=== PATIENT | male | born 1990 | race African-American/Black ===

== ENCOUNTER 2022-03-08 23:19 | Inpatient (IN) | payer MEDICAID, SELFPAY ==
--- NOTE | ~2022-03-08 | XR_ITS ---
EXAMINATION: XR CHEST CLINICAL INFORMATION: Chest pain COMPARISON: 05/30/2020 TECHNIQUE: Frontal view of the chest was obtained. FINDINGS: No significant abnormality is noted involving the heart, lungs, mediastinum, bony thorax or soft tissues. XR/XR chest 1V IMPRESSION: Unremarkable examination.
[2022-03-08 23:34] VITALS: BP 118/74; PULSE 108; RESP 20; TEMP 36.7; O2SAT 98; BMI 64.3
--- NOTE | 2022-03-09 00:05 | ECG_ITS ---
Test Reason : CHEST PAIN Blood Pressure : / mmHG Vent. Rate : 093 BPM Atrial Rate : 093 BPM P-R Int : 146 ms QRS Dur : 088 ms QT Int : 382 ms P-R-T Axes : 049 015 053 degrees QTc Int : 474 ms Normal sinus rhythm Normal ECG When compared with ECG of 30-MAY-2020 14:28, No significant change was found Referred By: Janelle Bender Electronically Signed By:GERSON GEORGE MD
--- NOTE | 2022-03-09 00:06 | ED.PSYCH ---
HPI - Psych General Chief Complaint: Psychiatric Symptoms Stated Complaint: SI Time Seen by Provider: 03/09/22 00:04 Source: patient Mode of arrival: ambulatory History of Present Illness HPI Narrative: 31-year-old male who presents with history of polysubstance use, schizophrenia (not currently on medication), cardiac stents who states that he has had increased voices which are telling him to kill himself by overdosing on drugs. Patient states he has drank alcohol today as well as taking heroin and cocaine. Patient states he is depressed and has recently lost a close friend. He otherwise denies any fevers, chills but states he is having chest pain that is squeezing in nature, nonradiating and feels short of breath. Related Data Allergies Allergy/AdvReac Type Severity Reaction Status Date / Time No Known Allergies Allergy Unknown UNKNOWN Unverified 06/25/20 19:23 [NO KNOWN ALLERGIES] Review of Systems Review of Systems: Pertinent positives and negatives as stated in HPI 10 point review of systems is otherwise negative. [facility], [facility] Past Medical History Source: nursing notes reviewed Social History Social History Advance Directives: No Physical Exam Vital Signs: Vital Signs: Last Vital Signs Temp 98.5 F 03/09/22 00:10 Pulse 99 03/09/22 00:10 Resp 18 03/09/22 01:46 BP 100/62 03/09/22 00:10 Pulse Ox 95 03/09/22 00:10 BMI result Body Mass Index 64.3 VITAL SIGNS: Reviewed. GENERAL: Well developed, well nourished, in no acute distress. HEAD: Normocephalic/atraumatic EYES: PERRLA, EOMI EARS: Ext canals without abnormality OROPHARYNX: no oral lesions noted, posterior pharynx clear LUNGS: Normal breath sounds. No adventitious sounds or accessory muscle use. SpO2<98> CARDIOVASCULAR: Regular rate and rhythm without noted murmurs, no JVD or lower extremity edema. ABDOMEN: Soft, non-tender, non-distended with bowel sounds. MUSCULOSKELETAL: No tenderness, deformities, or effusions noted on gross inspection. EXTREMITIES: No cyanosis, clubbing or edema. SKIN: Inspection of the skin reveals no rashes NEUROLOGIC: Alert and oriented x 4. Strength and sensation to light touch were grossly intact x 4. PSYCH: Depressed affect, logical thought process Course Course Course Narrative: 31-year-old male with history and clinical presentation consistent with drug related symptoms, but will proceed with workup to rule out cardiopulmonary etiologies and place him on a 1-1 for suicidal ideation and placed a crisis team consult. Review of all investigations consistent with rhabdo mild lysis as well as CAYETANO. Patient receiving 2 L of IV fluids, initial troponin was detectable without acute changes on EKG, 2nd troponin is pending. I discussed this case with inpatient hospitalist who accepts admission. MDM - Psych Lab Data Result diagrams: 03/09/22 00:35 03/09/22 00:35 Labs: Lab Results 03/09/22 03/09/22 03/09/22 Range/Units 00:35 00:35 00:35 WBC 14.3 H (4.8-10.8) X10*3/uL RBC 5.66 (4.60-5.80) X10*6/uL Hgb 15.0 (14.0-18.0) g/dl Hct 46.2 (42.0-52.0) % MCV 81.6 (80.0-98.0) fL MCH 26.5 L (27.0-33.0) pg MCHC 32.5 (31.0-36.0) g/dl RDW 14.7 (11.0-16.0) % Plt Count 245 (160-400) X10*3/uL MPV 10.0 (9.4-12.4) fL Immature Gran % (Auto) 0.4 (0.0-0.4) % Neut % (Auto) 65.8 (45-73) % Lymph % (Auto) 26.0 (20-40) % [place] % (Auto) 7.5 (2-11) % Eos % (Auto) 0.1 (0-4) % Baso % (Auto) 0.2 (0-2) % Lymph # (Auto) 3.7 (1.2-4.9) X10*3/uL [place] # (Auto) 1.1 (0.1-1.2) X10*3/uL Eos # (Auto) 0.0 (0.0-0.4) X10*3/uL Baso # (Auto) 0.0 (0.0-0.2) X10*3/uL Abs Immat Gran (auto) 0.06 H (0.00-0.03) X10*3/uL Absolute Neuts (auto) 9.4 H (2.0-8.3) x10*3/uL Absolute Nucleated RBC 0.000 (0.0-0.012) X10*3/uL Nucleated RBC % (auto) 0.0 (0.0-0.2) /100WBC Sodium 135 (135-145) mmol/L Potassium 4.5 (3.3-5.1) mmol/L Chloride 96 (96-108) mmol/L Carbon Dioxide 22 (22-29) mmol/L Anion Gap 22 H (12-20) BUN 34 H (9-16) mg/dL Creatinine 1.87 H (0.5-1.4) mg/dL Estim Creat Clear Calc 82.2 Estimated GFR 42 Random Glucose 102 (60-115) mg/dL Calcium 9.9 (8.4-10.2) mg/dL Total Bilirubin 0.7 (0.0-1.0) mg/dL AST 104 H (5-37) U/L ALT 230 H (0-40) U/L Alkaline Phosphatase 91 (39-117) U/L Total Creatine Kinase 2007 H (38-174) U/L Troponin I High Sens 18.1 (<3.5-35.0) ng/L Total Protein 9.4 H (6.5-8.0) g/dL Albumin 5.2 H (3.5-5.0) g/dL Lipase < 4 L (8-78) U/L Ethyl Alcohol mg/dL COVID-19 (NAKUL) (Negative) COVID-19 Clin Com 03/09/22 03/09/22 Range/Units 00:35 00:35 WBC (4.8-10.8) X10*3/uL RBC (4.60-5.80) X10*6/uL Hgb (14.0-18.0) g/dl Hct (42.0-52.0) % MCV (80.0-98.0) fL MCH (27.0-33.0) pg MCHC (31.0-36.0) g/dl RDW (11.0-16.0) % Plt Count (160-400) X10*3/uL MPV (9.4-12.4) fL Immature Gran % (Auto) (0.0-0.4) % Neut % (Auto) (45-73) % Lymph % (Auto) (20-40) % [place] % (Auto) (2-11) % Eos % (Auto) (0-4) % Baso % (Auto) (0-2) % Lymph # (Auto) (1.2-4.9) X10*3/uL [place] # (Auto) (0.1-1.2) X10*3/uL Eos # (Auto) (0.0-0.4) X10*3/uL Baso # (Auto) (0.0-0.2) X10*3/uL Abs Immat Gran (auto) (0.00-0.03) X10*3/uL Absolute Neuts (auto) (2.0-8.3) x10*3/uL Absolute Nucleated RBC (0.0-0.012) X10*3/uL Nucleated RBC % (auto) (0.0-0.2) /100WBC Sodium (135-145) mmol/L Potassium (3.3-5.1) mmol/L Chloride (96-108) mmol/L Carbon Dioxide (22-29) mmol/L Anion Gap (12-20) BUN (9-16) mg/dL Creatinine (0.5-1.4) mg/dL Estim Creat Clear Calc Estimated GFR Random Glucose (60-115) mg/dL Calcium (8.4-10.2) mg/dL Total Bilirubin (0.0-1.0) mg/dL AST (5-37) U/L ALT (0-40) U/L Alkaline Phosphatase (39-117) U/L Total Creatine Kinase (38-174) U/L Troponin I High Sens (<3.5-35.0) ng/L Total Protein (6.5-8.0) g/dL Albumin (3.5-5.0) g/dL Lipase (8-78) U/L Ethyl Alcohol < 10 mg/dL COVID-19 (NAKUL) Negative (Negative) COVID-19 Clin Com See Note ECG Data Attestation: I personally reviewed and interpreted this ECG as follows: Prior ECG tracings: not available for review Interpretation: NSR, HR-93, no STEMI, OH/QRS/QTC are within normal limits. Discharge Plan Discharge Clinical Impression: Suicidal ideation, Bipolar disorder, Rhabdomyolysis, CAYETANO (acute kidney injury) Patient Disposition: Admitted As Inpatient
[2022-03-09 00:10] VITALS: BP 100/62; PULSE 99; RESP 18; TEMP 36.9; O2SAT 95
[2022-03-09 00:40] LABS: MANUAL DIFF FLAG NO
[2022-03-09 00:41] LABS: Basophils Percent Auto 0.2 % (0-2); Eosinophils Percent Auto 0.1 % (0-4); Hematocrit 46.2 % (42.0-52.0); Imm Gran Abs Auto 0.06 X10*3/uL (0.00-0.03); Imm Gran Pct Auto 0.4 % (0.0-0.4); Lymphocytes Absolute Auto 3.7 X10*3/uL (1.2-4.9); Mean Corpuscular HGB Conc 32.5 g/dl (31.0-36.0); Mean Corpuscular Hemoglobin 26.5 pg (27.0-33.0); Mean Corpuscular Volume 81.6 fL (80.0-98.0); Monocytes Absolute Auto 1.1 X10*3/uL (0.1-1.2); Monocytes Percent Auto 7.5 % (2-11); Neutrophils Absolute Auto 9.4 x10*3/uL (2.0-8.3); Neutrophils Percent Auto 65.8 % (45-73); Platelet Count 245 X10*3/uL (160-400); Red Blood Count 5.66 X10*6/uL (4.60-5.80); Red Cell Distribution Width 14.7 % (11.0-16.0); White Blood Count 14.3 X10*3/uL (4.8-10.8)
[2022-03-09 00:56] LABS: Ethanol < 10 mg/dL
[2022-03-09 00:59] LABS: COVID-19 Test Negative (Negative)
[2022-03-09 01:01] LABS: Alanine Aminotransferase 230 U/L (0-40); Albumin Level 5.2 g/dL (3.5-5.0); Alkaline Phosphatase 91 U/L (39-117); Anion Gap 22 (12-20); Aspartate Amino Transferase 104 U/L (5-37); Bilirubin Total 0.7 mg/dL (0.0-1.0); Blood Urea Nitrogen 34 mg/dL (9-16); Calcium 9.9 mg/dL (8.4-10.2); Carbon Dioxide 22 mmol/L (22-29); Chloride 96 mmol/L (96-108); Creatinine Clr Calc Pharmacy 82.2; Estimated Glomerular Filt Rate 42; Glucose Random 102 mg/dL (60-115); Lipase < 4 U/L (8-78); Potassium 4.5 mmol/L (3.3-5.1); Sodium 135 mmol/L (135-145); Total Protein 9.4 g/dL (6.5-8.0)
[2022-03-09 01:06] LABS: Troponin-I High Sensitivity 18.1 ng/L (<3.5-35.0)
[2022-03-09 01:46] VITALS: RESP 18
[2022-03-09] MEDS: 0.9 % Sodium Chloride 2,000 ML 999 ML IV (01:47)
[2022-03-09 03:20] VITALS: BP 111/68; PULSE 86; RESP 18; O2SAT 96
[2022-03-09 03:29] LABS: Troponin-I High Sensitivity 13.1 ng/L (<3.5-35.0)
--- NOTE | 2022-03-09 03:51 | P.HPHOSP_ITS ---
History of Present Illness Date of Service: 03/09/22 Chief Complaint: Suicidal ideation 31-year-old male with past medical history of polysubstance abuse, schizophrenia, Bipolar disorder history of cardiac stents? Who presents to the hospital with complaints of suicidal ideation. Patient reported increased emiliana tory hallucinations were telling him to kill himself by overdosing on drugs. He tried to harm himself by taking increased doses of heroin, cocaine, as well as alcohol. He is depressed and has recently lost a close friend. Patient reports abdominal discomfort which is generalized, he denies any chest pain, no shortness of breath, no diarrhea constipation, no nausea or vomiting, no urinary symptoms and no lower extremity edema. Patient reports no recent injury, no increased lethargy. Reports that he has not had any falls and but has not been eating or drinking well. On arrival to the ED patient hemodynamically stable with no significant abnormal vitals Labs are significant for WBC count of 13.7, hemoglobin of 13.8, AST of 104, ALT of 230, BUN of 34, creatinine of 1.37, CPK of 2007 Chest x-ray shows unremarkable except Patient will be admitted for IV hydration in setting of rhabdomyolysis and CAYETANO and with consult to Psychiatry for his suicidal ideation Review of Systems Review of Systems: Yes all other systems are reviewed and are negative [facility] Medical History (Updated 03/09/22 @ 06:59 by Nick Franklin MD) Bipolar disorder Schizophrenia Family History (Updated 03/09/22 @ 06:59 by Nick Franklin MD) Other No family history of coronary artery disease Surgical History (Updated 03/09/22 @ 06:59 by Nick Franklin MD) No pertinent past surgical history Social History (Updated 03/09/22 @ 07:00 by Nick Franklin MD) Alcohol intake: current Patient Tobacco Use Status: Never used Tobacco Use of substances other than those prescribed or required for medical reasons: Yes Substance Use Type: Crack/Cocaine and Heroin Advance Directives: No Meds Allergies Allergy/AdvReac Type Severity Reaction Status Date / Time No Known Allergies Allergy Unknown UNKNOWN Unverified 06/25/20 19:23 [NO KNOWN ALLERGIES] Physical Exam Vital Signs and Narrative: Vital Signs: Last Vital Signs Temp 98.5 F 03/09/22 00:10 Pulse 86 03/09/22 03:20 Resp 18 03/09/22 03:20 BP 111/68 03/09/22 03:20 Pulse Ox 96 03/09/22 03:20 BMI result Body Mass Index 64.3 Const: Other: Flat affect General: cooperative and no acute distress Orientation/consciousness: patient oriented x3 Eyes: General: appearance normal, both eyes and all related structures Pupils: Equal, round and reactive pupils present Resp: Effort & Inspection: normal respiratory effort Auscultation: clear to auscultation bilaterally Cardio: Rate: regular rate Rhythm: regular rhythm GI: Palpation (GI): Soft to palpation Auscultation: normal bowel sounds Skin: General skin exam: no rashes or lesions noted Neuro: General: patient oriented x3 Cranial nerves: Yes Equal, round and re active pupils present Cognition (Neuro): normal cognition Extrem: General: Yes normal to inspection and Yes no pedal edema Psych: Other: Flat affect Results Labs CBC and Chem 7: 03/09/22 04:09 03/09/22 04:09 Labs: Laboratory Results - last 24 hr 03/09/22 03/09/22 03/09/22 00:35 00:35 00:35 MCV 81.6 MCH 26.5 L MCHC 32.5 RDW 14.7 Plt Count 245 MPV 10.0 Immature Gran % (Auto) 0.4 Neut % (Auto) 65.8 Lymph % (Auto) 26.0 [place] % (Auto) 7.5 Eos % (Auto) 0.1 Baso % (Auto) 0.2 Lymph # (Auto) 3.7 [place] # (Auto) 1.1 Eos # (Auto) 0.0 Baso # (Auto) 0.0 Abs Immat Gran (auto) 0.06 H Absolute Neuts (auto) 9.4 H Absolute Nucleated RBC 0.000 Nucleated RBC % (auto) 0.0 Anion Gap 22 H Estim Creat Clear Calc 82.2 Estimated GFR 42 Random Glucose 102 Calcium 9.9 Total Bilirubin 0.7 AST 104 H ALT 230 H Alkaline Phosphatase 91 Total Creatine Kinase 2007 H Troponin I High Sens 18.1 Total Protein 9.4 H Albumin 5.2 H Lipase < 4 L Ethyl Alcohol COVID-19 ([facility]) COVID-19 Clin Com 03/09/22 03/09/22 03/09/22 00:35 00:35 03:01 MCV MCH MCHC RDW Plt Count MPV Immature Gran % (Auto) Neut % (Auto) Lymph % (Auto) [place] % (Auto) Eos % (Auto) Baso % (Auto) Lymph # (Auto) [place] # (Auto) Eos # (Auto) Baso # (Auto) Abs Immat Gran (auto) Absolute Neuts (auto) Absolute Nucleated RBC Nucleated RBC % (auto) Anion Gap Estim Creat Clear Calc Estimated GFR Random Glucose Calcium Total Bilirubin AST ALT Alkaline Phosphatase Total Creatine Kinase Troponin I High Sens 13.1 Total Protein Albumin Lipase Ethyl Alcohol < 10 COVID-19 ([facility]) Negative COVID-19 Clin Com See Note Imaging Radiologist's Impressions: Impressions Chest X-Ray 03/09/22 00:24 IMPRESSION: Unremarkable examination. Assessment and Plan (1) Suicidal ideation: Status: Acute (2) Rhabdomyolysis: Status: Acute (3) CAYETANO (acute kidney injury): Status: Acute Plan 31-year-old male with past medical history is of schizophrenia as well as bipolar disorder presents to the hospital with complaints of suicidal ideation found to have Cayetano and rhabdomyolysis # suicidal ideation - tried to overdose on heroin, cocaine, alcohol - will consult psychiatry - sitter at bedside # rhabdomyolysis - denies any recent trauma, no prolonged inactivity - will treat with IV fluid - follow CPK # CAYETANO - likely secondary to dehydration as well as above - will treat with IV fluid - follow BMP DVT prophylaxis: Lovenox Quality Stroke Does the patient have a stroke diagnosis?: No VTE Prior VTE?: No VTE Risk Level:: Medical - moderate - high VTE Device Contraindication: Treatment Not Indicated VTE Drug Contraindication: N/A - Med Ordered
[2022-03-09 04:55] LABS: MANUAL DIFF FLAG NO
[2022-03-09 04:59] LABS: Basophils Percent Auto 0.2 % (0-2); Eosinophils Percent Auto 0.2 % (0-4); Hematocrit 42.6 % (42.0-52.0); Hemoglobin 13.8 g/dl (14.0-18.0); Imm Gran Abs Auto 0.07 X10*3/uL (0.00-0.03); Imm Gran Pct Auto 0.5 % (0.0-0.4); Lymphocytes Absolute Auto 4.5 X10*3/uL (1.2-4.9); Lymphocytes Percent Auto 32.7 % (20-40); Mean Corpuscular HGB Conc 32.4 g/dl (31.0-36.0); Mean Corpuscular Hemoglobin 26.3 pg (27.0-33.0); Mean Corpuscular Volume 81.1 fL (80.0-98.0); Mean Platelet Volume 10.1 fL (9.4-12.4); Monocytes Absolute Auto 1.2 X10*3/uL (0.1-1.2); Monocytes Percent Auto 8.8 % (2-11); Neutrophils Absolute Auto 7.9 x10*3/uL (2.0-8.3); Neutrophils Percent Auto 57.6 % (45-73); Platelet Count 231 X10*3/uL (160-400); Red Blood Count 5.25 X10*6/uL (4.60-5.80); Red Cell Distribution Width 14.6 % (11.0-16.0); White Blood Count 13.7 X10*3/uL (4.8-10.8)
[2022-03-09 05:24] LABS: Anion Gap 17 (12-20); Blood Urea Nitrogen 34 mg/dL (9-16); Calcium 9.3 mg/dL (8.4-10.2); Carbon Dioxide 25 mmol/L (22-29); Chloride 97 mmol/L (96-108); Creatinine Clr Calc Pharmacy 112.2; Estimated Glomerular Filt Rate 60; Glucose Random 92 mg/dL (60-115); Sodium 135 mmol/L (135-145)
[2022-03-09 05:50] VITALS: BP 115/63; PULSE 83; RESP 16; TEMP 36.4; O2SAT 98
[2022-03-09] MEDS: 0.9 % Sodium Chloride 1,000 ML 100 ML IVCONT ×2 (05:53→17:45)
--- NOTE | 2022-03-09 06:57 | PC.NURSE ---
Report given to ROBERTO Adkins
--- NOTE | 2022-03-09 10:42 | PHA.MEDREC ---
Addendum entered by Rufina Toribio RPh 03/09/22 14:05: Patient question nurse why he did not want get bupropion. Reported taking bupropion 150 mg BID, which is not on medicaiton list from [facility] in [place] but was a previous prescripition filled in Sep 2021. Original Note: Pharmacy Consult ? Medication Reconciliation Pharmacy has completed the medication reconciliation. Patient reports he get all his medications from [facility]. Called [facility] on [facility] in [place] where the medications from claim history are from. They state he get medications from [facility] in [place]. Was able to get medication list from them. Rufina Toribio, PharmD
--- NOTE | 2022-03-09 10:56 | MHC.RECOVRN ---
Met with pt in 6H to discuss methadone dose. Pt reports being at [facility] in [place] and guest dosing at their [facility]. T/w spoke with nursing at [facility], pt last received 90 mg on 03/07. Maru Green APRN, and pharmacy aware.
[2022-03-09] MEDS: methADONE HCl 20 MG/2 ML ORAL.CONC 90 MG PO (11:26)
[2022-03-09 13:15] VITALS: BP 113/56; PULSE 76; RESP 14; TEMP 36.7; O2SAT 96
[2022-03-09] MEDS: Gabapentin 400 MG CAPSULE 800 MG PO ×2 (13:58→21:27)
[2022-03-09] MEDS: Baclofen 10 MG TABLET PO ×2 (13:59→21:26)
[2022-03-09] MEDS: cloNIDine HCL 0.1 MG TABLET PO ×2 (14:00→21:26)
--- NOTE | 2022-03-09 14:40 | PM.EVENT ---
Event Note Date of Service: 03/09/22 Event Note: Patient seen and evaluated Started on his methadone home dose Have a sitter for suicidal ideation Kidney injury seems to be improving Will continue to monitor kidney function by the morning.
--- NOTE | 2022-03-09 14:51 | HO.ADDICT_ITS ---
History of Present Illness Date of Service: 03/09/2022 Chief Complaint: Rhabdo, SI, CAYETANO Reason for Consult: OUD, methadone treatment Requesting physician: Jovan Platt Discussed with referring provider: No Sources of Information: patient interviewed and chart reviewed HPI Narrative: Patient is a 31 year old male currently medically admitted with rhabdo and CAYETANO. Methadone dose verified by RSRN to be 90mg daily with last dose being 03/07/22. Patient seen by this mortgage or loan underwriter in ED while awaiting room assignment. Laying on stretcher, eyes closed, but easily awakened. Reports that withdrawal sx have improved since receiving dose of methadone. Requesting to be allowed to sleep as he is not feeling well. RSRN note reviewed---patient had recently been in [facility] treatment facility and left prior to planned discharge. Full substance use and treatment history unable to be obtained as patient declined to continue interview at this time. Review of Systems Constitutional: Reports as per HPI Diagnostics Vital Signs (24Hr): Vital Signs - 24 hr 03/08/22 23:34 03/09/22 00:10 03/09/22 01:46 Temperature 98.0 F 98.5 F Pulse Rate 108 H 99 Respiratory Rate 20 18 18 Blood Pressure 118/74 100/62 Pulse Oximetry 98 95 03/09/22 03:20 03/09/22 05:50 03/09/22 13:15 Temperature 97.6 F 98.1 F Pulse Rate 86 83 76 Respiratory Rate 18 16 14 Blood Pressure 111/68 115/63 113/56 L Pulse Oximetry 96 98 96 BMI result Body Mass Index 64.3 Labs Results: 03/09/22 04:09 03/09/22 04:09 Labs: Laboratory Results - last 48 hr 03/09/22 03/09/22 03/09/22 00:35 00:35 00:35 WBC 14.3 H RBC 5.66 Hgb 15.0 Hct 46.2 MCV 81.6 MCH 26.5 L MCHC 32.5 RDW 14.7 Plt Count 245 MPV 10.0 Immature Gran % (Auto) 0.4 Neut % (Auto) 65.8 Lymph % (Auto) 26.0 [place] % (Auto) 7.5 Eos % (Auto) 0.1 Baso % (Auto) 0.2 Lymph # (Auto) 3.7 [place] # (Auto) 1.1 Eos # (Auto) 0.0 Baso # (Auto) 0.0 Abs Immat Gran (auto) 0.06 H Absolute Neuts (auto) 9.4 H Absolute Nucleated RBC 0.000 Nucleated RBC % (auto) 0.0 Sodium 135 Potassium 4.5 Chloride 96 Carbon Dioxide 22 Anion Gap 22 H BUN 34 H Creatinine 1.87 H Estim Creat Clear Calc 82.2 Estimated GFR 42 Random Glucose 102 Calcium 9.9 Total Bilirubin 0.7 AST 104 H ALT 230 H Alkaline Phosphatase 91 Total Creatine Kinase 2007 H Troponin I High Sens 18.1 Total Protein 9.4 H Albumin 5.2 H Lipase < 4 L Ethyl Alcohol COVID-19 ([facility]) COVID-19 Clin Com 03/09/22 03/09/22 03/09/22 00:35 00:35 03:01 WBC RBC Hgb Hct MCV MCH MCHC RDW Plt Count MPV Immature Gran % (Auto) Neut % (Auto) Lymph % (Auto) [place] % (Auto) Eos % (Auto) Baso % (Auto) Lymph # (Auto) [place] # (Auto) Eos # (Auto) Baso # (Auto) Abs Immat Gran (auto) Absolute Neuts (auto) Absolute Nucleated RBC Nucleated RBC % (auto) Sodium Potassium Chloride Carbon Dioxide Anion Gap BUN Creatinine Estim Creat Clear Calc Estimated GFR Random Glucose Calcium Total Bilirubin AST ALT Alkaline Phosphatase Total Creatine Kinase Troponin I High Sens 13.1 Total Protein Albumin Lipase Ethyl Alcohol < 10 COVID-19 (NAKUL) Negative COVID-19 Clin Com See Note 03/09/22 03/09/22 04:09 04:09 WBC 13.7 H RBC 5.25 Hgb 13.8 L Hct 42.6 MCV 81.1 MCH 26.3 L MCHC 32.4 RDW 14.6 Plt Count 231 MPV 10.1 Immature Gran % (Auto) 0.5 H Neut % (Auto) 57.6 Lymph % (Auto) 32.7 [place] % (Auto) 8.8 Eos % (Auto) 0.2 Baso % (Auto) 0.2 Lymph # (Auto) 4.5 [place] # (Auto) 1.2 Eos # (Auto) 0.0 Baso # (Auto) 0.0 Abs Immat Gran (auto) 0.07 H Absolute Neuts (auto) 7.9 Absolute Nucleated RBC 0.000 Nucleated RBC % (auto) 0.0 Sodium 135 Potassium 4.0 Chloride 97 Carbon Dioxide 25 Anion Gap 17 BUN 34 H Creatinine 1.37 Estim Creat Clear Calc 112.2 Estimated GFR 60 Random Glucose 92 Calcium 9.3 D Total Bilirubin AST ALT Alkaline Phosphatase Total Creatine Kinase Troponin I High Sens Total Protein Albumin Lipase Ethyl Alcohol COVID-19 (NAKUL) COVID-19 Clin Com Imaging Radiology Impressions: ITS Impressions Chest X-Ray 03/09/22 00:24 IMPRESSION: Unremarkable examination. Mental Status Exam Mental Status Exam Patient Appearance: Appropriate (tired ) Patient Behavior: Appropriate Medications Medications Current Medications Acetaminophen (Acetaminophen 325 Mg Tablet) 650 mg PO Q6H PRN PRN Reason: Pain, Mild (Pain Scale 1-3) Baclofen (Baclofen 10 Mg Tablet) 10 mg PO BID [facility] Last Admin: 03/09/22 13:59 Dose: 10 mg Documented by: Clonidine HCl (Clonidine Hcl 0.1 Mg Tablet) 0.1 mg PO TID [facility]; Protocol Last Admin: 03/09/22 14:00 Dose: 0.1 mg Documented by: Docusate Sodium (Docusate Sodium 100 Mg Capsule) 100 mg PO DAILY PRN PRN Reason: Constipation Enoxaparin Sodium (Enoxaparin Sodium 40 Mg/0.4 Ml Syringe) 40 mg SUBCUT Q24H [facility] Last Admin: 03/09/22 05:53 Dose: Not Given Documented by: Gabapentin (Gabapentin 400 Mg Capsule) 800 mg PO BID [facility] Last Admin: 03/09/22 13:58 Dose: 800 mg Documented by: Sodium Chloride (Ns) 1,000 mls @ 100 mls/hr IVCONT .Q10H [facility] Last Admin: 03/09/22 05:53 Dose: 100 mls/hr Documented by: Methadone HCl (Methadone Hcl 20 Mg/2 Ml Oral.Conc) 90 mg PO DAILY [facility] Last Admin: 03/09/22 11:26 Dose: 90 mg Documented by: Nicotine (Nicotine 14 Mg Patch.Td24) 14 mg TRANSDERMA DAILY [facility] Last Admin: 03/09/22 13:59 Dose: Not Given Documented by: Nicotine Polacrilex (Nicotine Polacrilex 2 Mg Gum) 4 mg BUCCAL Q1H PRN PRN Reason: Nicotine Cravings Ondansetron HCl (Ondansetron Hcl 4 Mg/2 Ml Vial) 4 mg IVPUSH Q8H PRN PRN Reason: Nausea and Vomiting Quetiapine Fumarate (Quetiapine Fumarate 50 Mg Tablet) 50 mg PO DAILY PRN PRN Reason: Anxiety Quetiapine Fumarate (Quetiapine Fumarate 100 Mg Tablet) 100 mg PO BEDTIME MICKI Sodium Chloride (0.9 % Sodium Chloride Flush 3 Ml Syringe) 3 ml IVFLUSH QSHIFT MICKI Last Admin: 03/09/22 08:38 Dose: Not Given Documented by: Allergies Allergies Allergy/AdvReac Type Severity Reaction Status Date / Time No Known Allergies Allergy Unknown UNKNOWN Unverified 06/25/20 19:23 [NO KNOWN ALLERGIES] Assessment & Plan Assessment & Plan (1) Opioid use disorder: Status: Acute Code(s): F11.90 - Opioid use, unspecified, uncomplicated Assessment and Plan: * continue methadone at current dose * will follow up as needed I spent __15____ minutes with the patient and/or on the patient floor today, greater than?50% of which was spent counseling/coordinating care. PMFSH Past Medical History Medical History (Updated 03/09/22 @ 15:30 by Maru Green CNP) Bipolar disorder Schizophrenia Family History Family History (Updated 03/09/22 @ 06:59 by Nick Franklin MD) Other No family history of coronary artery disease Surgical History Surgical History (Updated 03/09/22 @ 06:59 by Nick Franklin MD) No pertinent past surgical history Social History Social History (Updated 03/09/22 @ 07:00 by Nick Franklin MD) Alcohol intake: current Patient Tobacco Use Status: Never used Tobacco Use of substances other than those prescribed or required for medical reasons: Yes Substance Use Type: Crack/Cocaine and Heroin Advance Directives: No
[2022-03-09] MEDS: Acetaminophen 325 MG TABLET 650 MG PO (17:54)
[2022-03-09] MEDS: Docusate Sodium 100 MG CAPSULE PO (17:54)
--- NOTE | 2022-03-09 17:55 | PC.NURSE ---
20G IV placed right AC, pt c/o discomfort w IV in left hand - discontinued. urine sample obtained, pt reports some constipation and generalized/lower back/kidney pain. medicated w PRNs, flds running. pt continues to endorse SI thoughts with a plan. pt on 1:1 observation. pt requesting wellbutrin. provider notified. no new orders at this time.
[2022-03-09 18:24] LABS: Amphetamine Screen Urine Not Detected (Not Detect); Barbiturates, Urine Not Detected (Not Detect); Benzodiazepines Screen Urine Not Detected (Not Detect); Cannabinoid Screen Urine POSITIVE (Not Detect); Cocaine Screen Urine POSITIVE (Not Detect); Fentanyl, urine POSITIVE (Not Detect); Opiate Screen Urine POSITIVE (Not Detect); Phencyclidine Screen Urine Not Detected (Not Detect)
--- NOTE | 2022-03-09 20:32 | MHC.CM.PN ---
CM attempted to meet with admitted patient with bed assignment pending. Pt was sleeping soundly and did not wake to repeated voice attempts. Will attempt when pt awake. CM to follow for d/c needs.
[2022-03-09] MEDS: QUEtiapine Fumarate 100 MG TABLET PO (21:25)
--- NOTE | 2022-03-09 21:29 | PC.NURSE ---
medicated per provider order.
--- NOTE | 2022-03-09 21:44 | PC.NURSE ---
RN-RN report given.
[2022-03-09 22:19] VITALS: BMI 27.6
[2022-03-09 23:55] VITALS: BP 103/53; PULSE 67; RESP 18; TEMP 36.7; O2SAT 97
[2022-03-10] MEDS: 0.9 % Sodium Chloride 1,000 ML 100 ML IVCONT (03:54)
[2022-03-10 04:00] VITALS: BP 92/53; PULSE 78; RESP 18; TEMP 37.2; O2SAT 97
[2022-03-10] MEDS: Enoxaparin Sodium 40 MG/0.4 ML SYRINGE SUBCUT (05:38)
[2022-03-10 06:03] LABS: Hematocrit 35.3 % (42.0-52.0); Hemoglobin 11.2 g/dl (14.0-18.0); Mean Corpuscular HGB Conc 31.7 g/dl (31.0-36.0); Mean Corpuscular Hemoglobin 26.5 pg (27.0-33.0); Mean Corpuscular Volume 83.6 fL (80.0-98.0); Mean Platelet Volume 10.3 fL (9.4-12.4); Platelet Count 196 X10*3/uL (160-400); Red Blood Count 4.22 X10*6/uL (4.60-5.80); White Blood Count 5.8 X10*3/uL (4.8-10.8)
[2022-03-10 07:07] LABS: Anion Gap 9 (12-20); Blood Urea Nitrogen 15 mg/dL (9-16); Calcium 8.6 mg/dL (8.4-10.2); Carbon Dioxide 26 mmol/L (22-29); Chloride 106 mmol/L (96-108); Creatinine Clr Calc Pharmacy 137.4; Estimated Glomerular Filt Rate > 60; Glucose Random 110 mg/dL (60-115); Potassium 4.2 mmol/L (3.3-5.1); Sodium 137 mmol/L (135-145)
[2022-03-10 07:28] VITALS: BP 109/59; PULSE 60; RESP 18; TEMP 37; O2SAT 98
[2022-03-10] MEDS: buPROPion HCl XL 300 MG TAB.ER.24H PO (07:54)
[2022-03-10] MEDS: Gabapentin 400 MG CAPSULE 800 MG PO ×2 (07:54→20:04)
[2022-03-10] MEDS: Baclofen 10 MG TABLET PO ×2 (07:54→20:04)
[2022-03-10] MEDS: cloNIDine HCL 0.1 MG TABLET PO ×3 (07:55→20:04)
[2022-03-10] MEDS: methADONE HCl 20 MG/2 ML ORAL.CONC 90 MG PO (07:55)
--- NOTE | 2022-03-10 08:15 | MHC.CARE ---
VERONICA davis completed. pending eta
--- NOTE | 2022-03-10 09:00 | PM.EVENT ---
Event Note Date of Service: 03/10/22 Event Note: At this time psychiatry will defer to care team. They will notify Psychiatry regarding disposition once [facility] crisis has evaluated him.
[2022-03-10 11:29] VITALS: BP 98/52; PULSE 76; RESP 18; TEMP 37.2; O2SAT 98
--- NOTE | 2022-03-10 12:04 | P.PNIM_ITS ---
Subjective Subjective Date of Service: 03/10/22 Interval History: the patient was seen and evaluated this morning Laying in bed, feels tired overall kidney function improved back to normal baseline Denies any fever, chills or shortness of breath No reported other overnight events. Systemic review: No fever, chills but feels generalized weakness No chest pain, palpitation No shortness of breath or coughing No abdominal pain, nausea or vomiting No urinary symptoms No any rash or wounds Physical Exam Vital Signs: Vital Signs: Last Vital Signs Temp 98.9 F 03/10/22 11:29 Pulse 76 03/10/22 11:29 Resp 18 03/10/22 11:29 BP 98/52 L 03/10/22 11:29 Pulse Ox 98 03/10/22 11:29 BMI result Body Mass Index 27.6 Const: Other: Constitutional : Alert, oriented, not in distress Neck : Normal inspection, Supple Cardiovascular : RRR, no JVP, no lower extremity edema Respiratory : fair bilateral air entry, no crackles, wheezes or rhonchi Gastrointestinal: soft, lax, Normal bowel sounds, Non tender Skin : Warm, Dry Neurological : Alert & oriented x3, No focal deficit , CN 2-12 within normal Objective Data Active Medications Acetaminophen (Acetaminophen 325 Mg Tablet) 650 mg PO Q6H PRN PRN Reason: Pain, Mild (Pain Scale 1-3) Last Admin: 03/09/22 17:54 Dose: 650 mg Documented by: TERESA Baclofen (Baclofen 10 Mg Tablet) 10 mg PO BID [facility] Last Admin: 03/10/22 07:54 Dose: 10 mg Documented by: LUCINA Bupropion HCl (Bupropion Hcl Xl 300 Mg Tab.Er.24h) 300 mg PO DAILY [facility] Last Admin: 03/10/22 07:54 Dose: 300 mg Documented by: LUCINA Clonidine HCl (Clonidine Hcl 0.1 Mg Tablet) 0.1 mg PO TID [facility]; Protocol Last Admin: 03/10/22 07:55 Dose: 0.1 mg Documented by: LUCINA Docusate Sodium (Docusate Sodium 100 Mg Capsule) 100 mg PO DAILY PRN PRN Reason: Constipation Last Admin: 03/09/22 17:54 Dose: 100 mg Documented by: TERESA Enoxaparin Sodium (Enoxaparin Sodium 40 Mg/0.4 Ml Syringe) 40 mg SUBCUT Q24H [facility] Last Admin: 03/10/22 05:38 Dose: 40 mg Documented by: PARESH Gabapentin (Gabapentin 400 Mg Capsule) 800 mg PO BID [facility] Last Admin: 03/10/22 07:54 Dose: 800 mg Documented by: LUCINA Sodium Chloride (Ns) 1,000 mls @ 100 mls/hr IVCONT .Q10H [facility] Last Admin: 03/10/22 03:54 Dose: 100 mls/hr Documented by: PARESH Methadone HCl (Methadone Hcl 20 Mg/2 Ml Oral.Conc) 90 mg PO DAILY [facility] Last Admin: 03/10/22 07:55 Dose: 90 mg Documented by: LUCINA Nicotine (Nicotine 14 Mg Patch.Td24) 14 mg TRANSDERMA DAILY [facility] Last Admin: 03/10/22 08:10 Dose: Not Given Documented by: LUCINA Non-Admin Reason: Patient Refused Nicotine Polacrilex (Nicotine Polacrilex 2 Mg Gum) 4 mg BUCCAL Q1H PRN PRN Reason: Nicotine Cravings Ondansetron HCl (Ondansetron Hcl 4 Mg/2 Ml Vial) 4 mg IVPUSH Q8H PRN PRN Reason: Nausea and Vomiting Quetiapine Fumarate (Quetiapine Fumarate 50 Mg Tablet) 50 mg PO DAILY PRN PRN Reason: Anxiety Quetiapine Fumarate (Quetiapine Fumarate 100 Mg Tablet) 100 mg PO BEDTIME [facility] Last Admin: 03/09/22 21:25 Dose: 100 mg Documented by: TERESA Sodium Chloride (0.9 % Sodium Chloride Flush 3 Ml Syringe) 3 ml IVFLUSH QSHIFT [facility] Last Admin: 03/10/22 07:57 Dose: Not Given Documented by: LUCINA Non-Admin Reason: IV Running Labs CBC & Chem 7: 03/10/22 05:35 03/10/22 05:35 Labs: Laboratory Results - last 24 hr 03/09/22 03/10/22 03/10/22 17:59 05:35 05:35 MCV 83.6 MCH 26.5 L MCHC 31.7 RDW 15.0 Plt Count 196 MPV 10.3 Absolute Nucleated RBC 0.000 Nucleated RBC % (auto) 0.0 Anion Gap 9 L Estim Creat Clear Calc 137.4 Estimated GFR > 60 Random Glucose 110 Calcium 8.6 D Total Creatine Kinase Urine Opiates Screen POSITIVE H Urine Fentanyl Screen POSITIVE H Ur Barbiturates Screen Not Detected Ur Phencyclidine Scrn Not Detected Ur Amphetamines Screen Not Detected U Benzodiazepines Scrn Not Detected Urine Cocaine Screen POSITIVE H U Marijuana (THC) Screen POSITIVE H 03/10/22 05:35 MCV MCH MCHC RDW Plt Count MPV Absolute Nucleated RBC Nucleated RBC % (auto) Anion Gap Estim Creat Clear Calc Estimated GFR Random Glucose Calcium Total Creatine Kinase 947 H D Urine Opiates Screen Urine Fentanyl Screen Ur Barbiturates Screen Ur Phencyclidine Scrn Ur Amphetamines Screen U Benzodiazepines Scrn Urine Cocaine Screen U Marijuana (THC) Screen Assessment and Plan (1) Suicidal ideation: Status: Acute (2) Rhabdomyolysis: Status: Acute (3) CAYETANO (acute kidney injury): Status: Acute Plan 31-year-old male with past medical history is of schizophrenia as well as bipolar disorder presents to the hospital with complaints of suicidal ideation found to have Cayetano and rhabdomyolysis # suicidal ideation tried to overdose on heroin, cocaine, alcohol care team input appreciated, will need admission to inpatient psych unit # rhabdomyolysis CPK trended down Gentle hydration # CAYETANO secondary to dehydration and rhabdomyolysis improved back to baseline follow BMP DVT prophylaxis: Lovenox the patient will need to stay overnight pending safe discharge plan Quality Stroke Does the patient have a stroke diagnosis?: No VTE Prior VTE?: No VTE Risk Level:: Medical - moderate - high VTE Device Contraindication: Treatment Not Indicated VTE Drug Contraindication: N/A - Med Ordered
--- NOTE | 2022-03-10 13:37 | PC.NURSE ---
Patient 89 is an SI patient, he said he has a plan to end his life. At 1:00 pm, he became resistant and said he wants to leave, he is hearing voices calling him to leave the hospital and do something. He got up and wanted to leave despite peresuation to stay. Security was called. Nurse animal humane agent supervisor and MD aware. Patient refused anxiety medications.
[2022-03-10] MEDS: LORazepam 2 MG/ML VIAL 1 MG IVPUSH (13:54)
--- NOTE | 2022-03-10 13:59 | PC.NURSE ---
Patient was given Ativan 1mg at 2:00pm.
--- NOTE | 2022-03-10 14:26 | MHC.CM.PN ---
PATIENT STATES THAT HE IS FROM THE [facility] BUT HAS BEEN STAYING IN [place]. WHEN ASKED WHERE HE STAYS, HE DOES NOT ANSWER HE TELLS THIS DIRECTOR OF MANUFACTURING OPERATIONS THAT HE IS TIRED OF LIVING THIS WAY AND WANTS TO GO OUT EASILY HE EXPRESSES FRUSTRATION OVER BEING ALIVE. HE DOES AGREE TO ALLOWING STAFF TO FIND HIM AN INPATIENT PSYCHIATRIC STAY AND SEE IF THIS HELPS. HE WOULD LIKE TO REBUILD HIS RELATIONSHIPS WITH OTHERS IF TREATMENT IS SUCCESSFUL.
[2022-03-10 15:09] LABS: Appearance Urine CLEAR; Color Urine YELLOW; Glucose Urine UA NEG (NEG); Leukocyte Esterase Urine NEG (NEG); Nitrite Urine NEG (NEG); PH 5.5 (5.0-8.0); Specific Gravity - Urine >= 1.030 (1.005-1.025); UACC Culture Trigger NO; Urine Blood TRACE (NEG); Urine Ketones NEG (NEG); Urine Protein NEG (NEG-TRACE)
[2022-03-10 15:20] LABS: Bacteria Urine TRACE /LPF; RBC Urine 0-2 /HPF (0); WBC Urine 0 /HPF (0-4)
[2022-03-10] MEDS: 0.9 % Sodium Chloride Flush 3 ML SYRINGE IVFLUSH ×2 (15:50→20:05)
[2022-03-10 16:00] VITALS: BP 117/67; PULSE 71; RESP 18; TEMP 36.6; O2SAT 98
[2022-03-10 19:36] VITALS: BP 108/51; PULSE 68; RESP 17; TEMP 36.6; O2SAT 99
[2022-03-10] MEDS: QUEtiapine Fumarate 100 MG TABLET PO (20:04)
[2022-03-10] MEDS: Docusate Sodium 100 MG CAPSULE PO (20:04)
[2022-03-10] MEDS: polyethylene glycoL 3350 17 GM POWD.PACK PO (20:04)
[2022-03-10] MEDS: Nicotine Polacrilex 2 MG GUM 4 MG BUCCAL ×2 (20:04→22:07)
[2022-03-10 23:41] VITALS: BP 109/64; PULSE 61; RESP 18; TEMP 36.6; O2SAT 98
[2022-03-11 04:00] VITALS: BP 96/53; PULSE 55; RESP 18; TEMP 36.8; O2SAT 97
[2022-03-11] MEDS: Enoxaparin Sodium 40 MG/0.4 ML SYRINGE SUBCUT (06:27)
[2022-03-11 07:46] VITALS: BP 113/68; PULSE 55; RESP 16; TEMP 37.1; O2SAT 100
[2022-03-11] MEDS: methADONE HCl 20 MG/2 ML ORAL.CONC 90 MG PO (10:44)
[2022-03-11] MEDS: Baclofen 10 MG TABLET PO (10:45)
[2022-03-11] MEDS: Gabapentin 400 MG CAPSULE 800 MG PO (10:45)
[2022-03-11] MEDS: Nicotine Polacrilex 2 MG GUM 4 MG BUCCAL ×2 (10:45→13:34)
[2022-03-11] MEDS: cloNIDine HCL 0.1 MG TABLET PO (10:45)
[2022-03-11] MEDS: buPROPion HCl XL 300 MG TAB.ER.24H PO (10:45)
[2022-03-11] MEDS: polyethylene glycoL 3350 17 GM POWD.PACK PO (10:46)
[2022-03-11] MEDS: 0.9 % Sodium Chloride Flush 3 ML SYRINGE IVFLUSH (10:53)
--- NOTE | 2022-03-11 10:53 | PM.DS ---
DS: Providers Provider Date of Service: 03/11/22 Date of admission: 03/09/22 03:48 Primary care physician: Unknown Physician Consults: 03/09/22 00:16 Consult to Crisis Stat Reason for consultation: Suicidal ideation, history bipolar 1 not on med 03/09/22 10:39 Addiction Medicine Routine Consulting Provider: Maru Green Reason for consultation: substance abuse, on methadone for eval and rec. 03/10/22 07:53 Consult to Care Team Routine Comment: Reason for consultation: Suicidal attempt, medically clear DS: Diagnosis Discharge Diagnosis (1) CAYETANO (acute kidney injury): Status: Acute (2) Rhabdomyolysis: Status: Acute (3) Suicidal ideation: Status: Acute (4) Opioid use disorder: Status: Acute (5) Bipolar disorder: Status: Acute DS: Summary Hospital Course Hospital Course: From admission H&P: '31-year-old male with past medical history of polysubstance abuse, schizophrenia,? Bipolar disorder history of cardiac stents?? Who presents to the hospital with complaints of suicidal ideation.? Patient reported increased auditory hallucinations were telling him to kill himself by overdosing on drugs.? He tried to harm himself by taking increased doses of heroin, cocaine, as well as alcohol.? He is depressed and has recently lost a close friend.? Patient reports abdominal discomfort which is generalized, he denies any chest pain, no shortness of breath, no diarrhea constipation, no nausea or vomiting, no urinary symptoms and no lower extremity edema.? Patient reports no recent injury, no increased lethargy.? Reports that he has not had any falls and but has not been eating or drinking well. On arrival to the ED patient hemodynamically stable with no significant abnormal vitals Labs are significant for WBC count of 13.7, hemoglobin of 13.8, AST of 104, ALT of 230, BUN of 34, creatinine of 1.37,? CPK of 2006 Chest x-ray shows unremarkable except Patient will be admitted for IV hydration in setting of rhabdomyolysis and CAYETANO and with consult to Psychiatry for his suicidal ideation' Hospital Course: Patient was treated with aggressive IVF with resolution of his CAYETANO and improvement in his rhabdo. He was kept 1:1 for SI. Once medically cleared, N/Crisis evaluated the patient and he was accepted to inpatient psych floor. Time Spent with Patient Time attestation: Total time spent providing and/or coordinating discharge services: Discharge coordination time: Greater than 30 minutes Quality: Safe Use of Opioids Does Pt have an Active Cancer Diagnosis on the Problem List?: No Quality: Stroke Does the patient have a stroke diagnosis?: No Physical Exam Vital Signs: Vital Signs: Last Vital Signs Temp 98.8 F 03/11/22 07:46 Pulse 55 03/11/22 07:46 Resp 16 03/11/22 07:46 BP 113/68 03/11/22 07:46 Pulse Ox 100 03/11/22 07:46 BMI result Body Mass Index 27.6 Const: Other: General - no acute distress, appears comfortable Cardiovascular - regular rate and rhythm, S1-S2 Lungs - normal respiratory effort, clear to auscultation bilaterally, no wheezing Abdomen - soft, nontender, no rebound or guarding Extremities - no edema bilaterally Neuro - awake and alert, no focal deficits DS: Data Data Completed and Pending Labs on day of discharge: Laboratory Results - last 24 hr 03/10/22 14:30 Urine Color YELLOW Urine Appearance CLEAR Urine pH 5.5 Ur Specific [place] >= 1.030 H Urine Protein NEG Urine Glucose (UA) NEG Urine Ketones NEG Urine Blood TRACE Urine Nitrite NEG Ur Leukocyte Esterase NEG Urine RBC 0-2 Urine WBC 0 Ur Squamous Epith Cells NONE Urine Bacteria TRACE Discharge Plan Discharge Disposition: Xfer Psychiatric Hosp Referrals: Physician,Jefferson J [Primary Care Provider] - 1 Week Discharge Medications: Continued clonidine HCl 0.1 mg Tablet 0.1 mg PO TID 0RF nicotine 14 mg/24 hr Patch 24 Hour 1 patch TRANSDERMAL DAILY 0RF quetiapine 100 mg Tablet 100 mg PO BEDTIME 0RF gabapentin 800 mg Tablet 800 mg PO BID 0RF nicotine (polacrilex) 4 mg Gum 4 mg BUCCAL Q1H PRN (Reason: Nicotine Cravings) 0RF baclofen 10 mg Tablet 10 mg PO BID 0RF quetiapine 50 mg Tablet 50 mg PO DAILY PRN (Reason: Anxiety) 0RF bupropion HCl 150 mg tablet sustained-release 12 hr 1 tab PO BID 0RF Discharge Orders: Discharge Order (Routine); Ordered 03/11/22 Ordered By: Darian Hollis Forms: Patient Portal Discharge page
--- NOTE | 2022-03-11 10:58 | PC.NURSE ---
when this RN was pulling methadone from [employer]. needed to waste 10 mg, this RN wasted entire 20 mg, witnessed by Pedro Berry. Pharmacy contacted. additional 10mg dose ordered to ensure pt got full 90mg dose of methadone. additional dose charted against as the 10mg went toward the original 90mg order.
[2022-03-11 12:00] VITALS: BP 105/65; PULSE 67; RESP 16; TEMP 36.7; O2SAT 96
[2022-03-11] MEDS: QUEtiapine Fumarate 50 MG TABLET PO (13:37)
--- NOTE | 2022-03-11 17:16 | MHC.CM.PN ---
LATE ENTRY NOTE FOR 03/11/22. EMR REVIEWED, PT ADMITTED W/RHABDO, SI, CAYETANO, CM MET W/PT WHO IS ON 1:1 OBSERVATION, REPORTS HE'S STAYING W/A FRIEND AND WANTS TO GET BACK ON PSYCHIATRIC MEDICATION BUT DOESN'T HAVE A DOCTOR, PER HOSPITALIST PT WILL BE TRANSFERRED TO [facility] LATER TODAY. PT WANTS INPT STAY TO GET BACK ON MEDS. PT REPORTS PFIZER X3, DENIES PCP AND DECLINES ASISTANCE TO OBTAIN FROM CM, PT DENIES HAVING A HCP, HCP EXPLAINED TO PT AND PT DECLINES TO COMPLETE AT THIS TIME. D/C PLAN: TXFR TO PSYCH WHEN BED AVAILABLE
== END 2022-03-11 13:44 | DRG 817 ==
LOC: HO.ED 03-09 02:33 → HO.EDOVER 03-09 03:54 → HO.S3 03-09 21:10
PROVIDERS: Student in an Organized Health Care Education/Training Program; Admitting Provider Internal Medicine; Emergency Provider Student in an Organized Health Care Education/Training Program; Visit Provider Family Medicine
DX: T40.1X2A Poisoning by heroin, intentional self-harm, initial encounter (principal); M62.82 Rhabdomyolysis; N17.9 Acute kidney failure, unspecified; R45.851 Suicidal ideations; T40.5X2A Poisoning by cocaine, intentional self-harm, initial encounter; T51.0X2A Toxic effect of ethanol, intentional self-harm, initial encounter; Y92.9 Unspecified place or not applicable; E86.0 Dehydration; Z20.822 Contact with and (suspected) exposure to COVID-19; F31.9 Bipolar disorder, unspecified; F17.210 Nicotine dependence, cigarettes, uncomplicated; F11.20 Opioid dependence, uncomplicated; Z79.899 Other long term (current) drug therapy
CPT/HCPCS: 36415; 71045; 80048; 80053; 80307; 81001; 81003; 82077; 82550; 83690; 84484; 85025; 85027; 87635; 93005; 96360; 96361; 99284; 99285; J1650; J2060

== ENCOUNTER 2022-03-11 13:58 | Inpatient (IN) | payer OTHER, SELFPAY ==
--- NOTE | ~2022-03-11 | CT_ITS ---
EXAMINATION: CT ANGIOGRAM OF THE CHEST WITH AND WITHOUT CONTRAST (CT PULMONARY ANGIOGRAM FOR PE) CLINICAL INFORMATION: Reason for Exam fever; chest pain COMPARISON: Chest radiograph 03/09/2022. TECHNIQUE: Prior to contrast administration, noncontrast localization images were obtained. Subsequently, multidetector volumetric imaging was performed from the thoracic inlet to below the diaphragms following the administration of 80 mL Omnipaque 350 intravenous contrast. No contrast reaction reported Sagittal, coronal, and MIP oblique sagittal reformatted images were obtained on the CT workstation, uploaded to PACS, and reviewed. This CT examination was performed using dose optimization techniques as appropriate, variously including the following: *Automated exposure control *Adjustment of mA and/or kV according to patient size (this includes techniques or standardized protocols for targeted exams where dose is matched to indication/reason for exam; i.e. extremities or head) *Use of iterative reconstruction technique Total exam dose-length product 1552 mGy-cm FINDINGS: QUALITY OF STUDY/CONTRAST BOLUS: Suboptimal. Not diagnostic for possible clinically significant pulmonary emboli. Pulmonary arterial system: The main and central pulmonary arteries are normal in caliber. No gross saddle emboli noted at the bifurcation of the main pulmonary artery. No gross filling defects noted within the visualized pulmonary arterial system is noted above, suboptimal intravascular contrast opacification of the pulmonary arterial system is noted. Possible clinically significant pulmonary emboli within the main pulmonary arteries and distal pulmonary arterial branches do not be visualizable. Lungs and pleura: Focal groundglass opacities are present posteriorly within the right upper pulmonary lobe (series 10 image 57). Focal airspace in nearly consolidative opacities are present bilaterally within the lower pulmonary lobes. As are findings are centered within the anterior right lung base and posterior left lung base (series 10 image 52, image 68). Mediastinum: The thoracic aorta is normal in caliber and contour. Normal heart size. No pericardial thickening or fluid collections. No mediastinal lymphadenopathy. CHEST WALL: No axillary lymphadenopathy. Insight visualized abdominal structures: Normal appearance of the adrenal glands. Skeletal structures: No fractures or vertebral body compression deformities identified. Mild multilevel endplate deformities. CT/CT angio chest PE protocol IMPRESSION: *Suboptimal intravenous opacification of the pulmonary arterial system rendering this examination nondiagnostic for possible clinically significant pulmonary emboli. Partial visualization is made of the main and central pulmonary arteries and no associated saddle emboli identified. As clinically indicated, consider further evaluation with repeat CT pulmonary angiogram. *Right upper lobe focal groundglass opacities and bibasilar focal airspace and consolidative opacities. Findings are suspicious for pneumonia including atypical viral infection. VTE: negative
[2022-03-11 14:15] VITALS: BP 120/71; PULSE 76; RESP 17; TEMP 36.9; O2SAT 97
[2022-03-11] MEDS: Nicotine Polacrilex 2 MG GUM 4 MG BUCCAL ×3 (14:42→21:54)
[2022-03-11] MEDS: LORazepam 1 MG TABLET PO (14:44)
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
--- NOTE | 2022-03-11 17:28 | PC.ADMIT ---
PT admitted to unit from [place] [id number] with a diagnosis of unspecified depressive disorder, substance/medication-induced psychotic disorder, opioid use disorder, and stimulant use disorder - cocaine on a conditional voluntary. Pt is calm and cooperative with admission process initially but became anxious and did not want to continue with interview. Pt reports that he presented to the hospital with an attempted suicide by overdose. Pt was admitted to the medical unit for CAYETANO and rhabdo. PT reports that he had been clean for 3 months and recently relapsed and that his best friend just from an overdose. Pt reports that he feels that he should have been the one who and states that he regrets that he did not have enough money to buy enough drugs to end it . Pt continues to endorse SI but states he is safe on the unit. PT states that when he relapsed he used cocaine, fentanyl and alcohol, he also reports a history of abusing benzos. PT reports increased anxiety and depression. Pt states that he has been medication compliant but he does not feel that his medications are working well. PT reports that he has been having command auditory hallucinations to harm himself and that these voices are triggered and get much worse when his environment gets loud, he reports he also becomes very paranoid when this happens and will start to think that other people are trying to hurt him and the voices will tell him to hurt the people around him. PT reports that he has acted on those thoughts in the past but that he has no intention of hurting anyone else. Tox screen was positive for opiates, fentanyl, cocaine, and marijuana. 15 miunte safety checks initiated for safety.
[2022-03-11] MEDS: cloNIDine HCL 0.1 MG TABLET PO (20:50)
[2022-03-11] MEDS: Docusate Sodium 100 MG CAPSULE PO (20:50)
[2022-03-11] MEDS: QUEtiapine Fumarate 100 MG TABLET PO (20:50)
[2022-03-11] MEDS: Gabapentin 400 MG CAPSULE 800 MG PO (20:50)
[2022-03-11] MEDS: Baclofen 10 MG TABLET PO (20:51)
[2022-03-11] MEDS: Prazosin HCL 1 MG CAPSULE 2 MG PO (20:51)
[2022-03-11 20:54] VITALS: BP 132/81; PULSE 84; RESP 16; TEMP 36.7; O2SAT 96
[2022-03-11] MEDS: docosanoL 10 % Cream 2 GM TUBE 1 APPL TOPICAL (21:36)
[2022-03-11] MEDS: QUEtiapine Fumarate 50 MG TABLET PO (21:56)
[2022-03-12 09:02] VITALS: BP 100/58; PULSE 67; RESP 16; TEMP 36.6; O2SAT 97
[2022-03-12] MEDS: Gabapentin 400 MG CAPSULE 800 MG PO ×3 (09:26→19:40)
[2022-03-12] MEDS: cloNIDine HCL 0.1 MG TABLET PO ×3 (09:26→19:39)
[2022-03-12] MEDS: Baclofen 10 MG TABLET PO ×2 (09:27→19:40)
[2022-03-12] MEDS: buPROPion HCl XL 300 MG TAB.ER.24H PO (09:27)
[2022-03-12] MEDS: buPROPion HCL 100 MG TABLET PO ×3 (09:27→15:18)
--- NOTE | 2022-03-12 09:46 | P.PNPSI_ITS ---
Subjective Subjective Date of Service: 03/12/22 Reason For Visit: suicide attempt Subjective Notes: Conditional Voluntary Healthcare Proxy: No Guardianship: No Interim History: Patient was seen and discussed in rounds today. Records and plans were reviewed. He is settling in to the unit after his transfer from the medical unit after an overdose. He continues to have some auditory hallucinations which are command in nature. He gets these more when he is isolated or overstimulated. Eating and sleeping adequately. He does have a cold sore on the right upper lip. No complaints. No changes were made Review of Systems Review of Systems Cold sore on the upper lip Yes all other systems are reviewed and are negative Mental Status Exam Mental Status Exam Narrative: In today's visit he is drowsy, interactive. Speech is soft-spoken. Moderate eye contact. Affect is appropriate and constricted. He admits to some auditory hallucinations. He does have some suicidal ideations but is safe on the unit. No overt delusions. Cognitively he has slow thought processes. Judgment is mostly intact Diagnostics Vital Signs (24Hr): Vital Signs - 24 hr 03/11/22 14:15 03/11/22 20:54 03/12/22 09:02 Temperature 98.5 F 98.1 F 97.8 F Pulse Rate 76 84 67 Respiratory Rate 17 16 16 Blood Pressure 120/71 132/81 100/58 L Pulse Oximetry 97 96 97 Medications Medications Current Medications Acetaminophen (Acetaminophen 325 Mg Tablet) 650 mg PO Q6H PRN PRN Reason: Pain, Mild (Pain Scale 1-3) Baclofen (Baclofen 10 Mg Tablet) 10 mg PO BID [facility] Last Admin: 03/12/22 09:27 Dose: 10 mg Documented by: Bupropion HCl (Bupropion Hcl Xl 300 Mg Tab.Er.24h) 300 mg PO DAILY [facility] Last Admin: 03/12/22 09:27 Dose: 300 mg Documented by: Bupropion HCl (Bupropion Hcl 100 Mg Tablet) 100 mg PO TID@0800,1200,1600 [facility] Last Admin: 03/12/22 09:27 Dose: 100 mg Documented by: Clonidine HCl (Clonidine Hcl 0.1 Mg Tablet) 0.1 mg PO TID [facility]; Protocol Last Admin: 03/12/22 09:26 Dose: 0.1 mg Documented by: Docosanol (Docosanol 10 % Cream 2 Gm Tube) 1 appl TOPICAL 5XD [facility], [facility]; Protocol Last Admin: 03/11/22 21:36 Dose: 1 appl Documented by: Docusate Sodium (Docusate Sodium 100 Mg Capsule) 100 mg PO DAILY PRN PRN Reason: Constipation Docusate Sodium (Docusate Sodium 100 Mg Capsule) 100 mg PO BEDTIME [facility] Last Admin: 03/11/22 20:50 Dose: 100 mg Documented by: Gabapentin (Gabapentin 400 Mg Capsule) 800 mg PO TID [facility] Last Admin: 03/12/22 09:26 Dose: 800 mg Documented by: Lorazepam (Lorazepam 1 Mg Tablet) 1 mg PO DAILY PRN PRN Reason: severe anxiety Methadone HCl (Methadone Hcl 20 Mg/2 Ml Oral.Conc) 90 mg PO DAILY [facility] Nicotine (Nicotine 14 Mg Patch.Td24) 14 mg TRANSDERMA DAILY [facility] Last Admin: 03/12/22 09:45 Dose: Not Given Documented by: Nicotine Polacrilex (Nicotine Polacrilex 2 Mg Gum) 4 mg BUCCAL Q1H PRN PRN Reason: Nicotine Cravings Last Admin: 03/11/22 21:54 Dose: 4 mg Documented by: Polyethylene Glycol (Polyethylene Glycol 3350 17 Gm Powd.Pack) 17 gm PO DAILY [facility] Prazosin HCl (Prazosin Hcl 1 Mg Capsule) 2 mg PO BEDTIME [facility]; Protocol Last Admin: 03/11/22 20:51 Dose: 2 mg Documented by: Quetiapine Fumarate (Quetiapine Fumarate 100 Mg Tablet) 100 mg PO BEDTIME [facility] Last Admin: 03/11/22 20:50 Dose: 100 mg Documented by: Quetiapine Fumarate (Quetiapine Fumarate 50 Mg Tablet) 50 mg PO DAILY PRN PRN Reason: Anxiety Last Admin: 03/11/22 21:56 Dose: 50 mg Documented by: Allergies Allergies Allergy/AdvReac Type Severity Reaction Status Date / Time No Known Allergies Allergy Unknown UNKNOWN Unverified 06/25/20 19:23 [NO KNOWN ALLERGIES] Assessment & Plan Assessment & Plan (1) Opioid use disorder: Status: Acute Code(s): F11.90 - Opioid use, unspecified, uncomplicated (2) Bipolar disorder: Status: Acute Code(s): F31.9 - Bipolar disorder, unspecified (3) Suicidal ideation: Status: Acute Code(s): R45.851 - Suicidal ideations Plan restart home meds. return gabapentin dosing to 800 TID. wellbutrin split dosing. prazosin at HS. may benefit from proper mood stabilizer if Dx of bipolar disorder is found to be credible. agreed on 1 mg ativan daily PRN while here, no Rx to be given at discharge. 03/12: Continue current regimen and plans I spent minutes with the patient and/or on the patient floor today, greater than?50% of which was spent counseling/coordinating care. Reason for contiued inpatient stay Substantial Risk for: harm to self and med/psych decompensation
[2022-03-12] MEDS: docosanoL 10 % Cream 2 GM TUBE 1 APPL TOPICAL ×4 (09:57→19:45)
[2022-03-12] MEDS: polyethylene glycoL 3350 17 GM POWD.PACK PO (10:00)
[2022-03-12] MEDS: methADONE HCl 20 MG/2 ML ORAL.CONC 90 MG PO (10:01)
[2022-03-12] MEDS: LORazepam 1 MG TABLET PO ×2 (10:05→13:54)
[2022-03-12] MEDS: Nicotine Polacrilex 2 MG GUM 4 MG BUCCAL ×7 (10:34→21:53)
[2022-03-12] MEDS: Docusate Sodium 100 MG CAPSULE PO ×2 (18:41→19:40)
[2022-03-12] MEDS: QUEtiapine Fumarate 50 MG TABLET PO ×2 (19:29→21:21)
[2022-03-12] MEDS: QUEtiapine Fumarate 100 MG TABLET PO (19:39)
[2022-03-12] MEDS: Prazosin HCL 1 MG CAPSULE 2 MG PO (19:41)
[2022-03-12 19:46] VITALS: BP 119/60; PULSE 95; RESP 18; TEMP 36.9; O2SAT 97
--- NOTE | 2022-03-12 23:22 | PC.NURSE ---
Patient given HS medication early, reporting intense AH that were causing him to become paranoid.
[2022-03-13] MEDS: Gabapentin 400 MG CAPSULE 800 MG PO ×3 (09:52→22:12)
[2022-03-13] MEDS: Baclofen 10 MG TABLET PO ×2 (09:52→22:12)
[2022-03-13] MEDS: buPROPion HCl XL 300 MG TAB.ER.24H PO (09:52)
[2022-03-13] MEDS: buPROPion HCL 100 MG TABLET PO ×3 (09:52→16:40)
[2022-03-13] MEDS: cloNIDine HCL 0.1 MG TABLET PO ×3 (09:52→22:12)
[2022-03-13] MEDS: polyethylene glycoL 3350 17 GM POWD.PACK PO (09:53)
[2022-03-13 10:00] VITALS: BP 94/53; PULSE 64; RESP 16; TEMP 36.8; O2SAT 97
--- NOTE | 2022-03-13 10:24 | HO.PSYCHPN ---
Subjective Subjective Date of Service: 03/13/22 Reason For Visit: suicide attempt Subjective Notes: Conditional Voluntary Healthcare Proxy: No Guardianship: No Medical Problems Affecting Mental Status: No Interim History: Patient was seen and discussed in rounds today. He continues to have a lot of auditory hallucinations and states that the Ativan has been helpful with his reaction to this experience. I will increase the p.r.n. Ativan to twice a day as needed and will increase the p.r.n. Seroquel and nighttime Seroquel. He has been constipated and Dulcolax was ordered. No other changes were made. Eating and sleeping adequately Review of Systems Review of Systems Yes all other systems are reviewed and are negative Mental Status Exam Mental Status Exam Narrative: In today's visit he is alert, interactive. Speech is soft-spoken. Moderate eye contact. Affect is appropriate and constricted. He admits to some auditory hallucinations. He does have some suicidal ideations but is safe on the unit. No overt delusions. Cognitively he has slow thought processes. Judgment is mostly intact Diagnostics Vital Signs (24Hr): Vital Signs - 24 hr 03/12/22 19:46 03/13/22 10:00 Temperature 98.5 F 98.3 F Pulse Rate 95 64 Respiratory Rate 18 16 Blood Pressure 119/60 94/53 L Pulse Oximetry 97 97 Medications Medications Current Medications Acetaminophen (Acetaminophen 325 Mg Tablet) 650 mg PO Q6H PRN PRN Reason: Pain, Mild (Pain Scale 1-3) Baclofen (Baclofen 10 Mg Tablet) 10 mg PO BID [facility] Last Admin: 03/13/22 09:52 Dose: 10 mg Documented by: Bupropion HCl (Bupropion Hcl Xl 300 Mg Tab.Er.24h) 300 mg PO DAILY [facility] Last Admin: 03/13/22 09:52 Dose: 300 mg Documented by: Bupropion HCl (Bupropion Hcl 100 Mg Tablet) 100 mg PO TID@0800,1200,1600 [facility] Last Admin: 03/13/22 09:52 Dose: 100 mg Documented by: Clonidine HCl (Clonidine Hcl 0.1 Mg Tablet) 0.1 mg PO TID [facility]; Protocol Last Admin: 03/13/22 09:52 Dose: 0.1 mg Documented by: Docosanol (Docosanol 10 % Cream 2 Gm Tube) 1 appl TOPICAL 5XD [facility]; Protocol Last Admin: 03/12/22 19:45 Dose: 1 appl Documented by: Docusate Sodium (Docusate Sodium 100 Mg Capsule) 100 mg PO DAILY PRN PRN Reason: Constipation Last Admin: 03/12/22 18:41 Dose: 100 mg Documented by: Docusate Sodium (Docusate Sodium 100 Mg Capsule) 100 mg PO BEDTIME [facility] Last Admin: 03/12/22 19:40 Dose: 100 mg Documented by: Gabapentin (Gabapentin 400 Mg Capsule) 800 mg PO TID [facility] Last Admin: 03/13/22 09:52 Dose: 800 mg Documented by: Lorazepam (Lorazepam 1 Mg Tablet) 1 mg PO DAILY PRN PRN Reason: severe anxiety Last Admin: 03/12/22 10:05 Dose: 1 mg Documented by: Methadone HCl (Methadone Hcl 20 Mg/2 Ml Oral.Conc) 90 mg PO DAILY [facility] Last Admin: 03/12/22 10:01 Dose: 90 mg Documented by: Nicotine (Nicotine 14 Mg Patch.Td24) 14 mg TRANSDERMA DAILY [facility] Last Admin: 03/12/22 09:45 Dose: Not Given Documented by: Nicotine Polacrilex (Nicotine Polacrilex 2 Mg Gum) 4 mg BUCCAL Q1H PRN PRN Reason: Nicotine Cravings Last Admin: 03/12/22 21:53 Dose: 4 mg Documented by: Polyethylene Glycol (Polyethylene Glycol 3350 17 Gm Powd.Pack) 17 gm PO DAILY [facility] Last Admin: 03/13/22 09:53 Dose: 17 gm Documented by: Prazosin HCl (Prazosin Hcl 1 Mg Capsule) 2 mg PO BEDTIME [facility]; Protocol Last Admin: 03/12/22 19:41 Dose: 2 mg Documented by: Quetiapine Fumarate (Quetiapine Fumarate 100 Mg Tablet) 100 mg PO BEDTIME [facility] Last Admin: 03/12/22 19:39 Dose: 100 mg Documented by: Quetiapine Fumarate (Quetiapine Fumarate 50 Mg Tablet) 50 mg PO BID PRN PRN Reason: Anxiety Allergies Allergies Allergy/AdvReac Type Severity Reaction Status Date / Time No Known Allergies Allergy Unknown UNKNOWN Unverified 06/25/20 19:23 [NO KNOWN ALLERGIES] Assessment & Plan Assessment & Plan (1) Opioid use disorder: Status: Acute Code(s): F11.90 - Opioid use, unspecified, uncomplicated (2) Bipolar disorder: Status: Acute Code(s): F31.9 - Bipolar disorder, unspecified (3) Suicidal ideation: Status: Acute Code(s): R45.851 - Suicidal ideations Plan restart home meds. return gabapentin dosing to 800 TID. wellbutrin split dosing. prazosin at HS. may benefit from proper mood stabilizer if Dx of bipolar disorder is found to be credible. agreed on 1 mg ativan daily PRN while here, no Rx to be given at discharge. 03/12: Continue current regimen and plans 03/13: Continue current plans and regimen with increase of Ativan and Seroquel p.r.n. and nightly does I spent minutes with the patient and/or on the patient floor today, greater than?50% of which was spent counseling/coordinating care. Patient educated on: medication risk/benefits Reason for contiued inpatient stay Substantial Risk for: harm to self and med/psych decompensation
[2022-03-13] MEDS: bisacodyL 5 MG TABLET.DR 10 MG PO (10:39)
[2022-03-13] MEDS: LORazepam 1 MG TABLET PO ×3 (10:41→20:04)
[2022-03-13] MEDS: docosanoL 10 % Cream 2 GM TUBE 1 APPL TOPICAL ×2 (10:42→13:22)
[2022-03-13] MEDS: Nicotine Polacrilex 2 MG GUM 4 MG BUCCAL ×6 (10:42→22:08)
[2022-03-13] MEDS: methADONE HCl 20 MG/2 ML ORAL.CONC 90 MG PO (10:51)
[2022-03-13] MEDS: QUEtiapine Fumarate 50 MG TABLET PO (13:00)
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
[2022-03-13] MEDS: chlorproMAZINE HCl 25 MG TABLET 50 MG PO (14:43)
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
--- NOTE | 2022-03-13 16:49 | PC.NURSE ---
Late entry nursing: Patient with increased agitation, irritability approx 1230-1pm stating he was hearing voices stating he would be discharged. States he has visual of family at outside gathering and would be discharged by 2pm. Informed patient he would not be able to be discharged today. Patient continues to escalate, pacing unit intermittently. Hitting wall at times. Patient accepted PRN Seroquel and Ativan with much encouragement.
--- NOTE | 2022-03-13 17:01 | PC.NURSE ---
Patient requesting to go off unit for fresh air break. Informed patient assembly instructions writer did not feel this was a good time for patient to be off unit following injection of hand airport traffic controller and self reported attempt to harm self. Informed patient would reevaluate at later time.
[2022-03-13 20:10] VITALS: BP 130/68; PULSE 109; RESP 18; TEMP 36.9; O2SAT 97
[2022-03-13] MEDS: Prazosin HCL 1 MG CAPSULE 2 MG PO (22:12)
[2022-03-13] MEDS: Docusate Sodium 100 MG CAPSULE PO (22:12)
[2022-03-13] MEDS: QUEtiapine Fumarate 200 MG TABLET PO (22:13)
[2022-03-14 06:00] VITALS: BP 125/65; PULSE 108; RESP 18; TEMP 38.3; O2SAT 97
[2022-03-14] MEDS: methADONE HCl 20 MG/2 ML ORAL.CONC 90 MG PO (09:18)
[2022-03-14] MEDS: buPROPion HCl XL 300 MG TAB.ER.24H PO (09:20)
[2022-03-14] MEDS: Baclofen 10 MG TABLET PO ×2 (09:20→22:15)
[2022-03-14] MEDS: Gabapentin 400 MG CAPSULE 800 MG PO ×3 (09:20→22:15)
[2022-03-14] MEDS: buPROPion HCL 100 MG TABLET PO ×3 (09:21→15:01)
[2022-03-14] MEDS: cloNIDine HCL 0.1 MG TABLET PO ×3 (09:21→22:15)
[2022-03-14] MEDS: Acetaminophen 325 MG TABLET 650 MG PO ×2 (09:49→22:16)
--- NOTE | 2022-03-14 10:21 | PC.NURSE ---
Late entry: Patient was found to have an elevated temperature, reporting chills/body aches, cough. MD notified, patient tested as ordered, and given tylenol. Patient counseled to remain in room if possible, and to wear a mask otherwise. Patient verbalized understanding.
[2022-03-14] MEDS: LORazepam 1 MG TABLET PO ×2 (10:52→22:16)
[2022-03-14] MEDS: Nicotine Polacrilex 2 MG GUM 4 MG BUCCAL ×3 (10:53→16:54)
[2022-03-14 10:56] VITALS: TEMP 36.9
[2022-03-14 11:10] LABS: Influenza A PCR NEGATIVE (Negative); Influenza B PCR NEGATIVE (Negative); Resp Syncy Virus RNA Qual PCR NEGATIVE (Negative); SARS COV2 PCR INHOUSE NEGATIVE (Negative)
--- NOTE | 2022-03-14 12:34 | HO.PSYCHPN ---
Subjective Subjective Date of Service: 03/14/22 Reason For Visit: suicide attempt Interim History: pt seen in his room, calm and cooperative. c/o some sharp abd pains, fever, fatigue. COVID swab taken. c/o severe constipation, bowel regimen aggressively increased and pt encouraged to take the miralax he is prescribed. states he had a few outbursts over the weekend due to AH and people aggravating me. agrees to increase seroquel to 300 mg at HS to target psychosis. per staff, anx 6, dep 8. sleep improved, appetite good. +CAH to harm himself. re SI, i do but i don't. paranoid, labile, angry. reported he drank hand test manager to harm self, a 2 oz bottle was found in his room (he likely got it surreptitiously out of the housekeeping closet). Mental Status Exam Mental Status Exam Narrative: appropriately dressed and groomed. eyes heavy. appears drowsy but denies it. cooperative. no PMA/PMR. speech nml in rate and amount, loudness, tone. thoughts linear and logical in response to questions. affect blunted. mood not assessed. +CAH, SI. no HI, VH expressed. Diagnostics Vital Signs (24Hr): Vital Signs - 24 hr 03/13/22 20:10 03/14/22 06:00 03/14/22 10:56 Temperature 98.4 F 101.0 F H 98.5 F Pulse Rate 109 H 108 H Respiratory Rate 18 18 Blood Pressure 130/68 125/65 Pulse Oximetry 97 97 Labs Labs: Laboratory Results - last 48 hr 03/14/22 09:45 Influenza Type A (PCR) NEGATIVE Influenza Type B (PCR) NEGATIVE RSV RNA Qual (PCR) NEGATIVE SARS-CoV-2 RNA (RT-PCR) NEGATIVE Medications Medications Current Medications Acetaminophen (Acetaminophen 325 Mg Tablet) 650 mg PO Q6H PRN PRN Reason: Pain, Mild (Pain Scale 1-3) Last Admin: 03/14/22 09:49 Dose: 650 mg Documented by: Baclofen (Baclofen 10 Mg Tablet) 10 mg PO BID [facility] Last Admin: 03/14/22 09:20 Dose: 10 mg Documented by: Bisacodyl (Bisacodyl 5 Mg Tablet.Dr) 10 mg PO DAILY PRN PRN Reason: Constipation Bupropion HCl (Bupropion Hcl Xl 300 Mg Tab.Er.24h) 300 mg PO DAILY [facility] Last Admin: 03/14/22 09:20 Dose: 300 mg Documented by: Bupropion HCl (Bupropion Hcl 100 Mg Tablet) 100 mg PO TID@0800,1200,1600 [facility] Last Admin: 03/14/22 09:21 Dose: 100 mg Documented by: Clonidine HCl (Clonidine Hcl 0.1 Mg Tablet) 0.1 mg PO TID [facility]; Protocol Last Admin: 03/14/22 09:21 Dose: 0.1 mg Documented by: Docosanol (Docosanol 10 % Cream 2 Gm Tube) 1 appl TOPICAL 5XD [facility]; Protocol Last Admin: 03/14/22 10:21 Dose: Not Given Documented by: Docusate Sodium (Docusate Sodium 100 Mg Capsule) 100 mg PO DAILY PRN PRN Reason: Constipation Last Admin: 03/12/22 18:41 Dose: 100 mg Documented by: Docusate Sodium (Docusate Sodium 100 Mg Capsule) 200 mg PO BID [facility] Gabapentin (Gabapentin 400 Mg Capsule) 800 mg PO TID [facility] Last Admin: 03/14/22 09:20 Dose: 800 mg Documented by: Lorazepam (Lorazepam 1 Mg Tablet) 1 mg PO BID PRN PRN Reason: severe anxiety Last Admin: 03/14/22 10:52 Dose: 1 mg Documented by: Methadone HCl (Methadone Hcl 20 Mg/2 Ml Oral.Conc) 90 mg PO DAILY [facility] Last Admin: 03/14/22 09:18 Dose: 90 mg Documented by: Nicotine (Nicotine 14 Mg Patch.Td24) 14 mg TRANSDERMA DAILY [facility] Last Admin: 03/14/22 09:21 Dose: Not Given Documented by: Nicotine Polacrilex (Nicotine Polacrilex 2 Mg Gum) 4 mg BUCCAL Q1H PRN PRN Reason: Nicotine Cravings Last Admin: 03/14/22 10:53 Dose: 4 mg Documented by: Polyethylene Glycol (Polyethylene Glycol 3350 17 Gm Powd.Pack) 17 gm PO DAILY [facility] Last Admin: 03/14/22 09:21 Dose: Not Given Documented by: Prazosin HCl (Prazosin Hcl 1 Mg Capsule) 2 mg PO BEDTIME [facility]; Protocol Last Admin: 03/13/22 22:12 Dose: 2 mg Documented by: Quetiapine Fumarate (Quetiapine Fumarate 50 Mg Tablet) 50 mg PO BID PRN PRN Reason: Anxiety Last Admin: 03/13/22 13:00 Dose: 50 mg Documented by: Quetiapine Fumarate (Quetiapine Fumarate 300 Mg Tablet) 300 mg PO BEDTIME [facility] Senna (Sennosides 8.6 Mg Tablet) 17.2 mg PO BID [facility] Allergies Allergies Allergy/AdvReac Type Severity Reaction Status Date / Time No Known Allergies Allergy Unknown UNKNOWN Unverified 06/25/20 19:23 [NO KNOWN ALLERGIES] Assessment & Plan Assessment & Plan (1) Opioid use disorder: Status: Acute Code(s): F11.90 - Opioid use, unspecified, uncomplicated (2) Bipolar disorder: Status: Acute Code(s): F31.9 - Bipolar disorder, unspecified (3) Suicidal ideation: Status: Acute Code(s): R45.851 - Suicidal ideations Plan restart home meds. return gabapentin dosing to 800 TID. wellbutrin split dosing. prazosin at HS. may benefit from proper mood stabilizer if Dx of bipolar disorder is found to be credible. agreed on 1 mg ativan daily PRN while here, no Rx to be given at discharge. 03/12: Continue current regimen and plans 03/13: Continue current plans and regimen with increase of Ativan and Seroquel p.r.n. and nightly doses. 03/14: increase seroquel dosing to 300 mg QHS for psychosis. I spent __25____ minutes with the patient and/or on the patient floor today, greater than?50% of which was spent counseling/coordinating care. Reason for contiued inpatient stay Substantial Risk for: harm to self, inability to function and rapid decompensation
[2022-03-14] MEDS: QUEtiapine Fumarate 50 MG TABLET PO (12:51)
[2022-03-14] MEDS: Sennosides 8.6 MG TABLET 17.2 MG PO ×2 (12:51→22:15)
[2022-03-14] MEDS: Docusate Sodium 100 MG CAPSULE 200 MG PO ×2 (12:52→22:16)
[2022-03-14 14:45] VITALS: BP 106/57; PULSE 89; RESP 18; TEMP 36.6; O2SAT 96
[2022-03-14] MEDS: docosanoL 10 % Cream 2 GM TUBE 1 APPL TOPICAL (16:18)
[2022-03-14 22:00] VITALS: BP 108/55; PULSE 96; RESP 18; TEMP 37.4; O2SAT 97
[2022-03-14] MEDS: QUEtiapine Fumarate 300 MG TABLET PO (22:15)
[2022-03-14] MEDS: Prazosin HCL 1 MG CAPSULE 2 MG PO (22:15)
[2022-03-15] MEDS: diphenhydrAMINE HCL 25 MG TABLET PO (00:24)
[2022-03-15] MEDS: Nicotine Polacrilex 2 MG GUM 4 MG BUCCAL ×6 (03:55→21:53)
[2022-03-15 10:00] VITALS: BP 127/77; PULSE 80; RESP 18; TEMP 36.7; O2SAT 99
[2022-03-15] MEDS: Sennosides 8.6 MG TABLET 17.2 MG PO ×2 (10:17→21:49)
[2022-03-15] MEDS: buPROPion HCl XL 300 MG TAB.ER.24H PO (10:17)
[2022-03-15] MEDS: Gabapentin 400 MG CAPSULE 800 MG PO ×3 (10:18→21:48)
[2022-03-15] MEDS: Baclofen 10 MG TABLET PO ×2 (10:18→21:48)
[2022-03-15] MEDS: Docusate Sodium 100 MG CAPSULE 200 MG PO ×2 (10:18→21:48)
[2022-03-15] MEDS: buPROPion HCL 100 MG TABLET PO ×3 (10:18→17:00)
[2022-03-15] MEDS: cloNIDine HCL 0.1 MG TABLET PO ×3 (10:20→21:48)
[2022-03-15] MEDS: methADONE HCl 20 MG/2 ML ORAL.CONC 90 MG PO (10:35)
[2022-03-15] MEDS: LORazepam 1 MG TABLET PO ×2 (10:35→17:00)
[2022-03-15] MEDS: Acetaminophen 325 MG TABLET 650 MG PO (10:35)
[2022-03-15] MEDS: QUEtiapine Fumarate 50 MG TABLET PO (12:42)
[2022-03-15 14:15] VITALS: BP 112/75; PULSE 113; RESP 20; O2SAT 96
--- NOTE | 2022-03-15 14:52 | P.PNPSI_ITS ---
Subjective Subjective Date of Service: 03/15/22 Reason For Visit: suicide attempt Interim History: pt calm and cooperative. asks for STD testing and states he would like to rescind his 3-day and remain here for treatment. this is encouraged by . reports he slept until about 10 this morning. +AH vs dream last night, he is not sure which. he was up for about 1.5 hours after the incident. AH are under control today, while yesterday they were minimal. agrees to keep seroquel dosing as it is for now. per staff, COVID NEG. temp came down. tylenol and benadryl helped last monse. napped much of day yesterday. behaviorally fine. interested in CSS. slept through eves and overnight. rescinded 3-day notice. Mental Status Exam Mental Status Exam Narrative: appropriately dressed and groomed. awake and alert. cooperative. no PMA/PMR. speech nml in rate and amount, loudness, tone. thoughts linear and logical in response to questions. affect constricted. mood not assessed. +AH, but under control. no SI/HI, VH expressed. Diagnostics Vital Signs (24Hr): Vital Signs - 24 hr 03/14/22 22:00 03/15/22 10:00 Temperature 99.4 F 98.1 F Pulse Rate 96 80 Respiratory Rate 18 18 Blood Pressure 108/55 L 127/77 Pulse Oximetry 97 99 Labs Labs: Laboratory Results - last 48 hr 03/14/22 09:45 Influenza Type A (PCR) NEGATIVE Influenza Type B (PCR) NEGATIVE RSV RNA Qual (PCR) NEGATIVE SARS-CoV-2 RNA (RT-PCR) NEGATIVE Medications Medications Current Medications Acetaminophen (Acetaminophen 325 Mg Tablet) 650 mg PO Q6H PRN PRN Reason: Pain, Mild (Pain Scale 1-3) Last Admin: 03/15/22 10:35 Dose: 650 mg Documented by: Baclofen (Baclofen 10 Mg Tablet) 10 mg PO BID [facility] Last Admin: 03/15/22 10:18 Dose: 10 mg Documented by: Bisacodyl (Bisacodyl 5 Mg Tablet.) 10 mg PO DAILY PRN PRN Reason: Constipation Bupropion HCl (Bupropion Hcl 100 Mg Tablet) 100 mg PO TID@0800,1200,1600 [facility] Last Admin: 03/15/22 11:58 Dose: 100 mg Documented by: Clonidine HCl (Clonidine Hcl 0.1 Mg Tablet) 0.1 mg PO TID [facility]; Protocol Last Admin: 03/15/22 14:25 Dose: 0.1 mg Documented by: Docosanol (Docosanol 10 % Cream 2 Gm Tube) 1 appl TOPICAL 5XD [facility]; Protocol Last Admin: 03/15/22 10:38 Dose: Not Given Documented by: Docusate Sodium (Docusate Sodium 100 Mg Capsule) 100 mg PO DAILY PRN PRN Reason: Constipation Last Admin: 03/12/22 18:41 Dose: 100 mg Documented by: Docusate Sodium (Docusate Sodium 100 Mg Capsule) 200 mg PO BID [facility] Last Admin: 03/15/22 10:18 Dose: 200 mg Documented by: Gabapentin (Gabapentin 400 Mg Capsule) 800 mg PO TID [facility] Last Admin: 03/15/22 14:25 Dose: 800 mg Documented by: Ibuprofen (Ibuprofen 600 Mg Tablet) 600 mg PO Q6H PRN PRN Reason: body aches Lorazepam (Lorazepam 1 Mg Tablet) 1 mg PO BID PRN PRN Reason: severe anxiety Last Admin: 03/15/22 10:35 Dose: 1 mg Documented by: Methadone HCl (Methadone Hcl 20 Mg/2 Ml Oral.Conc) 90 mg PO DAILY [facility] Last Admin: 03/15/22 10:35 Dose: 90 mg Documented by: Nicotine (Nicotine 14 Mg Patch.Td24) 14 mg TRANSDERMA DAILY [facility] Last Admin: 03/15/22 10:38 Dose: Not Given Documented by: Nicotine Polacrilex (Nicotine Polacrilex 2 Mg Gum) 4 mg BUCCAL Q1H PRN PRN Reason: Nicotine Cravings Last Admin: 03/15/22 12:38 Dose: 4 mg Documented by: Polyethylene Glycol (Polyethylene Glycol 3350 17 Gm Powd.Pack) 17 gm PO DAILY [facility] Last Admin: 03/15/22 10:39 Dose: Not Given Documented by: Prazosin HCl (Prazosin Hcl 1 Mg Capsule) 2 mg PO BEDTIME [facility]; Protocol Last Admin: 03/14/22 22:15 Dose: 2 mg Documented by: Quetiapine Fumarate (Quetiapine Fumarate 50 Mg Tablet) 50 mg PO BID PRN PRN Reason: Anxiety Last Admin: 03/15/22 12:42 Dose: 50 mg Documented by: Quetiapine Fumarate (Quetiapine Fumarate 300 Mg Tablet) 300 mg PO BEDTIME [facility] Last Admin: 03/14/22 22:15 Dose: 300 mg Documented by: Romie (Sennosides 8.6 Mg Tablet) 17.2 mg PO BID [facility] Last Admin: 03/15/22 10:17 Dose: 17.2 mg Documented by: Allergies Allergies Allergy/AdvReac Type Severity Reaction Status Date / Time No Known Allergies Allergy Unknown UNKNOWN Unverified 06/25/20 19:23 [NO KNOWN ALLERGIES] Assessment & Plan Assessment & Plan (1) Opioid use disorder: Status: Acute Code(s): F11.90 - Opioid use, unspecified, uncomplicated (2) Bipolar disorder: Status: Acute Code(s): F31.9 - Bipolar disorder, unspecified (3) Suicidal ideation: Status: Acute Code(s): R45.851 - Suicidal ideations Plan restart home meds. return gabapentin dosing to 800 TID. wellbutrin split dosing. prazosin at HS. may benefit from proper mood stabilizer if Dx of bipolar disorder is found to be credible. agreed on 1 mg ativan daily PRN while here, no Rx to be given at discharge. 03/12: Continue current regimen and plans 63: Continue current plans and regimen with increase of Ativan and Seroquel p.r.n. and nightly doses. 03/14: increase seroquel dosing to 300 mg QHS for psychosis. 03/15: continue current mgmt. less psychotic, more invested in Tx. I spent __25____ minutes with the patient and/or on the patient floor today, greater than?50% of which was spent counseling/coordinating care. Reason for contiued inpatient stay Substantial Risk for: inability to function and rapid decompensation
[2022-03-15] MEDS: polyethylene glycoL 3350 17 GM POWD.PACK PO (17:07)
[2022-03-15] MEDS: bisacodyL 5 MG TABLET.DR 10 MG PO (17:07)
[2022-03-15] MEDS: Prazosin HCL 1 MG CAPSULE 2 MG PO (21:49)
[2022-03-15 21:50] VITALS: BP 119/58; PULSE 91; RESP 16; TEMP 36.8; O2SAT 96
[2022-03-15] MEDS: QUEtiapine Fumarate 300 MG TABLET PO (21:50)
[2022-03-15] MEDS: docosanoL 10 % Cream 2 GM TUBE 1 APPL TOPICAL (21:53)
[2022-03-16 06:49] LABS: HIV AB/AG Nonreactive (Nonreactive); HIV Num 1 0.06 S/CO (0.00-0.99)
[2022-03-16 06:51] LABS: Syphilis Screen Nonreactive (Nonreactive)
[2022-03-16] MEDS: Docusate Sodium 100 MG CAPSULE 200 MG PO (08:02)
[2022-03-16] MEDS: buPROPion HCL 100 MG TABLET PO ×3 (08:02→15:31)
[2022-03-16] MEDS: Sennosides 8.6 MG TABLET 17.2 MG PO (08:02)
[2022-03-16] MEDS: Baclofen 10 MG TABLET PO ×2 (08:02→21:33)
[2022-03-16] MEDS: cloNIDine HCL 0.1 MG TABLET PO ×3 (08:02→21:32)
[2022-03-16] MEDS: Gabapentin 400 MG CAPSULE 800 MG PO ×3 (08:02→21:33)
[2022-03-16] MEDS: methADONE HCl 20 MG/2 ML ORAL.CONC 90 MG PO (08:03)
[2022-03-16 08:30] VITALS: BP 108/61; PULSE 90; RESP 16; TEMP 37.1; O2SAT 97
[2022-03-16] MEDS: Nicotine Polacrilex 2 MG GUM 4 MG BUCCAL ×5 (10:39→21:42)
[2022-03-16] MEDS: docosanoL 10 % Cream 2 GM TUBE 1 APPL TOPICAL (12:03)
[2022-03-16] MEDS: LORazepam 1 MG TABLET PO ×2 (12:07→17:37)
[2022-03-16] MEDS: QUEtiapine Fumarate 50 MG TABLET PO (12:25)
[2022-03-16] MEDS: Lithium Carbonate ER 300 MG TABLET.ER 600 MG PO ×2 (15:31→21:33)
--- NOTE | 2022-03-16 15:48 | P.PNPSI_ITS ---
Subjective Subjective Date of Service: 03/16/22 Reason For Visit: suicide attempt Interim History: pt seen in the community area. calm, cooperative, amenable to interview. expresses frustration at being cooped up in the hospital, not able to do the things he likes and wants to do and being bored here. seems to minimize his mental illness and says he can follow up for substance use disorder programs on his own. MD engages pt in discussion of recent symptoms, including sleep disturbance, labile and irritable mood, and psychotic symptoms. MD suggests pt is experiencing chandra and a mood stabilizer is required. pt reports h/o lithium and VPA. R/B discussed, pt agrees to restart lithium, 600 mg BID. per staff, some group attendance. felt relatively well on days. rescinded 3-day notice. denied SI/HI. endorsed AH. was RIS overnight and was pacing the halls talking to himself but appearing very sedated. made bowel movement yesterday. this afternoon had an outburst, ran down the darling and slammed his door, expressed SI and was trying to figure out how to open a window so he could jump out. got ativan and seroquel PRNs, calmed. asked to be discharged so he could kill himself. Mental Status Exam Mental Status Exam Narrative: appropriately dressed and groomed. awake. cooperative. no PMA/PMR. speech nml in rate and amount, loudness, tone. thoughts linear and logical in response to questions. affect constricted. mood frustrated. +AH. no SI/HI, VH expressed. Diagnostics Vital Signs (24Hr): Vital Signs - 24 hr 03/15/22 21:50 03/16/22 08:30 Temperature 98.3 F 98.8 F Pulse Rate 91 90 Respiratory Rate 16 16 Blood Pressure 119/58 L 108/61 Pulse Oximetry 96 97 Oxygen Delivery Method Room Air Room Air Labs Labs: Laboratory Results - last 48 hr 03/15/22 03/15/22 15:53 15:53 T.pallidum Ab (EIA) Nonreactive HIV 1&2 Ab/P24 Ag 4thGn Nonreactive Medications Medications Current Medications Acetaminophen (Acetaminophen 325 Mg Tablet) 650 mg PO Q6H PRN PRN Reason: Pain, Mild (Pain Scale 1-3) Last Admin: 03/15/22 10:35 Dose: 650 mg Baclofen (Baclofen 10 Mg Tablet) 10 mg PO BID [facility] Last Admin: 03/16/22 08:02 Dose: 10 mg Bisacodyl (Bisacodyl 5 Mg Tablet.Dr) 10 mg PO DAILY PRN PRN Reason: Constipation Last Admin: 03/15/22 17:07 Dose: 10 mg Bupropion HCl (Bupropion Hcl 100 Mg Tablet) 100 mg PO TID@0800,1200,1600 [facility] Last Admin: 03/16/22 15:31 Dose: 100 mg Clonidine HCl (Clonidine Hcl 0.1 Mg Tablet) 0.1 mg PO TID [facility]; Protocol Last Admin: 03/16/22 15:31 Dose: 0.1 mg Docosanol (Docosanol 10 % Cream 2 Gm Tube) 1 appl TOPICAL 5XD [facility]; Protocol Last Admin: 03/16/22 15:34 Dose: Not Given Docusate Sodium (Docusate Sodium 100 Mg Capsule) 100 mg PO DAILY PRN PRN Reason: Constipation Last Admin: 03/12/22 18:41 Dose: 100 mg Gabapentin (Gabapentin 400 Mg Capsule) 800 mg PO TID [facility] Last Admin: 03/16/22 15:32 Dose: 800 mg Ibuprofen (Ibuprofen 600 Mg Tablet) 600 mg PO Q6H PRN PRN Reason: body aches Bethany Carbonate (Bethany Carbonate Er 300 Mg Tablet.Er) 600 mg PO BID [facility] Last Admin: 03/16/22 15:31 Dose: 600 mg Lorazepam (Lorazepam 1 Mg Tablet) 1 mg PO BID PRN PRN Reason: severe anxiety Last Admin: 03/16/22 12:07 Dose: 1 mg Methadone HCl (Methadone Hcl 20 Mg/2 Ml Oral.Conc) 90 mg PO DAILY [facility] Last Admin: 03/16/22 08:03 Dose: 90 mg Nicotine Polacrilex (Nicotine Polacrilex 2 Mg Gum) 4 mg BUCCAL Q1H PRN PRN Reason: Nicotine Cravings Last Admin: 03/16/22 15:32 Dose: 4 mg Polyethylene Glycol (Polyethylene Glycol 3350 17 Gm Powd.Pack) 17 gm PO DAILY PRN PRN Reason: constipation Quetiapine Fumarate (Quetiapine Fumarate 50 Mg Tablet) 50 mg PO BID PRN PRN Reason: Anxiety Last Admin: 03/16/22 12:25 Dose: 50 mg Quetiapine Fumarate (Quetiapine Fumarate 300 Mg Tablet) 300 mg PO BEDTIME [facility] Last Admin: 03/15/22 21:50 Dose: 300 mg Allergies Allergies Allergy/AdvReac Type Severity Reaction Status Date / Time No Known Allergies Allergy Unknown UNKNOWN Unverified 06/25/20 19:23 [NO KNOWN ALLERGIES] Assessment & Plan Assessment & Plan (1) Opioid use disorder: Status: Acute Code(s): F11.90 - Opioid use, unspecified, uncomplicated (2) Bipolar disorder: Status: Acute Code(s): F31.9 - Bipolar disorder, unspecified (3) Suicidal ideation: Status: Acute Code(s): R45.851 - Suicidal ideations Plan restart home meds. return gabapentin dosing to 800 TID. wellbutrin split dosing. prazosin at HS. may benefit from proper mood stabilizer if Dx of bipolar disorder is found to be credible. agreed on 1 mg ativan daily PRN while here, no Rx to be given at discharge. 03/12: Continue current regimen and plans 03/13: Continue current plans and regimen with increase of Ativan and Seroquel p.r.n. and nightly doses. 03/14: increase seroquel dosing to 300 mg QHS for psychosis. 03/15: continue current mgmt. less psychotic, more invested in Tx. 03/16: labile/irritable, psychotic, sleep cycle disturbance. asks for prazosin and bowel regimen to be DCed, which is accommodated. agrees to start lithium 600 BID for chandra. I spent ___35___ minutes with the patient and/or on the patient floor today, greater than?50% of which was spent counseling/coordinating care. Reason for contiued inpatient stay Substantial Risk for: harm to self, harm to others, inability to function and rapid decompensation
[2022-03-16] MEDS: Acetaminophen 325 MG TABLET 650 MG PO (17:37)
[2022-03-16] MEDS: QUEtiapine Fumarate 300 MG TABLET PO (21:33)
[2022-03-16 21:35] VITALS: BP 128/52; PULSE 79; RESP 16; TEMP 36.7; O2SAT 98
--- NOTE | 2022-03-17 | ECG_ITS ---
Test Reason : tachycardia Blood Pressure : / mmHG Vent. Rate : 107 BPM Atrial Rate : 107 BPM P-R Int : 136 ms QRS Dur : 086 ms QT Int : 322 ms P-R-T Axes : 053 033 040 degrees QTc Int : 429 ms Sinus tachycardia Possible Left atrial enlargement Borderline ECG When compared with ECG of 09-MAR-2022 00:06, No significant change was found Referred By: Lowell Lazaro Electronically Signed By:MARCI ALBRECHT
--- NOTE | 2022-03-17 04:23 | PM.EVENT ---
Event Note Date of Service: 03/17/22 Event Note: Rapid response note: Chest pain: Patient reported chest pain around 04:00 on 03/17/2022. Mentioned chest pain is located on the left side of the chest, nonradiating, associated mild shortness of breath. Worsens with deep inspiration. On exam patient noted to be tachycardic. Chest pain is reproducible. Worsens with arm lifting as well. Stat EKG, troponins, labs ordered. CTA chest pending. Fever: pt had fever 102F ordered UA and CT chest. pt also reports gen body aches; Repeat Viral panel.
[2022-03-17] MEDS: Morphine Sulfate 2 MG/ML CARTRIDGE SUBCUT (04:32)
[2022-03-17] MEDS: Morphine Sulfate 2 MG/ML CARTRIDGE 1 MG IVPUSH (04:52)
[2022-03-17] MEDS: Acetaminophen 325 MG TABLET 650 MG PO (04:57)
[2022-03-17 05:10] VITALS: BP 129/65; PULSE 100; RESP 18; TEMP 38.8; O2SAT 95
[2022-03-17 05:16] LABS: Troponin-I High Sensitivity < 3.5 ng/L (<3.5-35.0)
[2022-03-17 05:26] VITALS: BP 99/53; PULSE 106; RESP 20; TEMP 38.8; O2SAT 98
--- NOTE | 2022-03-17 05:38 | PC.NURSE ---
Thai was awake at 0355 reporting some chest pain and difficulty breathing. Vitals were taken and a rapid response was called at 0400. Patient reporting pain in his chest radiating to his shoulders and arms. Patient given nitroglycerin sublingual. Patient placed on 3L O2 and given 2mg Morphine sub q and then 1 mg Morphine IV push by the Nursing supervisor carding (Rossana Parker). Temperature taken was 101.6. AT 0500, Temperature raised to 102. Tylenol given PO prn. Bloodwork and an EKG was done. Patient having cat scan done and then will be transferred to the 4th floor.
[2022-03-17 05:45] VITALS: BP 107/67; PULSE 99; RESP 18; TEMP 38.6; O2SAT 97
[2022-03-17 05:57] LABS: COVID-19 Test Negative (Negative)
[2022-03-17 06:00] VITALS: BP 109/58; PULSE 104; RESP 18; TEMP 38.1; O2SAT 96
[2022-03-17 06:17] LABS: Influenza A Negative (Negative); Influenza B2 Negative (Negative)
--- NOTE | 2022-03-17 06:28 | PC.NURSE ---
Nurse to nurse done with Kristine on I[facility], patient transferred from [phone] to [facility]-
[2022-03-17] MEDS: iohexoL 350 MG/ML 100 ML INFUS..BTL IV (06:46)
[2022-03-17 07:55] VITALS: BP 117/58; PULSE 102; RESP 18; TEMP 37.2; O2SAT 93
[2022-03-17 08:25] LABS: Troponin-I High Sensitivity 4.4 ng/L (<3.5-35.0)
[2022-03-17 08:47] LABS: MANUAL DIFF FLAG NO
[2022-03-17 08:50] LABS: Basophils Percent Auto 0.2 % (0-2); Eosinophils Absolute Auto 0.2 X10*3/uL (0.0-0.4); Eosinophils Percent Auto 1.2 % (0-4); Hematocrit 39.6 % (42.0-52.0); Hemoglobin 12.6 g/dl (14.0-18.0); Imm Gran Abs Auto 0.21 X10*3/uL (0.00-0.03); Imm Gran Pct Auto 1.4 % (0.0-0.4); Lymphocytes Absolute Auto 2.4 X10*3/uL (1.2-4.9); Lymphocytes Percent Auto 16.3 % (20-40); Mean Corpuscular HGB Conc 31.8 g/dl (31.0-36.0); Mean Corpuscular Hemoglobin 26.8 pg (27.0-33.0); Mean Corpuscular Volume 84.1 fL (80.0-98.0); Mean Platelet Volume 9.7 fL (9.4-12.4); Monocytes Absolute Auto 1.3 X10*3/uL (0.1-1.2); Monocytes Percent Auto 9.1 % (2-11); Neutrophils Absolute Auto 10.5 x10*3/uL (2.0-8.3); Neutrophils Percent Auto 71.8 % (45-73); Platelet Count 272 X10*3/uL (160-400); Red Blood Count 4.71 X10*6/uL (4.60-5.80); Red Cell Distribution Width 14.8 % (11.0-16.0); White Blood Count 14.6 X10*3/uL (4.8-10.8)
[2022-03-17 08:59] LABS: Lactic Acid 1.6 mmol/L (0.5-2.0)
[2022-03-17 09:02] LABS: Anion Gap 15 (12-20); Blood Urea Nitrogen 8 mg/dL (9-16); Carbon Dioxide 26 mmol/L (22-29); Chloride 98 mmol/L (96-108); Estimated Glomerular Filt Rate > 60; Glucose Random 113 mg/dL (60-115); Potassium 5.5 mmol/L (3.3-5.1); Sodium 133 mmol/L (135-145)
[2022-03-17 09:09] VITALS: BP 109/58; PULSE 104; RESP 18; TEMP 38.1; O2SAT 97
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
--- NOTE | 2022-03-17 11:51 | PM.EVENT ---
Event Note Date of Service: 03/17/22 Event Note: This customs entry writer was electronic resources librarian, received message from RN at 06:02 AM that stated FYI. Called a rapid response at 0400 for 324 [address] scan then sending to [facility]. Febrile. R/O PE, sepsis. Needs to be discharged from here. TY.
--- NOTE | 2022-03-17 11:51 | P.EN_ITS ---
Event Note Date of Service: 03/17/22 Event Note: This clinical writer was president & ceo [employer], received message from RN at 06:02 AM that stated FYI. Called a rapid response at 0400 for 324 [address]ne[address] scan then sending to [facility]. Febrile. R/O PE, sepsis. Needs to be discharged from here. TY.
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
[2022-03-22 23:16] LABS: Chlamydia Pneumoniae IgA <1:16 titer (<1:16); Chlamydia Pneumoniae IgG <1:64 titer (<1:64); Chlamydia Pneumoniae IgM <1:10 titer (<1:10); Chlamydia Psittaci IgA <1:16 titer (<1:16); Chlamydia Psittaci IgG <1:64 titer (<1:64); Chlamydia Psittaci IgM <1:10 titer (<1:10); Chlamydia Trachomatis IgA <1:16 titer (<1:16); Chlamydia Trachomatis IgG <1:64 titer (<1:64); Chlamydia Trachomatis IgM <1:10 titer (<1:10)
== END 2022-03-17 04:00 | disposition short-term general hospital (02) | DRG 753 ==
LOC: HO.PADLT16 03-14 17:30 → HO.IMC 03-17 06:13
PROVIDERS: Hospitalist; Physician Assistant Medical; Admitting Provider Psychiatry & Neurology Psychiatry; Visit Provider Psychiatry & Neurology Psychiatry
DX: F31.9 Bipolar disorder, unspecified (principal); J18.9 Pneumonia, unspecified organism; R45.851 Suicidal ideations; F11.20 Opioid dependence, uncomplicated; F17.210 Nicotine dependence, cigarettes, uncomplicated; Z71.6 Tobacco abuse counseling; Z56.0 Unemployment, unspecified; Z59.02 Unsheltered homelessness; Z20.822 Contact with and (suspected) exposure to COVID-19; Z62.810 Personal history of physical and sexual abuse in childhood; Z79.899 Other long term (current) drug therapy
CPT/HCPCS: 0241U; 36415; 71275; 80048; 83605; 84484; 85025; 86631; 86632; 86780; 87040; 87389; 87502; 87635; 93005; J2270; Q0163; Q9967

== ENCOUNTER → 2022-03-11 13:58 | Outpatient (BNV) | payer MEDICAID, SELFPAY | PROVIDERS: Admitting Provider Psychiatry & Neurology Psychiatry; Visit Provider Psychiatry & Neurology Psychiatry | DX: F11.90 Opioid use, unspecified, uncomplicated (principal); F31.9 Bipolar disorder, unspecified; R45.851 Suicidal ideations | CPT/HCPCS: 99221; 99222; 99232; 99233; 99499 ==

== ENCOUNTER 2022-03-17 09:37 | Inpatient (IN) | payer MEDICAID, SELFPAY ==
--- NOTE | 2022-03-17 10:39 | P.HPHOSP_ITS ---
History of Present Illness Date of Service: 03/17/22 Attending physician on admission: Onur Noonan Chief Complaint: Fever, chest pain This is a 31 year old male With history of schizophrenia, bipolar disorder, polysubstance abuse who initially presented to the emergency department on March 09 with suicidal ideation. He was admitted to the medical service due to CAYETANO and mild rhabdomyolysis. He was treated with IV fluid and his renal function improved. He was transferred to inpatient psych on March 11. Overnight patient had rapid response due to left-sided chest pain and he was transferred to the medical floor. He states the pain is worse with deep inspiration and is somewhat reproducible on exam. The pain is described as sharp and constant. It was initially associated with shortness of breath which has now resolved. He has associated fever, denies any cough. He was noted to have temperature of 102. CTA done shows right upper lobe opacities concerning for pneumonia. Labwork has returned showing leukocytosis of 14.6 and potassium of 5.5. He will be started on antibiotics for the management of pneumonia. Review of Systems Review of Systems: Yes all other systems are reviewed and are negative Constitutional: Constitutional: Denies chills and Reports fever(s) Cardiovascular: Cardiovascular: Denies dyspnea Respiratory: Respiratory: Denies cough, Reports pain on inspiration and Denies dyspnea Gastrointestinal: Gastrointestinal: Denies nausea and Denies vomiting [facility] Medical History Bipolar disorder Schizophrenia Family History Other No family history of coronary artery disease Surgical History No pertinent past surgical history Social History Household Members: Friend(s) Household Members Other:: 2 friends Housing: House Do you presently have visiting nurse or other home services: No Alcohol intake: current Patient Tobacco Use Status: Current everyday Tobacco user Tobacco use type: Cigarette Cigarette Packs Per Day: 1 Cigarettes Per Day: 20.0 Years Smoked: 14 Smoked in Last 30 Days: Yes Patient Interested in Nicotine Replacement: No Second Hand Smoke Exposure: Yes Use of substances other than those prescribed or required for medical reasons: Yes Substance Use Type: Heroin Substance Use Frequency: Monthly Last Used Substance: Days (ago) Currently Displaying Signs/Symptoms of Drug Intoxication Withdrawal: No Any prior treatment program specific to substance use: No Have you been hit, kicked, punched, or otherwise hurt by someone within the past year? If so, by whom?: No Do you feel safe in your current relationship?: No Current Relationship Is there a partner from a previous relationship who is making you feel unsafe now?: No Are you made to feel afraid or neglected: No Advance Directives: No Advance Directives Information Provided: No Do you have thoughts of harming others: None Do you have a plan to hurt others: No Plan Recently lost weight without trying: Unsure How much weight loss: Not applicable Eating poorly because of decreased appetite: No Nutrition screen score: 2 service: No Current occupational status: unemployed Sexual orientation: Straight/Heterosexual Meds Allergies Allergy/AdvReac Type Severity Reaction Status Date / Time No Known Allergies Allergy Unknown UNKNOWN Unverified 06/25/20 19:23 [NO KNOWN ALLERGIES] Active Medications: Current Medications Acetaminophen (Acetaminophen 325 Mg Tablet) 650 mg PO Q6H PRN PRN Reason: Pain, Mild (Pain Scale 1-3) Benzonatate (Benzonatate 100 Mg Capsule) 100 mg PO TID PRN PRN Reason: Cough Docusate Sodium (Docusate Sodium 100 Mg Capsule) 100 mg PO DAILY PRN PRN Reason: Constipation Ceftriaxone Sodium 1 gm/ (Sodium Chloride) 50 mls @ 100 mls/hr IV Q24H [facility] Doxycycline Hyclate 100 mg/ (Sodium Chloride) 250 mls @ 166.67 mls/hr IV Q12H [facility] Pharmacy Consult (Consult Rx Perform Med Rec) 1 each MISCELLANE ONCE PRN PRN Reason: Consult order Sodium Chloride (0.9 % Sodium Chloride Flush 3 Ml Syringe) 3 ml IVFLUSH QSHIFT [facility] Home Medications Medication Instructions Recorded Confirmed Last Taken Type baclofen 10 mg tablet 10 mg PO BID 03/09/22 03/17/22 Unknown History clonidine HCl 0.1 mg tablet 0.1 mg PO TID 03/09/22 03/17/22 Unknown History gabapentin 800 mg tablet 800 mg PO BID 03/09/22 03/17/22 Unknown History nicotine (polacrilex) 4 mg gum 4 mg buccal Q1H PRN Nicotine 03/09/22 03/17/22 Unknown History Cravings nicotine 14 mg/24 hr daily 1 patch transdermal DAILY 03/09/22 03/17/22 Unknown History transdermal patch quetiapine 50 mg tablet 50 mg PO DAILY PRN Anxiety 03/09/22 03/17/22 Unknown History Physical Exam Const: Other: sleepy but easily arousable General: cooperative and comfortable Nutritional Appearance: average body habitus Resp: Effort & Inspection: normal respiratory effort and able to speak in complete sentences Auscultation: clear to auscultation bilaterally Cardio: Rate: tachycardic Heart sounds: S1 normal heart sound present and S2 normal heart sound present GI: Inspection: No distended Palpation (GI): Soft to palpation and nontender Extrem: Other: able to move all 4 extremities spontaneously General: Yes no pedal edema Results Labs CBC and Chem 7: 03/17/22 10:34 Assessment and Plan (1) Pneumonia: Status: Acute Plan This is a 31-year-old male with history of bipolar disorder, schizophrenia admitted to the psych floor for treatment/management of suicidal ideation transferred to the medical floor overnight after rapid response for fever and chest pain /shortness of breath found to have pneumonia Sepsis secondary to pneumonia meets criteria with tachycardia and leukocytosis no severe features sepsis focused exam completed will start IV ceftriaxone, IV doxycycline RPP pending Covid, flu negative chest pain likely r/t to PNA trops flat CTA with suboptimal to eval for PE, but no hypoxia and tachycardia resolved. less likely PT Hyperkalemia k 5.5, repeat 5.3 lokelma given follow BMP Mood med rec pending attending: dr. noonan patient will likely require 2 midnight stay on medical floor for management of sepsis/PNA Quality Stroke Does the patient have a stroke diagnosis?: No VTE Prior VTE?: No VTE Risk Level:: Medical - low VTE Device Contraindication: N/A - Device Ordered VTE Drug Contraindication: Treatment Not Indicated
[2022-03-17] MEDS: cefTRIAXone sodium 1 GM in 0.9 % Sodium Chloride 50 ML IV (10:54)
[2022-03-17 11:00] LABS: Potassium 5.3 mmol/L (3.3-5.1)
--- NOTE | 2022-03-17 11:07 | MHC.CM.PN ---
CM has attempted X3 to meet with Patient who has a Sitter and continues to sleep/snore soundly. CM attempted to reach Contact/Girlfriend/Harman @ [phone] but immediately got a busy tone with each attempt.Patient is from [facility] and is now here on the medical floor r/t PNA. Once Medically cleared, Patient will need a Care Team eval to assist with recommended disposition. CM will follow.
[2022-03-17 11:16] VITALS: BP 112/58; PULSE 73; RESP 18; TEMP 36.9; O2SAT 96
[2022-03-17] MEDS: Doxycycline Hyclate 100 MG in 0.9 % Sodium Chloride 250 ML 166.67 MG IV (11:41)
[2022-03-17] MEDS: Sodium Zirconium Cyclosilicate 5 GM POWD.PACK PO (11:41)
[2022-03-17] MEDS: 0.9 % Sodium Chloride Flush 3 ML SYRINGE IVFLUSH ×2 (14:30→23:01)
[2022-03-17] MEDS: buPROPion HCL 100 MG TABLET PO ×2 (14:30→21:24)
[2022-03-17] MEDS: cloNIDine HCL 0.1 MG TABLET PO ×2 (14:30→21:24)
[2022-03-17] MEDS: methADONE HCl 20 MG/2 ML ORAL.CONC 90 MG PO (14:30)
[2022-03-17] MEDS: Gabapentin 400 MG CAPSULE 800 MG PO ×2 (14:30→21:23)
[2022-03-17 15:13] VITALS: BP 115/64; PULSE 73; RESP 18; TEMP 37.4; O2SAT 95
[2022-03-17 15:25] LABS: Adenovirus PCR Not Detected (Not Detect.); Bordetella parapertussis PCR Not Detected (Not Detect.); Bordetella pertussis PCR Not Detected (Not Detect.); Chlamydia pneumoniae PCR Not Detected (Not Detect.); Coronavirus 229E PCR Not Detected (Not Detect.); Coronavirus HKU1 PCR Not Detected (Not Detect.); Coronavirus NL63 PCR Not Detected (Not Detect.); Coronavirus OC43 PCR Not Detected (Not Detect.); Human metapneumovirus PCR Not Detected (Not Detect.); Influenza A PCR Not Detected (Not Detect.); Influenza B PCR Not Detected (Not Detect.); Mycoplasma pneumoniae PCR Not Detected (Not Detect.); Parainfluenza 1 PCR Not Detected (Not Detect.); Parainfluenza 2 PCR Not Detected (Not Detect.); Parainfluenza 3 PCR Not Detected (Not Detect.); Parainfluenza 4 PCR Not Detected (Not Detect.); RSV PCR Not Detected (Not Detect.); Rhino/Enterovirus PCR Not Detected (Not Detect.); SARS-CoV-2 PCR Not Detected (Not Detect.)
--- NOTE | 2022-03-17 15:40 | P.DS_ITS ---
DS: Providers Provider Date of admission: 03/17/22 09:37 Primary care physician: Unknown Physician Consults: 03/17/22 12:16 Consult to Psychiatry Routine Consulting Provider: Psych Covering Reason for consultation: transfer from psych floor; SI Has provider been notified: No DS: Diagnosis Discharge Diagnosis (1) Pneumonia: Status: Acute DS: Medications Discharge Medications Home Medications: Home Medications Medication Instructions Recorded Confirmed baclofen 10 mg tablet 10 mg PO BID 03/09/22 03/17/22 clonidine HCl 0.1 mg tablet 0.1 mg PO TID 03/09/22 03/17/22 gabapentin 800 mg tablet 800 mg PO BID 03/09/22 03/17/22 nicotine (polacrilex) 4 mg gum 4 mg buccal Q1H PRN Nicotine 03/09/22 03/17/22 Cravings nicotine 14 mg/24 hr daily 1 patch transdermal DAILY 03/09/22 03/17/22 transdermal patch quetiapine 50 mg tablet 50 mg PO DAILY PRN Anxiety 03/09/22 03/17/22 Data Data Completed and Pending Completed studies during hospitalization [Text1]: 03/17/22 03/17/22 10:34 14:03 Potassium 5.3 H Respiratory Panel Diaz See Note Adenovirus (Rapid PCR) Not Detected B.pert (TEM-PCR) Not Detected B.parapertussis DNA PCR Not Detected C. pneumoniae DNA (PCR) Not Detected Coronavirus OC43 (PCR) Not Detected Coronavirus HKU1 (PCR) Not Detected Coronavirus 229E (PCR) Not Detected Coronavirus NL63 (PCR) Not Detected Human Metapneumovir PCR Not Detected Influenza A (RT-PCR) Not Detected Influenza B (RT-PCR) Not Detected M. pneumoniae (PCR) Not Detected Parainfluenza 1 (PCR) Not Detected Parainfluenza 2 (PCR) Not Detected Parainfluenza 3 (PCR) Not Detected Parainfluenza 4 (PCR) Not Detected RSV (PCR) Not Detected Entero/Rhino (PCR) Not Detected SARS-CoV-2 RNA (RT-PCR) Not Detected DS: Summary Hospital Course Hospital Course: HP as per admitting provider This is a 31 year old male With history of schizophrenia, bipolar disorder, polysubstance abuse who initially presented to the emergency department on March 09 with suicidal ideation.? He was admitted to the medical service due to CAYETANO and mild rhabdomyolysis.? He was treated with IV fluid and his renal function improved.? He was transferred to inpatient psych on March 11.? Overnight patient had rapid response due to left-sided chest pain and he was transferred to the medical floor.? He states the pain is worse with deep inspiration and is somewhat reproducible on exam. The pain is described as sharp and constant. It was initially associated with shortness of breath which has now resolved.? He has associated fever, denies any cough. He was noted to have temperature of 102. CTA done shows right upper lobe opacities concerning for pneumonia. Labwork has returned showing leukocytosis of 14.6 and potassium of 5.5. He will be started on antibiotics for the management of pneumonia . Initially admitted to psych for SI then tx to medical floor for sepsis symptoms. Sepsis secondary to pneumonia. Resolved possible component of aspiration initially met criteria with tachycardia and leukocytosis.? tachycardia resolved, leukocytosis Treated with IV ceftriaxone, IV doxycycline, switched to oral ceftin and doxy for 3 more days RPP negative; Covid, flu negative blood cultures negative to date chest pain likely r/t to PNA trops flat CTA with suboptimal to eval for PE, but no hypoxia and tachycardia resolved. less likely PE Hyperkalemia resolved with lokelma Mild hyponatremia resolved Mood continued on medications he was receiving on inpatient psychiatric floor. ? Seems somewhat sedated psychiatric evaluation for med adjustment Cleared by [facility] to be discharged, did not require re-admission to psych floor Plan for dc as per [facility]: Safety Plan? Thai will utilize the following crisis hotlines for crisis support:? [facility] Crisis Services:[phone], crisis team serves all of [facility]. You can call or? you can go to their office, [address] [place] [address]. You are on alert with the [facility] crisis.They are aware of what is happening, and they are willing to help.You can also call them for support.? The National Suicide Prevention Lifeline at ? Recommendations:? -Thai ?will continue to utilize campus supports for her mental health.? -If Thai feels that he is not improving or if symptoms worsen, he will return to [facility], or the closest hospital.? -Thai will self refer to CSS in [facility] and refer to resources support given by the recovery team.? -Thai will receive a check in call from the CARE Team 1 day after discharge.? For additional support with outpatient recommendation, please contact the CARE Team * [phone], opt 1 * This is not a 24 hour hotline and does not provide crisis support. In this event, please call [facility] crisis. Time Spent with Patient Time attestation: Total time spent providing and/or coordinating discharge services: Discharge Plan Discharge Anticipated Discharge Date/Time: 03/19/22 13:35 Patient Disposition: Home, Self-Care Discharge Diagnosis: Community-acquired pneumonia Sepsis Discharge Medications: New quetiapine 300 mg Tablet 300 mg PO BEDTIME Qty: 30 0RF bupropion HCl 100 mg Tablet 100 mg PO TID Qty: 90 0RF lithium carbonate 300 mg Capsule 600 mg PO BID Qty: 120 0RF quetiapine 50 mg Tablet 50 mg PO BID PRN (Reason: anxiety) Qty: 60 0RF Continued clonidine HCl 0.1 mg Tablet 0.1 mg PO TID nicotine 14 mg/24 hr Patch 24 Hour 1 patch TRANSDERMAL DAILY gabapentin 800 mg Tablet 800 mg PO BID nicotine (polacrilex) 4 mg Gum 4 mg BUCCAL Q1H PRN (Reason: Nicotine Cravings) baclofen 10 mg Tablet 10 mg PO BID Discontinued quetiapine 50 mg Tablet 50 mg PO DAILY PRN (Reason: Anxiety) No Action methadone 10 mg/mL Concentrate 90 mg PO DAILY Discharge Orders: Discharge Order (Routine); Ordered 03/19/22 Ordered By: Hailey Canales Diet: advance to usual diet Activity on Discharge: As tolerated Stand Alone Forms: Patient Portal Discharge page Care Plan Goals: Safety Plan?(as per [facility]) Thai will utilize the following crisis hotlines for crisis support:? [facility] Crisis Services:[phone], crisis team serves all of [facility]. You can call or? you can go to their office, [address] [place] [address]. You are on alert with the [facility] crisis.They are aware of what is happening, and they are willing to help.You can also call them for support.? The National Suicide Prevention Lifeline at ? Recommendations:? -Thai ?will continue to utilize campus supports for her mental health.? -If Thai feels that he is not improving or if symptoms worsen, he will return to [facility], or the closest hospital.? -Thai will self refer to CSS in [facility] and refer to resources support given by the recovery team.? -Thai will receive a check in call from the CARE Team 1 day after discharge.? For additional support with outpatient recommendation, please contact the CARE Team * [phone], opt 1 * This is not a 24 hour hotline and does not provide crisis support. In this event, please call [facility] crisis. Health Concerns: community-acquired pneumonia Sepsis Plan of Treatment: Continue methadone dosing as per current outpatient clinic Take all medications as prescribed follow up with your primary care provider as needed Assessment: see discharge summary Discharge Date/Time: 03/19/22 15:58
[2022-03-17] MEDS: Nicotine Polacrilex 2 MG GUM BUCCAL ×3 (16:02→22:30)
[2022-03-17] MEDS: LORazepam 1 MG TABLET PO (18:23)
[2022-03-17 19:06] VITALS: BP 115/55; PULSE 79; RESP 18; TEMP 36.4; O2SAT 96
[2022-03-17] MEDS: Lithium Carbonate 300 MG CAPSULE 600 MG PO (21:23)
[2022-03-17] MEDS: Doxycycline Hyclate 100 MG in 0.9 % Sodium Chloride 250 ML 166 MG IV (21:23)
[2022-03-17] MEDS: QUEtiapine Fumarate 300 MG TABLET PO (21:24)
[2022-03-17] MEDS: Baclofen 10 MG TABLET PO (21:24)
[2022-03-17 23:19] VITALS: BP 113/60; PULSE 96; RESP 18; TEMP 36.9; O2SAT 95
[2022-03-18 03:30] VITALS: BP 112/58; PULSE 70; RESP 18; TEMP 36.1; O2SAT 97
[2022-03-18 06:09] LABS: MANUAL DIFF FLAG NO
[2022-03-18 06:16] LABS: Basophils Percent Auto 0.3 % (0-2); Eosinophils Absolute Auto 0.3 X10*3/uL (0.0-0.4); Eosinophils Percent Auto 2.9 % (0-4); Hematocrit 36.5 % (42.0-52.0); Hemoglobin 11.5 g/dl (14.0-18.0); Imm Gran Abs Auto 0.13 X10*3/uL (0.00-0.03); Imm Gran Pct Auto 1.1 % (0.0-0.4); Lymphocytes Absolute Auto 2.9 X10*3/uL (1.2-4.9); Lymphocytes Percent Auto 24.8 % (20-40); Mean Corpuscular HGB Conc 31.5 g/dl (31.0-36.0); Mean Corpuscular Hemoglobin 26.6 pg (27.0-33.0); Mean Corpuscular Volume 84.3 fL (80.0-98.0); Mean Platelet Volume 9.8 fL (9.4-12.4); Monocytes Absolute Auto 1.1 X10*3/uL (0.1-1.2); Monocytes Percent Auto 9.1 % (2-11); Neutrophils Absolute Auto 7.1 x10*3/uL (2.0-8.3); Neutrophils Percent Auto 61.8 % (45-73); Platelet Count 294 X10*3/uL (160-400); Red Blood Count 4.33 X10*6/uL (4.60-5.80); White Blood Count 11.5 X10*3/uL (4.8-10.8)
[2022-03-18 06:45] LABS: Anion Gap 13 (12-20); Blood Urea Nitrogen 10 mg/dL (9-16); Calcium 9.4 mg/dL (8.4-10.2); Carbon Dioxide 28 mmol/L (22-29); Chloride 102 mmol/L (96-108); Estimated Glomerular Filt Rate > 60; Glucose Random 109 mg/dL (60-115); Potassium 4.5 mmol/L (3.3-5.1); Sodium 138 mmol/L (135-145)
[2022-03-18 07:37] VITALS: BP 100/54; PULSE 68; RESP 18; TEMP 36.1; O2SAT 95
[2022-03-18] MEDS: 0.9 % Sodium Chloride Flush 3 ML SYRINGE IVFLUSH ×3 (09:45→20:25)
[2022-03-18] MEDS: Gabapentin 400 MG CAPSULE 800 MG PO ×2 (09:47→15:00)
[2022-03-18] MEDS: cloNIDine HCL 0.1 MG TABLET PO ×3 (09:47→20:21)
[2022-03-18] MEDS: Baclofen 10 MG TABLET PO ×2 (09:48→20:21)
[2022-03-18] MEDS: Lithium Carbonate 300 MG CAPSULE 600 MG PO ×2 (09:48→20:21)
[2022-03-18] MEDS: buPROPion HCL 100 MG TABLET PO ×3 (09:48→20:21)
[2022-03-18] MEDS: methADONE HCl 20 MG/2 ML ORAL.CONC 90 MG PO (09:49)
[2022-03-18] MEDS: LORazepam 1 MG TABLET PO (09:58)
[2022-03-18] MEDS: Nicotine Polacrilex 2 MG GUM BUCCAL ×2 (09:59→15:02)
[2022-03-18] MEDS: cefTRIAXone sodium 1 GM in 0.9 % Sodium Chloride 50 ML IV (10:02)
[2022-03-18] MEDS: Doxycycline Hyclate 100 MG in 0.9 % Sodium Chloride 250 ML 166 MG IV ×2 (10:53→22:13)
[2022-03-18 11:15] VITALS: BP 102/57; PULSE 71; RESP 17; TEMP 36.4; O2SAT 95
--- NOTE | 2022-03-18 12:12 | P.PNIM_ITS ---
Subjective Subjective Date of Service: 03/18/22 Interval History: seen and examined this morning sleepy but arousable having some pain with inspiration, no SOB, no cough Review of Systems Review of Systems: Yes all other systems are reviewed and are negative Constitutional Constitutional: Denies chills and Denies fever(s) Cardiovascular Cardiovascular: Denies palpitations and Denies dyspnea Respiratory Respiratory: Denies cough, Reports pain on inspiration and Denies dyspnea Gastrointestinal Gastrointestinal: Denies abdominal pain Endocrine Endocrine: Denies palpitations Physical Exam Vital Signs: Vital Signs: Last Vital Signs Temp 97.6 F 03/18/22 11:15 Pulse 71 03/18/22 11:15 Resp 17 03/18/22 11:15 BP 102/57 L 03/18/22 11:15 Pulse Ox 95 03/18/22 11:15 O2 Del Method 03/18/22 11:15 Const: Other: sleepy but easily arousable General: cooperative and comfortable Nutritional Appearance: average body habitus Resp: Effort & Inspection: normal respiratory effort and able to speak in complete sentences Auscultation: rhonchi Cardio: Rate: tachycardic Heart sounds: S1 normal heart sound present and S2 normal heart sound present GI: Inspection: No distended Palpation (GI): Soft to palpation and nontender Extrem: Other: able to move all 4 extremities spontaneously General: Yes no pedal edema Objective Data Active Medications Acetaminophen (Acetaminophen 325 Mg Tablet) 650 mg PO Q6H PRN PRN Reason: Pain, Mild (Pain Scale 1-3) Albuterol Sulfate (Albuterol Sulfate (0.083%) 2.5 Mg/3 Ml Vial.Neb) 2.5 mg INHALE Q6H PRN PRN Reason: Shortness of Breath Baclofen (Baclofen 10 Mg Tablet) 10 mg PO BID [facility] Last Admin: 03/18/22 09:48 Dose: 10 mg Documented By: ULISSES Benzonatate (Benzonatate 100 Mg Capsule) 100 mg PO TID PRN PRN Reason: Cough Bupropion HCl (Bupropion Hcl 100 Mg Tablet) 100 mg PO TID [facility] Last Admin: 03/18/22 09:48 Dose: 100 mg Documented By: ULISSES Clonidine HCl (Clonidine Hcl 0.1 Mg Tablet) 0.1 mg PO TID [facility]; Protocol Last Admin: 03/18/22 09:47 Dose: 0.1 mg Documented By: ULISSES Docusate Sodium (Docusate Sodium 100 Mg Capsule) 100 mg PO DAILY PRN PRN Reason: Constipation Gabapentin (Gabapentin 400 Mg Capsule) 800 mg PO TID [facility] Last Admin: 03/18/22 09:47 Dose: 800 mg Documented By: ULISSES Ceftriaxone Sodium 1 gm/ (Sodium Chloride) 50 mls @ 100 mls/hr IV Q24H [facility] Last Infusion: 03/18/22 10:52 Dose: 0 mls/hr Documented By: ULISSES Doxycycline Hyclate 100 mg/ (Sodium Chloride) 250 mls @ 166.67 mls/hr IV Q12H [facility] Last Admin: 03/18/22 10:53 Dose: 166 mls/hr Documented By: ULISSES Chevak Carbonate ([place] Carbonate 300 Mg Capsule) 600 mg PO BID [facility] Last Admin: 03/18/22 09:48 Dose: 600 mg Documented By: ULISSES Lorazepam (Lorazepam 1 Mg Tablet) 1 mg PO BID PRN PRN Reason: anxiety Last Admin: 03/18/22 09:58 Dose: 1 mg Documented By: ULISSES Methadone HCl (Methadone Hcl 20 Mg/2 Ml Oral.Conc) 90 mg PO DAILY [facility] Last Admin: 03/18/22 09:49 Dose: 90 mg Documented By: ULISSES Nicotine (Nicotine 14 Mg Patch.Td24) 14 mg TRANSDERMA DAILY [facility] Last Admin: 03/18/22 10:00 Dose: Not Given Documented By: ULISSES Non-Admin Reason: Patient Refused Nicotine Polacrilex (Nicotine Polacrilex 2 Mg Gum) 2 mg BUCCAL Q2H PRN PRN Reason: tobacco cravings Last Admin: 03/18/22 09:59 Dose: 2 mg Documented By: ULISSES Pharmacy Consult (Consult Rx Perform Med Rec) 1 each MISCELLANE ONCE PRN PRN Reason: Consult order Polyethylene Glycol (Polyethylene Glycol 3350 17 Gm Powd.Pack) 17 gm PO DAILY PRN PRN Reason: constipation Quetiapine Fumarate (Quetiapine Fumarate 300 Mg Tablet) 300 mg PO BEDTIME [facility] Last Admin: 03/17/22 21:24 Dose: 300 mg Documented By: THERESA Quetiapine Fumarate (Quetiapine Fumarate 50 Mg Tablet) 50 mg PO BID PRN PRN Reason: anxiety Sodium Chloride (0.9 % Sodium Chloride Flush 3 Ml Syringe) 3 ml IVFLUSH QSHIFT MICKI Last Admin: 03/18/22 09:45 Dose: 3 ml Documented By: ULISSES Labs CBC & Chem 7: 03/18/22 05:52 03/18/22 05:52 Labs: Laboratory Results - last 24 hr 03/17/22 03/18/22 03/18/22 14:03 05:52 05:52 MCV 84.3 MCH 26.6 L MCHC 31.5 RDW 15.0 Plt Count 294 MPV 9.8 Immature Gran % (Auto) 1.1 H Neut % (Auto) 61.8 Lymph % (Auto) 24.8 [place] % (Auto) 9.1 Eos % (Auto) 2.9 Baso % (Auto) 0.3 Lymph # (Auto) 2.9 [place] # (Auto) 1.1 Eos # (Auto) 0.3 Baso # (Auto) 0.0 Abs Immat Gran (auto) 0.13 H Absolute Neuts (auto) 7.1 Absolute Nucleated RBC 0.000 Nucleated RBC % (auto) 0.0 Anion Gap 13 Estim Creat Clear Calc TNP Estimated GFR > 60 Random Glucose 109 Calcium 9.4 Respiratory Panel Diaz See Note Adenovirus (Rapid PCR) Not Detected B.pert (TEM-PCR) Not Detected B.parapertussis DNA PCR Not Detected C. pneumoniae DNA (PCR) Not Detected Coronavirus OC43 (PCR) Not Detected Coronavirus HKU1 (PCR) Not Detected Coronavirus 229E (PCR) Not Detected Coronavirus NL63 (PCR) Not Detected Human Metapneumovir PCR Not Detected Influenza A (RT-PCR) Not Detected Influenza B (RT-PCR) Not Detected M. pneumoniae (PCR) Not Detected Parainfluenza 1 (PCR) Not Detected Parainfluenza 2 (PCR) Not Detected Parainfluenza 3 (PCR) Not Detected Parainfluenza 4 (PCR) Not Detected RSV (PCR) Not Detected Entero/Rhino (PCR) Not Detected SARS-CoV-2 RNA (RT-PCR) Not Detected Assessment and Plan (1) Pneumonia: Status: Acute Plan This is a 31-year-old male with history of bipolar disorder, schizophrenia admitted to the psych floor for treatment/management of suicidal ideation transferred to the medical floor overnight after rapid response for fever and chest pain /shortness of breath found to have pneumonia Sepsis secondary to pneumonia possible component of aspiration initially met criteria with tachycardia and leukocytosis. tachycardia resolved, leukocytosis trending down no severe features sepsis focused exam completed continue IV ceftriaxone, IV doxycycline D#2 RPP negative; Covid, flu negative has been afebrile for 24 hours, not requiring supplemental oxygen blood cultures negative to date chest pain likely r/t to PNA trops flat CTA with suboptimal to eval for PE, but no hypoxia and tachycardia resolved. less likely PE Hyperkalemia resolved with lokelma Mild hyponatremia resolved Mood continued on medications he was receiving on inpatient psychiatric floor. Seems somewhat sedated psychiatric evaluation for ?med adjustment will need re-eval likely tomorrow to return to psych floor continue 1:1 observer for safety DVT ppx - SCD layla attending: dr. noonan requires ongoing inpatient hospitalization for management of pneumonia Quality Stroke Does the patient have a stroke diagnosis?: No VTE Prior VTE?: No VTE Risk Level:: Medical - low VTE Device Contraindication: N/A - Device Ordered VTE Drug Contraindication: Treatment Not Indicated
[2022-03-18 15:32] VITALS: BP 118/68; PULSE 81; RESP 18; TEMP 36.6; O2SAT 93
[2022-03-18 19:00] VITALS: BP 118/65; PULSE 74; RESP 18; TEMP 36.8; O2SAT 95
[2022-03-18] MEDS: LORazepam 0.5 MG TABLET PO (19:14)
[2022-03-18] MEDS: Gabapentin 300 MG CAPSULE 600 MG PO (20:21)
[2022-03-18] MEDS: QUEtiapine Fumarate 300 MG TABLET PO (22:16)
[2022-03-18 23:27] VITALS: BP 115/56; PULSE 89; RESP 18; TEMP 36.4; O2SAT 94
[2022-03-19 04:00] VITALS: BP 105/55; PULSE 74; RESP 18; TEMP 36.6; O2SAT 97
[2022-03-19 07:33] VITALS: BP 100/63; PULSE 68; RESP 19; TEMP 36.6; O2SAT 99
--- NOTE | 2022-03-19 08:32 | MHC.CARE ---
please consult care team when medically clear
[2022-03-19] MEDS: cefTRIAXone sodium 1 GM in 0.9 % Sodium Chloride 50 ML IV (10:08)
[2022-03-19] MEDS: methADONE HCl 20 MG/2 ML ORAL.CONC 90 MG PO (10:09)
[2022-03-19] MEDS: LORazepam 0.5 MG TABLET PO (10:09)
[2022-03-19] MEDS: Baclofen 10 MG TABLET PO (10:10)
[2022-03-19] MEDS: buPROPion HCL 100 MG TABLET PO ×2 (10:10→15:40)
[2022-03-19] MEDS: Gabapentin 300 MG CAPSULE 600 MG PO ×2 (10:10→15:40)
[2022-03-19] MEDS: Lithium Carbonate 300 MG CAPSULE 600 MG PO (10:10)
[2022-03-19] MEDS: cloNIDine HCL 0.1 MG TABLET PO ×2 (10:11→15:40)
[2022-03-19] MEDS: 0.9 % Sodium Chloride Flush 3 ML SYRINGE IVFLUSH (10:11)
[2022-03-19] MEDS: Nicotine Polacrilex 2 MG GUM BUCCAL (11:05)
[2022-03-19] MEDS: Doxycycline Hyclate 100 MG in 0.9 % Sodium Chloride 250 ML 166.67 MG IV (11:05)
[2022-03-19 11:27] VITALS: BP 111/60; PULSE 72; RESP 19; TEMP 36.6; O2SAT 96
--- NOTE | 2022-03-19 13:09 | MHC.RECOVSUP ---
Recovery Support note: CARE Team requested this sign writer letterer or painter meet with patient to discuss CSS options in the [place] area. This sign writer letterer or painter provided patient with facility names, addresses and contact information. Discussed walk-in service at [facility] in fall. Patient accepted information and contact information for this sign writer letterer or painter. Patient reports no questions or concerns at this time. Discussed case with CARE Team and patient's RN.
--- NOTE | 2022-03-19 13:15 | MHC.CARE ---
Safety Plan? Thai will utilize the following crisis hotlines for crisis support:? [facility] Crisis Services:[phone], crisis team serves all of [facility]. You can call or? you can go to their office, [address] [place] [address]. You are on alert with the [facility] crisis.They are aware of what is happening, and they are willing to help.You can also call them for support.? The National Suicide Prevention Lifeline at ? Recommendations:? -Thai ?will continue to utilize campus supports for her mental health.? -If Thai feels that he is not improving or if symptoms worsen, he will return to [facility], or the closest hospital.? -Thai will self refer to CSS in [facility] and refer to resources support given by the recovery team.? -Thai will receive a check in call from the CARE Team 1 day after discharge.? For additional support with outpatient recommendation, please contact the CARE Team [phone], opt 1 This is not a 24 hour hotline and does not provide crisis support. In this event, please call [facility] crisis.
--- NOTE | 2022-03-19 13:51 | P.DS_ITS ---
DS: Providers Provider Date of Service: 03/19/22 Date of admission: 03/17/22 09:37 Primary care physician: Unknown Physician Consults: 03/17/22 12:16 Consult to Psychiatry Routine Consulting Provider: Paco Hanna Reason for consultation: transfer from psych floor; SI Has provider been notified: No Attending physician on discharge: [facility] Discharging clinician: Hailey Canales DS: Diagnosis Discharge Diagnosis (1) Pneumonia: Status: Acute DS: Summary Hospital Course Hospital Course: HP as per admitting provider This is a 31 year old male With history of schizophrenia, bipolar disorder, polysubstance abuse who initially presented to the emergency department on March 09 with suicidal ideation.? He was admitted to the medical service due to CAYETANO and mild rhabdomyolysis.? He was treated with IV fluid and his renal function improved.? He was transferred to inpatient psych on March 11.? Overnight patient had rapid response due to left-sided chest pain and he was transferred to the medical floor.? He states the pain is worse with deep inspiration and is somewhat reproducible on exam. The pain is described as sharp and constant. It was initially associated with shortness of breath which has now resolved.? He has associated fever, denies any cough. He was noted to have temperature of 102. CTA done shows right upper lobe opacities concerning for pneumonia. Labwork has returned showing leukocytosis of 14.6 and potassium of 5.5. He will be started on antibiotics for the management of pneumonia . Initially admitted to psych for SI then tx to medical floor for sepsis symptoms. Sepsis secondary to pneumonia. Resolved possible component of aspiration initially met criteria with tachycardia and leukocytosis.? tachycardia resolved, leukocytosis Treated with IV ceftriaxone, IV doxycycline, switched to oral ceftin and doxy for 3 more days RPP negative; Covid, flu negative blood cultures negative to date chest pain likely r/t to PNA trops flat CTA with suboptimal to eval for PE, but no hypoxia and tachycardia resolved. less likely PE Hyperkalemia resolved with lokelma Mild hyponatremia resolved Mood continued on medications he was receiving on inpatient psychiatric floor. ? Seems somewhat sedated psychiatric evaluation for med adjustment Cleared by N to be discharged, did not require re-admission to psych floor Plan for dc as per [facility]: Safety Plan? Thai will utilize the following crisis hotlines for crisis support:? [facility] Crisis Services:[phone], crisis team serves all of [facility]. You can call or? you can go to their office, [address] [place] [address]. You are on alert with the [facility] crisis.They are aware of what is happening, and they are willing to help.You can also call them for support.? The National Suicide Prevention Lifeline at ? Recommendations:? -Thai ?will continue to utilize campus supports for her mental health.? -If Thai feels that he is not improving or if symptoms worsen, he will return to [facility], or the closest hospital.? -Thai will self refer to CSS in [facility] and refer to resources support given by the recovery team.? -Thai will receive a check in call from the CARE Team 1 day after discharge.? For additional support with outpatient recommendation, please contact the CARE Team * [phone], opt 1 * This is not a 24 hour hotline and does not provide crisis support. In this event, please call [facility] crisis. Time Spent with Patient Time attestation: Total time spent providing and/or coordinating discharge services: Discharge coordination time: Greater than 30 minutes Quality: Safe Use of Opioids Does Pt have an Active Cancer Diagnosis on the Problem List?: No Quality: Stroke Does the patient have a stroke diagnosis?: No Physical Exam Vital Signs: Vital Signs: Last Vital Signs Temp 97.8 F 03/19/22 11:27 Pulse 72 03/19/22 11:27 Resp 19 03/19/22 11:27 BP 111/60 03/19/22 11:27 Pulse Ox 96 03/19/22 11:27 O2 Del Method 03/19/22 11:27 Appearing in no acute distress head is normocephalic atraumatic eyes pupils are PERRLA sclera is anicteric mouth throat mucous membranes are intact and moist neck is supple no lymphadenopathy, no JVD noted lung sounds are clear to auscultation heart regular rate rhythm, clear S1, S2 positive bowel sounds, abdomen is soft, nontender neuro patient is alert x3, no focal deficits Discharge Plan Discharge Anticipated Discharge Date/Time: 03/19/22 13:35 Patient Disposition: Home, Self-Care Discharge Diagnosis: Community-acquired pneumonia Sepsis Discharge Medications: New quetiapine 300 mg Tablet 300 mg PO BEDTIME Qty: 30 0RF bupropion HCl 100 mg Tablet 100 mg PO TID Qty: 90 0RF lithium carbonate 300 mg Capsule 600 mg PO BID Qty: 120 0RF quetiapine 50 mg Tablet 50 mg PO BID PRN (Reason: anxiety) Qty: 60 0RF naloxone [Narcan] 4 mg/actuation spray,non-aerosol 4 mg intranasal ONCE PRN (Reason: opioid overdose) Qty: 1 0RF Rx Instructions: spray 1 dose into ONE nostril; alternate nostrils w each dose until help arrives cefuroxime axetil 500 mg tablet 500 mg PO BID Qty: 4 0RF doxycycline hyclate 100 mg tablet 100 mg PO BID Qty: 4 0RF Continued clonidine HCl 0.1 mg Tablet 0.1 mg PO TID nicotine 14 mg/24 hr Patch 24 Hour 1 patch TRANSDERMAL DAILY gabapentin 800 mg Tablet 800 mg PO BID nicotine (polacrilex) 4 mg Gum 4 mg BUCCAL Q1H PRN (Reason: Nicotine Cravings) baclofen 10 mg Tablet 10 mg PO BID Discontinued quetiapine 50 mg Tablet 50 mg PO DAILY PRN (Reason: Anxiety) Discharge Orders: Discharge Order (Routine); Ordered 03/19/22 Ordered By: Hailey Canales Diet: advance to usual diet Activity on Discharge: As tolerated Stand Alone Forms: Patient Portal Discharge page Care Plan Goals: Safety Plan?(as per [facility]) Thai will utilize the following crisis hotlines for crisis support:? [facility] Crisis Services:[phone], crisis team serves all of [facility]. You can call or? you can go to their office, [address] [place] [address]. You are on alert with the [facility] crisis.They are aware of what is happening, and they are willing to help.You can also call them for support.? The National Suicide Prevention Lifeline at ? Recommendations:? -Thai ?will continue to utilize campus supports for her mental health.? -If Thai feels that he is not improving or if symptoms worsen, he will return to [facility], or the closest hospital.? -Thai will self refer to [facility] in [facility] and refer to resources support given by the recovery team.? -Thai will receive a check in call from the CARE Team 1 day after discharge.? For additional support with outpatient recommendation, please contact the CARE Team * [phone], opt 1 * This is not a 24 hour hotline and does not provide crisis support. In this event, please call N crisis. Health Concerns: community-acquired pneumonia Sepsis Plan of Treatment: Continue methadone dosing as per current outpatient clinic Take all medications as prescribed follow up with your primary care provider as needed Assessment: see discharge summary
--- NOTE | 2022-03-19 14:26 | MHC.CM.PN ---
PT WILL DC HOME TODAY WITH RESOURCES PROVIDED BY THE CARE TEAM AND [facility]. PT TO ARRANGE HIS OWN TRANSPORTATION
[2022-03-19 15:23] VITALS: BP 108/60; PULSE 68; RESP 17; TEMP 36.4; O2SAT 96
--- NOTE | 2022-03-20 08:05 | MHC.CARE ---
follow up call not completed- Pt re-[place] [facility]
== END 2022-03-19 15:58 | disposition home or self-care (01) | DRG 720 ==
PROVIDERS: Admitting Provider Physician Assistant Medical; PCP Internal Medicine; Visit Provider Nurse Practitioner Acute Care
DX: A41.9 Sepsis, unspecified organism (principal); J69.0 Pneumonitis due to inhalation of food and vomit; N17.9 Acute kidney failure, unspecified; E87.1 Hypo-osmolality and hyponatremia; E87.5 Hyperkalemia; F17.210 Nicotine dependence, cigarettes, uncomplicated; M62.82 Rhabdomyolysis; Z71.6 Tobacco abuse counseling; F31.9 Bipolar disorder, unspecified; F43.10 Post-traumatic stress disorder, unspecified; Z56.0 Unemployment, unspecified; F11.20 Opioid dependence, uncomplicated; Z20.822 Contact with and (suspected) exposure to COVID-19; Z79.899 Other long term (current) drug therapy
CPT/HCPCS: 36415; 80048; 84132; 85025; 87633; J0696

== ENCOUNTER 2022-03-20 03:05 | Emergency (ER) | payer MEDICAID, SELFPAY ==
--- NOTE | ~2022-03-20 | XR_ITS ---
EXAMINATION: XR CHEST CLINICAL INFORMATION: Pneumonia COMPARISON: 03/09/2022 TECHNIQUE: 2 views of the chest were obtained. FINDINGS: Normal symmetric lung volumes. No parenchymal consolidation. No pleural effusion. No pneumothorax. Cardiomediastinal silhouette and pulmonary vascularity are within normal limits. No acute osseous abnormalities. XR/XR chest 2V IMPRESSION: No acute findings
[2022-03-20 03:09] VITALS: BP 119/73; PULSE 98; RESP 18; TEMP 36.8; O2SAT 96; BMI 28.8
[2022-03-20 03:21] VITALS: BP 124/84; PULSE 70; RESP 16; TEMP 36.7; O2SAT 99
--- NOTE | 2022-03-20 03:23 | PC.NURSE ---
pt arrives to ED via external triage. pt states he was admitted to the hospital and d/c home yesterday for pneumonia, per pt i didnt get my meds from the pharmacy because you guys didnt send them over and i just don;t feel well pt VSS, pt not in any acute resp. distress. pt resting in bed watching tv
--- NOTE | 2022-03-20 04:22 | ED_ITS ---
HPI - General Adult General Chief complaint: General Medical Stated complaint: Sob Time Seen by Provider: 03/20/22 04:10 History of Present Illness HPI narrative: Patient is a 32-year-old male history of bipolar history of schizophrenia was in the hospital with coughing upper respiratory symptoms diagnosed with community- acquired pneumonia was post be on cefuroxime and doxycycline on discharge. However patient is unable to obtain the medication for last 2 days. Came in today complaining that he is coughing he is feeling generally weak. Patient is from home. No fever no chills no diaphoresis. Related Data Home Medications Medication Instructions Recorded Confirmed baclofen 10 mg tablet 10 mg PO BID 03/09/22 03/17/22 clonidine HCl 0.1 mg tablet 0.1 mg PO TID 03/09/22 03/17/22 gabapentin 800 mg tablet 800 mg PO BID 03/09/22 03/17/22 nicotine (polacrilex) 4 mg gum 4 mg buccal Q1H PRN Nicotine 03/09/22 03/17/22 Cravings nicotine 14 mg/24 hr daily 1 patch transdermal DAILY 03/09/22 03/17/22 transdermal patch Previous Rx's Medication Instructions Recorded bupropion HCl 100 mg tablet 100 mg PO TID #90 tabs 03/19/22 cefuroxime axetil 500 mg tablet 500 mg PO BID #4 tabs 03/19/22 doxycycline hyclate 100 mg tablet 100 mg PO BID #4 tabs 03/19/22 lithium carbonate 300 mg capsule 600 mg PO BID #120 caps 03/19/22 naloxone 4 mg/actuation nasal 4 mg intranasal ONCE PRN opioid 03/19/22 spray (Narcan) overdose #1 ea quetiapine 300 mg tablet 300 mg PO BEDTIME #30 tabs 03/19/22 quetiapine 50 mg tablet 50 mg PO BID PRN anxiety #60 tabs 03/19/22 cefuroxime axetil 500 mg tablet 500 mg PO BID 2 days #4 tabs 03/20/22 doxycycline hyclate 100 mg capsule 100 mg PO BID cough 7 days #14 caps 03/20/22 Allergies Allergy/AdvReac Type Severity Reaction Status Date / Time No Known Allergies Allergy Unknown UNKNOWN Unverified 06/25/20 19:23 [NO KNOWN ALLERGIES] Review of Systems Review of Systems: Positive coughing upper respiratory symptoms Yes all other systems are reviewed and are negative PMFSH Past Medical History Attestation statement: The following information was validated with the patient. Medical History CAYETANO (acute kidney injury) Bipolar disorder Opioid use disorder Rhabdomyolysis Schizophrenia Suicidal ideation Surgical History No pertinent past surgical history Family History Family History Other No family history of coronary artery disease Social History Social History Household Members: Friend(s) Household Members Other:: 2 friends Housing: House Do you presently have visiting nurse or other home services: No Alcohol intake: current Patient Tobacco Use Status: Current everyday Tobacco user Tobacco use type: Cigarette Cigarette Packs Per Day: 1 Cigarettes Per Day: 20.0 Years Smoked: 14 Second Hand Smoke Exposure: Yes Substance Use Type: Heroin Advance Directives: No service: No Current occupational status: unemployed Sexual orientation: Straight/Heterosexual Physical Exam ED Vital Signs: Vital Signs - 24 hr 03/20/22 03:09 03/20/22 03:21 Temperature 98.3 F 98.1 F Pulse Rate 98 70 Respiratory Rate 18 16 Blood Pressure 119/73 124/84 Pulse Oximetry 96 99 Oxygen Delivery Method Room Air Room Air BMI result Body Mass Index 28.8 Appearance: Alert. Oriented X3. No acute distress. Eyes: Pupils equal, round and reactive to light. ENT: Pharynx normal. Neck: Normal inspection. Neck supple. No lymph nodes noted. No crepitus CVS: Normal heart rate and rhythm. Pulses normal. Normal S1 and S2 Respiratory: No respiratory distress. Breath sounds normal. No Wheezing. No rales Abdomen: Soft and nontender. No rigidity. No distention. good BS x4 Skin: Skin warm and dry. Normal skin color. Normal skin turgor. Extremities: No lower extremity edema. Neurovascular intact to all extremities. No Lacerations. No Rash Neuro: Oriented X 3. No motor deficit. No sensory deficit. Moving all extermities. No slurred speech Medical Decision Making MDM Narrative Medical decision making narrative: O2 sats 99% on room air. Chest x-ray did not show any focal infiltrate. Will get baseline labs to re-evaluate. Patient claims he wants his scripts to be sent to be treated [facility]. Will reset prescription. Patient is in stable condition. Patient's discharge was reviewed. He was placed on cefuroxime 500 mg b.i.d. for 2 days. Also was placed on doxycycline for community-acquired pneumonia. Will prescribe 7 days worth of doxycycline in addition to the 2 days of cefuroxime. Patient is in stable condition. Patient's CBCs showed and mildly elevated white count 13. O2 sats 99% on room air chest x-ray did not show any focal infiltrate patient will be given his script for cefuroxime and doxycycline. Patient to be discharged home. In stable condition. Lab Data Lab results reviewed: Yes I reviewed the patient's lab results. Result diagrams: 03/20/22 04:26 03/20/22 04:26 Labs: Lab Results 03/20/22 03/20/22 Range/Units 04:26 04:26 WBC 13.7 H (4.8-10.8) X10*3/uL RBC 4.52 L (4.60-5.80) X10*6/uL Hgb 12.1 L (14.0-18.0) g/dl Hct 37.4 L (42.0-52.0) % MCV 82.7 (80.0-98.0) fL MCH 26.8 L (27.0-33.0) pg MCHC 32.4 (31.0-36.0) g/dl RDW 14.6 (11.0-16.0) % Plt Count 336 (160-400) X10*3/uL MPV 9.3 L (9.4-12.4) fL Immature Gran % (Auto) 3.1 H (0.0-0.4) % Neut % (Auto) 69.2 (45-73) % Lymph % (Auto) 19.5 L (20-40) % [place] % (Auto) 7.5 (2-11) % Eos % (Auto) 0.4 (0-4) % Baso % (Auto) 0.3 (0-2) % Lymph # (Auto) 2.7 (1.2-4.9) X10*3/uL [place] # (Auto) 1.0 (0.1-1.2) X10*3/uL Eos # (Auto) 0.1 (0.0-0.4) X10*3/uL Baso # (Auto) 0.0 (0.0-0.2) X10*3/uL Abs Immat Gran (auto) 0.42 H (0.00-0.03) X10*3/uL Absolute Neuts (auto) 9.5 H (2.0-8.3) x10*3/uL Absolute Nucleated RBC 0.000 (0.0-0.012) X10*3/uL Nucleated RBC % (auto) 0.0 (0.0-0.2) /100WBC Sodium 138 (135-145) mmol/L Potassium 4.6 (3.3-5.1) mmol/L Chloride 100 (96-108) mmol/L Carbon Dioxide 28 (22-29) mmol/L Anion Gap 15 (12-20) BUN 15 (9-16) mg/dL Creatinine 0.79 (0.5-1.4) mg/dL Estim Creat Clear Calc 122.8 Estimated GFR > 60 Random Glucose 94 (60-115) mg/dL Calcium 9.7 (8.4-10.2) mg/dL Discharge Plan Discharge Clinical Impression: Pneumonia Patient Disposition: Home, Self-Care Instructions: Pneumonia (ED) Prescriptions: New doxycycline hyclate 100 mg capsule 100 mg PO BID 7 Days Qty: 14 0RF cefuroxime axetil 500 mg tablet 500 mg PO BID 2 Days Qty: 4 0RF No Action clonidine HCl 0.1 mg Tablet 0.1 mg PO TID nicotine 14 mg/24 hr Patch 24 Hour 1 patch TRANSDERMAL DAILY gabapentin 800 mg Tablet 800 mg PO BID nicotine (polacrilex) 4 mg Gum 4 mg BUCCAL Q1H PRN (Reason: Nicotine Cravings) baclofen 10 mg Tablet 10 mg PO BID quetiapine 300 mg Tablet 300 mg PO BEDTIME Qty: 30 0RF bupropion HCl 100 mg Tablet 100 mg PO TID Qty: 90 0RF lithium carbonate 300 mg Capsule 600 mg PO BID Qty: 120 0RF quetiapine 50 mg Tablet 50 mg PO BID PRN (Reason: anxiety) Qty: 60 0RF naloxone [Narcan] 4 mg/actuation spray,non-aerosol 4 mg intranasal ONCE PRN (Reason: opioid overdose) Qty: 1 0RF Rx Instructions: spray 1 dose into ONE nostril; alternate nostrils w each dose until help arrives cefuroxime axetil 500 mg tablet 500 mg PO BID Qty: 4 0RF doxycycline hyclate 100 mg tablet 100 mg PO BID Qty: 4 0RF Referrals: Physician,None [Primary Care Provider] -
[2022-03-20 04:47] LABS: MANUAL DIFF FLAG NO
[2022-03-20 04:48] LABS: Basophils Percent Auto 0.3 % (0-2); Eosinophils Absolute Auto 0.1 X10*3/uL (0.0-0.4); Eosinophils Percent Auto 0.4 % (0-4); Hematocrit 37.4 % (42.0-52.0); Hemoglobin 12.1 g/dl (14.0-18.0); Imm Gran Abs Auto 0.42 X10*3/uL (0.00-0.03); Imm Gran Pct Auto 3.1 % (0.0-0.4); Lymphocytes Absolute Auto 2.7 X10*3/uL (1.2-4.9); Lymphocytes Percent Auto 19.5 % (20-40); Mean Corpuscular HGB Conc 32.4 g/dl (31.0-36.0); Mean Corpuscular Hemoglobin 26.8 pg (27.0-33.0); Mean Corpuscular Volume 82.7 fL (80.0-98.0); Mean Platelet Volume 9.3 fL (9.4-12.4); Monocytes Percent Auto 7.5 % (2-11); Neutrophils Absolute Auto 9.5 x10*3/uL (2.0-8.3); Neutrophils Percent Auto 69.2 % (45-73); Platelet Count 336 X10*3/uL (160-400); Red Blood Count 4.52 X10*6/uL (4.60-5.80); Red Cell Distribution Width 14.6 % (11.0-16.0); White Blood Count 13.7 X10*3/uL (4.8-10.8)
[2022-03-20 05:02] LABS: Anion Gap 15 (12-20); Blood Urea Nitrogen 15 mg/dL (9-16); Calcium 9.7 mg/dL (8.4-10.2); Carbon Dioxide 28 mmol/L (22-29); Chloride 100 mmol/L (96-108); Creatinine Clr Calc Pharmacy 122.8; Estimated Glomerular Filt Rate > 60; Glucose Random 94 mg/dL (60-115); Potassium 4.6 mmol/L (3.3-5.1); Sodium 138 mmol/L (135-145)
[2022-03-20 05:26] VITALS: BP 106/56; PULSE 77; RESP 16; O2SAT 93
== END 2022-03-20 05:33 | disposition home or self-care (01) ==
PROVIDERS: Emergency Provider Emergency Medicine Emergency Medical Services
DX: J18.9 Pneumonia, unspecified organism (principal); F17.210 Nicotine dependence, cigarettes, uncomplicated
CPT/HCPCS: 36415; 71046; 80048; 85025; 99283; 99284

== ENCOUNTER 2022-03-20 05:47 | Emergency (ER) | payer MEDICAID, SELFPAY ==
--- NOTE | ~2022-03-20 | XR_ITS ---
EXAMINATION: XR CHEST CLINICAL INFORMATION: Cough. COMPARISON: Chest radiographs dated 03/20/2022. TECHNIQUE: Frontal view of the chest was obtained. FINDINGS: No significant abnormality is noted involving the heart, lungs, mediastinum, bony thorax or soft tissues. XR/XR chest 1V IMPRESSION: No acute cardiopulmonary process.
[2022-03-20 05:51] VITALS: BP 107/66; PULSE 75; RESP 16; TEMP 36.8; O2SAT 96; BMI 27.4
[2022-03-20 06:17] LABS: COVID-19 Test Negative (Negative)
--- NOTE | 2022-03-20 07:21 | ED_ITS ---
HPI - Psych General Chief Complaint: Psychiatric Symptoms Stated Complaint: SI Time Seen by Provider: 03/20/22 07:20 Source: patient Mode of arrival: ambulatory Limitations: no limitations History of Present Illness HPI Narrative: 32 years old male came in for evaluation of depression and SI. Patient with history of schizophrenia and bipolar disorder live with his friend currently and a detox program for substance abuse (history of heroin and cocaine use) has not been using for couple weeks due to recent hospitalization for pneumonia, patient's birthday is today and cannot get to his family feeling very depressed and suicidal, patient has plan to jump of the bridge. Patient declined any overdosing or any attempt to suicide before coming to the hospital. Patient had recent hospitalization for Ricky I and rhabdomyolysis and pneumonia, patient was discharged home on cefuroxime and doxycycline as a continuation of pneumonia treatment patient never received the prescription to his pharmacy. Related Data Home Medications Medication Instructions Recorded Confirmed baclofen 10 mg tablet 10 mg PO BID 03/09/22 03/17/22 clonidine HCl 0.1 mg tablet 0.1 mg PO TID 03/09/22 03/17/22 gabapentin 800 mg tablet 800 mg PO BID 03/09/22 03/17/22 nicotine (polacrilex) 4 mg gum 4 mg buccal Q1H PRN Nicotine 03/09/22 03/17/22 Cravings nicotine 14 mg/24 hr daily 1 patch transdermal DAILY 03/09/22 03/17/22 transdermal patch Previous Rx's Medication Instructions Recorded bupropion HCl 100 mg tablet 100 mg PO TID #90 tabs 03/19/22 cefuroxime axetil 500 mg tablet 500 mg PO BID #4 tabs 03/19/22 doxycycline hyclate 100 mg tablet 100 mg PO BID #4 tabs 03/19/22 lithium carbonate 300 mg capsule 600 mg PO BID #120 caps 03/19/22 naloxone 4 mg/actuation nasal 4 mg intranasal ONCE PRN opioid 03/19/22 spray (Narcan) overdose #1 ea quetiapine 300 mg tablet 300 mg PO BEDTIME #30 tabs 03/19/22 quetiapine 50 mg tablet 50 mg PO BID PRN anxiety #60 tabs 03/19/22 cefuroxime axetil 500 mg tablet 500 mg PO BID 2 days #4 tabs 03/20/22 doxycycline hyclate 100 mg capsule 100 mg PO BID cough 7 days #14 caps 03/20/22 Allergies Allergy/AdvReac Type Severity Reaction Status Date / Time No Known Allergies Allergy Unknown UNKNOWN Unverified 06/25/20 19:23 [NO KNOWN ALLERGIES] Review of Systems Review of Systems: All other systems are reviewed and are negative Constitutional: Reports as per HPI and Reports no additional constitutional complaints Eyes: Reports as per HPI and Reports no additional eye complaints Reports system reviewed and no additional complaints, except as documented Cardiovascular: Reports as per HPI and Reports no additional cardiovascular complaints Respiratory: Reports as per HPI and Reports no additional respiratory complaints Gastrointestinal: Reports as per HPI and Reports no additional gastrointestinal complaints Genitourinary: Reports no additional female genitourinary complaints Musculoskeletal: Reports no additional musculoskeletal complaints Skin/Breast: Reports system reviewed and no additional complaints, except as docu Psychiatric: Reports no additional psychiatric complaints Endocrine: Reports no additional endocrine complaints Hematologic/Lymphatic: Reports no additional hematologic/lymphatic complaints Allergic/Immunologic: Reports no additional allergic/immunologic complaints Reports system reviewed and no additional complaints, except as documented and Reports Abnormal speech present [facility] Past Medical History Medical History RICKY (acute kidney injury) Bipolar disorder Opioid use disorder Rhabdomyolysis Schizophrenia Suicidal ideation Surgical History No pertinent past surgical history Family History Family History Other No family history of coronary artery disease Social History Social History Household Members: Friend(s) Household Members Other:: 2 friends Housing: House Do you presently have visiting nurse or other home services: No Alcohol intake: current Alcohol intake frequency: does not drink Patient Tobacco Use Status: Current everyday Tobacco user Tobacco use type: Cigarette Cigarette Packs Per Day: 1 Cigarettes Per Day: 20.0 Years Smoked: 14 Second Hand Smoke Exposure: Yes Use of substances other than those prescribed or required for medical reasons: No Substance Use Type: Heroin Advance Directives: No service: No Current occupational status: unemployed Sexual orientation: Straight/Heterosexual Physical Exam Vital Signs: Vital Signs: Last Vital Signs Temp 98.3 F 03/20/22 05:51 Pulse 70 03/20/22 08:05 Resp 14 03/20/22 08:05 BP 104/55 L 03/20/22 08:05 Pulse Ox 95 03/20/22 08:05 O2 Del Method 03/20/22 08:05 BMI result Body Mass Index 27.4 Vital signs have been reviewed as appeared to be correct. Blood pressure normal. Heart rate normal. Respiration rate normal. Temperature normal. Oxygen saturation normal. Appearance: Alert. Oriented X3. No acute distress. Head: Normal external exam. Normocephalic. Atraumatic. No Mackey signs noted. N o raccoon eyes noted Eyes: PERRLA. EOMI. Conjunctiva and sclera normal. Eyelids normal. ENT: TM's Normal. Pharynx normal. Uvula midline. Moist mucous membranes. No trismus noted. No drooling noted. No muffled voice noted. Neck: Normal inspection. Neck supple. FROM. No adenopathy. Thyroid Normal. No meningeal signs. No neck mass noted. CVS: Normal heart rate and rhythm. Heart sound normal. No murmurs noted. Pulses normal throughout. Respiratory: No respiratory distress. Painless inspiration. Breath sounds normal. No wheezes/rales/rhonchi noted. Chest nontender. No accessory muscle usage noted or decreased air movement noted. Abdomen: Soft and nontender. Bowel sounds normal in all 4 quadrants. No distention noted. No organomegaly noted. No visible injury noted. Back: No CVA tenderness. Full range of motion noted. Skin: Skin warm and dry. Normal skin color. Normal skin turgor. No rashes/lesions/lacerations noted. Extremities: No lower extremity edema. Extremities exhibit normal range of motion. Extremities nontender. Neuro: Oriented X 3. Cranial nerve exam: II-XII are grossly intact No motor deficit. No sensory deficit. Reflexes normal. Patient Orientation: Person, Place, Time and Situation Level of Consciousness: Awake, Appropriate and Alert Patient Behavior: Appropriate, Guarded, Cooperative and Anxious Mood Description: Constricted, Blunted and Apprehensive Affect Description: Constricted, Blunted and Apprehensive Patient Cognition Impaired: No Ability to Follow Directions: Excellent Speech Pattern: Clear, Appropriate and Spontaneous Speech Memory Description: Intact, Immediate Intact and Short Term Intact Hallucinations: None Delusions: Not Present Thought Process: Intact Thought Content: , Suicidal Ideation and denies Homicidal Ideation. Depressive Symptoms: Feelings of sadness because cannot get to his family on his birthday Judgement: poor Judgement and Insight: Intact Course Course Course Narrative: Patient had recent hospitalization for pneumonia and Ricky I which explain patient's leukocytosis and left shift today, well give the patient on cefuroxime and doxycycline that the patient claimed that he never received after his discharge from the hospital. Reevaluation(s) Reevaluation #1: Physician observation started at 7:30 . Patient placed in physician observation because the patient needed more time for medication to work and to see N vital sign were stable, patient is alert and oriented , neuro exam unchanged, unremarkable rest of physical exam. MDM - Psych Lab Data Labs: Lab Results 03/20/22 03/20/22 Range/Units 05:58 08:34 Urine Opiates Screen Not Detected (Not Detect) Urine Fentanyl Screen POSITIVE H (Not Detect) Ur Barbiturates Screen Not Detected (Not Detect) Ur Phencyclidine Scrn Not Detected (Not Detect) Ur Amphetamines Screen Not Detected (Not Detect) U Benzodiazepines Scrn Not Detected (Not Detect) Urine Cocaine Screen POSITIVE H (Not Detect) U Marijuana (THC) Screen POSITIVE H (Not Detect) COVID-19 ([facility]UL) Negative (Negative) COVID-19 Clin Com See Note Discharge Plan Discharge Clinical Impression: Bipolar disorder, Schizophrenia, Pneumonia, Depression Patient Disposition: Still a Patient Prescriptions: No Action clonidine HCl 0.1 mg Tablet 0.1 mg PO TID nicotine 14 mg/24 hr Patch 24 Hour 1 patch TRANSDERMAL DAILY gabapentin 800 mg Tablet 800 mg PO BID nicotine (polacrilex) 4 mg Gum 4 mg BUCCAL Q1H PRN (Reason: Nicotine Cravings) baclofen 10 mg Tablet 10 mg PO BID quetiapine 300 mg Tablet 300 mg PO BEDTIME Qty: 30 0RF bupropion HCl 100 mg Tablet 100 mg PO TID Qty: 90 0RF lithium carbonate 300 mg Capsule 600 mg PO BID Qty: 120 0RF quetiapine 50 mg Tablet 50 mg PO BID PRN (Reason: anxiety) Qty: 60 0RF naloxone [Narcan] 4 mg/actuation spray,non-aerosol 4 mg intranasal ONCE PRN (Reason: opioid overdose) Qty: 1 0RF Rx Instructions: spray 1 dose into ONE nostril; alternate nostrils w each dose until help arrives cefuroxime axetil 500 mg tablet 500 mg PO BID Qty: 4 0RF doxycycline hyclate 100 mg tablet 100 mg PO BID Qty: 4 0RF doxycycline hyclate 100 mg capsule 100 mg PO BID 7 Days Qty: 14 0RF cefuroxime axetil 500 mg tablet 500 mg PO BID 2 Days Qty: 4 0RF
[2022-03-20 08:05] VITALS: BP 104/55; PULSE 70; RESP 14; O2SAT 95
[2022-03-20 09:20] LABS: Amphetamine Screen Urine Not Detected (Not Detect); Barbiturates, Urine Not Detected (Not Detect); Benzodiazepines Screen Urine Not Detected (Not Detect); Cannabinoid Screen Urine POSITIVE (Not Detect); Cocaine Screen Urine POSITIVE (Not Detect); Fentanyl, urine POSITIVE (Not Detect); Opiate Screen Urine Not Detected (Not Detect); Phencyclidine Screen Urine Not Detected (Not Detect)
--- NOTE | 2022-03-20 09:52 | PC.NURSE ---
pt moved over into POD
--- NOTE | 2022-03-20 10:09 | PC.NURSE ---
pt seen by Toño. pt a section 12 bed search
--- NOTE | 2022-03-20 15:17 | PHA.MEDREC ---
MED REC COMPLETE, NO ISSUES, PATIENT JUST RECENTLY DISCHARGED Pharmacy Consult ? Medication Reconciliation Pharmacy has completed the medication reconciliation.
[2022-03-20 15:46] VITALS: BP 109/71; PULSE 64; RESP 15; TEMP 36.4; O2SAT 96
[2022-03-20] MEDS: methADONE HCl 20 MG/2 ML ORAL.CONC 90 MG PO (16:38)
[2022-03-21 00:22] VITALS: BP 117/65; PULSE 56; RESP 16; TEMP 36.6; O2SAT 95
--- NOTE | 2022-03-21 06:07 | PC.NURSE ---
Patient in bed appears sleeping, respiration +/=/non-labored bilaterally, no distress observed/reported at this time, medication reconciliation completed/MAR active, behavior non concerning, contracted for the safety, VSS, disposition per [facility] is section 12 Inpatient Bed Search, will continue to monitor.
[2022-03-21 08:33] VITALS: BP 112/71; PULSE 56; RESP 18; TEMP 36.4; O2SAT 97
[2022-03-21] MEDS: cloNIDine HCL 0.1 MG TABLET PO (09:53)
[2022-03-21] MEDS: Gabapentin 400 MG CAPSULE 800 MG PO (09:53)
[2022-03-21] MEDS: Nicotine 14 MG PATCH.TD24 TRANSDERMA (09:53)
[2022-03-21] MEDS: Lithium Carbonate 300 MG CAPSULE 600 MG PO (09:54)
[2022-03-21] MEDS: Baclofen 10 MG TABLET PO (09:54)
[2022-03-21] MEDS: buPROPion HCL 100 MG TABLET PO (09:54)
--- NOTE | 2022-03-21 10:05 | MHC.CARE ---
Pt is requesting to be discharge. CARE Team provided supported and notified Pt that he has a tentative admission and his request to discharge will be discussed in 1130 rounds.
--- NOTE | 2022-03-21 10:53 | MHC.CARE ---
Safety Plan? Thai will utilize the following crisis hotlines for crisis support:? [facility] Crisis Services:[phone], crisis team serves all of [facility]. You can call or? you can go to their office, [address] [place] [address]. The National Suicide Prevention Lifeline at ? Recommendations:? -Thai ?will continue to utilize community supports for her mental health.? -If Thai feels that he is not improving or if symptoms worsen, he will return to [facility], or the closest hospital.? -Thai will self refer to [facility] in [facility] and refer to resources support given by the recovery team.? -Thai will receive a check in call from the CARE Team 1 day after discharge.? For additional support with outpatient recommendation, please contact the CARE Team [phone], opt 1 This is not a 24 hour hotline and does not provide crisis support. In this event, please call [facility] crisis.
--- NOTE | 2022-03-21 11:14 | MHC.RECOVSUP ---
Recovery Support note: Patient is a 32 year old Nepalese speaking male who presented to [facility] on 03/20 due to SI. Patient was an inpatient bed search however was cleared for discharge by the CARE Team after his mental status update today. This writer technical publications met with patient prior to discharge to discuss methadone dosing. Patient expressed concern that he would not make it to [place] before the clinic closed. Discussed case with ED physician. Plan for patient to be offered transportation to his clinic to prevent being dosed twice. Patient provided with last dose letter however declined transportation, stating he will find a way to get there on his own. Discussed case with patient's RN.
== END 2022-03-21 11:08 | disposition home or self-care (01) ==
PROVIDERS: Emergency Provider Emergency Medicine
DX: F32.A Depression, unspecified (principal); F31.9 Bipolar disorder, unspecified; F20.9 Schizophrenia, unspecified; F11.10 Opioid abuse, uncomplicated; F14.10 Cocaine abuse, uncomplicated; J18.9 Pneumonia, unspecified organism; Z79.899 Other long term (current) drug therapy; Z20.822 Contact with and (suspected) exposure to COVID-19
CPT/HCPCS: 71045; 80307; 87635; 99284; 99285

== ENCOUNTER 2022-03-22 02:06 | Inpatient (IN) | payer OTHER, SELFPAY ==
[2022-03-22] VITALS (8 sets, daily range): BP systolic 111–136; BP diastolic 66–92; PULSE 53–93; RESP 16–18; TEMP 36.1–36.7; O2SAT 96–99; BMI 27.4; BMI 26.9
--- NOTE | 2022-03-22 | ECG_ITS ---
Test Reason : MED CLEARANCE Blood Pressure : / mmHG Vent. Rate : 052 BPM Atrial Rate : 052 BPM P-R Int : 150 ms QRS Dur : 098 ms QT Int : 544 ms P-R-T Axes : 032 012 030 degrees QTc Int : 505 ms Sinus bradycardia Nonspecific ST abnormality Prolonged QT Abnormal ECG When compared with ECG of 17-MAR-2022 04:37, Vent. rate has decreased BY 55 BPM QT has lengthened Referred By: Nissa Ledesma Electronically Signed By:GERSON GEORGE MD
--- NOTE | 2022-03-22 02:28 | ED.PSYCH ---
HPI - Psych General Chief Complaint: ETOH/Substance Use Stated Complaint: NOT FEELING WELL Time Seen by Provider: 03/22/22 02:28 Source: patient Mode of arrival: ambulatory Limitations: no limitations History of Present Illness HPI Narrative: patient with suicidal thoughts and they are getting worse. Patient currently doing alcohol and cocaine. Patient is hearing voices and not feeling safe MD complaint: suicidal ideation and feels depressed Onset (ago): week(s) Duration: constant History of same: Yes Relieving factors: none Associated psychiatric symptoms: depression, suicidal ideation and auditory hallucinations If self harm: admits thoughts of self harm Related Data Previous Rx's Medication Instructions Recorded amoxicillin 875 mg-potassium 875 mg PO Q12H 7 days #13 tabs 04/04/22 clavulanate 125 mg tablet baclofen 10 mg tablet 10 mg PO BID 30 days #60 tabs 04/04/22 benzocaine 20 % mucosal gel 1 appl mucous membrane QID PRN 04/04/22 (Anbesol (benzocaine) Maximum oral pain 30 days #100 grams Strength) bupropion HCl 150 mg tablet,12 hr 150 mg PO BID 30 days #60 tabs 04/04/22 sustained-release (Wellbutrin SR) clonidine HCl 0.2 mg tablet 0.2 mg PO TID 30 days #90 tabs 04/04/22 gabapentin 300 mg capsule 600 mg PO TID 30 days #180 caps 04/04/22 lithium carbonate 300 mg capsule 600 mg PO BID 30 days #120 caps 04/04/22 methadone 10 mg/mL oral 80 mg (8 mL) PO DAILY #0 mL 04/04/22 concentrate (Methadose) nicotine (polacrilex) 4 mg gum 4 mg buccal Q1H PRN Nicotine 04/04/22 Cravings 30 days #60 ea nicotine 14 mg/24 hr daily 1 patch transdermal DAILY 28 days 04/04/22 transdermal patch #28 ea quetiapine 50 mg tablet 50 mg PO BID PRN anxiety 30 days 04/04/22 #60 tabs quetiapine 50 mg tablet 250 mg PO BEDTIME 30 days #150 tabs 04/04/22 Allergies Allergy/AdvReac Type Severity Reaction Status Date / Time No Known Allergies Allergy Unknown UNKNOWN Verified 03/22/22 02:23 [NO KNOWN ALLERGIES] Review of Systems Constitutional: Constitutional: Reports no additional constitutional complaints Eyes: Eyes: Reports no additional eye complaints ENT: Denies dizziness Cardiovascular: Cardiovascular: Reports no additional cardiovascular complaints Respiratory: Respiratory: Reports as per HPI Gastrointestinal: Gastrointestinal: Reports no additional gastrointestinal complaints Musculoskeletal: Musculoskeletal: Reports no additional musculoskeletal complaints Integumentary/Breasts: Skin/Breast: Denies rash Neurologic: Reports system reviewed and no additional complaints, except as documented, Denies dizziness and Denies Sensory deficit (Neuro) Psychiatric: Psychiatric: Denies anxiety [facility] Past Medical History Medical History CAYETANO (acute kidney injury) Rhabdomyolysis Suicidal ideation Surgical History No pertinent past surgical history Family History Family History Other No family history of coronary artery disease Social History Social History Household Members: None Household Members Other:: 2 friends Housing: Homeless Do you presently have visiting nurse or other home services: No Alcohol intake: current Alcohol intake frequency: does not drink Alcohol type: beer and hard liquor Patient Tobacco Use Status: Current everyday Tobacco user Tobacco use type: Cigarette Cigarette Packs Per Day: 1 Cigarettes Per Day: 20.0 Years Smoked: 15 e-Cigarette/Vaping Use: Former Use Second Hand Smoke Exposure: Yes Substance Use Type: Crack/Cocaine, Heroin and Marijuana service: No Current occupational status: unemployed Sexual orientation: Don't Know Physical Exam Vital Signs: Vital Signs: Last Vital Signs Temp 98 F 04/04/22 07:48 Pulse 77 04/04/22 07:48 Resp 16 04/04/22 07:48 BP 118/72 04/04/22 07:48 Pulse Ox 96 04/04/22 07:48 O2 Del Method 04/04/22 07:48 BMI result Body Mass Index 27.4 Const: General: healthy appearing Nutritional Appearance: average body habitus Orientation/consciousness: oriented to person and patient oriented x3 Limitations: no limitations HEENT: Head: Yes normal to inspection Ears: external ears normal General nose exam: Normal external nose present Mouth: Normal oral and palatal mucosa present and oropharynx normal Throat: Yes posterior oropharynx normal Eyes: General: appearance normal, both eyes and all related structures Neck: Other: supple Neck: Yes normal visual inspection Chest: Chest palpation & inspection: normal inspection of the chest Resp: Auscultation: clear to auscultation bilaterally Cardio: Jugular venous distension: no JVD Rate: regular rate Rhythm: regular rhythm Heart sounds: S1 normal heart sound present and S2 normal heart sound present GI: Inspection: Yes normal to inspection Palpation (GI): Soft to palpation, nontender and No hepatosplenomegaly present Auscultation: normal bowel sounds : General: Yes no CVA tenderness Back/Spine/Pelvis: Back: no CVA tenderness Skin: General skin exam: no rashes or lesions noted Neuro: General: oriented to person and patient oriented x3 Cranial nerves: Yes CN's II-XII intact bilaterally Motor exam (neuro): 5/5 motor strength present throughout Sensory Exam: No Sensory deficit (Neuro) Extrem: General: Yes normal to inspection Psych: Other: anxious affect Course Reevaluation(s) Reevaluation #1: Patient placed in physician observation at 6:30am The indication for observation is that the patient needs more time to see if his depression improves or he will need to be admitted. At this time the patient is well developed well nourished, lungs clear, CV RRR, abd nontender, neuro is intact. I suspect with his recent polysubstance abuse and suicidal ideations he will need to be admitted to psych Time: 06:40 [facility] - Psych Lab Data Result diagrams: 03/31/22 08:10 03/31/22 08:10 Labs: Lab Results 03/22/22 03/22/22 03/22/22 Range/Units 02:53 02:53 02:53 WBC 14.7 H (4.8-10.8) X10*3/uL RBC 5.06 (4.60-5.80) X10*6/uL Hgb 13.6 L (14.0-18.0) g/dl Hct 41.8 L (42.0-52.0) % MCV 82.6 (80.0-98.0) fL MCH 26.9 L (27.0-33.0) pg MCHC 32.5 (31.0-36.0) g/dl RDW 14.7 (11.0-16.0) % Plt Count 421 H D (160-400) X10*3/uL MPV 9.0 L (9.4-12.4) fL Immature Gran % (Auto) 2.5 H (0.0-0.4) % Neut % (Auto) 72.2 (45-73) % Lymph % (Auto) 18.4 L (20-40) % [place] % (Auto) 6.6 (2-11) % Eos % (Auto) 0.1 (0-4) % Baso % (Auto) 0.2 (0-2) % Lymph # (Auto) 2.7 (1.2-4.9) X10*3/uL [place] # (Auto) 1.0 (0.1-1.2) X10*3/uL Eos # (Auto) 0.0 (0.0-0.4) X10*3/uL Baso # (Auto) 0.0 (0.0-0.2) X10*3/uL Abs Immat Gran (auto) 0.37 H (0.00-0.03) X10*3/uL Absolute Neuts (auto) 10.6 H (2.0-8.3) x10*3/uL Absolute Nucleated RBC 0.000 (0.0-0.012) X10*3/uL Nucleated RBC % (auto) 0.0 (0.0-0.2) /100WBC Sodium 137 (135-145) mmol/L Potassium 3.7 (3.3-5.1) mmol/L Chloride 97 (96-108) mmol/L Carbon Dioxide 26 (22-29) mmol/L Anion Gap 18 (12-20) BUN 25 H D (9-16) mg/dL Creatinine 1.05 (0.5-1.4) mg/dL Estim Creat Clear Calc 90.5 Estimated GFR > 60 Random Glucose 89 (60-115) mg/dL Calcium 9.3 (8.4-10.2) mg/dL Total Bilirubin 0.3 (0.0-1.0) mg/dL AST 91 H (5-37) U/L ALT 145 H (0-40) U/L Alkaline Phosphatase 102 (39-117) U/L Total Protein 9.3 H (6.5-8.0) g/dL Albumin 4.9 (3.5-5.0) g/dL Urine Opiates Screen Not Detected (Not Detect) Urine Fentanyl Screen POSITIVE H (Not Detect) Ur Barbiturates Screen Not Detected (Not Detect) Ur Phencyclidine Scrn Not Detected (Not Detect) Ur Amphetamines Screen Not Detected (Not Detect) U Benzodiazepines Scrn Not Detected (Not Detect) Urine Cocaine Screen POSITIVE H (Not Detect) U Marijuana (THC) Screen POSITIVE H (Not Detect) Ethyl Alcohol mg/dL COVID-19 (NAKUL) (Negative) COVID-19 Clin Com 03/22/22 03/22/22 Range/Units 02:53 16:22 WBC (4.8-10.8) X10*3/uL RBC (4.60-5.80) X10*6/uL Hgb (14.0-18.0) g/dl Hct (42.0-52.0) % MCV (80.0-98.0) fL MCH (27.0-33.0) pg MCHC (31.0-36.0) g/dl RDW (11.0-16.0) % Plt Count (160-400) X10*3/uL MPV (9.4-12.4) fL Immature Gran % (Auto) (0.0-0.4) % Neut % (Auto) (45-73) % Lymph % (Auto) (20-40) % [place] % (Auto) (2-11) % Eos % (Auto) (0-4) % Baso % (Auto) (0-2) % Lymph # (Auto) (1.2-4.9) X10*3/uL [place] # (Auto) (0.1-1.2) X10*3/uL Eos # (Auto) (0.0-0.4) X10*3/uL Baso # (Auto) (0.0-0.2) X10*3/uL Abs Immat Gran (auto) (0.00-0.03) X10*3/uL Absolute Neuts (auto) (2.0-8.3) x10*3/uL Absolute Nucleated RBC (0.0-0.012) X10*3/uL Nucleated RBC % (auto) (0.0-0.2) /100WBC Sodium (135-145) mmol/L Potassium (3.3-5.1) mmol/L Chloride (96-108) mmol/L Carbon Dioxide (22-29) mmol/L Anion Gap (12-20) BUN (9-16) mg/dL Creatinine (0.5-1.4) mg/dL Estim Creat Clear Calc Estimated GFR Random Glucose (60-115) mg/dL Calcium (8.4-10.2) mg/dL Total Bilirubin (0.0-1.0) mg/dL AST (5-37) U/L ALT (0-40) U/L Alkaline Phosphatase (39-117) U/L Total Protein (6.5-8.0) g/dL Albumin (3.5-5.0) g/dL Urine Opiates Screen (Not Detect) Urine Fentanyl Screen (Not Detect) Ur Barbiturates Screen (Not Detect) Ur Phencyclidine Scrn (Not Detect) Ur Amphetamines Screen (Not Detect) U Benzodiazepines Scrn (Not Detect) Urine Cocaine Screen (Not Detect) U Marijuana (THC) Screen (Not Detect) Ethyl Alcohol < 10 mg/dL COVID-19 ([facility]) Negative (Negative) COVID-19 Clin Com See Note Discharge Plan Discharge Clinical Impression: MDD (major depressive disorder), recurrent episode Patient Disposition: Admitted As Inpatient Interventions: Admission Worksheet (ED) Last Done: 03/22/22 20:55 Discharge Date/Time: 03/22/22 20:58
--- NOTE | 2022-03-22 02:32 | PC.NURSE ---
1:1 sitter at bedside, patient changed over to hospital attire and belongings with security. Will monitor closely.
[2022-03-22 02:58] LABS: Basophils Percent Auto 0.2 % (0-2); Eosinophils Percent Auto 0.1 % (0-4); Hematocrit 41.8 % (42.0-52.0); Hemoglobin 13.6 g/dl (14.0-18.0); Imm Gran Abs Auto 0.37 X10*3/uL (0.00-0.03); Imm Gran Pct Auto 2.5 % (0.0-0.4); Lymphocytes Absolute Auto 2.7 X10*3/uL (1.2-4.9); Lymphocytes Percent Auto 18.4 % (20-40); MANUAL DIFF FLAG NO; Mean Corpuscular HGB Conc 32.5 g/dl (31.0-36.0); Mean Corpuscular Hemoglobin 26.9 pg (27.0-33.0); Mean Corpuscular Volume 82.6 fL (80.0-98.0); Monocytes Percent Auto 6.6 % (2-11); Neutrophils Absolute Auto 10.6 x10*3/uL (2.0-8.3); Neutrophils Percent Auto 72.2 % (45-73); Platelet Count 421 X10*3/uL (160-400); Red Blood Count 5.06 X10*6/uL (4.60-5.80); Red Cell Distribution Width 14.7 % (11.0-16.0); White Blood Count 14.7 X10*3/uL (4.8-10.8)
[2022-03-22 03:09] LABS: Ethanol < 10 mg/dL
[2022-03-22 03:13] LABS: Alanine Aminotransferase 145 U/L (0-40); Albumin Level 4.9 g/dL (3.5-5.0); Alkaline Phosphatase 102 U/L (39-117); Amphetamine Screen Urine Not Detected (Not Detect); Anion Gap 18 (12-20); Aspartate Amino Transferase 91 U/L (5-37); Barbiturates, Urine Not Detected (Not Detect); Benzodiazepines Screen Urine Not Detected (Not Detect); Bilirubin Total 0.3 mg/dL (0.0-1.0); Blood Urea Nitrogen 25 mg/dL (9-16); Calcium 9.3 mg/dL (8.4-10.2); Cannabinoid Screen Urine POSITIVE (Not Detect); Carbon Dioxide 26 mmol/L (22-29); Chloride 97 mmol/L (96-108); Cocaine Screen Urine POSITIVE (Not Detect); Creatinine Clr Calc Pharmacy 90.5; Estimated Glomerular Filt Rate > 60; Fentanyl, urine POSITIVE (Not Detect); Glucose Random 89 mg/dL (60-115); Opiate Screen Urine Not Detected (Not Detect); Phencyclidine Screen Urine Not Detected (Not Detect); Potassium 3.7 mmol/L (3.3-5.1); Sodium 137 mmol/L (135-145); Total Protein 9.3 g/dL (6.5-8.0)
--- NOTE | 2022-03-22 03:23 | PC.NURSE ---
VERONICA consulted, awaiting to bedside.
[2022-03-22] MEDS: Ondansetron ODT 4 MG TAB.RAPDIS TRANSLINGU (04:49)
--- NOTE | 2022-03-22 07:37 | PC.NURSE ---
patient told this Rn he takes methadone, states he receives dose from OT in [place]. called to [facility] to verify dose, employee there reports patient has not been dosed since January 2022.
--- NOTE | 2022-03-22 07:52 | PHA.MEDREC ---
Pharmacy Consult ? Medication Reconciliation Pharmacy has reviewed the medication reconciliation complete by Caryn. Patient discharged from an admission on 03/19/22, and has been in and out of the ED since. No medications changes per discharge summary and claim history. Rufina Toribio, PharmD
--- NOTE | 2022-03-22 09:05 | PC.NURSE ---
spoke with pharmacy regarding methadone. patient has been dosed at [facility] multiple times sine beginning of this month. Pharmacist is going to reach out to Maru [facility]field[facility] about patients dosing.
[2022-03-22] MEDS: methADONE HCl 20 MG/2 ML ORAL.CONC 90 MG PO (09:39)
[2022-03-22 16:52] LABS: COVID-19 Test Negative (Negative)
--- NOTE | 2022-03-22 17:47 | PC.NURSE ---
earlier today t/w requested pharmacy staff to redo med rec with [facility] as it appeared upon first evaluation that patients meds might not be current with [facility]. once it had been determined patient was an inpatient bed search patients home clinic (he had mentioned [place]) was closed. in preparation for client going to inpatient unit, t/w left phone numbers for two MAT programs in [place] on verification sheet. after obtaining ekg today and comparing it to prior ekg's, apparently QT has prolonged. tried to message Zachery Cabrera (unavailable) sent tiger to Maru Duran to weigh in on clients dosing. once client transitions to inpatient floor, hopefully providers are mindful not only of methadone's contribution of qt prolongation but other contributors (vistaril, zofran, etc).
[2022-03-22] MEDS: Lithium Carbonate 300 MG CAPSULE 600 MG PO (23:15)
[2022-03-22] MEDS: cloNIDine HCL 0.1 MG TABLET PO (23:15)
[2022-03-22] MEDS: Baclofen 10 MG TABLET PO (23:16)
[2022-03-22] MEDS: QUEtiapine Fumarate 300 MG TABLET PO (23:16)
[2022-03-22] MEDS: Gabapentin 400 MG CAPSULE 800 MG PO (23:16)
[2022-03-22] MEDS: buPROPion HCL 100 MG TABLET PO (23:17)
--- NOTE | 2022-03-23 04:12 | PC.ADMIT ---
admission note for 03/22/22-this one of several inpatient hospitalizations to [facility] health for this 32 year old male. legal CV. diagnosis depressive d/o, opioid use d/o, stimulant use d/o, substance abuse induced psychotic d/o. patient was a referral from [facility] via the ER. nurse to nurse, collateral information obtained prior to admission. patient's most recent discharge was on 03/19/22 after treatment of pneumonia. reports he was unable to obtain medications from [facility] and reported that he had been coming to the ER since discharge due to c/o respiratory discomfort and to receive methadone. unable to verify if he had been given methadone in ER but had been given scripts for antibiotics. patient reported being homeless, having no providers, no access to medications which resulted in an increase in auditory hallucinations with telling him to kill himself. patient admitted to using cocaine, fentanyl and marijuana since discharge from the hospital. did receive methadone 90 mg when in the behavioral health POD prior to M3 admission. does report alcohol use ''nips, when I could get it'' denies current w/d symptoms and scored 0 on CIWA on admission. reports ''feeling safe being in the hospital'' reports that AH ''are better but still there'' reports he feels comfortable on unit and would seek out staff. identified goal of finding bed after treatment here for substance use. patient is recovering from pneumonia. WBC remains elevated. no cough. no dyspnea. will need to be seen by provider in AM for methadone dosing. treatment plan initiated, safety tool completed, oriented to unit.
[2022-03-23 06:59] LABS: Estimated Average Glucose 117 mg/dL; Hemoglobin A1c % 5.7 %
[2022-03-23 07:15] LABS: Alanine Aminotransferase 125 U/L (0-40); Albumin Level 4.5 g/dL (3.5-5.0); Alkaline Phosphatase 89 U/L (39-117); Aspartate Amino Transferase 82 U/L (5-37); Bilirubin Direct 0.2 mg/dL (0.0-0.5); Bilirubin Total 0.4 mg/dL (0.0-1.0); Cholesterol 222 mg/dL; HDL Cholesterol 56 mg/dL; LDL Cholesterol Calculated 150 mg/dl; Magnesium 2.6 mg/dL (1.6-2.6); Total Protein 8.3 g/dL (6.5-8.0); Triglycerides 84 mg/dL
[2022-03-23 07:36] LABS: Free T4 (Free Thyroxine) 1.03 ng/dL (0.71-1.85); Thyroid Stimulating Hormone 2.25 uIU/mL (0.32-4.0)
--- NOTE | 2022-03-23 08:00 | PC.NURSE ---
This RN spoke with Sujit at [facility] at 0759 this AM. He stated that he spoke with Maru Green and verified pt's methadone dose as 90mg daily.
[2022-03-23 08:43] LABS: Folate 17.2 ng/mL (> or = 4.0); Vitamin B12 501 pg/mL (200-900)
[2022-03-23] MEDS: methADONE HCl 20 MG/2 ML ORAL.CONC 90 MG PO (10:26)
[2022-03-23] MEDS: Gabapentin 400 MG CAPSULE 800 MG PO ×2 (10:27→22:12)
[2022-03-23] MEDS: Lithium Carbonate 300 MG CAPSULE 600 MG PO ×2 (10:28→22:12)
[2022-03-23] MEDS: buPROPion HCL 100 MG TABLET PO ×3 (10:28→22:12)
[2022-03-23] MEDS: cloNIDine HCL 0.1 MG TABLET PO ×3 (10:29→22:13)
[2022-03-23] MEDS: Baclofen 10 MG TABLET PO ×2 (10:29→22:12)
[2022-03-23 10:30] VITALS: BP 130/78; PULSE 73; RESP 16; TEMP 36; O2SAT 98
--- NOTE | 2022-03-23 11:32 | MHC.CLN ---
NUTRITION CONSULT FOR POOR APPETITE AND RECENT WEIGHT LOSS. PATIENT REPORTS THAT APPETITE IS IMPROVING. DID NOT QUANTIFY WEIGHT LOSS. WOULD LIKE ENSURE SUPPLEMENT TWO TIMES DAILY. ORDER PLACED FOR SUPPLEMENT. PROVIDES ADDITIONAL 700 KCALS, 40 G PROTEIN.
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
[2022-03-23] MEDS: Nicotine Polacrilex 2 MG GUM 4 MG BUCCAL ×2 (15:27→19:56)
[2022-03-23 22:09] VITALS: BP 114/65; PULSE 63; RESP 18; TEMP 36.4; O2SAT 100
[2022-03-23] MEDS: QUEtiapine Fumarate 300 MG TABLET PO (22:12)
--- NOTE | 2022-03-24 | ECG_ITS ---
Test Reason : QTC CHECK Blood Pressure : / mmHG Vent. Rate : 065 BPM Atrial Rate : 065 BPM P-R Int : 152 ms QRS Dur : 112 ms QT Int : 418 ms P-R-T Axes : 052 012 050 degrees QTc Int : 434 ms Poor data quality, interpretation may be adversely affected Normal sinus rhythm with sinus arrhythmia Nonspecific T wave abnormality Abnormal ECG When compared with ECG of 22-MAR-2022 16:46, QT has shortened Referred By: Patrick Mccurdy Electronically Signed By:
[2022-03-24 07:00] VITALS: BMI 27.6
[2022-03-24] MEDS: Lithium Carbonate 300 MG CAPSULE 600 MG PO ×2 (10:10→20:22)
[2022-03-24] MEDS: cloNIDine HCL 0.1 MG TABLET PO ×3 (10:10→20:22)
[2022-03-24] MEDS: Baclofen 10 MG TABLET PO ×2 (10:10→20:22)
[2022-03-24] MEDS: Gabapentin 400 MG CAPSULE 800 MG PO ×2 (10:10→20:22)
[2022-03-24] MEDS: buPROPion HCL 100 MG TABLET PO ×3 (10:10→20:22)
[2022-03-24] MEDS: methADONE HCl 20 MG/2 ML ORAL.CONC 90 MG PO (10:11)
--- NOTE | 2022-03-24 14:56 | HO.PSYCHPN ---
Subjective Subjective Date of Service: 03/24/22 Reason For Visit: Depression, SI, relapse Interim History: pt found sleeping in his bed late morning. calm, cooperative. clearly tired. states he continues to not feel well and prefers to remain in bed. c/o very depressed mood but denies SI/SIBI. aware perhaps his recent cocaine use may have something to do with current dysphoria. agreeable to plan to rest and recuperate for several days and then see how his mood is doing on current regimen. no request or complaints otherwise. per staff, not attending groups. asknig for CIWA to be DCed or changed to Q4HWA. recent EKG with prolonged QTc. isolative, withdrawn, loudly RIS. showered, slept through the NOC. Mental Status Exam Mental Status Exam Narrative: lying in bed, calm, cooperative with interview. no PMA/PMR. speech nml rate, amount, loudness, tone, latency. thoughts linear and logical. affect constricted, normo-intense, non-labile. mood very depressed. no SI/SIBI. no HI/AVH expressed. Diagnostics Vital Signs (24Hr): Vital Signs - 24 hr 03/23/22 22:09 Temperature 97.6 F Pulse Rate 63 Respiratory Rate 18 Blood Pressure 114/65 Pulse Oximetry 100 Oxygen Delivery Method Room Air BMI result Body Mass Index 27.6 Labs Results: 03/22/22 02:53 03/22/22 02:53 Labs: Laboratory Results - last 48 hr 03/22/22 03/23/22 03/23/22 16:22 06:17 06:17 Estimat Average Glucose 117 Hemoglobin A1c % 5.7 Magnesium 2.6 Total Bilirubin 0.4 Direct Bilirubin 0.2 AST 82 H ALT 125 H Alkaline Phosphatase 89 Total Protein 8.3 H Albumin 4.5 Triglycerides 84 Cholesterol 222 LDL Cholesterol, Calc 150 HDL Cholesterol 56 Vitamin B12 Folate TSH 2.25 Free T4 1.03 COVID-19 ([facility]) Negative COVID-19 Clin Com See Note 03/23/22 06:17 Estimat Average Glucose Hemoglobin A1c % Magnesium Total Bilirubin Direct Bilirubin AST ALT Alkaline Phosphatase Total Protein Albumin Triglycerides Cholesterol LDL Cholesterol, Calc HDL Cholesterol Vitamin B12 501 Folate 17.2 TSH Free T4 COVID-19 ([facility]) COVID-19 Clin Com Medications Medications Current Medications Acetaminophen (Acetaminophen 325 Mg Tablet) 650 mg PO Q6H PRN PRN Reason: Headache/Pain Mild Scale (1-3) Al Hydroxide/Mg Hydroxide (Magnesium Hydrox/Alum Hydrox 30 Ml Oral.Susp) 30 ml PO Q6H PRN PRN Reason: Heartburn/Nausea Baclofen (Baclofen 10 Mg Tablet) 10 mg PO BID [facility] Last Admin: 03/24/22 10:10 Dose: 10 mg Bupropion HCl (Bupropion Hcl 100 Mg Tablet) 100 mg PO TID [facility] Last Admin: 03/24/22 10:10 Dose: 100 mg Clonidine HCl (Clonidine Hcl 0.1 Mg Tablet) 0.1 mg PO TID [facility]; Protocol Last Admin: 03/24/22 10:10 Dose: 0.1 mg Gabapentin (Gabapentin 400 Mg Capsule) 800 mg PO BID [facility] Last Admin: 03/24/22 10:10 Dose: 800 mg Hydroxyzine HCl (Hydroxyzine Hcl 25 Mg Tablet) 25 mg PO Q6H PRN PRN Reason: Anxiety [place] Carbonate ([place] Carbonate 300 Mg Capsule) 600 mg PO BID [facility] Last Admin: 03/24/22 10:10 Dose: 600 mg Magnesium Hydroxide (Milk Of Magnesia 30 Ml Oral.Susp) 30 ml PO DAILY PRN PRN Reason: Constipation Methadone HCl (Methadone Hcl 20 Mg/2 Ml Oral.Conc) 90 mg PO DAILY [facility] Last Admin: 03/24/22 10:11 Dose: 90 mg Nicotine (Nicotine 14 Mg Patch.Td24) 14 mg TRANSDERMA DAILY [facility] Last Admin: 03/24/22 10:14 Dose: Not Given Nicotine Polacrilex (Nicotine Polacrilex 2 Mg Gum) 4 mg BUCCAL Q1H PRN PRN Reason: Nicotine Cravings Last Admin: 03/23/22 19:56 Dose: 4 mg Quetiapine Fumarate (Quetiapine Fumarate 50 Mg Tablet) 50 mg PO BID PRN PRN Reason: anxiety Quetiapine Fumarate (Quetiapine Fumarate 300 Mg Tablet) 300 mg PO BEDTIME [facility] Last Admin: 03/23/22 22:12 Dose: 300 mg Trazodone HCl (Trazodone Hcl 50 Mg Tablet) 50 mg PO BEDTIME PRN PRN Reason: Insomnia Allergies Allergies Allergy/AdvReac Type Severity Reaction Status Date / Time No Known Allergies Allergy Unknown UNKNOWN Verified 03/22/22 02:23 [NO KNOWN ALLERGIES] Assessment & Plan Assessment & Plan (1) Bipolar disorder: Status: Acute Code(s): F31.9 - Bipolar disorder, unspecified (2) Opioid use disorder: Status: Acute Code(s): F11.90 - Opioid use, unspecified, uncomplicated Plan continue regimen from recent hospitalization. allow to detox. engage around mental health issues when feeling physically better. I spent ___20___ minutes with the patient and/or on the patient floor today, greater than?50% of which was spent counseling/coordinating care. Reason for contiued inpatient stay Substantial Risk for: harm to self, inability to function and rapid decompensation
[2022-03-24 20:19] VITALS: BP 111/57; PULSE 71; RESP 18; TEMP 36.4; O2SAT 98
[2022-03-24] MEDS: Milk of Magnesia 30 ML ORAL.SUSP PO (20:22)
[2022-03-24] MEDS: QUEtiapine Fumarate 300 MG TABLET PO (22:24)
[2022-03-25 11:36] VITALS: BP 108/67; PULSE 62; RESP 17; TEMP 36.6; O2SAT 100
[2022-03-25] MEDS: Lithium Carbonate 300 MG CAPSULE 600 MG PO ×2 (11:37→21:49)
[2022-03-25] MEDS: cloNIDine HCL 0.1 MG TABLET PO ×3 (11:37→21:49)
[2022-03-25] MEDS: Baclofen 10 MG TABLET PO ×2 (11:37→21:50)
[2022-03-25] MEDS: methADONE HCl 20 MG/2 ML ORAL.CONC 90 MG PO (11:38)
[2022-03-25] MEDS: Gabapentin 400 MG CAPSULE 800 MG PO ×2 (11:38→21:49)
[2022-03-25] MEDS: LORazepam 1 MG TABLET PO ×2 (12:16→19:16)
[2022-03-25] MEDS: buPROPion HCL 100 MG TABLET PO ×2 (12:16→14:58)
[2022-03-25] MEDS: Nicotine Polacrilex 2 MG GUM 4 MG BUCCAL ×2 (14:58→20:49)
--- NOTE | 2022-03-25 15:09 | P.PNPSI_ITS ---
Subjective Subjective Date of Service: 03/25/22 Reason For Visit: Depression, SI, relapse Interim History: pt up and about today for the first time since admission. calm, cooperative, pleasant. reports feeling very depressed and anxious. endorses slight SI. asks for ativan for anxiety, which is prescribed. he is informed this is for temporary use while hospitalized and he will not be discharged on it. per staff, not attending groups. sleeping a lot - all through the day, monse and night yesterday. c/o severe depression and anxiety but affect is not congruent. appearing as bubbly and joking to staff. Mental Status Exam Mental Status Exam Narrative: appropriately dressed and groomed. awake. cooperative. no PMA/PMR. speech nml in rate and amount, loudness, tone. thoughts linear and logical in response to questions. affect constricted. mood depressed and anxious. no SI/HI/AVH expressed. Diagnostics Vital Signs (24Hr): Vital Signs - 24 hr 03/24/22 20:19 03/25/22 11:36 Temperature 97.6 F 97.8 F Pulse Rate 71 62 Respiratory Rate 18 17 Blood Pressure 111/57 L 108/67 Pulse Oximetry 98 100 Oxygen Delivery Method Room Air Room Air BMI result Body Mass Index 27.6 Labs Results: 03/22/22 02:53 03/22/22 02:53 Medications Medications Current Medications Acetaminophen (Acetaminophen 325 Mg Tablet) 650 mg PO Q6H PRN PRN Reason: Headache/Pain Mild Scale (1-3) Al Hydroxide/Mg Hydroxide (Magnesium Hydrox/Alum Hydrox 30 Ml Oral.Susp) 30 ml PO Q6H PRN PRN Reason: Heartburn/Nausea Baclofen (Baclofen 10 Mg Tablet) 10 mg PO BID [facility] Last Admin: 03/25/22 11:37 Dose: 10 mg Bupropion HCl (Bupropion Hcl 100 Mg Tablet) 100 mg PO TID@0900,1200,1500 [facility] Last Admin: 03/25/22 14:58 Dose: 100 mg Clonidine HCl (Clonidine Hcl 0.1 Mg Tablet) 0.1 mg PO TID [facility]; Protocol Last Admin: 03/25/22 14:59 Dose: 0.1 mg Gabapentin (Gabapentin 400 Mg Capsule) 800 mg PO BID [facility] Last Admin: 03/25/22 11:38 Dose: 800 mg Hydroxyzine HCl (Hydroxyzine Hcl 25 Mg Tablet) 25 mg PO Q6H PRN PRN Reason: Anxiety [place] Carbonate ([place] Carbonate 300 Mg Capsule) 600 mg PO BID [facility] Last Admin: 03/25/22 11:37 Dose: 600 mg Lorazepam (Lorazepam 1 Mg Tablet) 1 mg PO Q6H PRN PRN Reason: agitation Last Admin: 03/25/22 12:16 Dose: 1 mg Magnesium Hydroxide (Milk Of Magnesia 30 Ml Oral.Susp) 30 ml PO DAILY PRN PRN Reason: Constipation Last Admin: 03/24/22 20:22 Dose: 30 ml Methadone HCl (Methadone Hcl 20 Mg/2 Ml Oral.Conc) 90 mg PO DAILY [facility] Last Admin: 03/25/22 11:38 Dose: 90 mg Nicotine (Nicotine 14 Mg Patch.Td24) 14 mg TRANSDERMA DAILY [facility] Last Admin: 03/25/22 11:40 Dose: Not Given Nicotine Polacrilex (Nicotine Polacrilex 2 Mg Gum) 4 mg BUCCAL Q1H PRN PRN Reason: Nicotine Cravings Last Admin: 03/25/22 14:58 Dose: 4 mg Quetiapine Fumarate (Quetiapine Fumarate 50 Mg Tablet) 50 mg PO BID PRN PRN Reason: anxiety Quetiapine Fumarate (Quetiapine Fumarate 300 Mg Tablet) 300 mg PO BEDTIME [facility] Last Admin: 03/24/22 22:24 Dose: 300 mg Trazodone HCl (Trazodone Hcl 50 Mg Tablet) 50 mg PO BEDTIME PRN PRN Reason: Insomnia Allergies Allergies Allergy/AdvReac Type Severity Reaction Status Date / Time No Known Allergies Allergy Unknown UNKNOWN Verified 03/22/22 02:23 [NO KNOWN ALLERGIES] Assessment & Plan Assessment & Plan (1) Bipolar disorder: Status: Acute Code(s): F31.9 - Bipolar disorder, unspecified (2) Opioid use disorder: Status: Acute Code(s): F11.90 - Opioid use, unspecified, uncomplicated Plan continue regimen from recent hospitalization. allow to detox. engage around mental health issues when feeling physically better. 03/25: ativan PRNs added for anxiety. pt aware he angie not be DCed on ativan. first day pt has been out of bed since admission 03/22. I spent ___25___ minutes with the patient and/or on the patient floor today, greater than?50% of which was spent counseling/coordinating care. Reason for contiued inpatient stay Substantial Risk for: harm to self, inability to function and rapid decompensation
[2022-03-25 21:45] VITALS: BP 109/56; PULSE 67; RESP 18; TEMP 36.7; O2SAT 97
[2022-03-25] MEDS: QUEtiapine Fumarate 300 MG TABLET PO (21:50)
[2022-03-26 11:30] VITALS: BP 116/60; PULSE 74; RESP 16; TEMP 36.7; O2SAT 92
[2022-03-26] MEDS: Lithium Carbonate 300 MG CAPSULE 600 MG PO ×2 (11:32→20:49)
[2022-03-26] MEDS: cloNIDine HCL 0.1 MG TABLET PO ×3 (11:32→20:49)
[2022-03-26] MEDS: Gabapentin 400 MG CAPSULE 800 MG PO ×2 (11:33→20:48)
[2022-03-26] MEDS: buPROPion HCL 100 MG TABLET PO ×2 (11:33→15:39)
[2022-03-26] MEDS: Baclofen 10 MG TABLET PO ×2 (11:33→20:49)
[2022-03-26] MEDS: methADONE HCl 20 MG/2 ML ORAL.CONC 90 MG PO (11:34)
[2022-03-26] MEDS: Nicotine Polacrilex 2 MG GUM 4 MG BUCCAL ×3 (11:47→21:04)
[2022-03-26] MEDS: LORazepam 1 MG TABLET PO ×2 (11:47→19:09)
--- NOTE | 2022-03-26 17:04 | HO.PSYCHPN ---
Subjective Subjective Date of Service: 03/26/22 Reason For Visit: Depression, SI, relapse Interim History: met with patient. Discussed with Nursing. Reports feeling up and down at times. Reports that he had been feeling really depressed and sleeping a lot prior to admission along with suicidal thoughts. Reports he has started to trying get out of his room and do more and take care of his ADLs. Still feels depressed. Slightly less withdrawn. We did clarify that he has negative self talk that is his own thoughts versus auditory hallucinations. Denies suicidal thoughts. Regarding medications would like Wellbutrin to be 1 time dose at 11:00 as he has been unable to be awake for the morning dose of Wellbutrin and therefore missing it. Medication Compliance: Intermittent Side effects from medications: No Attending Groups: Intermittent Review of Systems Review of Systems Unremarkable Mental Status Exam Mental Status Exam Narrative: pleasant. Engaged. Self-care okay. Depressed. No SI. No HI. No agitation. No overt psychosis. Insight and judgment okay Diagnostics Vital Signs (24Hr): Vital Signs - 24 hr 03/25/22 21:45 03/26/22 11:30 Temperature 98.1 F 98.1 F Pulse Rate 67 74 Respiratory Rate 18 16 Blood Pressure 109/56 L 116/60 Pulse Oximetry 97 92 Oxygen Delivery Method Room Air Room Air BMI result Body Mass Index 27.6 Labs Results: 03/22/22 02:53 03/22/22 02:53 Medications Medications Current Medications Acetaminophen (Acetaminophen 325 Mg Tablet) 650 mg PO Q6H PRN PRN Reason: Headache/Pain Mild Scale (1-3) Al Hydroxide/Mg Hydroxide (Magnesium Hydrox/Alum Hydrox 30 Ml Oral.Susp) 30 ml PO Q6H PRN PRN Reason: Heartburn/Nausea Baclofen (Baclofen 10 Mg Tablet) 10 mg PO BID [facility] Last Admin: 03/26/22 11:33 Dose: 10 mg Bupropion HCl (Bupropion Hcl Xl 300 Mg Tab.Er.24h) 300 mg PO DAILY [facility] Clonidine HCl (Clonidine Hcl 0.1 Mg Tablet) 0.1 mg PO TID [facility]; Protocol Last Admin: 03/26/22 15:39 Dose: 0.1 mg Gabapentin (Gabapentin 400 Mg Capsule) 800 mg PO BID [facility] Last Admin: 03/26/22 11:33 Dose: 800 mg Hydroxyzine HCl (Hydroxyzine Hcl 25 Mg Tablet) 25 mg PO Q6H PRN PRN Reason: Anxiety [place] Carbonate ([place] Carbonate 300 Mg Capsule) 600 mg PO BID [facility] Last Admin: 03/26/22 11:32 Dose: 600 mg Lorazepam (Lorazepam 1 Mg Tablet) 1 mg PO Q6H PRN PRN Reason: agitation Last Admin: 03/26/22 11:47 Dose: 1 mg Magnesium Hydroxide (Milk Of Magnesia 30 Ml Oral.Susp) 30 ml PO DAILY PRN PRN Reason: Constipation Last Admin: 03/24/22 20:22 Dose: 30 ml Methadone HCl (Methadone Hcl 20 Mg/2 Ml Oral.Conc) 90 mg PO DAILY [facility] Last Admin: 03/26/22 11:34 Dose: 90 mg Nicotine (Nicotine 14 Mg Patch.Td24) 14 mg TRANSDERMA DAILY [facility] Last Admin: 03/26/22 11:33 Dose: Not Given Nicotine Polacrilex (Nicotine Polacrilex 2 Mg Gum) 4 mg BUCCAL Q1H PRN PRN Reason: Nicotine Cravings Last Admin: 03/26/22 15:46 Dose: 4 mg Quetiapine Fumarate (Quetiapine Fumarate 50 Mg Tablet) 50 mg PO BID PRN PRN Reason: anxiety Quetiapine Fumarate (Quetiapine Fumarate 300 Mg Tablet) 300 mg PO BEDTIME [facility] Last Admin: 03/25/22 21:50 Dose: 300 mg Trazodone HCl (Trazodone Hcl 50 Mg Tablet) 50 mg PO BEDTIME PRN PRN Reason: Insomnia Allergies Allergies Allergy/AdvReac Type Severity Reaction Status Date / Time No Known Allergies Allergy Unknown UNKNOWN Verified 03/22/22 02:23 [NO KNOWN ALLERGIES] Assessment & Plan Assessment & Plan (1) Bipolar disorder: Status: Acute Code(s): F31.9 - Bipolar disorder, unspecified (2) Opioid use disorder: Status: Acute Code(s): F11.90 - Opioid use, unspecified, uncomplicated Plan continue regimen from recent hospitalization. allow to detox. engage around mental health issues when feeling physically better. 03/25: ativan PRNs added for anxiety. pt aware he angie not be DCed on ativan. first day pt has been out of bed since admission 03/22. 03/26/2022: Change Wellbutrin to 300 mg extended release once time daily dose and at 11:00 as per patient request I spent minutes with the patient and/or on the patient floor today, greater than?50% of which was spent counseling/coordinating care. Reason for contiued inpatient stay Substantial Risk for: inability to function
[2022-03-26 20:40] VITALS: BP 115/57; PULSE 72; RESP 16; TEMP 36.8; O2SAT 100
[2022-03-26] MEDS: QUEtiapine Fumarate 300 MG TABLET PO (20:49)
[2022-03-27 08:00] VITALS: BP 120/66; PULSE 84; RESP 18; TEMP 36.8; O2SAT 97
[2022-03-27] MEDS: cloNIDine HCL 0.1 MG TABLET PO ×2 (08:38→21:35)
[2022-03-27] MEDS: Baclofen 10 MG TABLET PO ×2 (08:38→21:35)
[2022-03-27] MEDS: Gabapentin 400 MG CAPSULE 800 MG PO ×2 (08:38→21:35)
[2022-03-27] MEDS: Lithium Carbonate 300 MG CAPSULE 600 MG PO ×2 (08:38→21:35)
[2022-03-27] MEDS: methADONE HCl 20 MG/2 ML ORAL.CONC 90 MG PO (08:39)
[2022-03-27] MEDS: buPROPion HCl XL 300 MG TAB.ER.24H PO (11:01)
[2022-03-27] MEDS: LORazepam 1 MG TABLET PO ×2 (11:02→18:01)
--- NOTE | 2022-03-27 11:13 | P.PNPSI_ITS ---
Subjective Subjective Date of Service: 03/27/22 Reason For Visit: Depression, SI, relapse Interim History: Patient seen and discussed with team. No complaints. Patient evaluated today and upon interview pt is found asleep, he was rousable and denied having questions or concerns. In the milieu, patient is safe and visible at times. Denies SI/SIB/HI upon inquiry. Denies irritability or assaultive ideation. Says he feels safe. Medication Compliance: Yes Side effects from medications: No Attending Groups: Yes Review of Systems Acute medical concerns: No Medical Review of Systems: unchanged Mental Status Exam Mental Status Exam Narrative: A&O. Found in bed, casual attire. Poor eye contact, somewhat attentive. No Tics or Tremors. No abnormal involuntary movements. Calm, cooperative, engaged. Non- pressured speech, spontaneous with regular rate and rhythm, normal volume and prosody. No prolonged speech latency or dysarthria. Mood is ?okay,? affect is appropriate. Denies SI/SIB/HI upon inquiry. Denies A/VH or delusional thought content. Thoughts are goal oriented. No known cognitive or memory impairment. Insight/ Judgment fair and adequate. Diagnostics Vital Signs (24Hr): Vital Signs - 24 hr 03/26/22 11:30 03/26/22 20:40 03/27/22 08:00 Temperature 98.1 F 98.3 F 98.3 F Pulse Rate 74 72 84 Respiratory Rate 16 16 18 Blood Pressure 116/60 115/57 L 120/66 Pulse Oximetry 92 100 97 Oxygen Delivery Method Room Air Room Air Room Air BMI result Body Mass Index 27.6 Labs Results: 03/22/22 02:53 03/22/22 02:53 Medications Medications Current Medications Acetaminophen (Acetaminophen 325 Mg Tablet) 650 mg PO Q6H PRN PRN Reason: Headache/Pain Mild Scale (1-3) Al Hydroxide/Mg Hydroxide (Magnesium Hydrox/Alum Hydrox 30 Ml Oral.Susp) 30 ml PO Q6H PRN PRN Reason: Heartburn/Nausea Baclofen (Baclofen 10 Mg Tablet) 10 mg PO BID [facility] Last Admin: 03/27/22 08:38 Dose: 10 mg Bupropion HCl (Bupropion Hcl Xl 300 Mg Tab.Er.24h) 300 mg PO DAILY@1100 [facility] Last Admin: 03/27/22 11:01 Dose: 300 mg Clonidine HCl (Clonidine Hcl 0.1 Mg Tablet) 0.1 mg PO TID [facility]; Protocol Last Admin: 03/27/22 08:38 Dose: 0.1 mg Gabapentin (Gabapentin 400 Mg Capsule) 800 mg PO BID [facility] Last Admin: 03/27/22 08:38 Dose: 800 mg Hydroxyzine HCl (Hydroxyzine Hcl 25 Mg Tablet) 25 mg PO Q6H PRN PRN Reason: Anxiety [place] Carbonate ([place] Carbonate 300 Mg Capsule) 600 mg PO BID [facility] Last Admin: 03/27/22 08:38 Dose: 600 mg Lorazepam (Lorazepam 1 Mg Tablet) 1 mg PO Q6H PRN PRN Reason: agitation Last Admin: 03/27/22 11:02 Dose: 1 mg Magnesium Hydroxide (Milk Of Magnesia 30 Ml Oral.Susp) 30 ml PO DAILY PRN PRN Reason: Constipation Last Admin: 03/24/22 20:22 Dose: 30 ml Methadone HCl (Methadone Hcl 20 Mg/2 Ml Oral.Conc) 90 mg PO DAILY [facility] Last Admin: 03/27/22 08:39 Dose: 90 mg Nicotine (Nicotine 14 Mg Patch.Td24) 14 mg TRANSDERMA DAILY [facility] Last Admin: 03/27/22 11:01 Dose: Not Given Nicotine Polacrilex (Nicotine Polacrilex 2 Mg Gum) 4 mg BUCCAL Q1H PRN PRN Reason: Nicotine Cravings Last Admin: 03/26/22 21:04 Dose: 4 mg Quetiapine Fumarate (Quetiapine Fumarate 50 Mg Tablet) 50 mg PO BID PRN PRN Reason: anxiety Quetiapine Fumarate (Quetiapine Fumarate 300 Mg Tablet) 300 mg PO BEDTIME [facility] Last Admin: 03/26/22 20:49 Dose: 300 mg Trazodone HCl (Trazodone Hcl 50 Mg Tablet) 50 mg PO BEDTIME PRN PRN Reason: Insomnia Allergies Allergies Allergy/AdvReac Type Severity Reaction Status Date / Time No Known Allergies Allergy Unknown UNKNOWN Verified 03/22/22 02:23 [NO KNOWN ALLERGIES] Assessment & Plan Assessment & Plan (1) Bipolar disorder: Status: Acute Code(s): F31.9 - Bipolar disorder, unspecified (2) Opioid use disorder: Status: Acute Code(s): F11.90 - Opioid use, unspecified, uncomplicated Plan continue regimen from recent hospitalization. allow to detox. engage around mental health issues when feeling physically better. 03/25: ativan PRNs added for anxiety. pt aware he angie not be DCed on ativan. first day pt has been out of bed since admission 03/22. 03/26/2022: Change Wellbutrin to 300 mg extended release once time daily dose and at 11:00 as per patient request 03/27/2022: no med changes, tired today I spent minutes with the patient and/or on the patient floor today, greater than?50% of which was spent counseling/coordinating care. Patient educated on: medication risk/benefits Reason for contiued inpatient stay Substantial Risk for: rapid decompensation and med/psych decompensation
[2022-03-27] MEDS: QUEtiapine Fumarate 50 MG TABLET PO (13:03)
[2022-03-27] MEDS: Nicotine Polacrilex 2 MG GUM 4 MG BUCCAL ×2 (13:33→20:04)
[2022-03-27 18:00] VITALS: BP 127/70; PULSE 77; RESP 18; TEMP 36.8; O2SAT 97
[2022-03-27] MEDS: QUEtiapine Fumarate 300 MG TABLET PO (21:35)
[2022-03-28 08:50] VITALS: BP 109/62; PULSE 62; RESP 20; TEMP 36.7; O2SAT 99
[2022-03-28] MEDS: methADONE HCl 20 MG/2 ML ORAL.CONC 90 MG PO (08:55)
[2022-03-28] MEDS: Nicotine Polacrilex 2 MG GUM 4 MG BUCCAL ×3 (08:58→18:40)
[2022-03-28] MEDS: cloNIDine HCL 0.1 MG TABLET PO ×3 (08:58→20:56)
[2022-03-28] MEDS: Lithium Carbonate 300 MG CAPSULE 600 MG PO ×2 (08:58→20:56)
[2022-03-28] MEDS: Gabapentin 400 MG CAPSULE 800 MG PO ×2 (08:58→20:56)
[2022-03-28] MEDS: Baclofen 10 MG TABLET PO ×2 (08:58→20:57)
[2022-03-28] MEDS: LORazepam 1 MG TABLET PO ×2 (11:55→18:40)
[2022-03-28] MEDS: Acetaminophen 325 MG TABLET 650 MG PO (11:55)
[2022-03-28] MEDS: buPROPion HCl XL 300 MG TAB.ER.24H PO (11:55)
[2022-03-28 14:35] VITALS: BP 109/66; PULSE 69; RESP 18; O2SAT 96
--- NOTE | 2022-03-28 15:08 | PC.NURSE ---
Patient reported to have SI in the morning, and reported to be sedated as well. Patient evaluated, does appear sedated, lying in bed, closing eyes mid sentence and appearing to fall asleep. Patient denies somnolence. Provider notified. Patient evaluated for SI- at the time of assessment, patient denied SI, stating that he had been frustrated w/ social studies department chair because they did not appear to know what he had hoped for discharge and he became confused and anxious about discharge. Patient slammed door after interaction. At time of assessment patient was future oriented, affect brighter, stated he hoped to get into a program closer to home to help him continue his recovery so that he could see his children again. Patient denied SI, stated that he felt that his moods fluctuate and is concerned that the Methadone is sedating him. Patient is hopeful that the provider will agree to help him taper off Methadone.
--- NOTE | 2022-03-28 17:35 | P.PNPSI_ITS ---
Subjective Subjective Date of Service: 03/28/22 Reason For Visit: Depression, SI, relapse Interim History: Patient seen and discussed with team. Patient evaluated today and upon interview pt reports he is doing alright, feels okay with medications, theyre doing their job. Discussed his daytime sedation, says he is willing to come down by 5 mg on methadone as he attributes his sedation to this. Says ativan helps, doesnt want to go down on that. Also asks to decrease seroquel to 200 mg. Likes gabapentin for nerve damage. Mood has been up and down, it is the 2 month anniversary of his best friend killing himself, hears voices telling me to leave and go get high, but says he is sick of listening to these voices. Denies SI/SIB/HI upon inquiry. Denies irritability or assaultive ideation. Says he feels safe. Medication Compliance: Yes Side effects from medications: Yes Attending Groups: No Review of Systems Acute medical concerns: No Medical Review of Systems: unchanged Mental Status Exam Mental Status Exam Narrative: A&O. Casual attire. Good eye contact, attentive. No Tics or Tremors. No abnormal involuntary movements. Calm, cooperative, engaged. Non-pressured speech, spontaneous with regular rate and rhythm, normal volume and prosody. No prolonged speech latency or dysarthria. Mood is ?up and down,? affect is appropr iate. Denies SI/SIB/HI upon inquiry. Denies A/VH or delusional thought content. Thoughts are goal oriented. No known cognitive or memory impairment. Insight/ Judgment fair and adequate. Diagnostics Vital Signs (24Hr): Vital Signs - 24 hr 03/27/22 18:00 03/28/22 08:50 03/28/22 14:35 Temperature 98.3 F 98.1 F Pulse Rate 77 62 69 Respiratory Rate 18 20 18 Blood Pressure 127/70 109/62 109/66 Pulse Oximetry 97 99 96 Oxygen Delivery Method Room Air Room Air Room Air BMI result Body Mass Index 27.6 Labs Results: 03/22/22 02:53 03/22/22 02:53 Medications Medications Current Medications Acetaminophen (Acetaminophen 325 Mg Tablet) 650 mg PO Q6H PRN PRN Reason: Headache/Pain Mild Scale (1-3) Last Admin: 03/28/22 11:55 Dose: 650 mg Al Hydroxide/Mg Hydroxide (Magnesium Hydrox/Alum Hydrox 30 Ml Oral.Susp) 30 ml PO Q6H PRN PRN Reason: Heartburn/Nausea Baclofen (Baclofen 10 Mg Tablet) 10 mg PO BID [facility] Last Admin: 03/28/22 08:58 Dose: 10 mg Bupropion HCl (Bupropion Hcl Xl 300 Mg Tab.Er.24h) 300 mg PO DAILY@1100 [facility] Last Admin: 03/28/22 11:55 Dose: 300 mg Clonidine HCl (Clonidine Hcl 0.1 Mg Tablet) 0.1 mg PO TID [facility]; Protocol Last Admin: 03/28/22 14:38 Dose: 0.1 mg Gabapentin (Gabapentin 400 Mg Capsule) 800 mg PO BID [facility] Last Admin: 03/28/22 08:58 Dose: 800 mg Hydroxyzine HCl (Hydroxyzine Hcl 25 Mg Tablet) 25 mg PO Q6H PRN PRN Reason: Anxiety [place] Carbonate ([place] Carbonate 300 Mg Capsule) 600 mg PO BID [facility] Last Admin: 03/28/22 08:58 Dose: 600 mg Lorazepam (Lorazepam 1 Mg Tablet) 1 mg PO Q6H PRN PRN Reason: agitation Last Admin: 03/28/22 11:55 Dose: 1 mg Magnesium Hydroxide (Milk Of Magnesia 30 Ml Oral.Susp) 30 ml PO DAILY PRN PRN Reason: Constipation Last Admin: 03/24/22 20:22 Dose: 30 ml Methadone HCl (Methadone Hcl 20 Mg/2 Ml Oral.Conc) 90 mg PO DAILY [facility] Last Admin: 03/28/22 08:55 Dose: 90 mg Nicotine (Nicotine 14 Mg Patch.Td24) 14 mg TRANSDERMA DAILY [facility] Last Admin: 03/28/22 10:48 Dose: Not Given Nicotine Polacrilex (Nicotine Polacrilex 2 Mg Gum) 4 mg BUCCAL Q1H PRN PRN Reason: Nicotine Cravings Last Admin: 03/28/22 16:06 Dose: 4 mg Quetiapine Fumarate (Quetiapine Fumarate 50 Mg Tablet) 50 mg PO BID PRN PRN Reason: anxiety Last Admin: 03/27/22 13:03 Dose: 50 mg Quetiapine Fumarate (Quetiapine Fumarate 300 Mg Tablet) 300 mg PO BEDTIME [facility] Last Admin: 03/27/22 21:35 Dose: 300 mg Trazodone HCl (Trazodone Hcl 50 Mg Tablet) 50 mg PO BEDTIME PRN PRN Reason: Insomnia Allergies Allergies Allergy/AdvReac Type Severity Reaction Status Date / Time No Known Allergies Allergy Unknown UNKNOWN Verified 03/22/22 02:23 [NO KNOWN ALLERGIES] Assessment & Plan Assessment & Plan (1) Bipolar disorder: Status: Acute Code(s): F31.9 - Bipolar disorder, unspecified (2) Opioid use disorder: Status: Acute Code(s): F11.90 - Opioid use, unspecified, uncomplicated Plan continue regimen from recent hospitalization. allow to detox. engage around mental health issues when feeling physically better. 03/25: ativan PRNs added for anxiety. pt aware he angie not be DCed on ativan. first day pt has been out of bed since admission 03/22. 03/26/2022: Change Wellbutrin to 300 mg extended release once time daily dose and at 11:00 as per patient request 03/27/2022: no med changes, tired today 03/28/2022: Decrease seroquel to 200 mg QHS and methadone to 85 mg due to sedation. I spent minutes with the patient and/or on the patient floor today, greater than?50% of which was spent counseling/coordinating care. Patient educated on: medication risk/benefits Reason for contiued inpatient stay Substantial Risk for: med/psych decompensation
[2022-03-28] MEDS: QUEtiapine Fumarate 200 MG TABLET PO (20:56)
[2022-03-28 20:59] VITALS: BP 128/78; PULSE 76; RESP 18; TEMP 36.7; O2SAT 97
[2022-03-28] MEDS: QUEtiapine Fumarate 50 MG TABLET PO (22:37)
[2022-03-29 08:15] VITALS: BP 121/75; PULSE 77; RESP 20; TEMP 36.2; O2SAT 100
[2022-03-29] MEDS: methADONE HCl 20 MG/2 ML ORAL.CONC 85 MG PO (08:18)
[2022-03-29] MEDS: Lithium Carbonate 300 MG CAPSULE 600 MG PO ×2 (08:19→22:00)
[2022-03-29] MEDS: cloNIDine HCL 0.1 MG TABLET PO ×2 (08:19→15:22)
[2022-03-29] MEDS: Acetaminophen 325 MG TABLET 650 MG PO ×2 (08:20→15:22)
[2022-03-29] MEDS: Baclofen 10 MG TABLET PO ×2 (08:20→22:00)
[2022-03-29] MEDS: Gabapentin 400 MG CAPSULE 800 MG PO ×2 (08:20→22:00)
[2022-03-29] MEDS: Nicotine Polacrilex 2 MG GUM 4 MG BUCCAL ×3 (08:23→18:25)
[2022-03-29] MEDS: buPROPion HCl XL 300 MG TAB.ER.24H PO (10:58)
--- NOTE | 2022-03-29 15:08 | P.PNPSI_ITS ---
Subjective Subjective Date of Service: 03/29/22 Reason For Visit: Depression, SI, relapse Interim History: found sleeping in bed. rousable, but repeatedly falling back asleep. appears sedated. is able to ask for fresh air break and to indicate he would like to taper methadone. MD informs him we can do no faster than 5 mg QOD and also that ativan is being tapered. otherwise c/o anxiety about where he will live, if his kids will be back in touch with him, life stressors in general. per staff, lots of anxiety and depression. endorsed SI if outside hospital but feels safe here. appearing sedated. frustrated with SW, concerned about his DC plan. labile/irritable. caustic toward others. Mental Status Exam Mental Status Exam Narrative: A&O. Found in bed, casual attire. Poor eye contact, inattentive, repeatedly falling asleep. No Tics or Tremors. No abnormal involuntary movements. Calm, cooperative, poorly engaged. Non-pressured speech, non-spontaneous with regular rate and rhythm, normal volume and prosody. prolonged speech latency. no dysarthria. mood not assessed, affect blunted, no SI/HI/AVH expressed. Thoughts are linear, logical, and goal oriented. No known cognitive or memory impairment. Insight/ Judgment fair and adequate. Diagnostics Vital Signs (24Hr): Vital Signs - 24 hr 03/28/22 20:59 03/29/22 08:15 Temperature 98.1 F 97.1 F Pulse Rate 76 77 Respiratory Rate 18 20 Blood Pressure 128/78 121/75 Pulse Oximetry 97 100 Oxygen Delivery Method Room Air Room Air BMI result Body Mass Index 27.6 Labs Results: 03/22/22 02:53 03/22/22 02:53 Medications Medications Current Medications Acetaminophen (Acetaminophen 325 Mg Tablet) 650 mg PO Q6H PRN PRN Reason: Headache/Pain Mild Scale (1-3) Last Admin: 03/29/22 08:20 Dose: 650 mg Al Hydroxide/Mg Hydroxide (Magnesium Hydrox/Alum Hydrox 30 Ml Oral.Susp) 30 ml PO Q6H PRN PRN Reason: Heartburn/Nausea Baclofen (Baclofen 10 Mg Tablet) 10 mg PO BID [facility] Last Admin: 03/29/22 08:20 Dose: 10 mg Bupropion HCl (Bupropion Hcl 100 Mg Tablet) 100 mg PO TID@0900,1200,1500 [facility] Clonidine HCl (Clonidine Hcl 0.1 Mg Tablet) 0.1 mg PO BID@0900,1500 [facility]; Protocol Clonidine HCl (Clonidine Hcl 0.2 Mg Tablet) 0.2 mg PO BEDTIME [facility]; Protocol Gabapentin (Gabapentin 400 Mg Capsule) 800 mg PO BID [facility] Last Admin: 03/29/22 08:20 Dose: 800 mg Hydroxyzine HCl (Hydroxyzine Hcl 25 Mg Tablet) 25 mg PO Q6H PRN PRN Reason: Anxiety [place] Carbonate ([place] Carbonate 300 Mg Capsule) 600 mg PO BID [facility] Last Admin: 03/29/22 08:19 Dose: 600 mg Lorazepam (Lorazepam 0.5 Mg Tablet) 0.5 mg PO Q6H PRN PRN Reason: agitation Magn[place] Hydroxide (Milk Of Magnesia 30 Ml Oral.Susp) 30 ml PO DAILY PRN PRN Reason: Constipation Last Admin: 03/24/22 20:22 Dose: 30 ml Methadone HCl (Methadone Hcl 20 Mg/2 Ml Oral.Conc) 85 mg PO DAILY [facility] Last Admin: 03/29/22 08:18 Dose: 85 mg Nicotine (Nicotine 14 Mg Patch.Td24) 14 mg TRANSDERMA DAILY [facility] Last Admin: 03/29/22 09:27 Dose: Not Given Nicotine Polacrilex (Nicotine Polacrilex 2 Mg Gum) 4 mg BUCCAL Q1H PRN PRN Reason: Nicotine Cravings Last Admin: 03/29/22 08:23 Dose: 4 mg Quetiapine Fumarate (Quetiapine Fumarate 50 Mg Tablet) 50 mg PO BID PRN PRN Reason: anxiety Last Admin: 03/28/22 22:37 Dose: 50 mg Quetiapine Fumarate (Quetiapine Fumarate 200 Mg Tablet) 200 mg PO BEDTIME [facility] Last Admin: 03/28/22 20:56 Dose: 200 mg Trazodone HCl (Trazodone Hcl 50 Mg Tablet) 50 mg PO BEDTIME PRN PRN Reason: Insomnia Allergies Allergies Allergy/AdvReac Type Severity Reaction Status Date / Time No Known Allergies Allergy Unknown UNKNOWN Verified 03/22/22 02:23 [NO KNOWN ALLERGIES] Assessment & Plan Assessment & Plan (1) Bipolar disorder: Status: Acute Code(s): F31.9 - Bipolar disorder, unspecified (2) Opioid use disorder: Status: Acute Code(s): F11.90 - Opioid use, unspecified, uncomplicated Plan continue regimen from recent hospitalization. allow to detox. engage around mental health issues when feeling physically better. 03/25: ativan PRNs added for anxiety. pt aware he angie not be DCed on ativan. first day pt has been out of bed since admission 03/22. 03/26/2022: Change Wellbutrin to 300 mg extended release once time daily dose and at 11:00 as per patient request 03/27/2022: no med changes, tired today. 03/28: methadone dosing decreased to 85 mg daily. 03/29: ativan PRNs decreased to 0.5 mg each. taper methadone to 80 mg tomorrow. overly sedated today. I spent ___25___ minutes with the patient and/or on the patient floor today, greater than?50% of which was spent counseling/coordinating care. Reason for contiued inpatient stay Substantial Risk for: harm to self, inability to function and rapid decompensation
[2022-03-29 15:15] VITALS: BP 133/68; PULSE 85; RESP 18; O2SAT 96
[2022-03-29] MEDS: LORazepam 0.5 MG TABLET PO ×2 (17:07→23:48)
[2022-03-29 20:00] VITALS: BP 101/59; PULSE 67; RESP 18; TEMP 36.6; O2SAT 96
[2022-03-29] MEDS: cloNIDine HCL 0.2 MG TABLET PO (22:00)
[2022-03-29] MEDS: QUEtiapine Fumarate 200 MG TABLET PO (22:00)
[2022-03-29] MEDS: QUEtiapine Fumarate 50 MG TABLET PO (23:48)
[2022-03-30 06:00] VITALS: BP 131/70; PULSE 79; RESP 18; TEMP 36.7; O2SAT 100
[2022-03-30] MEDS: Lithium Carbonate 300 MG CAPSULE 600 MG PO ×2 (09:58→21:54)
[2022-03-30] MEDS: Baclofen 10 MG TABLET PO ×2 (09:58→21:54)
[2022-03-30] MEDS: Gabapentin 400 MG CAPSULE 800 MG PO ×2 (09:58→21:54)
[2022-03-30] MEDS: cloNIDine HCL 0.1 MG TABLET PO ×2 (09:58→15:13)
[2022-03-30] MEDS: methADONE HCl 20 MG/2 ML ORAL.CONC 85 MG PO (09:58)
[2022-03-30] MEDS: Milk of Magnesia 30 ML ORAL.SUSP PO (10:02)
[2022-03-30] MEDS: buPROPion HCL 100 MG TABLET PO ×3 (10:02→15:32)
[2022-03-30] MEDS: Nicotine Polacrilex 2 MG GUM 4 MG BUCCAL ×2 (10:02→15:05)
--- NOTE | 2022-03-30 14:22 | HO.PSYCHPN ---
Subjective Subjective Date of Service: 03/30/22 Reason For Visit: Depression, SI, relapse Interim History: seen with SW and independently. discuss ongoing medication changes. methadone decreased to 80 mg daily, ativan DCed, and HS seroquel increased to 250 mg. dispo options discussed at length. plan to refer to [facility] in [place] versus discharge to snf in the [place] area. denies AH, having anxiety and depression regarding his future. informed labs will be checked tomorrow. per staff, not attending groups. anx 8, dep 6. affect incongruent with expressed mood. c/o AH, then denied them. slept overnight. Mental Status Exam Mental Status Exam Narrative: appropriately dressed and groomed. awake. cooperative. no PMA/PMR. speech nml in rate and amount, loudness, tone. thoughts linear and logical in response to questions. affect full range. mood not asssessed. denies AH. no SI/HI/VH expressed. Diagnostics Vital Signs (24Hr): Vital Signs - 24 hr 03/29/22 15:15 03/29/22 20:00 03/30/22 06:00 Temperature 97.8 F 98.1 F Pulse Rate 85 67 79 Respiratory Rate 18 18 18 Blood Pressure 133/68 101/59 L 131/70 Pulse Oximetry 96 96 100 Oxygen Delivery Method Room Air Room Air Room Air BMI result Body Mass Index 27.6 Labs Results: 03/22/22 02:53 03/22/22 02:53 Medications Medications Current Medications Acetaminophen (Acetaminophen 325 Mg Tablet) 650 mg PO Q6H PRN PRN Reason: Headache/Pain Mild Scale (1-3) Last Admin: 03/29/22 15:22 Dose: 650 mg Al Hydroxide/Mg Hydroxide (Magnesium Hydrox/Alum Hydrox 30 Ml Oral.Susp) 30 ml PO Q6H PRN PRN Reason: Heartburn/Nausea Baclofen (Baclofen 10 Mg Tablet) 10 mg PO BID [facility] Last Admin: 03/30/22 09:58 Dose: 10 mg Bupropion HCl (Bupropion Hcl 100 Mg Tablet) 100 mg PO TID@0900,1200,1500 [facility] Last Admin: 03/30/22 12:14 Dose: 100 mg Clonidine HCl (Clonidine Hcl 0.1 Mg Tablet) 0.1 mg PO BID@0900,1500 [facility]; Protocol Last Admin: 06/22/22 09:58 Dose: 0.1 mg Clonidine HCl (Clonidine Hcl 0.2 Mg Tablet) 0.2 mg PO BEDTIME [facility]; Protocol Last Admin: 03/29/22 22:00 Dose: 0.2 mg Gabapentin (Gabapentin 400 Mg Capsule) 800 mg PO BID [facility] Last Admin: 03/30/22 09:58 Dose: 800 mg Hydroxyzine HCl (Hydroxyzine Hcl 25 Mg Tablet) 25 mg PO Q6H PRN PRN Reason: Anxiety [place] Carbonate ([place] Carbonate 300 Mg Capsule) 600 mg PO BID [facility] Last Admin: 03/30/22 09:58 Dose: 600 mg Magnesium Hydroxide (Milk Of Magnesia 30 Ml Oral.Susp) 30 ml PO DAILY PRN PRN Reason: Constipation Last Admin: 03/30/22 10:02 Dose: 30 ml Methadone HCl (Methadone Hcl 20 Mg/2 Ml Oral.Conc) 80 mg PO DAILY [facility] Nicotine (Nicotine 14 Mg Patch.Td24) 14 mg TRANSDERMA DAILY [facility] Last Admin: 03/30/22 10:08 Dose: Not Given Nicotine Polacrilex (Nicotine Polacrilex 2 Mg Gum) 4 mg BUCCAL Q1H PRN PRN Reason: Nicotine Cravings Last Admin: 03/30/22 10:02 Dose: 4 mg Quetiapine Fumarate (Quetiapine Fumarate 50 Mg Tablet) 50 mg PO BID PRN PRN Reason: anxiety Last Admin: 03/29/22 23:48 Dose: 50 mg Quetiapine Fumarate (Quetiapine Fumarate 50 Mg Tablet) 250 mg PO BEDTIME [facility] Trazodone HCl (Trazodone Hcl 50 Mg Tablet) 50 mg PO BEDTIME PRN PRN Reason: Insomnia Allergies Allergies Allergy/AdvReac Type Severity Reaction Status Date / Time No Known Allergies Allergy Unknown UNKNOWN Verified 03/22/22 02:23 [NO KNOWN ALLERGIES] Assessment & Plan Assessment & Plan (1) Bipolar disorder: Status: Acute Code(s): F31.9 - Bipolar disorder, unspecified (2) Opioid use disorder: Status: Acute Code(s): F11.90 - Opioid use, unspecified, uncomplicated Plan continue regimen from recent hospitalization. allow to detox. engage around mental health issues when feeling physically better. 03/25: ativan PRNs added for anxiety. pt aware he angie not be DCed on ativan. first day pt has been out of bed since admission 03/22. 03/26/2022: Change Wellbutrin to 300 mg extended release once time daily dose and at 11:00 as per patient request 03/27/2022: no med changes, tired today 03/28/2022: Decrease seroquel to 200 mg QHS and methadone to 85 mg due to sedation. 03/30: increase seroquel to 250 QHS due to insomnia last NOC. decrease methadone to 80 mg daily. DC ativan. check labs tomorrow. I spent ___35___ minutes with the patient and/or on the patient floor today, greater than?50% of which was spent counseling/coordinating care. Reason for contiued inpatient stay Substantial Risk for: harm to self, inability to function and rapid decompensation
[2022-03-30] MEDS: QUEtiapine Fumarate 50 MG TABLET PO (18:39)
[2022-03-30] MEDS: LORazepam 0.5 MG TABLET PO (19:05)
[2022-03-30 21:15] VITALS: BP 118/66; PULSE 76; TEMP 36.6; O2SAT 98
[2022-03-30] MEDS: QUEtiapine Fumarate 50 MG TABLET 250 MG PO (21:53)
[2022-03-30] MEDS: cloNIDine HCL 0.2 MG TABLET PO (21:54)
[2022-03-31 07:00] VITALS: BMI 29.9
[2022-03-31 08:23] LABS: MANUAL DIFF FLAG NO
[2022-03-31 08:25] LABS: Basophils Absolute Auto 0.1 X10*3/uL (0.0-0.2); Basophils Percent Auto 0.7 % (0-2); Eosinophils Absolute Auto 0.4 X10*3/uL (0.0-0.4); Eosinophils Percent Auto 4.1 % (0-4); Hematocrit 38.6 % (42.0-52.0); Hemoglobin 12.1 g/dl (14.0-18.0); Imm Gran Abs Auto 0.14 X10*3/uL (0.00-0.03); Imm Gran Pct Auto 1.6 % (0.0-0.4); Lymphocytes Absolute Auto 2.8 X10*3/uL (1.2-4.9); Lymphocytes Percent Auto 31.1 % (20-40); Mean Corpuscular HGB Conc 31.3 g/dl (31.0-36.0); Mean Corpuscular Hemoglobin 26.5 pg (27.0-33.0); Mean Corpuscular Volume 84.6 fL (80.0-98.0); Mean Platelet Volume 9.5 fL (9.4-12.4); Monocytes Absolute Auto 0.9 X10*3/uL (0.1-1.2); Monocytes Percent Auto 10.4 % (2-11); Neutrophils Absolute Auto 4.7 x10*3/uL (2.0-8.3); Neutrophils Percent Auto 52.1 % (45-73); Platelet Count 399 X10*3/uL (160-400); Red Blood Count 4.56 X10*6/uL (4.60-5.80); Red Cell Distribution Width 15.1 % (11.0-16.0)
[2022-03-31 08:46] LABS: Lithium 0.59 mmol/L (0.60-1.20)
[2022-03-31 09:03] VITALS: BP 119/65; PULSE 76; RESP 17; TEMP 36.8; O2SAT 97
[2022-03-31 09:10] LABS: Alanine Aminotransferase 244 U/L (0-40); Albumin Level 4.1 g/dL (3.5-5.0); Alkaline Phosphatase 103 U/L (39-117); Anion Gap 12 (12-20); Aspartate Amino Transferase 168 U/L (5-37); Bilirubin Direct < 0.2 mg/dL (0.0-0.5); Bilirubin Total 0.3 mg/dL (0.0-1.0); Blood Urea Nitrogen 12 mg/dL (9-16); Calcium 9.7 mg/dL (8.4-10.2); Carbon Dioxide 29 mmol/L (22-29); Chloride 101 mmol/L (96-108); Creatinine Clr Calc Pharmacy 127.1; Estimated Glomerular Filt Rate > 60; Glucose Random 99 mg/dL (60-115); Potassium 4.5 mmol/L (3.3-5.1); Sodium 137 mmol/L (135-145); Total Protein 7.6 g/dL (6.5-8.0)
[2022-03-31] MEDS: Gabapentin 400 MG CAPSULE 800 MG PO ×2 (09:15→21:16)
[2022-03-31] MEDS: Baclofen 10 MG TABLET PO ×2 (09:15→21:17)
[2022-03-31] MEDS: cloNIDine HCL 0.1 MG TABLET PO ×2 (09:16→15:34)
[2022-03-31] MEDS: Lithium Carbonate 300 MG CAPSULE 600 MG PO ×2 (09:16→21:17)
[2022-03-31] MEDS: methADONE HCl 20 MG/2 ML ORAL.CONC 80 MG PO (09:17)
[2022-03-31] MEDS: buPROPion HCL 100 MG TABLET PO ×3 (09:21→15:34)
[2022-03-31] MEDS: QUEtiapine Fumarate 50 MG TABLET PO (09:51)
[2022-03-31] MEDS: Acetaminophen 325 MG TABLET 650 MG PO (11:20)
[2022-03-31] MEDS: Nicotine Polacrilex 2 MG GUM 4 MG BUCCAL ×2 (11:58→17:21)
--- NOTE | 2022-03-31 14:06 | HO.PSYCHPN ---
Subjective Subjective Date of Service: 03/31/22 Reason For Visit: Depression, SI, relapse Interim History: calm, cooperative. initially appears awake and alert. later in interview falling asleep in his seat. seen for the most part with WILFRED valenzuela. pt is informed he has been accepted to [facility] in [place] for monday. he was informed he will need to arrange for transportation, and he expresses his understanding of the information and suggests several people he may call for their help. states he would like to remain at 80 mg daily of methadone, to not decrease further. per staff played lots of board games yesterday. dep 05/18. anxiety 09/17. anxious about his future, being homeless and unemployed. feeling like i wish i wasn't alive. c/o AH. 630 pm was triggered by something on the TV. he recalled his son, whose birthday it was yesterday, and whom he attempted to contact but whose mother rebuffed the request. nightmares last monse. anx 6, dep 8 eves. Mental Status Exam Mental Status Exam Narrative: appropriately dressed and groomed. somnolent. cooperative. no PMA/PMR. speech nml in rate and amount, loudness, tone. thoughts linear and logical in response to questions. affect full range. mood not asssessed. no SI/HI/AVH expressed. Diagnostics Vital Signs (24Hr): Vital Signs - 24 hr 03/30/22 21:15 03/31/22 09:03 Temperature 97.8 F 98.3 F Pulse Rate 76 76 Respiratory Rate 17 Blood Pressure 118/66 119/65 Pulse Oximetry 98 97 Oxygen Delivery Method Room Air Room Air BMI result Body Mass Index 29.9 Labs Results: 03/31/22 08:10 03/31/22 08:10 Labs: Laboratory Results - last 48 hr 03/31/22 03/31/22 03/31/22 08:10 08:10 08:10 WBC 9.0 RBC 4.56 L Hgb 12.1 L Hct 38.6 L MCV 84.6 MCH 26.5 L MCHC 31.3 RDW 15.1 Plt Count 399 MPV 9.5 Immature Gran % (Auto) 1.6 H Neut % (Auto) 52.1 Lymph % (Auto) 31.1 [place] % (Auto) 10.4 Eos % (Auto) 4.1 H Baso % (Auto) 0.7 Lymph # (Auto) 2.8 Price # (Auto) 0.9 Eos # (Auto) 0.4 Baso # (Auto) 0.1 Abs Immat Gran (auto) 0.14 H Absolute Neuts (auto) 4.7 Absolute Nucleated RBC 0.000 Nucleated RBC % (auto) 0.0 Sodium 137 Potassium 4.5 D Chloride 101 Carbon Dioxide 29 Anion Gap 12 BUN 12 D Creatinine 0.75 Estim Creat Clear Calc 127.1 Estimated GFR > 60 Random Glucose 99 Calcium 9.7 Total Bilirubin 0.3 Direct Bilirubin < 0.2 AST 168 H ALT 244 H Alkaline Phosphatase 103 Total Protein 7.6 Albumin 4.1 [place] 0.59 L Medications Medications Current Medications Acetaminophen (Acetaminophen 325 Mg Tablet) 650 mg PO Q6H PRN PRN Reason: Headache/Pain Mild Scale (1-3) Last Admin: 03/31/22 11:20 Dose: 650 mg Al Hydroxide/Mg Hydroxide (Magnesium Hydrox/Alum Hydrox 30 Ml Oral.Susp) 30 ml PO Q6H PRN PRN Reason: Heartburn/Nausea Baclofen (Baclofen 10 Mg Tablet) 10 mg PO BID [facility] Last Admin: 03/31/22 09:15 Dose: 10 mg Bupropion HCl (Bupropion Hcl 100 Mg Tablet) 100 mg PO TID@0900,1200,1500 [facility] Last Admin: 03/31/22 11:57 Dose: 100 mg Clonidine HCl (Clonidine Hcl 0.1 Mg Tablet) 0.1 mg PO BID@0900,1500 [facility]; Protocol Last Admin: 03/31/22 09:16 Dose: 0.1 mg Clonidine HCl (Clonidine Hcl 0.2 Mg Tablet) 0.2 mg PO BEDTIME [facility]; Protocol Last Admin: 03/30/22 21:54 Dose: 0.2 mg Gabapentin (Gabapentin 400 Mg Capsule) 800 mg PO BID [facility] Last Admin: 03/31/22 09:15 Dose: 800 mg Hydroxyzine HCl (Hydroxyzine Hcl 25 Mg Tablet) 25 mg PO Q6H PRN PRN Reason: Anxiety [place] Carbonate ([place] Carbonate 300 Mg Capsule) 600 mg PO BID [facility] Last Admin: 03/31/22 09:16 Dose: 600 mg Magnesium Hydroxide (Milk Of Magnesia 30 Ml Oral.Susp) 30 ml PO DAILY PRN PRN Reason: Constipation Last Admin: 03/30/22 10:02 Dose: 30 ml Methadone HCl (Methadone Hcl 20 Mg/2 Ml Oral.Conc) 80 mg PO DAILY [facility] Last Admin: 03/31/22 09:17 Dose: 80 mg Nicotine (Nicotine 14 Mg Patch.Td24) 14 mg TRANSDERMA DAILY [facility] Last Admin: 03/31/22 09:21 Dose: Not Given Nicotine Polacrilex (Nicotine Polacrilex 2 Mg Gum) 4 mg BUCCAL Q1H PRN PRN Reason: Nicotine Cravings Last Admin: 03/31/22 11:58 Dose: 4 mg Quetiapine Fumarate (Quetiapine Fumarate 50 Mg Tablet) 250 mg PO BEDTIME [facility] Last Admin: 03/30/22 21:53 Dose: 250 mg Quetiapine Fumarate (Quetiapine Fumarate 25 Mg Tablet) 25 mg PO BID PRN PRN Reason: anxiety Trazodone HCl (Trazodone Hcl 50 Mg Tablet) 50 mg PO BEDTIME PRN PRN Reason: Insomnia Allergies Allergies Allergy/AdvReac Type Severity Reaction Status Date / Time No Known Allergies Allergy Unknown UNKNOWN Verified 03/22/22 02:23 [NO KNOWN ALLERGIES] Assessment & Plan Assessment & Plan (1) Bipolar disorder: Status: Acute Code(s): F31.9 - Bipolar disorder, unspecified (2) Opioid use disorder: Status: Acute Code(s): F11.90 - Opioid use, unspecified, uncomplicated Plan continue regimen from recent hospitalization. allow to detox. engage around mental health issues when feeling physically better. 03/25: ativan PRNs added for anxiety. pt aware he angie not be DCed on ativan. first day pt has been out of bed since admission 03/22. 03/26/2022: Change Wellbutrin to 300 mg extended release once time daily dose and at 11:00 as per patient request 03/27/2022: no med changes, tired today 03/28/2022: Decrease seroquel to 200 mg QHS and methadone to 85 mg due to sedation. 03/30: increase seroquel to 250 QHS due to insomnia last NOC. decrease methadone to 80 mg daily. DC ativan. check labs tomorrow. 03/31: decrease seroquel PRN from 50 mg each to 25 mg each due to sedation. labs WNL aside from anemia and elevated LFTs (trending upward for unclear reasons). lithium level 0.59. discharge benjamin to [facility] in [place]. I spent __35____ minutes with the patient and/or on the patient floor today, greater than?50% of which was spent counseling/coordinating care. Reason for contiued inpatient stay Substantial Risk for: inability to function and rapid decompensation
[2022-03-31 20:00] VITALS: BP 106/70; PULSE 80; RESP 18; TEMP 36.4; O2SAT 96
[2022-03-31] MEDS: QUEtiapine Fumarate 50 MG TABLET 250 MG PO (21:16)
[2022-03-31] MEDS: cloNIDine HCL 0.2 MG TABLET PO (21:16)
[2022-04-01] MEDS: cloNIDine HCL 0.1 MG TABLET PO ×2 (10:12→14:49)
[2022-04-01] MEDS: methADONE HCl 20 MG/2 ML ORAL.CONC 80 MG PO (10:13)
[2022-04-01] MEDS: Lithium Carbonate 300 MG CAPSULE 600 MG PO ×2 (10:13→22:13)
[2022-04-01] MEDS: Gabapentin 400 MG CAPSULE 800 MG PO (10:13)
[2022-04-01] MEDS: QUEtiapine Fumarate 25 MG TABLET PO ×2 (10:17→14:49)
[2022-04-01] MEDS: buPROPion HCL 100 MG TABLET PO ×3 (10:17→14:48)
[2022-04-01 10:23] VITALS: BP 116/76; PULSE 120; RESP 17; TEMP 36.6; O2SAT 98
[2022-04-01] MEDS: Baclofen 10 MG TABLET PO ×2 (10:23→22:12)
[2022-04-01] MEDS: Acetaminophen 325 MG TABLET 650 MG PO ×3 (10:53→22:20)
[2022-04-01] MEDS: Ibuprofen 600 MG TABLET PO (13:13)
--- NOTE | 2022-04-01 14:35 | HO.PSYCHPN ---
Subjective Subjective Date of Service: 04/01/22 Reason For Visit: Depression, SI, relapse Interim History: pt sedated in the morning. c/o withdrawal symptoms such as sweats and chills, asks if clonidine or gabapentin may be increased. we settle on increasing gabapentin to TID. states he is quite anxious about monday, trying to find a ride. pt later approaches MD, having woken up, c/o oral pain which he believes may be a dental infection. he requests anti-Bx, a dose of ibuprofen. orajel also started. per staff, visible, social. dep 7 anx 10. napping. not attending groups. c/o poor sleep. attended AA mtg. denies SI/HI/AVH. Mental Status Exam Mental Status Exam Narrative: appropriately dressed and groomed. somnolent. cooperative. no PMA/PMR. speech nml in rate and amount, loudness, tone. thoughts linear and logical in response to questions. affect constricted. mood not assessed. no SI/HI/AVH expressed. Diagnostics Vital Signs (24Hr): Vital Signs - 24 hr 03/31/22 20:00 04/01/22 10:23 Temperature 97.6 F 97.8 F Pulse Rate 80 120 H Respiratory Rate 18 17 Blood Pressure 106/70 116/76 Pulse Oximetry 96 98 Oxygen Delivery Method Room Air Room Air BMI result Body Mass Index 29.9 Labs Results: 03/31/22 08:10 03/31/22 08:10 Labs: Laboratory Results - last 48 hr 03/31/22 03/31/22 03/31/22 08:10 08:10 08:10 WBC 9.0 RBC 4.56 L Hgb 12.1 L Hct 38.6 L MCV 84.6 MCH 26.5 L MCHC 31.3 RDW 15.1 Plt Count 399 MPV 9.5 Immature Gran % (Auto) 1.6 H Neut % (Auto) 52.1 Lymph % (Auto) 31.1 [place] % (Auto) 10.4 Eos % (Auto) 4.1 H Baso % (Auto) 0.7 Lymph # (Auto) 2.8 [place] # (Auto) 0.9 Eos # (Auto) 0.4 Baso # (Auto) 0.1 Abs Immat Gran (auto) 0.14 H Absolute Neuts (auto) 4.7 Absolute Nucleated RBC 0.000 Nucleated RBC % (auto) 0.0 Sodium 137 Potassium 4.5 D Chloride 101 Carbon Dioxide 29 Anion Gap 12 BUN 12 D Creatinine 0.75 Estim Creat Clear Calc 127.1 Estimated GFR > 60 Random Glucose 99 Calcium 9.7 Total Bilirubin 0.3 Direct Bilirubin < 0.2 AST 168 H ALT 244 H Alkaline Phosphatase 103 Total Protein 7.6 Albumin 4.1 [place] 0.59 L Medications Medications Current Medications Acetaminophen (Acetaminophen 325 Mg Tablet) 650 mg PO Q6H PRN PRN Reason: Headache/Pain Mild Scale (1-3) Last Admin: 04/01/22 10:53 Dose: 650 mg Al Hydroxide/Mg Hydroxide (Magnesium Hydrox/Alum Hydrox 30 Ml Oral.Susp) 30 ml PO Q6H PRN PRN Reason: Heartburn/Nausea Amoxicillin/Clavulanate Potassium (Amoxicillin/Potassium Clav 875 Mg Tablet) 875 mg PO Q12H [facility] Stop: 04/08/22 14:34 Baclofen (Baclofen 10 Mg Tablet) 10 mg PO BID [facility] Last Admin: 04/01/22 10:23 Dose: 10 mg Benzocaine (Benzocaine 20 % Oral Gel 9 Gm Tube) 1 appl MUCOUS MEM QID PRN; Protocol PRN Reason: oral pain Bupropion HCl (Bupropion Hcl 100 Mg Tablet) 100 mg PO TID@0900,1200,1500 [facility] Last Admin: 04/01/22 12:22 Dose: 100 mg Clonidine HCl (Clonidine Hcl 0.1 Mg Tablet) 0.1 mg PO BID@0900,1500 [facility]; Protocol Last Admin: 04/01/22 10:12 Dose: 0.1 mg Clonidine HCl (Clonidine Hcl 0.2 Mg Tablet) 0.2 mg PO BEDTIME [facility]; Protocol Last Admin: 03/31/22 21:16 Dose: 0.2 mg Gabapentin (Gabapentin 300 Mg Capsule) 600 mg PO TID [facility] Hydroxyzine HCl (Hydroxyzine Hcl 25 Mg Tablet) 25 mg PO Q6H PRN PRN Reason: Anxiety [place] Carbonate ([place] Carbonate 300 Mg Capsule) 600 mg PO BID [facility] Last Admin: 04/01/22 10:13 Dose: 600 mg Magnesium Hydroxide (Milk Of Magnesia 30 Ml Oral.Susp) 30 ml PO DAILY PRN PRN Reason: Constipation Last Admin: 03/30/22 10:02 Dose: 30 ml Methadone HCl (Methadone Hcl 20 Mg/2 Ml Oral.Conc) 80 mg PO DAILY [facility] Last Admin: 04/01/22 10:13 Dose: 80 mg Nicotine (Nicotine 14 Mg Patch.Td24) 14 mg TRANSDERMA DAILY [facility] Last Admin: 04/01/22 10:18 Dose: Not Given Nicotine Polacrilex (Nicotine Polacrilex 2 Mg Gum) 4 mg BUCCAL Q1H PRN PRN Reason: Nicotine Cravings Last Admin: 03/31/22 17:21 Dose: 4 mg Quetiapine Fumarate (Quetiapine Fumarate 50 Mg Tablet) 250 mg PO BEDTIME [facility] Last Admin: 03/31/22 21:16 Dose: 250 mg Quetiapine Fumarate (Quetiapine Fumarate 25 Mg Tablet) 25 mg PO BID PRN PRN Reason: anxiety Last Admin: 04/01/22 10:17 Dose: 25 mg Trazodone HCl (Trazodone Hcl 50 Mg Tablet) 50 mg PO BEDTIME PRN PRN Reason: Insomnia Allergies Allergies Allergy/AdvReac Type Severity Reaction Status Date / Time No Known Allergies Allergy Unknown UNKNOWN Verified 03/22/22 02:23 [NO KNOWN ALLERGIES] Assessment & Plan Assessment & Plan (1) Bipolar disorder: Status: Acute Code(s): F31.9 - Bipolar disorder, unspecified (2) Opioid use disorder: Status: Acute Code(s): F11.90 - Opioid use, unspecified, uncomplicated Plan continue regimen from recent hospitalization. allow to detox. engage around mental health issues when feeling physically better. 03/25: ativan PRNs added for anxiety. pt aware he angie not be DCed on ativan. first day pt has been out of bed since admission 03/22. 03/26/2022: Change Wellbutrin to 300 mg extended release once time daily dose and at 11:00 as per patient request 03/27/2022: no med changes, tired today 03/28/2022: Decrease seroquel to 200 mg QHS and methadone to 85 mg due to sedation. 03/30: increase seroquel to 250 QHS due to insomnia last NOC. decrease methadone to 80 mg daily. DC ativan. check labs tomorrow. 03/31: decrease seroquel PRN from 50 mg each to 25 mg each due to sedation. labs WNL aside from anemia and elevated LFTs (trending upward for unclear reasons). lithium level 0.59. discharge monday to [facility] in [place]. 04/01: orajel, augmentin x 7 days started for presumed dental infection. gabapentin increased to 600 TID from 800 BID to combat anxiety and perhaps opioid withdrawal. planning for dishcarge monday to [facility] in [place], [place]. I spent ___35___ minutes with the patient and/or on the patient floor today, greater than?50% of which was spent counseling/coordinating care. Reason for contiued inpatient stay Substantial Risk for: inability to function and rapid decompensation
[2022-04-01] MEDS: Gabapentin 300 MG CAPSULE 600 MG PO ×2 (14:49→22:12)
[2022-04-01] MEDS: Amoxicillin/Potassium Clav 875 MG TABLET PO (14:49)
[2022-04-01 14:54] VITALS: BP 105/65; PULSE 72; RESP 18; O2SAT 97
[2022-04-01] MEDS: Nicotine Polacrilex 2 MG GUM 4 MG BUCCAL ×2 (17:07→18:42)
[2022-04-01 22:03] VITALS: BP 132/80; PULSE 62; RESP 18; TEMP 36.4; O2SAT 97
[2022-04-01] MEDS: QUEtiapine Fumarate 50 MG TABLET 250 MG PO (22:12)
[2022-04-01] MEDS: cloNIDine HCL 0.2 MG TABLET PO (22:13)
[2022-04-02] MEDS: Lithium Carbonate 300 MG CAPSULE 600 MG PO ×2 (09:38→20:30)
[2022-04-02] MEDS: Amoxicillin/Potassium Clav 875 MG TABLET PO ×2 (09:38→20:30)
[2022-04-02] MEDS: cloNIDine HCL 0.1 MG TABLET PO ×2 (09:38→15:20)
[2022-04-02] MEDS: Baclofen 10 MG TABLET PO ×2 (09:38→20:30)
[2022-04-02] MEDS: methADONE HCl 20 MG/2 ML ORAL.CONC 80 MG PO (09:38)
[2022-04-02] MEDS: Acetaminophen 325 MG TABLET 650 MG PO ×3 (09:38→20:31)
[2022-04-02] MEDS: Gabapentin 300 MG CAPSULE 600 MG PO ×3 (09:38→20:30)
[2022-04-02] MEDS: buPROPion HCL 100 MG TABLET PO ×3 (09:39→15:20)
[2022-04-02 09:44] VITALS: BP 110/68; PULSE 75; RESP 17; TEMP 36.6; O2SAT 97
--- NOTE | 2022-04-02 10:58 | P.PNPSI_ITS ---
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 not attending groups. c/o poor sleep. attended AA mtg. denies SI/HI/AVH. Medication Compliance: Yes Side effects from medications: No Attending Groups: No Review of Systems Acute medical concerns: Yes tooth infection Review of Systems Review of Systems Unremarkable Constitutional: Reports no additional constitutional complaints Eyes: Reports no additional eye complaints Denies dizziness Cardiovascular: Reports no additional cardiovascular complaints Respiratory: Reports as per HPI Gastrointestinal: Reports no additional gastrointestinal complaints Musculoskeletal: Reports no additional musculoskeletal complaints Skin/Breast: Denies rash Reports system reviewed and no additional complaints, except as documented, Denies dizziness and Denies Sensory deficit (Neuro) Psychiatric: Denies anxiety Mental Status Exam Mental Status Exam Narrative: appropriately dressed and groomed. somnolent. cooperative. no PMA/PMR. speech nml in rate and amount, loudness, tone. thoughts linear and logical in response to questions. affect constricted. mood not assessed. no SI/HI/AVH expressed. Diagnostics Vital Signs (24Hr): Vital Signs - 24 hr 04/01/22 14:54 04/01/22 22:03 04/02/22 09:44 Temperature 97.6 F 97.8 F Pulse Rate 72 62 75 Respiratory Rate 18 18 17 Blood Pressure 105/65 132/80 110/68 Pulse Oximetry 97 97 97 Oxygen Delivery Method Room Air Room Air Room Air BMI result Body Mass Index 29.9 Labs Results: 03/31/22 08:10 03/31/22 08:10 Medications Medications Current Medications Acetaminophen (Acetaminophen 325 Mg Tablet) 650 mg PO Q6H PRN PRN Reason: Headache/Pain Mild Scale (1-3) Last Admin: 04/02/22 09:38 Dose: 650 mg Al Hydroxide/Mg Hydroxide (Magnesium Hydrox/Alum Hydrox 30 Ml Oral.Susp) 30 ml PO Q6H PRN PRN Reason: Heartburn/Nausea Amoxicillin/Clavulanate Potassium (Amoxicillin/Potassium Clav 875 Mg Tablet) 875 mg PO Q12H [facility] Last Admin: 04/02/22 09:38 Dose: 875 mg Baclofen (Baclofen 10 Mg Tablet) 10 mg PO BID [facility] Last Admin: 04/02/22 09:38 Dose: 10 mg Benzocaine (Benzocaine 20 % Oral Gel 9 Gm Tube) 1 appl MUCOUS MEM QID PRN; Protocol PRN Reason: oral pain Bupropion HCl (Bupropion Hcl 100 Mg Tablet) 100 mg PO TID@0900,1200,1500 [facility] Last Admin: 04/02/22 09:39 Dose: 100 mg Clonidine HCl (Clonidine Hcl 0.1 Mg Tablet) 0.1 mg PO BID@0900,1500 [facility]; Protocol Last Admin: 04/02/22 09:38 Dose: 0.1 mg Clonidine HCl (Clonidine Hcl 0.2 Mg Tablet) 0.2 mg PO BEDTIME [facility]; Protocol Last Admin: 04/01/22 22:13 Dose: 0.2 mg Gabapentin (Gabapentin 300 Mg Capsule) 600 mg PO TID [facility] Last Admin: 04/02/22 09:38 Dose: 600 mg Hydroxyzine HCl (Hydroxyzine Hcl 25 Mg Tablet) 25 mg PO Q6H PRN PRN Reason: Anxiety [place] Carbonate ([place] Carbonate 300 Mg Capsule) 600 mg PO BID [facility] Last Admin: 04/02/22 09:38 Dose: 600 mg Magnesium Hydroxide (Milk Of Magnesia 30 Ml Oral.Susp) 30 ml PO DAILY PRN PRN Reason: Constipation Last Admin: 03/30/22 10:02 Dose: 30 ml Methadone HCl (Methadone Hcl 20 Mg/2 Ml Oral.Conc) 80 mg PO DAILY [facility] Last Admin: 04/02/22 09:38 Dose: 80 mg Nicotine (Nicotine 14 Mg Patch.Td24) 14 mg TRANSDERMA DAILY [facility] Last Admin: 04/02/22 09:45 Dose: Not Given Nicotine Polacrilex (Nicotine Polacrilex 2 Mg Gum) 4 mg BUCCAL Q1H PRN PRN Reason: Nicotine Cravings Last Admin: 04/01/22 18:42 Dose: 4 mg Quetiapine Fumarate (Quetiapine Fumarate 50 Mg Tablet) 250 mg PO BEDTIME [facility] Last Admin: 04/01/22 22:12 Dose: 250 mg Quetiapine Fumarate (Quetiapine Fumarate 25 Mg Tablet) 25 mg PO BID PRN PRN Reason: anxiety Last Admin: 04/01/22 14:49 Dose: 25 mg Trazodone HCl (Trazodone Hcl 50 Mg Tablet) 50 mg PO BEDTIME PRN PRN Reason: Insomnia Allergies Allergies Allergy/AdvReac Type Severity Reaction Status Date / Time No Known Allergies Allergy Unknown UNKNOWN Verified 03/22/22 02:23 [NO KNOWN ALLERGIES] Assessment & Plan Assessment & Plan (1) Bipolar disorder: Status: Acute Code(s): F31.9 - Bipolar disorder, unspecified (2) Opioid use disorder: Status: Acute Code(s): F11.90 - Opioid use, unspecified, uncomplicated Plan continue regimen from recent hospitalization. allow to detox. engage around mental health issues when feeling physically better. 03/25: ativan PRNs added for anxiety. pt aware he angie not be DCed on ativan. first day pt has been out of bed since admission 03/22. 03/26/2022: Change Wellbutrin to 300 mg extended release once time daily dose and at 11:00 as per patient request 03/27/2022: no med changes, tired today 03/28/2022: Decrease seroquel to 200 mg QHS and methadone to 85 mg due to sedation. 03/30: increase seroquel to 250 QHS due to insomnia last NOC. decrease methadone to 80 mg daily. DC ativan. check labs tomorrow. 03/31: decrease seroquel PRN from 50 mg each to 25 mg each due to sedation. labs WNL aside from anemia and elevated LFTs (trending upward for unclear reasons). lithium level 0.59. discharge monday to [facility] in [place]. 04/01: orajel, augmentin x 7 days started for presumed dental infection. gabapentin increased to 600 TID from 800 BID to combat anxiety and perhaps opioid withdrawal. planning for dishcarge monday to [facility] in [place], [place]. 04/02: one time dose of ativan prn to be given with seroquel PO for agitation I spent ___20___ minutes with the patient and/or on the patient floor today, greater than?50% of which was spent counseling/coordinating care. Patient educated on: medication risk/benefits, substance abuse and therapeutic strategies Informed Consent: further education needed Reason for contiued inpatient stay Substantial Risk for: harm to self, harm to others, inability to function and rapid decompensation
[2022-04-02] MEDS: QUEtiapine Fumarate 25 MG TABLET PO (12:08)
[2022-04-02] MEDS: LORazepam 1 MG TABLET PO (12:08)
[2022-04-02] MEDS: Nicotine Polacrilex 2 MG GUM 4 MG BUCCAL ×4 (12:18→17:42)
[2022-04-02 20:24] VITALS: BP 145/75; PULSE 87; RESP 18; TEMP 36.7; O2SAT 97
[2022-04-02] MEDS: cloNIDine HCL 0.2 MG TABLET PO (20:30)
[2022-04-02] MEDS: QUEtiapine Fumarate 50 MG TABLET 250 MG PO (20:30)
[2022-04-03] MEDS: Acetaminophen 325 MG TABLET 650 MG PO ×2 (04:55→14:20)
[2022-04-03 09:40] VITALS: BP 131/86; PULSE 74; RESP 17; TEMP 36.6; O2SAT 96
[2022-04-03] MEDS: Gabapentin 300 MG CAPSULE 600 MG PO ×3 (09:42→21:28)
[2022-04-03] MEDS: Amoxicillin/Potassium Clav 875 MG TABLET PO ×2 (09:43→21:28)
[2022-04-03] MEDS: cloNIDine HCL 0.1 MG TABLET PO (09:43)
[2022-04-03] MEDS: Baclofen 10 MG TABLET PO ×2 (09:43→21:28)
[2022-04-03] MEDS: Lithium Carbonate 300 MG CAPSULE 600 MG PO ×2 (09:43→21:28)
[2022-04-03] MEDS: methADONE HCl 20 MG/2 ML ORAL.CONC 80 MG PO (09:44)
[2022-04-03] MEDS: buPROPion HCL 100 MG TABLET PO ×3 (09:44→14:25)
[2022-04-03] MEDS: Ibuprofen 600 MG TABLET PO (10:47)
[2022-04-03] MEDS: Nicotine Polacrilex 2 MG GUM 4 MG BUCCAL ×4 (10:49→22:42)
--- NOTE | 2022-04-03 12:10 | P.PNPSI_ITS ---
Subjective Subjective Date of Service: 04/03/22 Reason For Visit: Depression, SI, relapse Subjective Notes: Conditional Voluntary Interim History: pt less irritable, still restless and anxious; asking for increased clonidine for anxiety and distress. more visisble and socially appropriate. slept better with clonidine 0.2 mg at hs. denies SI/HI/AVH. Medication Compliance: Yes Side effects from medications: No Attending Groups: Yes Review of Systems Acute medical concerns: No Medical Review of Systems: unchanged Review of Systems Review of Systems Unremarkable Constitutional: Reports no additional constitutional complaints Eyes: Reports no additional eye complaints Denies dizziness Cardiovascular: Reports no additional cardiovascular complaints Respiratory: Reports as per HPI Gastrointestinal: Reports no additional gastrointestinal complaints Musculoskeletal: Reports no additional musculoskeletal complaints Skin/Breast: Denies rash Reports system reviewed and no additional complaints, except as documented, Denies dizziness and Denies Sensory deficit (Neuro) Psychiatric: Denies anxiety Mental Status Exam Mental Status Exam Narrative: appropriately dressed and groomed. somnolent. cooperative. no PMA/PMR. speech nml in rate and amount, loudness, tone. thoughts linear and logical in response to questions. affect constricted. mood not assessed. no SI/HI/AVH expressed. Diagnostics Vital Signs (24Hr): Vital Signs - 24 hr 04/02/22 20:24 04/03/22 09:40 Temperature 98.0 F 97.8 F Pulse Rate 87 74 Respiratory Rate 18 17 Blood Pressure 145/75 H 131/86 Pulse Oximetry 97 96 Oxygen Delivery Method Room Air Room Air BMI result Body Mass Index 29.9 Labs Results: 03/31/22 08:10 03/31/22 08:10 Medications Medications Current Medications Acetaminophen (Acetaminophen 325 Mg Tablet) 650 mg PO Q6H PRN PRN Reason: Headache/Pain Mild Scale (1-3) Last Admin: 04/03/22 04:55 Dose: 650 mg Al Hydroxide/Mg Hydroxide (Magnesium Hydrox/Alum Hydrox 30 Ml Oral.Susp) 30 ml PO Q6H PRN PRN Reason: Heartburn/Nausea Amoxicillin/Clavulanate Potassium (Amoxicillin/Potassium Clav 875 Mg Tablet) 875 mg PO Q12H [facility] Last Admin: 04/03/22 09:43 Dose: 875 mg Baclofen (Baclofen 10 Mg Tablet) 10 mg PO BID [facility] Last Admin: 04/03/22 09:43 Dose: 10 mg Benzocaine (Benzocaine 20 % Oral Gel 9 Gm Tube) 1 appl MUCOUS MEM QID PRN; Protocol PRN Reason: oral pain Bupropion HCl (Bupropion Hcl 100 Mg Tablet) 100 mg PO TID@0900,1200,1500 [facility] Last Admin: 04/03/22 09:44 Dose: 100 mg Clonidine HCl (Clonidine Hcl 0.1 Mg Tablet) 0.1 mg PO BID@0900,1500 [facility]; Protocol Last Admin: 04/03/22 09:43 Dose: 0.1 mg Clonidine HCl (Clonidine Hcl 0.2 Mg Tablet) 0.2 mg PO BEDTIME [facility]; Protocol Last Admin: 04/02/22 20:30 Dose: 0.2 mg Gabapentin (Gabapentin 300 Mg Capsule) 600 mg PO TID [facility] Last Admin: 04/03/22 09:42 Dose: 600 mg Hydroxyzine HCl (Hydroxyzine Hcl 25 Mg Tablet) 25 mg PO Q6H PRN PRN Reason: Anxiety [place] Carbonate ([place] Carbonate 300 Mg Capsule) 600 mg PO BID [facility] Last Admin: 04/03/22 09:43 Dose: 600 mg Magnesium Hydroxide (Milk Of Magnesia 30 Ml Oral.Susp) 30 ml PO DAILY PRN PRN Reason: Constipation Last Admin: 03/30/22 10:02 Dose: 30 ml Methadone HCl (Methadone Hcl 20 Mg/2 Ml Oral.Conc) 80 mg PO DAILY [facility] Last Admin: 04/03/22 09:44 Dose: 80 mg Nicotine (Nicotine 14 Mg Patch.Td24) 14 mg TRANSDERMA DAILY [facility] Last Admin: 04/03/22 09:55 Dose: Not Given Nicotine Polacrilex (Nicotine Polacrilex 2 Mg Gum) 4 mg BUCCAL Q1H PRN PRN Reason: Nicotine Cravings Last Admin: 04/03/22 11:43 Dose: 4 mg Quetiapine Fumarate (Quetiapine Fumarate 50 Mg Tablet) 250 mg PO BEDTIME [facility] Last Admin: 04/02/22 20:30 Dose: 250 mg Quetiapine Fumarate (Quetiapine Fumarate 25 Mg Tablet) 25 mg PO BID PRN PRN Reason: anxiety Last Admin: 04/02/22 12:08 Dose: 25 mg Trazodone HCl (Trazodone Hcl 50 Mg Tablet) 50 mg PO BEDTIME PRN PRN Reason: Insomnia Allergies Allergies Allergy/AdvReac Type Severity Reaction Status Date / Time No Known Allergies Allergy Unknown UNKNOWN Verified 03/22/22 02:23 [NO KNOWN ALLERGIES] Assessment & Plan Assessment & Plan (1) Bipolar disorder: Status: Acute Code(s): F31.9 - Bipolar disorder, unspecified (2) Opioid use disorder: Status: Acute Code(s): F11.90 - Opioid use, unspecified, uncomplicated Plan continue regimen from recent hospitalization. allow to detox. engage around mental health issues when feeling physically better. 03/25: ativan PRNs added for anxiety. pt aware he angie not be DCed on ativan. first day pt has been out of bed since admission 03/22. 03/26/2022: Change Wellbutrin to 300 mg extended release once time daily dose and at 11:00 as per patient request 03/27/2022: no med changes, tired today 03/28/2022: Decrease seroquel to 200 mg QHS and methadone to 85 mg due to sedation. 03/30: increase seroquel to 250 QHS due to insomnia last NOC. decrease methadone to 80 mg daily. DC ativan. check labs tomorrow. 03/31: decrease seroquel PRN from 50 mg each to 25 mg each due to sedation. labs WNL aside from anemia and elevated LFTs (trending upward for unclear reasons). lithium level 0.59. discharge monday to [facility] in [place]. 04/01: orajel, augmentin x 7 days started for presumed dental infection. gabapentin increased to 600 TID from 800 BID to combat anxiety and perhaps opioid withdrawal. planning for dishcarge monday to [facility] in [place], [place]. 04/02: one time dose of ativan prn to be given with seroquel PO for agitation 04/03 clonidine increased to 0.2 gm TID I spent ___15___ minutes with the patient and/or on the patient floor today, greater than?50% of which was spent counseling/coordinating care. Reason for contiued inpatient stay Substantial Risk for: harm to self, harm to others, inability to function and rapid decompensation
[2022-04-03] MEDS: QUEtiapine Fumarate 25 MG TABLET PO (12:14)
[2022-04-03 14:15] VITALS: BP 117/63; PULSE 83; RESP 17; TEMP 36.8; O2SAT 97
[2022-04-03] MEDS: cloNIDine HCL 0.2 MG TABLET PO ×2 (14:19→21:28)
[2022-04-03] MEDS: hydrOXYzine HCL 25 MG TABLET PO (14:20)
[2022-04-03 21:20] VITALS: BP 128/62; PULSE 76; RESP 16; TEMP 36.8; O2SAT 96
[2022-04-03] MEDS: QUEtiapine Fumarate 50 MG TABLET 250 MG PO (21:27)
[2022-04-04] MEDS: Acetaminophen 325 MG TABLET 650 MG PO (07:41)
[2022-04-04 07:48] VITALS: BP 118/72; PULSE 77; RESP 16; TEMP 36.6; O2SAT 96
[2022-04-04] MEDS: Gabapentin 300 MG CAPSULE 600 MG PO (08:02)
[2022-04-04] MEDS: methADONE HCl 20 MG/2 ML ORAL.CONC 80 MG PO (08:03)
[2022-04-04] MEDS: Baclofen 10 MG TABLET PO (08:04)
[2022-04-04] MEDS: Amoxicillin/Potassium Clav 875 MG TABLET PO (08:04)
[2022-04-04] MEDS: cloNIDine HCL 0.2 MG TABLET PO (08:04)
[2022-04-04] MEDS: Lithium Carbonate 300 MG CAPSULE 600 MG PO (08:05)
[2022-04-04] MEDS: buPROPion HCL 100 MG TABLET PO (08:06)
[2022-04-04] MEDS: Nicotine Polacrilex 2 MG GUM 4 MG BUCCAL (09:06)
[2022-04-04 09:34] LABS: COVID-19 Test Negative (Negative)
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
== END 2022-04-04 10:29 | DRG 753 ==
LOC: HO.ED 09:55 → HO.PADLT16 20:12
PROVIDERS: Physician Assistant Medical; Registered Nurse; Admitting Provider Psychiatry & Neurology Psychiatry; Emergency Provider Emergency Medicine; Visit Provider Psychiatry & Neurology Psychiatry
DX: F31.9 Bipolar disorder, unspecified (principal); R45.851 Suicidal ideations; F11.20 Opioid dependence, uncomplicated; F17.210 Nicotine dependence, cigarettes, uncomplicated; Z20.822 Contact with and (suspected) exposure to COVID-19; Z59.02 Unsheltered homelessness; Z71.6 Tobacco abuse counseling; Z79.899 Other long term (current) drug therapy
CPT/HCPCS: 36415; 80048; 80053; 80061; 80076; 80178; 80307; 82077; 82607; 82746; 83036; 83735; 84439; 84443; 85025; 87635; 93005; 99285

== ENCOUNTER 2022-06-04 04:24 | Emergency (ER) | payer MEDICAID, SELFPAY ==
[2022-06-04 04:52] VITALS: BP 140/81; PULSE 92; RESP 17; TEMP 36.7; O2SAT 95; BMI 28.3
--- NOTE | 2022-06-04 05:32 | ED_ITS ---
HPI - Psych General Chief Complaint: Psychiatric Symptoms Stated Complaint: not feeling safe, SI Time Seen by Provider: 06/04/22 05:32 Source: patient Mode of arrival: ambulatory Limitations: no limitations History of Present Illness HPI Narrative: Patient has history of bipolar disorder been here for multiple times comes as feels suicidal hearing voices to kill himself plan to overdose on heroin. Says he does not feel safe Related Data Previous Rx's Medication Instructions Recorded baclofen 10 mg tablet 10 mg PO BID 30 days #60 tabs 04/04/22 bupropion HCl 150 mg tablet,12 hr 150 mg PO BID 30 days #60 tabs 04/04/22 sustained-release (Wellbutrin SR) clonidine HCl 0.2 mg tablet 0.2 mg PO TID 30 days #90 tabs 04/04/22 gabapentin 300 mg capsule 600 mg PO TID 30 days #180 caps 04/04/22 lithium carbonate 300 mg capsule 600 mg PO BID 30 days #120 caps 04/04/22 nicotine (polacrilex) 4 mg gum 4 mg buccal Q1H PRN Nicotine 04/04/22 Cravings 30 days #60 ea quetiapine 50 mg tablet 250 mg PO BEDTIME 30 days #150 tabs 04/04/22 Allergies Allergy/AdvReac Type Severity Reaction Status Date / Time No Known Allergies Allergy Unknown UNKNOWN Verified 03/22/22 02:23 [NO KNOWN ALLERGIES] Review of Systems Review of Systems: Yes all other systems are reviewed and are negative PMFSH Past Medical History Medical History CAYETANO (acute kidney injury) Bipolar disorder Opioid use disorder Rhabdomyolysis Schizophrenia Suicidal ideation Surgical History No pertinent past surgical history Family History Family History Other No family history of coronary artery disease Social History Social History Household Members: None Household Members Other:: 2 friends Housing: Homeless Do you presently have visiting nurse or other home services: No Alcohol intake: current Alcohol intake frequency: does not drink Alcohol type: beer and hard liquor Patient Tobacco Use Status: Current everyday Tobacco user Tobacco use type: Cigarette Cigarette Packs Per Day: 1 Cigarettes Per Day: 20.0 Years Smoked: 15 e-Cigarette/Vaping Use: Former Use Second Hand Smoke Exposure: Yes Substance Use Type: Crack/Cocaine, Heroin and Marijuana Advance Directives: No Advance Directives Information Provided: No service: No Current occupational status: unemployed Sexual orientation: Don't Know Physical Exam Vital Signs: Vital Signs: Last Vital Signs Temp 98.0 F 06/04/22 04:52 Pulse 92 06/04/22 04:52 Resp 17 06/04/22 04:52 BP 140/81 H 06/04/22 04:52 Pulse Ox 95 06/04/22 04:52 O2 Del Method 06/04/22 04:52 BMI result Body Mass Index 28.3 Appearance: Alert. Oriented X3. No acute distress. Eyes: PERRLA, No Nystagmus ENT: Pharynx normal. Oral Mucosa moist Neck: Normal inspection. Neck supple. CVS: Normal heart rate and rhythm. Pulses normal. Respiratory: No respiratory distress. Equal air entry bilateral, no wheezing/rales/rhonchi Abdomen: Soft and nontender. Bowel sounds are present, no mass palpable, no CVA tenderness Skin: Skin warm and dry. Normal skin color. Normal skin turgor. Extremities: No lower extremity edema. No calf tenderness psych; anxious feels suicidal auditory hallucinations off and on, poor judgment, no visual hallucination or delusion Neuro: Oriented X 3. No motor deficit. No sensory deficit.No cerebellar signs , cranial nerves II-XII intact MDM - Psych MDM Narrative Medical decision making narrative: 07:00 Patient depression with SI will get crisis to evaluate Lab Data Attestation: I reviewed the patient's lab results. Result diagrams: 06/04/22 05:52 06/04/22 05:53 Labs: Lab Results 06/04/22 06/04/22 06/04/22 Range/Units 05:18 05:19 05:52 WBC 9.1 (4.8-10.8) X10*3/uL RBC 4.86 (4.60-5.80) X10*6/uL Hgb 13.0 L (14.0-18.0) g/dl Hct 39.7 L (42.0-52.0) % MCV 81.7 (80.0-98.0) fL MCH 26.7 L (27.0-33.0) pg MCHC 32.7 (31.0-36.0) g/dl RDW 15.0 (11.0-16.0) % Plt Count 298 D (160-400) X10*3/uL MPV 9.2 L (9.4-12.4) fL Immature Gran % (Auto) 0.9 H (0.0-0.4) % Neut % (Auto) 61.7 (45-73) % Lymph % (Auto) 27.0 (20-40) % [place] % (Auto) 8.7 (2-11) % Eos % (Auto) 1.4 (0-4) % Baso % (Auto) 0.3 (0-2) % Lymph # (Auto) 2.5 (1.2-4.9) X10*3/uL [place] # (Auto) 0.8 (0.1-1.2) X10*3/uL Eos # (Auto) 0.1 (0.0-0.4) X10*3/uL Baso # (Auto) 0.0 (0.0-0.2) X10*3/uL Abs Immat Gran (auto) 0.08 H (0.00-0.03) X10*3/uL Absolute Neuts (auto) 5.6 (2.0-8.3) x10*3/uL Absolute Nucleated RBC 0.000 (0.0-0.012) X10*3/uL Nucleated RBC % (auto) 0.0 (0.0-0.2) /100WBC Sodium (135-145) mmol/L Potassium (3.3-5.1) mmol/L Chloride (96-108) mmol/L Carbon Dioxide (22-29) mmol/L Anion Gap (12-20) BUN (9-16) mg/dL Creatinine (0.5-1.4) mg/dL Estim Creat Clear Calc Estimated GFR Random Glucose (60-115) mg/dL Calcium (8.4-10.2) mg/dL Total Bilirubin (0.0-1.0) mg/dL AST (5-37) U/L ALT (0-40) U/L Alkaline Phosphatase (39-117) U/L Total Protein (6.5-8.0) g/dL Albumin (3.5-5.0) g/dL Urine Opiates Screen POSITIVE H (Not Detect) Urine Fentanyl Screen POSITIVE H (Not Detect) Ur Barbiturates Screen Not Detected (Not Detect) Ur Phencyclidine Scrn Not Detected (Not Detect) Ur Amphetamines Screen Not Detected (Not Detect) U Benzodiazepines Scrn POSITIVE H (Not Detect) [place] (0.60-1.20) mmol/L Urine Cocaine Screen POSITIVE H (Not Detect) U Marijuana (THC) Screen POSITIVE H (Not Detect) Ethyl Alcohol mg/dL COVID-19 ([facility]) Negative (Negative) COVID-19 Clin Com See Note 06/04/22 06/04/22 06/04/22 Range/Units 05:53 05:53 05:53 WBC (4.8-10.8) X10*3/uL RBC (4.60-5.80) X10*6/uL Hgb (14.0-18.0) g/dl Hct (42.0-52.0) % MCV (80.0-98.0) fL MCH (27.0-33.0) pg MCHC (31.0-36.0) g/dl RDW (11.0-16.0) % Plt Count (160-400) X10*3/uL MPV (9.4-12.4) fL Immature Gran % (Auto) (0.0-0.4) % Neut % (Auto) (45-73) % Lymph % (Auto) (20-40) % [place] % (Auto) (2-11) % Eos % (Auto) (0-4) % Baso % (Auto) (0-2) % Lymph # (Auto) (1.2-4.9) X10*3/uL [place] # (Auto) (0.1-1.2) X10*3/uL Eos # (Auto) (0.0-0.4) X10*3/uL Baso # (Auto) (0.0-0.2) X10*3/uL Abs Immat Gran (auto) (0.00-0.03) X10*3/uL Absolute Neuts (auto) (2.0-8.3) x10*3/uL Absolute Nucleated RBC (0.0-0.012) X10*3/uL Nucleated RBC % (auto) (0.0-0.2) /100WBC Sodium 138 (135-145) mmol/L Potassium 3.8 (3.3-5.1) mmol/L Chloride 101 (96-108) mmol/L Carbon Dioxide 26 (22-29) mmol/L Anion Gap 15 (12-20) BUN 16 (9-16) mg/dL Creatinine 0.80 (0.5-1.4) mg/dL Estim Creat Clear Calc 124.6 Estimated GFR > 60 Random Glucose 114 (60-115) mg/dL Calcium 8.8 D (8.4-10.2) mg/dL Total Bilirubin 0.7 (0.0-1.0) mg/dL AST 114 H (5-37) U/L ALT 122 H (0-40) U/L Alkaline Phosphatase 84 (39-117) U/L Total Protein 7.4 (6.5-8.0) g/dL Albumin 4.2 (3.5-5.0) g/dL Urine Opiates Screen (Not Detect) Urine Fentanyl Screen (Not Detect) Ur Barbiturates Screen (Not Detect) Ur Phencyclidine Scrn (Not Detect) Ur Amphetamines Screen (Not Detect) U Benzodiazepines Scrn (Not Detect) [place] < 0.04 L (0.60-1.20) mmol/L Urine Cocaine Screen (Not Detect) U Marijuana (THC) Screen (Not Detect) Ethyl Alcohol < 10 mg/dL COVID-19 ([facility]UL) (Negative) COVID-19 Clin Com Discharge Plan Discharge Clinical Impression: Bipolar disorder, Suicidal ideation Patient Disposition: Still a Patient Prescriptions: No Action clonidine HCl 0.2 mg Tablet 0.2 mg PO TID 30 Days Qty: 90 0RF Protocol: Hold for SBP< HOLD for SBP < : 90 gabapentin 300 mg Capsule 600 mg PO TID 30 Days Qty: 180 0RF quetiapine 50 mg Tablet 250 mg PO BEDTIME 30 Days Qty: 150 0RF bupropion HCl [Wellbutrin SR] 150 mg tablet sustained-release 12 hr 150 mg PO BID 30 Days Qty: 60 0RF nicotine (polacrilex) 4 mg Gum 4 mg BUCCAL Q1H PRN (Reason: Nicotine Cravings) 30 Days Qty: 60 0RF baclofen 10 mg Tablet 10 mg PO BID 30 Days Qty: 60 0RF lithium carbonate 300 mg Capsule 600 mg PO BID 30 Days Qty: 120 0RF Interventions: LWBS Worksheet Last Done: 06/04/22 04:54
[2022-06-04 05:57] LABS: MANUAL DIFF FLAG NO
[2022-06-04 05:57] LABS: COVID-19 Test Negative (Negative)
[2022-06-04 05:58] LABS: Basophils Percent Auto 0.3 % (0-2); Eosinophils Absolute Auto 0.1 X10*3/uL (0.0-0.4); Eosinophils Percent Auto 1.4 % (0-4); Hematocrit 39.7 % (42.0-52.0); Imm Gran Abs Auto 0.08 X10*3/uL (0.00-0.03); Imm Gran Pct Auto 0.9 % (0.0-0.4); Lymphocytes Absolute Auto 2.5 X10*3/uL (1.2-4.9); Mean Corpuscular HGB Conc 32.7 g/dl (31.0-36.0); Mean Corpuscular Hemoglobin 26.7 pg (27.0-33.0); Mean Corpuscular Volume 81.7 fL (80.0-98.0); Mean Platelet Volume 9.2 fL (9.4-12.4); Monocytes Absolute Auto 0.8 X10*3/uL (0.1-1.2); Monocytes Percent Auto 8.7 % (2-11); Neutrophils Absolute Auto 5.6 x10*3/uL (2.0-8.3); Neutrophils Percent Auto 61.7 % (45-73); Platelet Count 298 X10*3/uL (160-400); Red Blood Count 4.86 X10*6/uL (4.60-5.80); White Blood Count 9.1 X10*3/uL (4.8-10.8)
[2022-06-04 06:00] LABS: Amphetamine Screen Urine Not Detected (Not Detect); Barbiturates, Urine Not Detected (Not Detect); Benzodiazepines Screen Urine POSITIVE (Not Detect); Cannabinoid Screen Urine POSITIVE (Not Detect); Cocaine Screen Urine POSITIVE (Not Detect); Fentanyl, urine POSITIVE (Not Detect); Opiate Screen Urine POSITIVE (Not Detect); Phencyclidine Screen Urine Not Detected (Not Detect)
--- NOTE | 2022-06-04 06:03 | PC.NURSE ---
Patient slept through the night, no distress observed/reported, [facility] referral completed/confirmed/pending ETA, med rec completed/patient is off his medication for months, labs completed, behavior non concerning, coherent, will continue to monitor.
[2022-06-04 06:11] LABS: Lithium < 0.04 mmol/L (0.60-1.20)
[2022-06-04 06:14] LABS: Ethanol < 10 mg/dL
[2022-06-04 06:20] LABS: Alanine Aminotransferase 122 U/L (0-40); Albumin Level 4.2 g/dL (3.5-5.0); Alkaline Phosphatase 84 U/L (39-117); Anion Gap 15 (12-20); Aspartate Amino Transferase 114 U/L (5-37); Bilirubin Total 0.7 mg/dL (0.0-1.0); Blood Urea Nitrogen 16 mg/dL (9-16); Calcium 8.8 mg/dL (8.4-10.2); Carbon Dioxide 26 mmol/L (22-29); Chloride 101 mmol/L (96-108); Creatinine Clr Calc Pharmacy 124.6; Estimated Glomerular Filt Rate > 60; Glucose Random 114 mg/dL (60-115); Potassium 3.8 mmol/L (3.3-5.1); Sodium 138 mmol/L (135-145); Total Protein 7.4 g/dL (6.5-8.0)
--- NOTE | 2022-06-04 08:01 | PC.NURSE ---
patient appears to remain at rest at present respirations are even and unlabored patient appears in no distress
--- NOTE | 2022-06-04 10:41 | MHC.CARE ---
Care team Sw spoke to [facility] clinician Deisi who provided an update. PT was evaluated due to concerns with his mental status and hearing voices. Upon evaluation this am. Pt denied any auditory hallucinations, SI/HI. Pt has a history of using substances and being evaluated by crisis upon using. It was reported that once PT becomes sober he denies further concerns. Pt has a history of not following through with services, however is on medication. [facility] Clinician does not feel PT requires IPLOC, has spoken to Dr. Gupta in [facility] ED to discuss dishcharging PT.
--- NOTE | 2022-06-04 14:00 | MHC.CARE ---
Pt has a hx of presenting to ED's and engaging in malingering. Pt was previously at [facility] for 2 weeks and at this time was psychiatrically cleared by N, however does not feel comfortable now leaving. ED provider note states that pt is making statements that he will harm himself if he is discharged. N notified and informed that disposition will likely not change. CARE Team advised ED provider to request a psych consult to weigh in on disposition.
[2022-06-04 15:42] VITALS: BP 124/84; PULSE 69; RESP 14; TEMP 36.7; O2SAT 94
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
[2022-06-04] MEDS: QUEtiapine Fumarate 200 MG TABLET PO (20:11)
[2022-06-04] MEDS: Lithium Carbonate 300 MG CAPSULE PO (20:12)
[2022-06-04] MEDS: Gabapentin 300 MG CAPSULE PO (20:12)
[2022-06-04] MEDS: cloNIDine HCL 0.2 MG TABLET PO (20:12)
--- NOTE | 2022-06-05 06:24 | PC.NURSE ---
Patient slept through the night, no distress observed/reported, behavior non concerning, medication compliant, disposition per [facility] is section 12 inpatient bed search, VSS, will continue to monitor.
[2022-06-05 06:25] VITALS: BP 114/67; PULSE 63; RESP 16; TEMP 36.3; O2SAT 96
--- NOTE | 2022-06-05 07:13 | PC.NURSE ---
patient appears to remain asleep at present respirations are even and unlabored patient appears in no distress
[2022-06-05 09:12] VITALS: BP 114/84; PULSE 77; RESP 19; TEMP 36.7; O2SAT 98
[2022-06-05] MEDS: cloNIDine HCL 0.2 MG TABLET PO ×2 (09:14→20:13)
[2022-06-05] MEDS: Gabapentin 300 MG CAPSULE PO ×3 (09:14→20:13)
[2022-06-05] MEDS: Lithium Carbonate 300 MG CAPSULE PO ×2 (09:14→20:13)
[2022-06-05] MEDS: Multivitamin TABLET 1 TAB PO (09:14)
[2022-06-05 18:02] VITALS: BP 114/72; PULSE 67; RESP 20; TEMP 36.5; O2SAT 97
[2022-06-05] MEDS: QUEtiapine Fumarate 200 MG TABLET PO (20:13)
[2022-06-05] MEDS: Nicotine Polacrilex 2 MG GUM BUCCAL (20:14)
[2022-06-05 21:03] VITALS: BP 118/76; PULSE 80; RESP 20; O2SAT 97
[2022-06-05] MEDS: LORazepam 1 MG TABLET PO (21:05)
--- NOTE | 2022-06-06 04:39 | PC.NURSE ---
Patient slept through the night, no distress observed/reported, patient is cleared by N with disposition current provider, psych consult completed with no concerning report, medication compliant, VSS, behavior appropriate, medication compliant will continue to monitor.
[2022-06-06 06:25] VITALS: BP 99/49; PULSE 65; RESP 16; TEMP 36.9; O2SAT 97
--- NOTE | 2022-06-06 07:39 | PC.NURSE ---
Report received. PT currently sleeping, respirations even and unlabored, in no apparent distress.
--- NOTE | 2022-06-06 08:14 | MHC.CARE ---
CARE Team met with PT who was cleared by [facility] on 06/04/22 who reportedly was refusing to leave the ED. Pt stated he wants help getting into substance use treatment specifically the [facility]. CARE Team and Pt discussed limitations from the ED. Pt in agreement with working with plan to work with [facility]. CARE Team to coordinate with [facility] and recovery team when they open.
[2022-06-06] MEDS: Lithium Carbonate 300 MG CAPSULE PO (08:22)
[2022-06-06] MEDS: Multivitamin TABLET 1 TAB PO (08:22)
[2022-06-06] MEDS: LORazepam 1 MG TABLET PO ×2 (08:22→14:54)
[2022-06-06] MEDS: cloNIDine HCL 0.2 MG TABLET PO (08:22)
[2022-06-06] MEDS: Gabapentin 300 MG CAPSULE PO ×2 (08:22→14:55)
[2022-06-06 08:24] VITALS: BP 108/76; PULSE 66
[2022-06-06] MEDS: Nicotine Polacrilex 2 MG GUM BUCCAL (10:21)
--- NOTE | 2022-06-06 10:31 | MHC.RECOVRN ---
Spoke with Juana from [facility], pt declined due to needing higher level of care.
--- NOTE | 2022-06-06 12:18 | MHC.RECOVRN ---
Met with pt in [facility] to discuss substance use. Pt reports heroin use, a few bundles daily, IN; clonazepam, 5-6 mg daily, IN; cocaine, unknown amount daily, INH. Pt reports last substance use was Monday. Currently experiencing withdrawal symptoms including body aches, chills, stomach upset. Pt had been on methadone, 90 mg, as recent as couple months ago when pt stopped going. Pt looking to receive methadone while here to manage withdrawal symptoms. Pt aware re: [facility], would like to continue bedsearch. Discussed with ED provider. Plan to administer 15 mg methadone now.
--- NOTE | 2022-06-06 12:29 | MHC.CARE ---
CARE Team met with Pt who reported he is still interested in detox. Pt stated he wants treatment for his substance use. Pt does not endorse SI though indicates he is fearful of returning to the streets in the context of ongoing homelessness and easy access to substances. Plan for recovery team to continue to pursue a detox placement.
[2022-06-06] MEDS: methADONE HCl 20 MG/2 ML ORAL.CONC 15 MG PO (13:00)
--- NOTE | 2022-06-06 13:35 | MHC.RECOVRN ---
Pts referral has been sent to [facility] ([phone]), [facility] ([phone]), [facility] ([phone]), and [facility] ([phone]).
--- NOTE | 2022-06-06 16:20 | MHC.RECOVRN ---
Pt has been accepted to [facility], transported by [employer].
== END 2022-06-06 15:35 | disposition home or self-care (01) ==
PROVIDERS: Emergency Provider Internal Medicine
DX: F31.9 Bipolar disorder, unspecified (principal); R45.851 Suicidal ideations; F20.9 Schizophrenia, unspecified; Z20.822 Contact with and (suspected) exposure to COVID-19; F41.9 Anxiety disorder, unspecified; F17.210 Nicotine dependence, cigarettes, uncomplicated; F11.90 Opioid use, unspecified, uncomplicated; F12.90 Cannabis use, unspecified, uncomplicated; Z79.899 Other long term (current) drug therapy
CPT/HCPCS: 36415; 80053; 80178; 80307; 82077; 85025; 87635; 99285

== ENCOUNTER 2022-08-11 18:07 | Inpatient (IN) | payer MEDICAID, SELFPAY ==
[2022-08-11] VITALS (12 sets, daily range): BP systolic 107–122; BP diastolic 23–68; PULSE 72–93; RESP 15–16; TEMP 34–37; O2SAT 98–100; BMI 26.5
--- NOTE | ~2022-08-11 | NM_ITS ---
Indication: Anoxic encephalopathy, intracranial hypertension, unresponsive, respiratory failure, cardiac arrest EXAMINATION: Nuclear medicine brain perfusion study Technique; 30 mCi technetium 99m Neurolite is injected. Images obtained. Dynamic imaging on injection with delayed imaging planar imaging anterior and posterior and lateral. Images include immediate postinjection imaging and also delayed imaging. On the perfusion images there is flow into the brain. The delayed imaging demonstrates normal uptake by the brain Impression; . There is normal perfusion and uptake of the agent by the brain. No scintigraphic evidence for brain
--- NOTE | ~2022-08-11 | CT_ITS ---
EXAMINATION: CT HEAD WITHOUT CONTRAST CLINICAL INFORMATION: Acute loss of consciousness status post cardiac arrest COMPARISON: None TECHNIQUE: Imaging was performed from the skull base to vertex without intravenous administration of contrast. This CT examination was performed using dose optimization techniques as appropriate, variously including the following: *Automated exposure control *Adjustment of mA and/or kV according to patient size (this includes techniques or standardized protocols for targeted exams where dose is matched to indication/reason for exam; i.e. extremities or head) *Use of iterative reconstruction technique Total exam dose length product: 818 mGy-cm FINDINGS: No intra or extra-axial fluid collection, hemorrhage, or mass. No ventriculomegaly. No midline shift or herniation. Basal cisterns are patent. Suarez-white matter differentiation is maintained. No territorial encephalomalacia. No significant volume loss. There is no abnormal attenuation within the brain parenchyma. No calvarial fracture or soft tissue abnormality. Some foamy secretions or mucous in the maxillary antra and nasal cavity. Minimal mucosal thickening in a few ethmoid air cells. Mastoid air cells normally aerated. CT/CT head/brain wo IV con IMPRESSION: No intracranial hemorrhage or acute edematous territorial infarct identified.
--- NOTE | ~2022-08-11 | XR_ITS ---
EXAMINATION: XR CHEST CLINICAL INFORMATION: ICU. Line placement. COMPARISON: 08/11/2022 TECHNIQUE: Frontal view of the chest was obtained. FINDINGS: Endotracheal tube terminates 4.3 cm above the derrick. Enteric tube terminates within the stomach. Left internal jugular central venous catheter terminates in the right atrium. Clear lungs. No pneumothorax. No pleural effusion. No acute osseous abnormalities. XR/XR chest 1V IMPRESSION: Lines and tubes as above. No pneumothorax.
--- NOTE | ~2022-08-11 | XR_ITS ---
EXAMINATION: XR CHEST CLINICAL INFORMATION: Post intubation. COMPARISON: 08/13/2022 TECHNIQUE: Frontal view of the chest was obtained. FINDINGS: Endotracheal tube tip is above the derrick. Left-sided central line tip overlies the right atrium. NG tube present with its tip past the antrum. Lungs grossly clear. Improved aeration in the lungs from the prior study. Heart and pulmonary vessels normal. XR/XR chest 1V IMPRESSION: No active disease. ET tube is in acceptable position.
--- NOTE | ~2022-08-11 | XR_ITS ---
EXAMINATION: XR chest 1V CLINICAL INFORMATION: Reason for Exam OG tube placement COMPARISON: Chest radiograph 03/20/2022 TECHNIQUE: One view of the chest FINDINGS: Endotracheal tube tip terminates approximately 4.3 cm above the derrick. Enteric tube courses below the level of the diaphragm, tip not imaged. Clear lungs. No pneumothorax or pleural effusion. Normal cardiomediastinal silhouette. XR/XR chest 1V Impression: 1. Endotracheal tube tip terminates approximately 4.3 cm above the derrick. 2. Enteric tube courses below the level of the diaphragm, tip not imaged.
--- NOTE | ~2022-08-11 | XR_ITS ---
EXAMINATION: XR CHEST CLINICAL INFORMATION: Fever intubated COMPARISON: X-ray of the chest 08/12/2022 TECHNIQUE: Frontal view of the chest was obtained. FINDINGS: Endotracheal tube 3.4 cm above derrick. Central venous catheter tip overlies right atrium unchanged. Enteric tube noted with the distal tip overlying the stomach in the proximal sidehole at the level of the EG junction unchanged. Cardiomediastinal silhouette normal. Lungs and pleural spaces unremarkable. XR/XR chest 1V IMPRESSION: 1. Endotracheal tube 3.4 cm above derrick. 2. Enteric tube with proximal sidehole at level of EG junction unchanged. 3. Lungs unremarkable.
--- NOTE | ~2022-08-11 | CT_ITS ---
EXAMINATION: CT HEAD WITHOUT CONTRAST CLINICAL INFORMATION: Seizure COMPARISON: Head CT 08/11/2022 TECHNIQUE: Imaging was performed from the skull base to vertex without intravenous administration of contrast. This CT examination was performed using dose optimization techniques as appropriate, variously including the following: *Automated exposure control *Adjustment of mA and/or kV according to patient size (this includes techniques or standardized protocols for targeted exams where dose is matched to indication/reason for exam; i.e. extremities or head) *Use of iterative reconstruction technique Total exam dose length product: 799 mGy-cm FINDINGS: No intra or extra-axial fluid collection, hemorrhage, or mass. Since the comparison CT, interval development of the diffuse ill-defined hypoattenuation throughout the cerebrum with blurring of the de la cruz-white differentiation, sulcal effacement and partial effacement of the lateral ventricles as well as effacement of the third ventricle. Findings consistent with diffuse cerebral edema or anoxic brain injury. There is to be mild mild medial displacement of the uncus bilaterally. No transtentorial herniation. No calvarial fracture or soft tissue abnormality. Mucosal thickening in the right maxillary antrum. Minimal mucosal thickening in the ethmoid air cells and sphenoid sinuses. Mastoid air cells normally aerated. CT/CT head/brain wo IV con IMPRESSION: Interval development of diffuse ill-defined hypoattenuation throughout the cerebrum with blurring of the de la cruz-white differentiation, sulcal effacement, and partial effacement of the lateral ventricles compatible with diffuse cerebral edema or anoxic brain injury.
[2022-08-11] MEDS: propofoL 200 MG/20 ML VIAL 30 MG IVPUSH (19:08)
[2022-08-11] MEDS: 0.9 % Sodium Chloride 1,000 ML 999 ML IV (19:09)
--- NOTE | 2022-08-11 19:09 | ED.GENADULT ---
HPI - General Adult General Chief complaint: Cardiac Arrest/CPR Stated complaint: Cardiac Arrest Time Seen by Provider: 08/11/22 18:52 Mode of arrival: EMS Limitations: altered mental status History of Present Illness HPI narrative: This is a 32-year-old male was found unresponsive. The patient per EMS had been given Narcan by a bystander, unclear if there is any response. EMS states that when they initially got there the patient was bradycardic but then became asystolic. CPR was initiated and the patient was intubated with an eye gel, he was given 2 rounds of epinephrine and regained a rhythm with tachycardia and a strong radial pulse. On arrival patient had pulses and CPR was no longer being done. Patient was being bag-mask ventilated Related Data Previous Rx's Medication Instructions Recorded baclofen 10 mg tablet 10 mg PO BID 30 days #60 tabs 04/04/22 bupropion HCl 150 mg tablet,12 hr 150 mg PO BID 30 days #60 tabs 04/04/22 sustained-release (Wellbutrin SR) clonidine HCl 0.2 mg tablet 0.2 mg PO TID 30 days #90 tabs 04/04/22 gabapentin 300 mg capsule 600 mg PO TID 30 days #180 caps 04/04/22 lithium carbonate 300 mg capsule 600 mg PO BID 30 days #120 caps 04/04/22 nicotine (polacrilex) 4 mg gum 4 mg buccal Q1H PRN Nicotine 04/04/22 Cravings 30 days #60 ea quetiapine 50 mg tablet 250 mg PO BEDTIME 30 days #150 tabs 04/04/22 Allergies Allergy/AdvReac Type Severity Reaction Status Date / Time No Known Allergies Allergy Unknown UNKNOWN Verified 03/22/22 02:23 [NO KNOWN ALLERGIES] Review of Systems Review of Systems: Yes Unobtainable due to mental status PMFSH Past Medical History Medical History (Updated 08/11/22 @ 21:31 by Maddy Ortiz) CAYETANO (acute kidney injury) Bipolar disorder Opioid use disorder Rhabdomyolysis Schizophrenia Suicidal ideation Surgical History No pertinent past surgical history Family History Family History Other No family history of coronary artery disease Social History Social History Household Members: None Household Members Other:: 2 friends Housing: Homeless Do you presently have visiting nurse or other home services: No Alcohol intake: current Alcohol intake frequency: does not drink Alcohol type: beer and hard liquor Patient Tobacco Use Status: Current everyday Tobacco user Tobacco use type: Cigarette Cigarette Packs Per Day: 1 Cigarettes Per Day: 20.0 Years Smoked: 15 e-Cigarette/Vaping Use: Former Use Second Hand Smoke Exposure: Yes Substance Use Type: Crack/Cocaine, Heroin and Marijuana Advance Directives: No Advance Directives Information Provided: No service: No Current occupational status: unemployed Sexual orientation: Don't Know Physical Exam ED Vital Signs: Vital Signs - 24 hr 08/11/22 18:51 08/11/22 19:06 08/11/22 19:13 Temperature 98.6 F Pulse Rate 92 Respiratory Rate 16 Blood Pressure 110/61 Pulse Oximetry 99 Fraction of Inspired Oxygen 40 BMI result Body Mass Index 26.5 Const Other: Pupils 2 mm round, minimally reactive. No response to painful stimulus. Patient initially not breathing spontaneously. General: no acute distress HENMT Head: Yes normal to inspection General nose exam: Normal external nose present Mouth: moist mucous membranes Throat: Yes posterior oropharynx normal, Yes tonsils normal and Yes uvula midline Eyes Eyelids: Yes eyelids normal Conjunctivae: conjunctivae normal Pupils: Equal, round and reactive pupils present Neck Neck: Yes supple Resp Effort & Inspection: normal respiratory effort Auscultation: clear to auscultation bilaterally Cardio Rate: abnormal rate and tachycardic Rhythm: regular rhythm Heart sounds: S1 normal heart sound present, S2 normal heart sound present, no gallops, no murmurs and no rubs GI Inspection: No distended Palpation (GI): Soft to palpation and nontender Auscultation: normal bowel sounds Skin General skin exam: other (Warm and dry) Neuro Other: Unresponsive Cranial nerves: Yes Equal, round and reactive pupils present Extrem General: Yes no pedal edema Psych Affect: normal affect Attitude: cooperative Procedures Intubation Time out performed: No sedative: none Laryngoscope: fiber optic video scope ET Tube Size: 7.5 ET Tube Uncuffed: No Tube Secured Depth (cm): 22 Tube Secured Location: lips Tube Placement Confirmation: visualized tube passing through cords, equal breath sounds bilaterally, no breath sounds over epigastrium and confirmation by capnometry Patient Tolerated Procedure: well and no complications Additional Comments: Patient initially had an eye gel device in place, this was removed just prior to the patient's intubation. The patient was bag-mask ventilated in between removing the eye gel and placing the ETT tube Medical Decision Making MDM Narrative Medical decision making narrative: Patient found unresponsive, was initially reportedly bradycardic and then became asystolic. Patient has a psychiatric history and also history of opiate use disorder, polysubstance abuse. Patient had been given Narcan prior to EMS arrival but did not apparently have any response. Patient remained unresponsive in the ED. the patient was intubated endotracheally. He was started on propofol bolus and drip for sedation, though he was not moving his body or extremities, his occasional attempts at respiration did interfere with ventilator. Patient's initial blood gas was venous but showed a significant metabolic acidosis head lactate level is very elevated. Repeat blood gas after the patient on a ventilator for few hours was much improved. Patient was given normal saline 1 L IV. An OG tube and Bush catheter replaced by the nurses. Patient's initial EKG showed significant ST elevation, which was slightly improved on the 2nd EKG. Upon review of prior EKGs the patient did have this time the morphology evident previously but to a lesser extent. EKGs were reviewed by Dr. Boo modi of Cardiology, who did not feel that the patient likely had ST-elevation IL, or a primary acute cardiac event. Case was also discussed wit Dr. Zuñiga of the stripping machine operator service, who accepted the patient for admission. Patient is COVID positive. Chest x-ray did not show any concerning findings. Urine drug screen was positive for multiple substances. Critical care time for this life-threatening illness exclusive of all other billable procedures was approximately 85 minutes including initial evaluation of the patient, ordering tests, x-ray interpretation, EKG interpretation, medical consultation, documentation, reevaluation. Please note that the patient was initially registered under the wrong patient name and date of . Initial documentation was done on this incorrect identity. Initial orders were placed under this incorrect identity. Lab Data Lab results reviewed: Yes I reviewed the patient's lab results. Result diagrams: 08/11/22 20:14 08/11/22 20:14 Labs: Lab Results 08/11/22 08/11/22 Range/Units 19:00 19:00 Urine Color Yellow Urine Appearance Cloudy Urine pH 6.0 (5.0-9.0) Ur Specific Clever 1.025 (1.005-1.025) Urine Protein 300 (3+) H (Neg-Trace) mg/dL Urine Glucose (UA) >=1000 H (Negative) mg/dL Urine Ketones Trace (Negative) mg/dL Urine Blood Small (1+) H (Negative) Urine Nitrite Negative (Negative) Ur Leukocyte Esterase Negative (Negative) Urine RBC 6-10 H (0-2) /HPF Urine WBC 21-50 H (0-5) /HPF Ur Squamous Epith Cells 6-10 (0-2) /HPF Calcium Oxalate Crystal Present Urine Bacteria 3+ (None Seen) Hyaline Casts 11-20 (0-2) /LPF Urine Opiates Screen POSITIVE H (Not Detect) Urine Fentanyl Screen POSITIVE H (Not Detect) Ur Barbiturates Screen Not Detected (Not Detect) Ur Phencyclidine Scrn Not Detected (Not Detect) Ur Amphetamines Screen Not Detected (Not Detect) U Benzodiazepines Scrn POSITIVE H (Not Detect) Urine Cocaine Screen POSITIVE H (Not Detect) U Marijuana (THC) Screen POSITIVE H (Not Detect) Imaging Data Chest x-ray: My impression: ET tube in appropriate place. No obvious cardiopulmonary disease. Radiologist's impression: Impression: 1.? Endotracheal tube tip terminates approximately 4.3 cm above the derrick. 2.? Enteric tube courses below the level of the diaphragm, tip not imaged. ECG Data Attestation: I personally reviewed and interpreted this ECG as follows: Interpretation: Sinus rhythm with a rate of 138. ST elevation in leads V1 through V 4, with upward coving, but without significant reciprocal changes. Minimal voltage criteria for LVH. Repeat EKG was done at 18:20 and shows sinus tachycardia with rate 118. There was again ST elevation in leads V 1 through V3 but without any reciprocal changes. Prior T-wave inversion in leads 1 and now has resolved. Discharge Plan Discharge Clinical Impression: Cardiac arrest Patient Disposition: Admitted As Inpatient Interventions: Admission Worksheet (ED) Last Done: 08/11/22 21:30 Discharge Date/Time: 08/11/22 21:31
[2022-08-11] MEDS: propofoL 1,000 MG/100 ML VIAL 13.41 MG IVCONT (19:13)
--- NOTE | 2022-08-11 19:21 | PC.NURSE ---
pt BIBA as a cardiac arrest. pt was found unresponsive outside on the sidewalk, police was present at the time and pt had positive pulses with pupils pinpoint. Police administered
--- NOTE | 2022-08-11 19:24 | PC.NURSE ---
pt BIBA as a cardiac arrest. pt was found unresponsive outside on the sidewalk, police was present at the time and pt had positive pulses with pupils pinpoint. Police administered 4mg nasal narcan. when EMS arrived pt was bradycardic with a no pulses, found to be in PEA. EMS attached the jd to the pt, administered 2 EPI when ROSC was achieved. HR at the time was in the 150s with + pulses, pupils fixed and pinpoint. POC was 121. 20G placed in the LAC by EMS. 1800 - [place] Arrival to [facility] [place] 4, pt appeared to be in SVT in the 150s, + pulses, no CPR initiated,. Airway changed from 4igel (placed by EMS) to a 7.5, 25 at the lip. POC 208 at this time. 18G in the RAC. OG tube and Huerta cath placed. 100cc of vomit in suction canister from OG tube. approx 50cc output in urine in huerta bag. pt with no noticeable trauma to the body, no open wounds or bruising. pt started on propofol 30mcg/kg/hr. pt had only an EBT card in his pocket.. Report given to Maddy MEJIA.
[2022-08-11 19:47] LABS: Appearance Urine Cloudy; Color Urine Yellow; Glucose Urine UA >=1000 mg/dL (Negative); Leukocyte Esterase Urine Negative (Negative); Nitrite Urine Negative (Negative); Specific Gravity - Urine 1.025 (1.005-1.025); UMIC TRIGGER UACC YES; Urine Blood Small (1+) (Negative); Urine Ketones Trace mg/dL (Negative); Urine Protein 300 (3+) mg/dL (Neg-Trace)
--- NOTE | 2022-08-11 19:48 | PM.CCHP ---
History of Present Illness Date of Service: 08/11/22 Chief Complaint: Cardiac arrest 32-year-old gentleman, polysubstance abuse, with underlying bipolar disorder and schizophrenia who suffered an unwitnessed out of hospital arrest with returned spontaneous circulation with CPR by EMS intubated in ER and transferred to intensive care unit. Review of Systems Review of Systems: Yes unobtainable due to endotracheal tube, Unobtainable due to mental condition and Unobtainable due to mental status PMFSH Past Medical History Medical History (Updated 08/11/22 @ 21:42 by Kumar Schmitt MD) CAYETANO (acute kidney injury) Bipolar disorder Opioid use disorder Rhabdomyolysis Schizophrenia Suicidal ideation Family History Family History Other No family history of coronary artery disease Surgical History Surgical History No pertinent past surgical history Social History Social History Household Members: None Household Members Other:: 2 friends Housing: Homeless Do you presently have visiting nurse or other home services: No Alcohol intake: current Alcohol intake frequency: does not drink Alcohol type: beer and hard liquor Patient Tobacco Use Status: Current everyday Tobacco user Tobacco use type: Cigarette Cigarette Packs Per Day: 1 Cigarettes Per Day: 20.0 Years Smoked: 15 e-Cigarette/Vaping Use: Former Use Second Hand Smoke Exposure: Yes Substance Use Type: Crack/Cocaine, Heroin and Marijuana Advance Directives: No Advance Directives Information Provided: No service: No Current occupational status: unemployed Sexual orientation: Don't Know Meds Allergies Allergy/AdvReac Type Severity Reaction Status Date / Time No Known Allergies Allergy Unknown UNKNOWN Verified 03/22/22 02:23 [NO KNOWN ALLERGIES] Active Medications: Current Medications Chlorhexidine Gluconate (Chlorhexidine Gluc Oral Rinse 15 Ml Mouthwash) 15 ml BUCCAL ONCE ONE Stop: 08/11/22 19:46 Famotidine (Famotidine/Pf 20 Mg/2 Ml Vial) 20 mg IVPUSH DAILY MICKI Heparin Sodium (Porcine) (Heparin Sodium,Porcine 5,000 Unit/Ml Vial) 5,000 unit SUBCUT Q8H MICKI Sodium Chloride (Ns) 1,000 mls @ 999 mls/hr IV .Q1H1M MICKI Stop: 08/11/22 20:15 Last Admin: 08/11/22 19:09 Dose: 999 mls/hr Fentanyl (Sublimaze/Ns) 1,000 mcg in 100 mls @ 5 mls/hr IVCONT .Q20H MICKI; Protocol Propofol (Diprivan) 1,000 mg in 100 mls @ 0 mls/hr IVCONT .Q0M MICKI; Protocol Naloxone HCl (Naloxone Hcl 0.4 Mg/Ml Vial) 0.2 mg IVPUSH Q2M PRN PRN Reason: Excessive sedation or RR < 8 Physical Exam Vital Signs: Vital Signs: Last Vital Signs Temp 98.6 F 08/11/22 19:06 Pulse 92 08/11/22 19:13 Resp 16 08/11/22 19:13 BP 110/61 08/11/22 19:13 Pulse Ox 99 08/11/22 19:13 FiO2 40 08/11/22 18:51 BMI result Body Mass Index 26.5 Const: General: other ( Comatose) Eyes: Pupils: Pinpoint pupils Neck: Neck: Yes no lymphadenopathy, Yes trachea midline and Yes supple Resp: Effort & Inspection: normal respiratory effort and no respiratory distress Auscultation: clear to auscultation bilaterally Cardio: Rate: regular rate Rhythm: regular rhythm Heart sounds: no gallops, no murmurs and no rubs GI: Palpation (GI): Soft to palpation and Other GI palpation findings present ( Nontender) Auscultation: normal bowel sounds Extrem: General: Yes no pedal edema, No clubbing and No cyanosis Results Labs CBC and Chem 7: 08/11/22 20:14 08/11/22 20:14 Imaging Radiologist's Impressions: Impressions Chest X-Ray 08/11/22 18:51 Impression: 1. Endotracheal tube tip terminates approximately 4.3 cm above the derrick. 2. Enteric tube courses below the level of the diaphragm, tip not imaged. Assessment and Plan (1) Cardiac arrest: Status: Acute (2) Respiratory failure: Status: Acute (3) Polysubstance abuse: Status: Acute (4) Schizophrenia: Status: Acute (5) Bipolar disorder: Status: Acute (6) CAYETANO (acute kidney injury): Status: Acute Plan Assessment: 32-year-old gentleman admitted after an out of hospital unwitnessed cardiac arrest with return of spontaneous circulation on CPR by EMS, intubated in ER. Plan: Neuro: CT head is pending. Underlying polysubstance abuse. Cardiac: Out of hospital cardiac arrest likely secondary to polysubstance abuse, ROSC with CPR by EMS. 2D echo ordered. Initial troponin normal. Pulmonary: Continue with ventilatory support. COVID positive. Renal: Acute kidney injury, continue to monitor renal indices and urine output. Endo: No acute issues. GI: No acute issues. ID: No acute issues. No evidence of sepsis. Heme/Onc: No acute issues. Psych: No acute issues. Underlying schizophrenia and bipolar disorder. Miscellaneous: No acute issues. Prophylaxis: Heparin, famotidine Diet: NPO Critical care time spent: 60 minutes
[2022-08-11 20:03] LABS: Amphetamine Screen Urine Not Detected (Not Detect); Barbiturates, Urine Not Detected (Not Detect); Benzodiazepines Screen Urine POSITIVE (Not Detect); Cannabinoid Screen Urine POSITIVE (Not Detect); Cocaine Screen Urine POSITIVE (Not Detect); Fentanyl, urine POSITIVE (Not Detect); Opiate Screen Urine POSITIVE (Not Detect); Phencyclidine Screen Urine Not Detected (Not Detect)
[2022-08-11] MEDS: fentaNYL citrate/NS 1,000 MCG/100 ML PLAST..BAG 5 MCG IVCONT (20:05)
[2022-08-11 20:07] LABS: ABG HCO3 23 mmol/L (22-26); ABG pCO2 36 mmHg (32-45); ABG pH 7.41 (7.35-7.45); ABG pO2 202 mmHg (83-108)
[2022-08-11] MEDS: Heparin Sodium,Porcine 5,000 UNIT/ML VIAL 5000 UNIT SUBCUT (20:09)
[2022-08-11 20:11] LABS: Bacteria Urine 3+ (None Seen); Calcium Oxalate Crystals Urine Present; UACC Culture Trigger YES; WBC Urine 21-50 /HPF (0-5)
[2022-08-11 20:21] LABS: Basophils Percent Auto 0.2 % (0-2); Eosinophils Percent Auto 0.2 % (0-4); Hematocrit 39.1 % (42.0-52.0); Hemoglobin 12.8 g/dl (14.0-18.0); Imm Gran Abs Auto 0.12 X10*3/uL (0.00-0.03); Imm Gran Pct Auto 1.3 % (0.0-0.4); Lymphocytes Absolute Auto 0.7 X10*3/uL (1.2-4.9); Lymphocytes Percent Auto 7.9 % (20-40); MANUAL DIFF FLAG NO; Mean Corpuscular HGB Conc 32.7 g/dl (31.0-36.0); Mean Corpuscular Hemoglobin 27.1 pg (27.0-33.0); Mean Corpuscular Volume 82.7 fL (80.0-98.0); Mean Platelet Volume 9.2 fL (9.4-12.4); Monocytes Absolute Auto 0.5 X10*3/uL (0.1-1.2); Monocytes Percent Auto 5.5 % (2-11); Neutrophils Percent Auto 84.9 % (45-73); Platelet Count 269 X10*3/uL (160-400); Red Blood Count 4.73 X10*6/uL (4.60-5.80); Red Cell Distribution Width 15.5 % (11.0-16.0); White Blood Count 9.4 X10*3/uL (4.8-10.8)
--- NOTE | 2022-08-11 20:22 | PC.NURSE ---
PT CLOTHING WAS CUT OFF ,THE REST OF BELONGING AND ID IS IN BAG AT BEDSIDE .
[2022-08-11 20:25] LABS: VBG Base Excess 0.1 mmol/L; VBG HCO3 22 mmol/L (22-26); VBG pCO2 31 mmHg; VBG pH 7.47 (7.32-7.43); VBG pO2 180 mmHg
[2022-08-11 20:25] LABS: Venous Blood Gas Refer to POC result
[2022-08-11 20:34] LABS: Lactic Acid 1.2 mmol/L (0.5-2.0)
[2022-08-11 20:41] LABS: Alanine Aminotransferase 253 U/L (0-40); Alkaline Phosphatase 74 U/L (39-117); Anion Gap 14 (12-20); Aspartate Amino Transferase 221 U/L (5-37); Bilirubin Total 0.3 mg/dL (0.0-1.0); Blood Urea Nitrogen 14 mg/dL (9-16); Calcium 8.8 mg/dL (8.4-10.2); Carbon Dioxide 23 mmol/L (22-29); Chloride 109 mmol/L (96-108); Creatinine Clr Calc Pharmacy 106.7; Estimated Glomerular Filt Rate > 60; Glucose Random 93 mg/dL (60-115); Lithium < 0.04 mmol/L (0.60-1.20); Potassium 3.5 mmol/L (3.3-5.1); Sodium 142 mmol/L (135-145); Total Protein 6.7 g/dL (6.5-8.0)
[2022-08-11] MEDS: Potassium Chloride/H20 10 MEQ/100 ML PIGGYBACK 100 MEQ IV ×3 (20:53→23:16)
[2022-08-11] MEDS: Chlorhexidine Gluc Oral Rinse 15 ML MOUTHWASH BUCCAL (20:53)
--- NOTE | 2022-08-11 20:58 | PC.NURSE ---
COMPATIBILITY CHECKED TO ENSURE IV POTASSIUM COMPATIBLE WITH IV FENTANYL.
[2022-08-11] MEDS: levETIRAcetam in NaCl (iso-os) 1,000 MG/100 ML PIGGYBACK 400 MG IV (23:55)
[2022-08-12] VITALS (34 sets, daily range): BP systolic 75–123; BP diastolic 36–79; PULSE 74–104; RESP 16–23; TEMP 34.4–39.3; O2SAT 95–100; BMI 26.5
--- NOTE | 2022-08-12 | EEG_ITS ---
This is a 16-channel portable EEG performed in ICU while patient was on propofol. Apparently, propofol was nonstop for the procedure. The patient was unresponsive. Background EEG rhythm is low amplitude, burst suppression type, with generalize theta range brief discharges lasting for half to 1 seconds and after 1 to 2 seconds. Cardiac lead does not reveal any significant abnormality other than tachycardia. No focality was noted. IMPRESSION: Abnormal EEG with burst suppression pattern, which is nonspecific but could suggest either severe anoxic encephalopathy or could also be manifestation of generalize status epilepticus. Clinical correlation is recommended and repeat EEG is recommended while propofol is off. MD ORA Kidd/AMANDA / [phone]
[2022-08-12] MEDS: Potassium Chloride/H20 10 MEQ/100 ML PIGGYBACK 100 MEQ IV (00:19)
[2022-08-12] MEDS: propofoL 1,000 MG/100 ML VIAL 17.88 MG IVCONT ×4 (00:39→19:59)
[2022-08-12] MEDS: Midazolam HCl/PF 2 MG/2 ML VIAL 4 MG IVPUSH (01:40)
[2022-08-12] MEDS: Cisatracurium Besylate 20 MG/10 ML VIAL 10 MG IVPUSH (02:23)
[2022-08-12] MEDS: Cisatracurium Besylate 100 MG in 0.9 % Sodium Chloride 40 ML IVCONT ×2 (02:44→08:37)
[2022-08-12] MEDS: Heparin Sodium,Porcine 5,000 UNIT/ML VIAL 5000 UNIT SUBCUT ×3 (05:01→19:59)
[2022-08-12 05:40] LABS: Albumin Level 3.9 g/dL (3.5-5.0)
[2022-08-12] MEDS: propofoL 1,000 MG/100 ML VIAL 13.41 MG IVCONT (06:29)
--- NOTE | 2022-08-12 07:47 | PC.NURSE ---
Patient noted to have intermittent jerking movements appearing as seizure like activity . Episodes began to occur more frequently. Flag Football Coach notified. Keppra IV infusion ordered without good effect. Following Versed IVP ordered/administered. Patient's BP decreased after administration. Nimbex IVP ordered/administered following by a Nimbex drip. Infusing at 2mcg/kg/hr. Episodes have been infrequent since medication given. VSS , train of four monitoring initiated/ results 2-3. Will continue to monitor and report any changes .
[2022-08-12 08:31] LABS: ABG Base Excess -6.6 mmol/L; ABG HCO3 18 mmol/L (22-26); ABG pCO2 35 mmHg (32-45); ABG pH 7.32 (7.35-7.45); ABG pO2 187 mmHg (83-108)
[2022-08-12] MEDS: Famotidine/PF 20 MG/2 ML VIAL IVPUSH (08:32)
--- NOTE | 2022-08-12 09:30 | MHC.CM.PN ---
Unable to complete CM assessment, patient does not have ability to participate due to intubation. This hand sign writer attempted to call listed contact, phone number produced busy signal. CM will continue to follow patient for discharge planning needs.
--- NOTE | 2022-08-12 09:32 | PHA.MEDREC ---
Pharmacy Consult ? Medication Reconciliation Pharmacy has completed the medication reconciliation. Pt recently filled at [facility] in [place] 07/14. Got med list from pharmacy
[2022-08-12] MEDS: Phenylephrine HCL 20 MG in 0.9 % Sodium Chloride 250 ML 28.16 MG IVCONT (10:02)
--- NOTE | 2022-08-12 10:29 | MHC.CLN ---
PT IS INTUBATED AND SEDATED PT IS CURRENTLY NPO IF TF NEEDED; RECOMMEND JEVITY 1.0 AT MAX GOAL RATE 55ML/HR WITH 240ML FREE WATER FLUSHES Q 4 HRS TO PROVIDE 1399KCALS (1871KCALS WITH SEDATION; 25KCALS/KG), 58G PROTEIN, 2062ML TOTAL WATER FROM FORMULA AND FLUSHES (28ML/KG) START FORMULA AT 20ML/HR AND INCREASE BY 10ML Q 4 HRS UNTIL MAX GOAL IS ACHIEVED MONITOR TOLERANCE, RESIDUALS AND LYTES SEE ALSO FULL CLINICAL NUTRITION ASSESSMENT
--- NOTE | 2022-08-12 10:46 | PC.ADMIT ---
Addendum entered by Alessandro Humphries RN 08/12/22 14:55: twitches now 2/4 on 5mA on Nimbex 3 Addendum entered by Alessandro Humphries RN 08/12/22 13:11: Informed neuro stated EEG unable to be read d/t propofol. MD also informed pt having 4/4 twitches at 5mA. Increased Nimbex to 3 per verbal order Addendum entered by Alessandro Humphries RN 08/12/22 10:51: per micro 2nd set of cultures were not drawn. md and phleb informed Original Note: Isolation precautions maintained. Pt having copious amount of secretions on low dose of sedation. Fent noted to be 25mcg at start of shift, increased to 50mcg and prop increased. Post titration of sedation pt noted to have decreased amount of secretions. MD informed of everything previously mentioned and verbally OK'd. Pt started on Todd d/t hypotension. MD informed pt was only having 1/4 twitches via facial nerves, 0/4 ulnar. no new orders at this time, pt remains at nimbex 2. EEG was obtained per md order.
[2022-08-12] MEDS: Artificial Tears Ophth Oint 3.5 GM TUBE 1 APPL EYE-BOTH ×2 (12:08→22:47)
--- NOTE | 2022-08-12 13:26 | P.PNCC_ITS ---
Subjective Subjective Date of Service: 08/12/22 Interval History: A 32-year-old male apparently cocaine fentanyl and opiate abuser in overdose was found apneic unresponsive and asystolic resuscitated in the in the field and then intubated subsequently and has been on the ventilator ever since and we do not know the the length of the down time and has remained in normal sinus rhythm with adequate urine output and metabolically stable with preserved the renal function and blood gas and is also on sedation and remains intubated Critical Care Time (minutes): 45 Physical Exam Vital Signs: Vital Signs: Last Vital Signs Temp 98.7 F 08/12/22 12:00 Pulse 77 08/12/22 13:00 Resp 16 08/12/22 13:00 BP 97/50 L 08/12/22 13:00 Pulse Ox 97 08/12/22 13:00 O2 Del Method 08/12/22 13:00 FiO2 30 08/12/22 13:00 BMI result Body Mass Index 26.5 Sedated and intubated Bedside echo with with globally normal systolic wall motion of the left ventricle normal LV and RV function Chest x-ray is clear and lungs without adventitious sounds Abdomen benign no organomegaly Objective Data Labs CBC & Chem 7: 08/13/22 01:28 08/13/22 01:28 Labs: Laboratory Results - last 24 hr 08/11/22 08/11/22 08/11/22 18:44 19:00 19:00 WBC RBC Hgb Hct MCV MCH MCHC RDW Plt Count MPV Immature Gran % (Auto) Neut % (Auto) Lymph % (Auto) [place] % (Auto) Eos % (Auto) Baso % (Auto) Lymph # (Auto) [place] # (Auto) Eos # (Auto) Baso # (Auto) Abs Immat Gran (auto) Absolute Neuts (auto) Absolute Nucleated RBC Nucleated RBC % (auto) O2 Saturation 100.0 ABG pH at Pt Temp 7.32 L ABG pCO2 at Pt Temp 35 ABG pO2 at Pt Temp 187 H ABG HCO3 18 L ABG Base Excess (Actual) -6.6 VBG pH VBG pCO2 VBG pO2 VBG HCO3 VBG O2 Saturation VBG Base Excess Sodium Potassium Chloride Carbon Dioxide Anion Gap BUN Creatinine Estim Creat Clear Calc Estimated GFR Random Glucose Lactic Acid Calcium Total Bilirubin AST ALT Alkaline Phosphatase Total Protein Albumin Urine Color Yellow Urine Appearance Cloudy Urine pH 6.0 Ur Specific [place] 1.025 Urine Protein 300 (3+) H Urine Glucose (UA) >=1000 H Urine Ketones Trace Urine Blood Small (1+) H Urine Nitrite Negative Ur Leukocyte Esterase Negative Urine RBC 6-10 H Urine WBC 21-50 H Ur Squamous Epith Cells 6-10 Calcium Oxalate Crystal Present Urine Bacteria 3+ Hyaline Casts 11-20 Urine Opiates Screen POSITIVE H Urine Fentanyl Screen POSITIVE H Ur Barbiturates Screen Not Detected Ur Phencyclidine Scrn Not Detected Ur Amphetamines Screen Not Detected U Benzodiazepines Scrn POSITIVE H [place] Urine Cocaine Screen POSITIVE H U Marijuana (THC) Screen POSITIVE H 08/11/22 08/11/22 08/11/22 20:00 20:14 20:14 WBC 9.4 RBC 4.73 Hgb 12.8 L Hct 39.1 L MCV 82.7 MCH 27.1 MCHC 32.7 RDW 15.5 Plt Count 269 MPV 9.2 L Immature Gran % (Auto) 1.3 H Neut % (Auto) 84.9 H Lymph % (Auto) 7.9 L [place] % (Auto) 5.5 Eos % (Auto) 0.2 Baso % (Auto) 0.2 Lymph # (Auto) 0.7 L [place] # (Auto) 0.5 Eos # (Auto) 0.0 Baso # (Auto) 0.0 Abs Immat Gran (auto) 0.12 H Absolute Neuts (auto) 8.0 Absolute Nucleated RBC 0.000 Nucleated RBC % (auto) 0.0 O2 Saturation 100.0 ABG pH at Pt Temp 7.41 ABG pCO2 at Pt Temp 36 ABG pO2 at Pt Temp 202 H ABG HCO3 23 ABG Base Excess (Actual) -1.0 VBG pH VBG pCO2 VBG pO2 VBG HCO3 VBG O2 Saturation VBG Base Excess Sodium Potassium Chloride Carbon Dioxide Anion Gap BUN Creatinine Estim Creat Clear Calc Estimated GFR Random Glucose Lactic Acid Calcium Total Bilirubin AST ALT Alkaline Phosphatase Total Protein Albumin Urine Color Urine Appearance Urine pH Ur Specific [place] Urine Protein Urine Glucose (UA) Urine Ketones Urine Blood Urine Nitrite Ur Leukocyte Esterase Urine RBC Urine WBC Ur Squamous Epith Cells Calcium Oxalate Crystal Urine Bacteria Hyaline Casts Urine Opiates Screen Urine Fentanyl Screen Ur Barbiturates Screen Ur Phencyclidine Scrn Ur Amphetamines Screen U Benzodiazepines Scrn [place] < 0.04 L Urine Cocaine Screen U Marijuana (THC) Screen 08/11/22 08/11/22 08/11/22 20:14 20:14 20:19 WBC RBC Hgb Hct MCV MCH MCHC RDW Plt Count MPV Immature Gran % (Auto) Neut % (Auto) Lymph % (Auto) [place] % (Auto) Eos % (Auto) Baso % (Auto) Lymph # (Auto) [place] # (Auto) Eos # (Auto) Baso # (Auto) Abs Immat Gran (auto) Absolute Neuts (auto) Absolute Nucleated RBC Nucleated RBC % (auto) O2 Saturation ABG pH at Pt Temp ABG pCO2 at Pt Temp ABG pO2 at Pt Temp ABG HCO3 ABG Base Excess (Actual) VBG pH 7.47 H VBG pCO2 31 VBG pO2 180 VBG HCO3 22 VBG O2 Saturation 99.0 VBG Base Excess 0.1 Sodium 142 Potassium 3.5 Chloride 109 H Carbon Dioxide 23 Anion Gap 14 BUN 14 Creatinine 0.88 Estim Creat Clear Calc 106.7 Estimated GFR > 60 Random Glucose 93 Lactic Acid 1.2 Calcium 8.8 Total Bilirubin 0.3 AST 221 H ALT 253 H Alkaline Phosphatase 74 Total Protein 6.7 Albumin 4.0 Urine Color Urine Appearance Urine pH Ur Specific [place] Urine Protein Urine Glucose (UA) Urine Ketones Urine Blood Urine Nitrite Ur Leukocyte Esterase Urine RBC Urine WBC Ur Squamous Epith Cells Calcium Oxalate Crystal Urine Bacteria Hyaline Casts Urine Opiates Screen Urine Fentanyl Screen Ur Barbiturates Screen Ur Phencyclidine Scrn Ur Amphetamines Screen U Benzodiazepines Scrn [place] Urine Cocaine Screen U Marijuana (THC) Screen 08/12/22 05:03 WBC RBC Hgb Hct MCV MCH MCHC RDW Plt Count MPV Immature Gran % (Auto) Neut % (Auto) Lymph % (Auto) [place] % (Auto) Eos % (Auto) Baso % (Auto) Lymph # (Auto) [place] # (Auto) Eos # (Auto) Baso # (Auto) Abs Immat Gran (auto) Absolute Neuts (auto) Absolute Nucleated RBC Nucleated RBC % (auto) O2 Saturation ABG pH at Pt Temp ABG pCO2 at Pt Temp ABG pO2 at Pt Temp ABG HCO3 ABG Base Excess (Actual) VBG pH VBG pCO2 VBG pO2 VBG HCO3 VBG O2 Saturation VBG Base Excess Sodium Potassium Chloride Carbon Dioxide Anion Gap BUN Creatinine Estim Creat Clear Calc Estimated GFR Random Glucose Lactic Acid Calcium Total Bilirubin AST ALT Alkaline Phosphatase Total Protein Albumin 3.9 Urine Color Urine Appearance Urine pH Ur Specific [place] Urine Protein Urine Glucose (UA) Urine Ketones Urine Blood Urine Nitrite Ur Leukocyte Esterase Urine RBC Urine WBC Ur Squamous Epith Cells Calcium Oxalate Crystal Urine Bacteria Hyaline Casts Urine Opiates Screen Urine Fentanyl Screen Ur Barbiturates Screen Ur Phencyclidine Scrn Ur Amphetamines Screen U Benzodiazepines Scrn [place] Urine Cocaine Screen U Marijuana (THC) Screen Microbiology Microbiology Results: Microbiology 08/11/22 20:12 Urine clean catch - Urine de la cruz top Urine Culture - Preliminary No growth to date. 08/12/22 10:17 Blood - Venous Blood Culture - Final 08/12/22 10:17 Blood - Venous Blood Culture - Final Progress Note: A&P Assessment and plan (1) Unresponsive state: Status: Acute (2) CAYETANO (acute kidney injury): Status: Acute (3) Polysubstance abuse: Status: Acute (4) Respiratory failure: Status: Acute (5) Cardiac arrest: Status: Acute (6) Schizophrenia: Status: Acute (7) Opioid use disorder: Status: Acute (8) Bipolar disorder: Status: Acute Plan Will remain supported as above at least for another 24 hours and then we will attempt a weaning of sedation and if cognitive function is her restored will then attempt pressure support weaning trial Quality Stroke Does the patient have a stroke diagnosis?: No VTE Prior VTE?: No VTE Risk Level:: Medical - moderate - high VTE Device Contraindication: N/A - Device Ordered VTE Drug Contraindication: N/A - Med Ordered
[2022-08-12 13:32] LABS: ABG Refer to POC result
[2022-08-12] MEDS: Cisatracurium Besylate 100 MG in 0.9 % Sodium Chloride 40 ML 6.71 MG IVCONT ×2 (14:36→22:47)
[2022-08-12] MEDS: Phenylephrine HCL 20 MG in 0.9 % Sodium Chloride 250 ML 56.32 MG IVCONT (14:36)
--- NOTE | 2022-08-12 14:54 | P.PCNCC_ITS ---
Procedures Date of Service Date of Service: 08/12/22 Central Line Placement Left IJ: Central Line Comments: PROCEDURE: ? ? Insertion left internal jugular triple-lumen central venous catheter. INDICATION: ? ? ? Venous access. ANESTHESIA: ? ? Local plus propofol infusion. PROCEDURE: ? Vascular ultrasound was used to examine the left neck. ? A large compressible internal jugular vein was noted, lateral to the carotid artery.? Site of the vein was marked. The left neck was widely prepped and draped in full sterile fashion.? Local anesthesia was applied to the LIJV insertion site. ? Under US? guidance, the left IJ vein was cannulated on the 1st pass of the 18 g thin wall needle, with return of dark, nonpulsatile blood. ? The wire was threaded without incident.? The 20 cm x 7 [place] triple-lumen CVC was advanced into the vein up to the hub via the Seldinger technique without incident.? There was good blood return x3.? The catheter was sutured x2 and a Biopatch and dry sterile dressing were applied. Postop chest x-ray showed the line in good position with no pneumothorax.? The patient tolerated the procedure well with no complications. Consent for Procedure: Emergent-no informed consent obtained (altered mental status) Sterile Technique Used: Yes Patient placed on monitor/pulse ox: Yes prep: mask, gown and gloves Central line prep: Chlorhexidine scrub and sterile drapes applied Ultrasound used for placement: Yes Central line lumen inserted: triple Post procedure: sutured in place, good blood return, all ports aspirated, flushed, capped and sterile dressing applied Post procedure x-ray: tip of catheter in good position and no pneumothorax seen Patient tolerated procedure: well Complications: none
[2022-08-12] MEDS: fentaNYL citrate/NS 1,000 MCG/100 ML PLAST..BAG 5 MCG IVCONT (16:42)
[2022-08-12] MEDS: Phenylephrine HCL 20 MG in 0.9 % Sodium Chloride 250 ML 61.95 MG IVCONT ×2 (18:12→22:46)
[2022-08-12] MEDS: Chlorhexidine Gluc Oral Rinse 15 ML MOUTHWASH BUCCAL (19:59)
[2022-08-13] VITALS (33 sets, daily range): BP systolic 101–141; BP diastolic 44–87; PULSE 67–83; RESP 16–20; TEMP 34.7–39; O2SAT 16–100; BMI 26.2
--- NOTE | 2022-08-13 | ECG_ITS ---
Test Reason : rhythm check Blood Pressure : / mmHG Vent. Rate : 075 BPM Atrial Rate : 075 BPM P-R Int : 162 ms QRS Dur : 098 ms QT Int : 482 ms P-R-T Axes : 062 040 060 degrees QTc Int : 538 ms Normal sinus rhythm T wave abnormality, consider anterior ischemia ST elevation in Anterior leads RSR' or QR pattern in V1 suggests right ventricular conduction delay Abnormal ECG When compared with ECG of 13-AUG-2022 16:02, ST less elevated in Anterior leads Clinical Correlation Advised Referred By: Mary Flores Electronically Signed By:TODD VELASCO MD
[2022-08-13] MEDS: propofoL 1,000 MG/100 ML VIAL 17.88 MG IVCONT (00:33)
[2022-08-13] MEDS: Acetaminophen 325 MG TABLET 650 MG PO ×2 (00:54→13:05)
[2022-08-13 01:46] LABS: VBG Base Excess -0.4 mmol/L; VBG HCO3 23 mmol/L (22-26); VBG pCO2 35 mmHg; VBG pH 7.42 (7.32-7.43); VBG pO2 54 mmHg
[2022-08-13 01:57] LABS: MANUAL DIFF FLAG NO
[2022-08-13 01:59] LABS: Basophils Percent Auto 0.3 % (0-2); Eosinophils Percent Auto 0.2 % (0-4); Hematocrit 37.6 % (42.0-52.0); Imm Gran Abs Auto 0.03 X10*3/uL (0.00-0.03); Imm Gran Pct Auto 0.3 % (0.0-0.4); Lymphocytes Absolute Auto 2.6 X10*3/uL (1.2-4.9); Lymphocytes Percent Auto 28.2 % (20-40); Mean Corpuscular HGB Conc 31.9 g/dl (31.0-36.0); Mean Corpuscular Hemoglobin 26.5 pg (27.0-33.0); Mean Platelet Volume 9.1 fL (9.4-12.4); Monocytes Absolute Auto 0.9 X10*3/uL (0.1-1.2); Monocytes Percent Auto 9.8 % (2-11); Neutrophils Absolute Auto 5.7 x10*3/uL (2.0-8.3); Neutrophils Percent Auto 61.2 % (45-73); Platelet Count 258 X10*3/uL (160-400); Red Blood Count 4.53 X10*6/uL (4.60-5.80); Red Cell Distribution Width 16.4 % (11.0-16.0); White Blood Count 9.3 X10*3/uL (4.8-10.8)
[2022-08-13 02:01] LABS: Appearance Urine Clear; Color Urine Yellow; Glucose Urine UA Negative (Negative); Leukocyte Esterase Urine Trace (Negative); Nitrite Urine Negative (Negative); Specific Gravity - Urine 1.015 (1.005-1.025); UMIC TRIGGER UACC YES; Urine Blood Moderate (2+) (Negative); Urine Ketones Negative (Negative); Urine Protein Negative (Neg-Trace)
[2022-08-13 02:14] LABS: Bacteria Urine None Seen (None Seen); Hyaline Casts Urine 0-2 /LPF (0-2); RBC Urine >20 /HPF (0-2); Squamous Epithelial Cell Urine 0-2 /HPF (0-2); WBC Urine 0-5 /HPF (0-5)
[2022-08-13 02:23] LABS: Alanine Aminotransferase 152 U/L (0-40); Albumin Level 3.7 g/dL (3.5-5.0); Alkaline Phosphatase 61 U/L (39-117); Anion Gap 14 (12-20); Aspartate Amino Transferase 109 U/L (5-37); Bilirubin Total 0.5 mg/dL (0.0-1.0); Blood Urea Nitrogen 11 mg/dL (9-16); Calcium 8.6 mg/dL (8.4-10.2); Carbon Dioxide 22 mmol/L (22-29); Chloride 108 mmol/L (96-108); Creatinine Clr Calc Pharmacy 107.9; Estimated Glomerular Filt Rate > 60; Glucose Random 91 mg/dL (60-115); Sodium 140 mmol/L (135-145); Total Protein 6.2 g/dL (6.5-8.0)
[2022-08-13] MEDS: Phenylephrine HCL 20 MG in 0.9 % Sodium Chloride 250 ML 61.95 MG IVCONT (03:21)
[2022-08-13] MEDS: Heparin Sodium,Porcine 5,000 UNIT/ML VIAL 5000 UNIT SUBCUT ×3 (03:22→19:42)
[2022-08-13] MEDS: Artificial Tears Ophth Oint 3.5 GM TUBE 1 APPL EYE-BOTH ×3 (05:59→19:43)
[2022-08-13 06:01] LABS: Venous Blood Gas Refer to POC result
[2022-08-13] MEDS: propofoL 1,000 MG/100 ML VIAL 15.65 MG IVCONT ×2 (06:03→12:07)
--- NOTE | 2022-08-13 06:39 | P.PNCC_ITS ---
Subjective Subjective Date of Service: 08/13/22 Interval History: Nursing noticed ST changes on the monitor and we did a 12 lead EKG and he had profound ST elevation T-wave inversion across the precordial leads V1 to V6 as well as inferiorly and it looked like he could be evolving and anterior wall infarct we sent a stat troponin which was modestly elevated at 450 but we did bedside echo and on bedside echo wall motion was globally normal no segmental wall motion abnormality right down to the apex normal RV size and function with no valve or pericardial disease I had concerns that this could be an EKG manifestation of an intracranial issue and the mid off the propofol just literally for a few minutes and fentanyl as well the he manifested a generalized seizure which abated with for 5 mg of Versed and then it recurred several minutes later and again abated with 5 mg of Versed and he was loaded with 500 mg of Keppra and started on a Versed drip and the 1st thing I ordered was a stat head CT scan to compare with the 1 on presentation and indeed he had severe diffuse cerebral edema and before I transferred him for they had CT scan I had also given him 12.5 g of IV mannitol and he came through the CT scan comfortably but clearly the prognosis here is did is dismal because this is all representing and a severe extensive and anoxic encephalopathy and for the purpose of the declaration of brain will will do a nuclear flow scan in the morning Critical Care Time (minutes): 45 Physical Exam Vital Signs: Vital Signs: Last Vital Signs Temp 99.8 F 08/13/22 03:29 Pulse 75 08/13/22 06:00 Resp 16 08/13/22 06:00 BP 129/70 08/13/22 06:00 Pulse Ox 100 08/13/22 06:00 O2 Del Method 08/13/22 06:00 FiO2 30 08/13/22 06:00 BMI result Body Mass Index 26.5 Postictal he remained off the sedation and did not reawaken but I did not treat as a nonconvulsive status epilepticus because of the extent of the cerebral edema already it did clearing a very poor prognosis for any meaningful recovery With pupils remain pinpoint and unresponsive Babinski's were negative but he remains yet unresponsive to deep pain Cardiac exam within normal limits as described by echo Abdomen without organomegaly Chest is clear both to chest x-ray and auscultation Skin intact no acrocyanosis Objective Data Labs CBC & Chem 7: 08/13/22 01:28 08/13/22 01:28 Labs: Laboratory Results - last 24 hr 08/11/22 08/13/22 08/13/22 18:44 01:12 01:28 WBC 9.3 RBC 4.53 L Hgb 12.0 L Hct 37.6 L MCV 83.0 MCH 26.5 L MCHC 31.9 RDW 16.4 H Plt Count 258 MPV 9.1 L Immature Gran % (Auto) 0.3 Neut % (Auto) 61.2 Lymph % (Auto) 28.2 Allen % (Auto) 9.8 Eos % (Auto) 0.2 Baso % (Auto) 0.3 Lymph # (Auto) 2.6 [place] # (Auto) 0.9 Eos # (Auto) 0.0 Baso # (Auto) 0.0 Abs Immat Gran (auto) 0.03 Absolute Neuts (auto) 5.7 Absolute Nucleated RBC 0.000 Nucleated RBC % (auto) 0.0 O2 Saturation 100.0 ABG pH at Pt Temp 7.32 L ABG pCO2 at Pt Temp 35 ABG pO2 at Pt Temp 187 H ABG HCO3 18 L ABG Base Excess (Actual) -6.6 VBG pH VBG pCO2 VBG pO2 VBG HCO3 VBG O2 Saturation VBG Base Excess Sodium Potassium Chloride Carbon Dioxide Anion Gap BUN Creatinine Estim Creat Clear Calc Estimated GFR Random Glucose Calcium Total Bilirubin AST ALT Alkaline Phosphatase Total Protein Albumin Urine Color Yellow Urine Appearance Clear Urine pH 5.0 Ur Specific [place] 1.015 Urine Protein Negative Urine Glucose (UA) Negative Urine Ketones Negative Urine Blood Moderate (2+) H Urine Nitrite Negative Ur Leukocyte Esterase Trace H Urine RBC >20 H Urine WBC 0-5 Urine WBC Clumps Cancelled Ur Squamous Epith Cells 0-2 Ur Transition Epith Cell Cancelled Ur Renal Epithelial Cell Cancelled Calcium Oxalate Crystal Cancelled Leucine Crystals Cancelled Cystine Crystals Cancelled Tyrosine Crystals Cancelled Other Crystals Cancelled Urine Bacteria None Seen Urine Parasites Cancelled Bilirubin Casts Cancelled Epithelial Casts Cancelled Fatty Casts Cancelled Hyaline Casts 0-2 Granular Casts Cancelled Waxy Casts Cancelled Broad Casts Cancelled RBC Casts Cancelled WBC Casts Cancelled Other Casts Cancelled Urine Trichomonas Cancelled Urine Yeast Cancelled 08/13/22 08/13/22 01:28 01:39 WBC RBC Hgb Hct MCV MCH MCHC RDW Plt Count MPV Immature Gran % (Auto) Neut % (Auto) Lymph % (Auto) [place] % (Auto) Eos % (Auto) Baso % (Auto) Lymph # (Auto) [place] # (Auto) Eos # (Auto) Baso # (Auto) Abs Immat Gran (auto) Absolute Neuts (auto) Absolute Nucleated RBC Nucleated RBC % (auto) O2 Saturation ABG pH at Pt Temp ABG pCO2 at Pt Temp ABG pO2 at Pt Temp ABG HCO3 ABG Base Excess (Actual) VBG pH 7.42 VBG pCO2 35 VBG pO2 54 VBG HCO3 23 VBG O2 Saturation 84.0 VBG Base Excess -0.4 Sodium 140 Potassium 4.0 Chloride 108 Carbon Dioxide 22 Anion Gap 14 BUN 11 Creatinine 0.87 Estim Creat Clear Calc 107.9 Estimated GFR > 60 Random Glucose 91 Calcium 8.6 Total Bilirubin 0.5 AST 109 H ALT 152 H Alkaline Phosphatase 61 Total Protein 6.2 L Albumin 3.7 Urine Color Urine Appearance Urine pH Ur Specific [place] Urine Protein Urine Glucose (UA) Urine Ketones Urine Blood Urine Nitrite Ur Leukocyte Esterase Urine RBC Urine WBC Urine WBC Clumps Ur Squamous Epith Cells Ur Transition Epith Cell Ur Renal Epithelial Cell Calcium Oxalate Crystal Leucine Crystals Cystine Crystals Tyrosine Crystals Other Crystals Urine Bacteria Urine Parasites Bilirubin Casts Epithelial Casts Fatty Casts Hyaline Casts Granular Casts Waxy Casts Broad Casts RBC Casts WBC Casts Other Casts Urine Trichomonas Urine Yeast Microbiology Microbiology Results: Microbiology 08/11/22 20:12 Urine clean catch - Urine de la cruz top Urine Culture - Preliminary No growth to date. 08/12/22 10:17 Blood - Venous Blood Culture - Final 08/12/22 10:17 Blood - Venous Blood Culture - Final Progress Note: A&P Assessment and plan (1) Intracranial hypertension: Status: Acute (2) Anoxic encephalopathy: Status: Acute (3) Unresponsive state: Status: Acute (4) CAYETANO (acute kidney injury): Status: Acute (5) Polysubstance abuse: Status: Acute (6) Respiratory failure: Status: Acute (7) Cardiac arrest: Status: Acute (8) Schizophrenia: Status: Acute (9) Opioid use disorder: Status: Acute (10) Bipolar disorder: Status: Acute Plan 32-year-old found asystolic and apneic on the street related to polysubstance intoxication he was resuscitated but apparently had prolonged down time as a result has a severe anoxic encephalopathy with grave prognosis had a generalized seizure and hyperacute ST changes on precordial leads all a manifestation of elevated intracranial pressure from diffuse cerebral edema clear-cut in a progression from previous head CT and the plan is for a nuclear flow scan of the brain to document that this is a terminal event so we might need to petition for terminal extubation Quality Stroke Does the patient have a stroke diagnosis?: No VTE Prior VTE?: No VTE Risk Level:: Medical - moderate - high VTE Device Contraindication: N/A - Device Ordered VTE Drug Contraindication: N/A - Med Ordered
--- NOTE | 2022-08-13 06:41 | PC.NURSE ---
Remains intubated and on ACVC settings. Was on tube feeding with nimbex gtt running; discussed with MD, and stopped nimbex about 1 AM and continued to uptitrate TF per orders, well tolerated. New temp Tmax 102.8, discussed with MD, and despite recent blood cx pending, new walls cultures collected as well as CXR per MD, all pending, new order for tylenol via OGT administered with good effect in conjunction with ice packs and cool cloth to forehead. Weaned Propfol down from 40 to 35, patient opens eyes spontaneously, no tracking, no commands. Tolerated repositioning and bathing without incident. Occasional coughing fits.
[2022-08-13] MEDS: Chlorhexidine Gluc Oral Rinse 15 ML MOUTHWASH BUCCAL ×3 (09:00→19:42)
[2022-08-13] MEDS: Famotidine/PF 20 MG/2 ML VIAL IVPUSH (09:00)
[2022-08-13] MEDS: Phenylephrine HCL 20 MG in 0.9 % Sodium Chloride 250 ML 33.79 MG IVCONT (10:38)
[2022-08-13] MEDS: fentaNYL citrate/NS 1,000 MCG/100 ML PLAST..BAG 5 MCG IVCONT (12:06)
--- NOTE | 2022-08-13 15:36 | MHC.CM.PN ---
Pt intubated in ICU following cardiac arrest in the community presumably related to his + tox screen and drug hx. Attempted x 3 to contact pt's next of kin, Harman Paiz at the number provided. Continuous busy signal. Call placed to the [facility] to inquire on any missing persons report: none for this pt. CM to continue following for next of contact and/or d/c plan finalization
--- NOTE | 2022-08-13 15:38 | ECG_ITS ---
Test Reason : rhythm check Blood Pressure : / mmHG Vent. Rate : 071 BPM Atrial Rate : 071 BPM P-R Int : 166 ms QRS Dur : 108 ms QT Int : 468 ms P-R-T Axes : 064 015 037 degrees QTc Int : 508 ms Normal sinus rhythm T-wave inversion in Anterior leads ST elevation consider anterolateral injury or acute infarct Prolonged QT ACUTE OH / STEMI Abnormal ECG ST elevation in Anterior leads is new T-wave inversion in Anterior leads is new Clinical Correlation Advised Referred By: Mary Flores Electronically Signed By:TODD VELASCO MD
[2022-08-13] MEDS: Midazolam HCl/PF 2 MG/2 ML VIAL 5 MG IVPUSH ×2 (16:03→16:34)
[2022-08-13] MEDS: Midazolam HCl/NS 50 MG/50 ML PLAST..BAG IVCONT (16:46)
[2022-08-13] MEDS: MannitoL 12.5 GM/50 ML VIAL IV (16:47)
[2022-08-13] MEDS: levETIRAcetam in NaCl (iso-os) 500 MG/100 ML PIGGYBACK 400 MG IV (16:47)
[2022-08-13 17:28] LABS: Troponin-I High Sensitivity 453.5 ng/L (<3.5-35.0)
[2022-08-13] MEDS: Phenylephrine HCL 20 MG in 0.9 % Sodium Chloride 250 ML 28.16 MG IVCONT (19:24)
--- NOTE | 2022-08-13 19:30 | PC.NURSE ---
ST ELEVATION NOTED IN PATIENT BY CMT. 12 LEAD EKG PERFORMED AND REVIEWED BY MD. SEDATION VACATION STARTED AT 150 WITH PROPOFOL AND FENTANYL. FAILED SEDATION VACATION, SEIZURE ACTIVITY NOTED BY RN AND MD. 5MG IVP VERSED GIVEN PER MD, SEE EMAR. SEIZURE ACTIVITY STOPPED. ECHO PREFORMED BEDSIDE BY MD. FOLLOW UP EKG PREFORMED AND REVIEWED BY MD. PATIENT VOMITED 500 ML. FOLLOWED BY SEIZURE ACTIVITY. 5MG IVP VERSED GIVEN PER MD WITH GOOD EFFECT. SEIZURE ACTIVITY STOPPED. SEE EMAR. MANNITOL GIVEN IVP, KEPPRA 500ML DRIP STARTED, VERSED DRIP STARTED FOLLOWING SECOND SEIZURE PER MD, SEE EMAR. PATIENT BROUGHT DOWN TO ED FOR A HEAD CT. PATIENT TOLERATED CT WELL. AFTER REPOSITIONING PATIENT ON BED, PATIENT VOMITED 500 ML. PATIENT BROUGHT BACK TO ICU. WHEN IN ROOM CLEANING PATIENT WAS NOTED TO HAVE QUESTIONABLE SEIZURE ACTIVITY, MD NOTIFIED, NO FURTHER ORDERS. TLC DRESSING CHANGED, PATIENT BATHED, REPOSITIONED, TUBE TAMER CHANGED ALL DUE TO BEING SOILED.
[2022-08-13 20:32] LABS: Troponin-I High Sensitivity 369.4 ng/L (<3.5-35.0)
[2022-08-14] VITALS (32 sets, daily range): BP systolic 120–141; BP diastolic 61–83; PULSE 74–99; RESP 12–27; TEMP 35–38.7; O2SAT 90–100; BMI 25.9
[2022-08-14] MEDS: Artificial Tears Ophth Oint 3.5 GM TUBE 1 APPL EYE-BOTH ×5 (00:26→21:05)
[2022-08-14] MEDS: Midazolam HCl/NS 50 MG/50 ML PLAST..BAG IVCONT ×3 (00:51→20:59)
[2022-08-14] MEDS: Phenylephrine HCL 20 MG in 0.9 % Sodium Chloride 250 ML 25.35 MG IVCONT (02:14)
[2022-08-14] MEDS: Heparin Sodium,Porcine 5,000 UNIT/ML VIAL 5000 UNIT SUBCUT ×3 (02:15→20:59)
[2022-08-14 04:27] LABS: VBG Base Excess 3.3 mmol/L; VBG HCO3 27 mmol/L (22-26); VBG pCO2 37 mmHg; VBG pH 7.46 (7.32-7.43); VBG pO2 60 mmHg
[2022-08-14 04:39] LABS: MANUAL DIFF FLAG NO
[2022-08-14 04:40] LABS: Basophils Percent Auto 0.1 % (0-2); Hemoglobin 11.9 g/dl (14.0-18.0); Imm Gran Abs Auto 0.04 X10*3/uL (0.00-0.03); Imm Gran Pct Auto 0.4 % (0.0-0.4); Lymphocytes Absolute Auto 1.3 X10*3/uL (1.2-4.9); Lymphocytes Percent Auto 13.6 % (20-40); Mean Corpuscular HGB Conc 32.2 g/dl (31.0-36.0); Mean Corpuscular Hemoglobin 26.4 pg (27.0-33.0); Mean Corpuscular Volume 82.2 fL (80.0-98.0); Mean Platelet Volume 9.2 fL (9.4-12.4); Monocytes Absolute Auto 0.7 X10*3/uL (0.1-1.2); Monocytes Percent Auto 7.9 % (2-11); Neutrophils Absolute Auto 7.3 x10*3/uL (2.0-8.3); Platelet Count 259 X10*3/uL (160-400); Red Cell Distribution Width 15.8 % (11.0-16.0); White Blood Count 9.4 X10*3/uL (4.8-10.8)
[2022-08-14 04:57] LABS: Anion Gap 15 (12-20); Blood Urea Nitrogen 11 mg/dL (9-16); Calcium 8.8 mg/dL (8.4-10.2); Carbon Dioxide 24 mmol/L (22-29); Chloride 104 mmol/L (96-108); Creatinine Clr Calc Pharmacy 136.1; Estimated Glomerular Filt Rate > 60; Glucose Random 128 mg/dL (60-115); Magnesium 2.1 mg/dL (1.6-2.6); Potassium 4.1 mmol/L (3.3-5.1); Sodium 139 mmol/L (135-145)
[2022-08-14 05:07] LABS: Troponin-I High Sensitivity 302.7 ng/L (<3.5-35.0)
[2022-08-14 06:11] LABS: Venous Blood Gas Refer to POC result
--- NOTE | 2022-08-14 06:37 | PC.NURSE ---
CARE ASSUMED 23:15..REMAINS TUBED/VENTED..UNRESPONSIVE TO VERBAL/NOXIOUS STIMULI..EXTREMETIES FLACCID...PUPILS 3MM AND SLUGGISHLY REACTIVE..INITIALLY POSITIVE COUGH REFLEX TO SUCTIONING..MD AT BEDSIDE 4AM...COUGH REFLEX ABSENT..TRANSIENT SEIZURE ACTIVITY WHEN DEEP SUCTIONED BY MD...VERSED DRIP MAINTAINED 2MG/HR..NSR NO ECTOPY
--- NOTE | 2022-08-14 07:10 | P.PNCC_ITS ---
Subjective Subjective Date of Service: 08/14/22 Interval History: On 1 of my stops this morning I noted again he was seizing on the Versed drip I gave him an additional 3 mg which stopped the seizure on eyes were in an upward and outward gaze bilaterally but discordant but this time pupils were were about the 3 mm each and and they were responsive to light but he had no doll's eyes no corneal reflexes no gag reflex but when I reduced the respiratory rate on the ventilator he did have spontaneous respiration so certainly by exam the can not really declare brain but he is due for nuclear flow scan today Last night's event when he developed those profound EKG changes and I noted that he had completely normal wall motion by bedside echo and of course the troponins which peaked at 04:50 but they were relatively flat and was all consistent with probably an evolving Takotsubo syndrome and I felt the central nervous system would be the source and he developed status epilepticus which responded eventually to IV Versed given 1 dose of Keppra and 1 dose of mannitol presumptively because I felt this was catastrophic and I was concerned with possibly an impending herniation so a use the mannitol to safely bring him over to CT scan where we demonstrated that he had massive cerebral edema and of course the prognosis for recovery is nil so we are now pending a nuclear flow scan of of the brain because clearly if there is no flow than we might need to petition for terminal extubation All lab work shows that he is metabolically normal and I will perform an other exam to establish brain but he did have to be no positive cranial nerve reflexes in a pupillary responsiveness bilaterally and spontaneous respiration He went for his nuclear medicine flow scan which basically showed normal bilateral flow And again bedside exam it he did have pupillary reaction even though his gaze was fixed in an upward outward fashion with no doll's eyes no corneal reflex no gag reflex but he did have spontaneous respiration We finally made contact with family through the police and explained at least to his sister the nature of his admission and the negativity of the prognosis and the family will come in to see him tomorrow Critical Care Time (minutes): 60 Physical Exam Vital Signs: Vital Signs: Last Vital Signs Temp 101.3 F H 08/14/22 02:48 Pulse 84 08/14/22 07:00 Resp 17 08/14/22 07:00 BP 132/74 08/14/22 07:00 Pulse Ox 97 08/14/22 07:00 O2 Del Method 08/14/22 07:00 FiO2 30 08/14/22 07:00 BMI result Body Mass Index 25.9 To neurologically he is unresponsive even to deep pain coming off of the sedation The only cranial reflexes were pupillary reaction and they were there we equal bilaterally at 3 mm as well as spontaneous respiration but no other cranial nerve response toes were bilaterally town downgoing Cardiac exam by bedside echo preserved LV function Chest is clear without adventitious sounds Abdomen benign with no organomegaly Objective Data Labs CBC & Chem 7: 08/14/22 04:12 08/14/22 04:12 Labs: Laboratory Results - last 24 hr 08/13/22 08/13/22 08/14/22 16:48 19:48 04:12 WBC 9.4 RBC 4.50 L Hgb 11.9 L Hct 37.0 L MCV 82.2 MCH 26.4 L MCHC 32.2 RDW 15.8 Plt Count 259 MPV 9.2 L Immature Gran % (Auto) 0.4 Neut % (Auto) 78.0 H Lymph % (Auto) 13.6 L [place] % (Auto) 7.9 Eos % (Auto) 0.0 Baso % (Auto) 0.1 Lymph # (Auto) 1.3 [place] # (Auto) 0.7 Eos # (Auto) 0.0 Baso # (Auto) 0.0 Abs Immat Gran (auto) 0.04 H Absolute Neuts (auto) 7.3 Absolute Nucleated RBC 0.000 Nucleated RBC % (auto) 0.0 VBG pH VBG pCO2 VBG pO2 VBG HCO3 VBG O2 Saturation VBG Base Excess Sodium Potassium Chloride Carbon Dioxide Anion Gap BUN Creatinine Estim Creat Clear Calc Estimated GFR Random Glucose Calcium Magnesium Troponin I High Sens 453.5 H* D 369.4 H* 08/14/22 08/14/22 08/14/22 04:12 04:12 04:20 WBC RBC Hgb Hct MCV MCH MCHC RDW Plt Count MPV Immature Gran % (Auto) Neut % (Auto) Lymph % (Auto) [place] % (Auto) Eos % (Auto) Baso % (Auto) Lymph # (Auto) [place] # (Auto) Eos # (Auto) Baso # (Auto) Abs Immat Gran (auto) Absolute Neuts (auto) Absolute Nucleated RBC Nucleated RBC % (auto) VBG pH 7.46 H VBG pCO2 37 VBG pO2 60 VBG HCO3 27 H VBG O2 Saturation 89.0 VBG Base Excess 3.3 Sodium 139 Potassium 4.1 Chloride 104 Carbon Dioxide 24 Anion Gap 15 BUN 11 Creatinine 0.69 Estim Creat Clear Calc 136.1 Estimated GFR > 60 Random Glucose 128 H D Calcium 8.8 Magnesium 2.1 Troponin I High Sens 302.7 H* Microbiology Microbiology Results: Microbiology 08/13/22 01:12 Blood - Venous Blood Culture - Preliminary No growth after 24 hours. 08/13/22 01:12 Blood - Venous Blood Culture - Preliminary No growth after 24 hours. 08/12/22 10:45 Blood - Venous Blood Culture - Preliminary No growth after 24 hours. 08/12/22 10:45 Blood - Venous Blood Culture - Preliminary No growth after 24 hours. 08/11/22 20:12 Urine clean catch - Urine de la cruz top Urine Culture - Final No growth. 08/13/22 01:12 Sputum - Suctioned Gram Stain - Final 08/12/22 10:17 Blood - Venous Blood Culture - Final 08/12/22 10:17 Blood - Venous Blood Culture - Final Progress Note: A&P Assessment and plan (1) Anoxic encephalopathy: Status: Acute (2) Intracranial hypertension: Status: Acute (3) Unresponsive state: Status: Acute (4) CAYETANO (acute kidney injury): Status: Acute (5) Polysubstance abuse: Status: Acute (6) Respiratory failure: Status: Acute (7) Cardiac arrest: Status: Acute (8) Schizophrenia: Status: Acute (9) Opioid use disorder: Status: Acute (10) Bipolar disorder: Status: Acute Plan So the plan at this point would be to repeat another brain exam and in the morning and maintain his seizure treatment [place] sees had multiple that are witnessed and he is on Keppra at 500 mg q.12 and he is on of 4 milligram/hour Versed drip on the ventilator assistance and we will assess by EEG in the morning to rule out nonconvulsive status epilepticus Quality Stroke Does the patient have a stroke diagnosis?: No VTE Prior VTE?: No VTE Risk Level:: Medical - moderate - high VTE Device Contraindication: N/A - Device Ordered VTE Drug Contraindication: N/A - Med Ordered
[2022-08-14] MEDS: Chlorhexidine Gluc Oral Rinse 15 ML MOUTHWASH BUCCAL ×3 (07:28→20:59)
[2022-08-14] MEDS: Famotidine/PF 20 MG/2 ML VIAL IVPUSH (07:28)
--- NOTE | 2022-08-14 12:44 | MHC.CM.PN ---
Addendum entered by Cristy Andre 08/14/22 16:23: [place] police were able to locate pt's sister Flor Coyne who is on her way to [facility] to see her brother. Pt's mother, Preeti is reportedly ill and unable to visit. CM to follow : [employer] has obtained contact information for pt's sister and will update the EMR Addendum entered by Cristy Andre 08/14/22 14:03: [facility] called CM to report a possible next of kin residing in [place], [place]. Preeti Coyne at [phone] listed at pt's mother. Call placed to number: message left requesting urgent call back to [facility]. Call placed to [place] [employer] requesting an officer go to residence to direct constitution party to contact [facility] ICU (unit number given). CM to follow Addendum entered by Cristy Andre 08/14/22 13:17: [place] did not have any information re: pt in that city but did direct this science writer to [place] as his last address listed was [address] [place] [address]. Call to [place] [employer] - that address is a large homeless retirement. [employer] to search for any address, contacts, next of kin and call [facility] CM back if a search turns up any promising information. CM to call retirement for any next of kin information. Original Note: Pt continues care in ICU where his condition has worsened: Head imaging is positive for a significant anoxic brain injury. No calls received from family or friends. Call placed to [place] requesting a visit to the pt's address on file. Police call back notes not a valid address. D states pt had an address in [place] in 2019 - they suggest trying the [employer]. ICU staff attempted a social media search of pt for contact information but were not successful.
[2022-08-14] MEDS: levETIRAcetam in NaCl (iso-os) 500 MG/100 ML PIGGYBACK 400 MG IV (13:55)
[2022-08-14] MEDS: Phenylephrine HCL 20 MG in 0.9 % Sodium Chloride 250 ML 19.71 MG IVCONT (14:13)
--- NOTE | 2022-08-14 18:57 | PC.NURSE ---
PATIENT REMAINED ON AC/VC VENT SETTINGS FOR ENTIRETY OF THE DAY. PATIENT BROUGHT DOWN TO RADIOLOGY FOR NUCLEAR PERFUSION SCAN, SEE RESULTS. POSSIBLE SEIZURE ACTIVITY NOTED, MD NOTIFIED WITH NO FURTHER ORDERS. PATIENT OTHERWISE HANDLED PROCEDURE WELL. PATIENT BATHED, ROTATED Q2HR, SISTER LOCATED AND UPDATED ON HEALTH STATUS.
--- NOTE | 2022-08-14 19:34 | PC.NURSE ---
A WOMAN BY THE NAME OF NATALY (UNKNOWN LAST NAME) STATES SHE HAS CHILDREN WITH PATIENT UNABLE TO GIVEN HER INFORMATION AT THIS TIME UNTIL CONFIRMATION BY PATIENTS SISTER ONCE SHE ARRIVES IF APPROVED TO GIVE INFORMATION NATALY HER PHONE IS [phone]
[2022-08-15] VITALS (30 sets, daily range): BP systolic 116–143; BP diastolic 63–89; PULSE 71–97; RESP 12–28; TEMP 34.6–38; O2SAT 90–100; BMI 25.9
[2022-08-15] MEDS: Heparin Sodium,Porcine 5,000 UNIT/ML VIAL 5000 UNIT SUBCUT ×3 (02:48→19:27)
[2022-08-15] MEDS: levETIRAcetam in NaCl (iso-os) 500 MG/100 ML PIGGYBACK 400 MG IV ×2 (02:49→14:27)
[2022-08-15] MEDS: Artificial Tears Ophth Oint 3.5 GM TUBE 1 APPL EYE-BOTH ×4 (05:30→22:11)
[2022-08-15 05:35] LABS: MANUAL DIFF FLAG NO
[2022-08-15 05:39] LABS: Basophils Percent Auto 0.2 % (0-2); Eosinophils Percent Auto 0.1 % (0-4); Hematocrit 35.4 % (42.0-52.0); Hemoglobin 11.8 g/dl (14.0-18.0); Imm Gran Abs Auto 0.03 X10*3/uL (0.00-0.03); Imm Gran Pct Auto 0.4 % (0.0-0.4); Lymphocytes Percent Auto 23.8 % (20-40); Mean Corpuscular HGB Conc 33.3 g/dl (31.0-36.0); Mean Corpuscular Hemoglobin 27.3 pg (27.0-33.0); Mean Corpuscular Volume 81.8 fL (80.0-98.0); Mean Platelet Volume 9.1 fL (9.4-12.4); Monocytes Absolute Auto 0.9 X10*3/uL (0.1-1.2); Neutrophils Absolute Auto 5.3 x10*3/uL (2.0-8.3); Neutrophils Percent Auto 64.5 % (45-73); Platelet Count 276 X10*3/uL (160-400); Red Blood Count 4.33 X10*6/uL (4.60-5.80); Red Cell Distribution Width 15.4 % (11.0-16.0); White Blood Count 8.3 X10*3/uL (4.8-10.8)
[2022-08-15 05:41] LABS: VBG Base Excess 0.3 mmol/L; VBG HCO3 22 mmol/L (22-26); VBG pCO2 27 mmHg; VBG pH 7.51 (7.32-7.43); VBG pO2 68 mmHg
[2022-08-15 05:56] LABS: Alanine Aminotransferase 68 U/L (0-40); Albumin Level 3.7 g/dL (3.5-5.0); Alkaline Phosphatase 58 U/L (39-117); Anion Gap 15 (12-20); Aspartate Amino Transferase 82 U/L (5-37); Bilirubin Total 0.6 mg/dL (0.0-1.0); Blood Urea Nitrogen 14 mg/dL (9-16); Calcium 8.6 mg/dL (8.4-10.2); Carbon Dioxide 21 mmol/L (22-29); Chloride 105 mmol/L (96-108); Creatinine Clr Calc Pharmacy 146.7; Estimated Glomerular Filt Rate > 60; Glucose Random 102 mg/dL (60-115); Magnesium 2.2 mg/dL (1.6-2.6); Phosphorus 2.5 mg/dL (2.7-4.5); Potassium 3.9 mmol/L (3.3-5.1); Sodium 137 mmol/L (135-145); Total Protein 6.5 g/dL (6.5-8.0)
[2022-08-15 06:21] LABS: Venous Blood Gas Refer to POC result
[2022-08-15] MEDS: Famotidine/PF 20 MG/2 ML VIAL IVPUSH (08:18)
[2022-08-15] MEDS: Midazolam HCl/NS 50 MG/50 ML PLAST..BAG IVCONT ×2 (08:18→19:27)
[2022-08-15] MEDS: Chlorhexidine Gluc Oral Rinse 15 ML MOUTHWASH BUCCAL ×3 (08:18→22:12)
[2022-08-15] MEDS: Acetaminophen 325 MG TABLET 650 MG PO ×2 (08:39→22:12)
--- NOTE | 2022-08-15 09:02 | P.PNCC_ITS ---
Subjective Subjective Date of Service: 08/15/22 Interval History: Mr. Coyne was admitted to the ICU Aug 11 after [id number] cardiac arrest (OHCA). The patient is a 32 yo M with PMHx of bipolar disorder, schizophrenia, polysubstance abuse, rhabdomyolysis w CAYETANO, and suicidal ideation. On August 11, the patient was found unresponsive in the field.? Reportedly, the patient had been given Narcan by a bystander.? On EMS arrival, the patient was bradycardic but then became asystolic.? CPR was initiated and the patient was intubated with an i-gel LMA.? He was given 2 rounds of epinephrine and had ROSC w a strong pulse.? On arrival to the ED, the patient had pulses and a BP.? The patient was immediately trachealy intubated.? The patient had no response to painful stimulus, and was not breathing spontaneously.? Subsequently did make what sounds like agonal respiratory efforts.? The patient was admitted to the ICU. Initial head CT done 08/11 was read as showing no acute findings.? My reading suggests some loss of solano-white differentiation.? EEG done 08/12 was done wth the patient on propofol.? IMPRESSION: Abnormal EEG with burst suppression pattern, which is nonspecific but could suggest either severe anoxic encephalopathy or could also be manifestation of generalize status epilepticus.? No focality was noted.? Clinical correlation is recommended and r epeat EEG is recommended while propofol is off. Repeat head CT on 08/13 reports interval development of diffuse ill-defined hypoattenuation throughout the cerebrum with blurring of the de la cruz-white differentiation, sulcal effacement, and partial effacement of the lateral ventricles compatible with diffuse cerebral edema or anoxic brain injury. This morning, the patient is on a midazolam drip at 4 mg/hour because of repetitive seizures.? He is also on Keppra.? The phenylephrine drip is off.? Heart rate is 88, sinus rhythm.? Blood pressure 122/74.? On assist control 16/450/30%/+5, respiratory rate is 22, minute volume is 10 L.? PIP is 21cm.? Sat is 97%.? CVBG 7.51/27/0.? Afebrile.? Pupils about 3mm bilat.? Generalized seizures are easily provoked by stimulation.? Unable to check corneals,? No dolls eyes, no gag reflex, no response to painful stim, toes are flat.? No JVD, chest is CTA w normal exp phase, regular rate and rhythm with normal-sounding S1-S2 with no murmur or gallops.? The abdomen is benign.? He has no peripheral edema. LABORATORY DATA:? Below.? Notably, phosphorus 2.5.? AST and ALT are mildly elevated but coming down.? Troponin is coming down. Nuclear medicine cerebral flow study yesterday demonstrated normal perfusion.? No surprise given that by report, the patient still had spont RR at the time of the study. IMPRESSION: 1. OHCA 2. 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 3. Diffuse cerebral edema. 4. Recurrent generalized seizures. No prognosis for recovery of cortical function.? Likely to progress to brain , altho period of maximum edema (at 72 hrs) has passed, and he still has b rain stem fxn.? At best, he?ll wind up in a vegetative state. I?ve spoken at length to the patient?s sisters at the bedside about the situation.? They?re still grappling with how to handle it and how to convince their mother that Thai is not going to come back. I had a second conversation with the whole family, including the patient?s mother, who is the defacto HCP.? All questions answered. Critical care time (include review of both CT scans w Dr. Andre in radiology, and d/w Dr. Mart): 110+ min. Critical Care Time (minutes): 110 Physical Exam Vital Signs: Vital Signs: Last Vital Signs Temp 100 F 08/15/22 05:58 Pulse 87 08/15/22 08:00 Resp 17 08/15/22 08:00 BP 119/71 08/15/22 08:00 Pulse Ox 95 08/15/22 08:00 O2 Del Method 08/15/22 08:00 FiO2 30 08/15/22 08:00 BMI result Body Mass Index 25.9 Objective Data Labs CBC & Chem 7: 08/15/22 05:24 08/15/22 05:24 Labs: Laboratory Results - last 24 hr 08/15/22 08/15/22 08/15/22 05:24 05:24 05:36 WBC 8.3 RBC 4.33 L Hgb 11.8 L Hct 35.4 L MCV 81.8 MCH 27.3 MCHC 33.3 RDW 15.4 Plt Count 276 MPV 9.1 L Immature Gran % (Auto) 0.4 Neut % (Auto) 64.5 Lymph % (Auto) 23.8 [place] % (Auto) 11.0 Eos % (Auto) 0.1 Baso % (Auto) 0.2 Lymph # (Auto) 2.0 [place] # (Auto) 0.9 Eos # (Auto) 0.0 Baso # (Auto) 0.0 Abs Immat Gran (auto) 0.03 Absolute Neuts (auto) 5.3 Absolute Nucleated RBC 0.000 Nucleated RBC % (auto) 0.0 VBG pH 7.51 H VBG pCO2 27 VBG pO2 68 VBG HCO3 22 VBG O2 Saturation 94.0 VBG Base Excess 0.3 Sodium 137 Potassium 3.9 Chloride 105 Carbon Dioxide 21 L Anion Gap 15 BUN 14 Creatinine 0.64 Estim Creat Clear Calc 146.7 Estimated GFR > 60 Random Glucose 102 Calcium 8.6 Phosphorus 2.5 L Magnesium 2.2 Total Bilirubin 0.6 AST 82 H ALT 68 H Alkaline Phosphatase 58 Total Protein 6.5 Albumin 3.7 Microbiology Microbiology Results: Microbiology 08/13/22 01:12 Sputum - Suctioned Gram Stain - Final 08/13/22 01:12 Sputum - Suctioned Sputum Culture - Final 08/13/22 01:12 Blood - Venous Blood Culture - Preliminary No growth after 48 hours. 08/13/22 01:12 Blood - Venous Blood Culture - Preliminary No growth after 48 hours. 08/12/22 10:45 Blood - Venous Blood Culture - Preliminary No growth after 48 hours. 08/12/22 10:45 Blood - Venous Blood Culture - Preliminary No growth after 48 hours. 08/13/22 01:12 Urine Catheterized - Bush Catheter Urine Culture - Final No growth. 08/11/22 20:12 Urine clean catch - Urine de la cruz top Urine Culture - Final No growth. 08/12/22 10:17 Blood - Venous Blood Culture - Final 08/12/22 10:17 Blood - Venous Blood Culture - Final Quality Stroke Does the patient have a stroke diagnosis?: No VTE Prior VTE?: No VTE Risk Level:: Medical - moderate - high VTE Device Contraindication: N/A - Device Ordered VTE Drug Contraindication: N/A - Med Ordered Critical Care Time Critical Care Time (minutes): 120
--- NOTE | 2022-08-15 10:26 | MHC.CLN ---
F/U PT REMAINS INTUBATED TF IS CURRENTLY ON HOLD SINCE 08/12 R/T VOMITING EPISODE PT PREVIOUSLY RECEIVED JEVITY 1.0 AT MAX GOAL RATE 55ML/HR WITH 240ML FREE WATER FLUSHES Q 4 HRS TO PROVIDE 1399KCALS (1871KCALS WITH SEDATION; 25KCALS/KG), 58G PROTEIN, 2062ML TOTAL WATER FROM FORMULA AND FLUSHES (28ML/KG) DISCUSSED AT ROUNDS MD TO DISCUSS ADVANCED DIRECTIVES AND GOALS OF CARE WITH FAMILY FOLLOWING WITH TEAM
[2022-08-15] MEDS: Sodium,Potassium Phosphates POWD.PACK 2 PACKET PO ×2 (22:12→23:57)
[2022-08-15 23:02] LABS: Glucose, Whole Blood 99 mg/dL (60-115)
[2022-08-16] VITALS (32 sets, daily range): BP systolic 110–143; BP diastolic 63–85; PULSE 15–98; RESP 12–21; TEMP 34.6–38.1; O2SAT 92–99; BMI 25.7
--- NOTE | 2022-08-16 00:16 | PC.NURSE ---
Family in to visit, educated on and fully compliant with precautions during visit, and updated by MD as to patient status. Patient continues on mechanical ventilation, neurologically, pupils equal, round, sluggishly reactive at 3 mm, right eye strabismus deviating to the right, squeezes eyes shut and blinks to bright light, no pain response in all four extremities, frequent spastic activity with bilateral arms tremulous up to neck, PA aware, continues on versed gtt, no additional interventions, is seen to be blinking during spastic activity. Diaphoretic, no TF running, POC random 99, absent bowel sounds x4 quadrants, PA aware.
[2022-08-16] MEDS: levETIRAcetam in NaCl (iso-os) 500 MG/100 ML PIGGYBACK 400 MG IV ×2 (02:21→14:07)
[2022-08-16] MEDS: Heparin Sodium,Porcine 5,000 UNIT/ML VIAL 5000 UNIT SUBCUT ×3 (04:21→20:04)
[2022-08-16] MEDS: Artificial Tears Ophth Oint 3.5 GM TUBE 1 APPL EYE-BOTH ×4 (04:22→20:04)
[2022-08-16 05:28] LABS: VBG Base Excess 0.1 mmol/L; VBG HCO3 22 mmol/L (22-26); VBG pCO2 30 mmHg; VBG pH 7.48 (7.32-7.43); VBG pO2 52 mmHg
[2022-08-16 05:33] LABS: Venous Blood Gas Refer to POC result
[2022-08-16 06:29] LABS: Anion Gap 17 (12-20); Blood Urea Nitrogen 18 mg/dL (9-16); Calcium 8.6 mg/dL (8.4-10.2); Carbon Dioxide 21 mmol/L (22-29); Chloride 105 mmol/L (96-108); Creatinine Clr Calc Pharmacy 146.7; Estimated Glomerular Filt Rate > 60; Glucose Random 98 mg/dL (60-115); Magnesium 2.2 mg/dL (1.6-2.6); Phosphorus 3.9 mg/dL (2.7-4.5); Potassium 3.8 mmol/L (3.3-5.1); Sodium 139 mmol/L (135-145)
[2022-08-16] MEDS: Chlorhexidine Gluc Oral Rinse 15 ML MOUTHWASH BUCCAL ×3 (07:04→20:04)
[2022-08-16] MEDS: Famotidine/PF 20 MG/2 ML VIAL IVPUSH (07:04)
[2022-08-16] MEDS: Midazolam HCl/NS 50 MG/50 ML PLAST..BAG IVCONT (07:04)
--- NOTE | 2022-08-16 10:49 | PM.CCPN ---
Subjective Subjective Date of Service: 08/16/22 Interval History: Mr. Coyne was admitted to the ICU Aug 11 after [id number] cardiac arrest (OHCA). The patient is a 32 yo M with PMHx of bipolar disorder, schizophrenia, polysubstance abuse, rhabdomyolysis w CAYETANO, and suicidal ideation. On August 11, the patient was found unresponsive in the field.? Reportedly, the patient had been given Narcan by a bystander.? On EMS arrival, the patient was bradycardic but then became asystolic.? CPR was initiated and the patient was intubated with an i-gel LMA.? He was given 2 rounds of epinephrine and had ROSC w a strong pulse.? On arrival to the ED, the patient had pulses and a BP.? The patient was immediately trachealy intubated.? The patient had no response to painful stimulus, and was not breathing spontaneously.? Subsequently did make agonal respiratory efforts.? The patient was admitted to the ICU. Initial head CT done 08/11 was read as showing no acute findings.? IMO, the CT may have already shown some loss of solano-white differentiation.? EEG done 08/12 with the patient on propofol showed a burst suppression pattern, which is nonspecific but could suggest either severe anoxic encephalopathy or could also be a manifestation of generalize status epilepticus.? No focality was noted.? Clinical correlation was recommended and repeat EEG with the propofol off was recommended. Repeat head CT on 08/13 showed clear interval development of diffuse ill-defined hypoattenuation throughout the cerebrum with blurring of the de la cruz-white differentiation, sulcal effacement, and partial effacement of the lateral ventricles compatible with diffuse cerebral edema or anoxic brain injury. Nuclear medicine cerebral flow study that day demonstrated normal perfusion.? No surprise, given that by report, the patient still had spont RR at the time of the study.? The patient was put on a midazolam drip bec he was thought to be having repetitive seizures. This morning, the patient was on midazolam at 2 mg/hour.? Supposed seizures were becoming less frequent so the midazolam was d/c?d.? He is also on Keppra.? He?s on no pressors.? Tmax 100.3?.? HR 89, SR.? BP 125/78.? On assist control 16/450/30%/+5, RR is 17.? PIP is 21cm.? Sat is 95%.? CVBG 7.48/30/0.? Pupils about 3mm bilat, dysconjugate.? It doesn?t appear to me that he is siezing, but he is having myoclonus.? No corneals, No dolls eyes, no gag reflex to pulling the ET, but he does have a vigorous cough to suctioning.? No response to painful stim, toes are flat.? No JVD, chest is CTA w normal exp phase, regular rate and rhythm with normal-sounding S1-S2 with no murmur or gallops.? The abdomen is benign.? He has no peripheral edema. LABORATORY DATA:? Below. IMPRESSION: 1. OHCA 2. Diffuse cerebral edema. 3. Coma secondary to anoxic encephalopathy, with marked partial loss of brainstem reflexes.? Waiting for consultation by Dr. Mart. 4. Myoclonus.? Hope to repeat the EEG tomorrow to r/o seizures. No prognosis for recovery of cortical function.? Likely to progress to brain , altho the period of maximum edema (at 72 hrs) has passed, and he still has brain stem fxn.? At best, he?ll wind up in a vegetative state. I spoken at length with the patient?s family yesterday,? The daughters are grappling with how to handle it and how to convince their mother that Thai is not going to come back.? Hoping they?ll come back to see him again today. Critical care time (include mult visits to the bedside today bec of ? of seizure activity): ?60+ min. Critical Care Time (minutes): 60 Physical Exam Vital Signs: Vital Signs: Last Vital Signs Temp 99.3 F 08/16/22 08:00 Pulse 89 08/16/22 10:00 Resp 17 08/16/22 10:00 BP 125/78 08/16/22 10:00 Pulse Ox 94 08/16/22 10:00 O2 Del Method 08/16/22 10:00 FiO2 30 08/16/22 10:00 BMI result Body Mass Index 25.7 Objective Data Labs CBC & Chem 7: 08/15/22 05:24 08/16/22 05:22 Labs: Laboratory Results - last 24 hr 08/15/22 08/16/22 08/16/22 22:52 05:22 05:22 VBG pH 7.48 H VBG pCO2 30 VBG pO2 52 VBG HCO3 22 VBG O2 Saturation 79.0 VBG Base Excess 0.1 Sodium 139 Potassium 3.8 Chloride 105 Carbon Dioxide 21 L Anion Gap 17 BUN 18 H Creatinine 0.64 Estim Creat Clear Calc 146.7 Estimated GFR > 60 POC Glucose 99 Random Glucose 98 Calcium 8.6 Phosphorus 3.9 Magnesium 2.2 Microbiology Microbiology Results: Microbiology 08/13/22 01:12 Sputum - Suctioned Gram Stain - Final 08/13/22 01:12 Sputum - Suctioned Sputum Culture - Final 08/13/22 01:12 Blood - Venous Blood Culture - Preliminary No growth after 48 hours. 08/13/22 01:12 Blood - Venous Blood Culture - Preliminary No growth after 48 hours. 08/12/22 10:45 Blood - Venous Blood Culture - Preliminary No growth after 48 hours. 08/12/22 10:45 Blood - Venous Blood Culture - Preliminary No growth after 48 hours. 08/13/22 01:12 Urine Catheterized - Bush Catheter Urine Culture - Final No growth. 08/11/22 20:12 Urine clean catch - Urine de la cruz top Urine Culture - Final No growth. 08/12/22 10:17 Blood - Venous Blood Culture - Final 08/12/22 10:17 Blood - Venous Blood Culture - Final Quality Stroke Does the patient have a stroke diagnosis?: No VTE Prior VTE?: No VTE Risk Level:: Medical - moderate - high VTE Device Contraindication: N/A - Device Ordered VTE Drug Contraindication: N/A - Med Ordered Critical Care Time Critical Care Time (minutes): 60
[2022-08-16] MEDS: Glycopyrrolate 0.2 MG/ML VIAL IV ×2 (12:20→20:03)
[2022-08-16] MEDS: propofoL 200 MG/20 ML VIAL 40 MG IVPUSH (17:12)
[2022-08-16] MEDS: Midazolam HCl/PF 2 MG/2 ML VIAL 4 MG IVPUSH (17:16)
[2022-08-16] MEDS: propofoL 1,000 MG/100 ML VIAL 13.41 MG IVCONT (18:07)
--- NOTE | 2022-08-16 18:43 | PC.NURSE ---
Assumed care at 0700- patient HR 70s-80s. Patient exhibiting seizure-like activity with stimulation-MD aware. Versed gtt at 4mg/hr. Versed gtt titrated and stopped per EMAR, per MD. 1700- Patient exhibiting seizure-like activity spontaneously, without stimulation. HR sustaining 100s-110s. Peak inspiratory pressures >30- MD notified- no new orders at this time. After 5 minutes of timed seizure-like activity, Propofol and versed IVP given per EMAR per MD. seizure-like activity stopped briefly, then resumed within 5 minutes of versed and propofol IVP.. MD aware- no new orders at this time. pc network technician notified, conversation held between charge authorizer and MD- shortly thereafter propofol gtt ordered and hung per EMAR. cessation of seizure activity was noted 10 minutes after propofol gtt was started. Current VSS per flowsheet- No new orders at this time.
[2022-08-16] MEDS: propofoL 1,000 MG/100 ML VIAL 13 MG IVCONT (22:14)
[2022-08-17] VITALS (32 sets, daily range): BP systolic 97–150; BP diastolic 51–96; PULSE 81–120; RESP 12–25; TEMP 35–38.8; O2SAT 91–984; BMI 25.7
--- NOTE | 2022-08-17 | EEG_ITS ---
This is a 16-channel portable EEG performed in ICU and patient was intubated and propofol had been stopped. The background EEG rhythm was very low amplitude almost with no discernible regular rhythm. Every 1 to 2 seconds, there were brief low amplitude waves. Even this was not noted during the whole tracing. Cardiac lead did not reveal any significant abnormality. Some technical artifacts were noted. IMPRESSION: Abnormal EEG suggestive of severe bihemispheric dysfunction, which could be consistent with severe anoxic encephalopathy. MD ORA Kidd/AMANDA / [phone]
[2022-08-17] MEDS: levETIRAcetam in NaCl (iso-os) 500 MG/100 ML PIGGYBACK 400 MG IV ×2 (01:45→13:21)
[2022-08-17] MEDS: Heparin Sodium,Porcine 5,000 UNIT/ML VIAL 5000 UNIT SUBCUT ×3 (03:50→17:57)
[2022-08-17 05:16] LABS: VBG Base Excess 1.1 mmol/L; VBG HCO3 23 mmol/L (22-26); VBG pCO2 30 mmHg; VBG pH 7.49 (7.32-7.43); VBG pO2 53 mmHg
[2022-08-17] MEDS: propofoL 1,000 MG/100 ML VIAL 13 MG IVCONT (05:41)
[2022-08-17 05:44] LABS: Venous Blood Gas Refer to POC result
[2022-08-17 05:47] LABS: Anion Gap 16 (12-20); Blood Urea Nitrogen 20 mg/dL (9-16); Calcium 9.2 mg/dL (8.4-10.2); Carbon Dioxide 22 mmol/L (22-29); Chloride 106 mmol/L (96-108); Creatinine Clr Calc Pharmacy 151.4; Estimated Glomerular Filt Rate > 60; Glucose Random 112 mg/dL (60-115); Magnesium 2.5 mg/dL (1.6-2.6); Phosphorus 3.5 mg/dL (2.7-4.5); Potassium 4.2 mmol/L (3.3-5.1); Sodium 140 mmol/L (135-145)
[2022-08-17] MEDS: Glycopyrrolate 0.2 MG/ML VIAL IV (08:32)
[2022-08-17] MEDS: Famotidine/PF 20 MG/2 ML VIAL IVPUSH (08:32)
[2022-08-17] MEDS: Chlorhexidine Gluc Oral Rinse 15 ML MOUTHWASH BUCCAL ×3 (08:32→20:02)
[2022-08-17] MEDS: Rocuronium Bromide 50 MG/5 ML VIAL IVPUSH (08:52)
--- NOTE | 2022-08-17 09:16 | W.PM.CCHP ---
Procedures Date of Service Date of Service: 08/17/22 Intubation Intubation Comments: PROCEDURE NOTE:? Emergent video laryngoscopic tracheal reintubation. INDICATION:? Acute respiratory failure, with inadvertent dislodgement of in-situ ETT. Anesthesia:? Zemuron 50mg. I was called stat into the patient's room because of inadvertent tracheal extubation. We advanced the suction catheter through the endotracheal tube and railroaded the endotracheal tube over the suction catheter. Following that, with Ambu ventilation, there was no end-tidal CO2 and air was entering the stomach. The ETT and OGT were therefore removed. The patient was oxgenated by BVM ventilation. Sat never dropped below 90%. He was given 50 mg Zemuron to allow mouth opening. The glottis was visualized with a Glidescope 3 and the trachea was easily reintubated with a size 7.5 ETT. Secured at 25 cm at the teeth. The patient tolerated the procedure well with no complications. Consent for Procedure: Emergent-no informed consent obtained
--- NOTE | 2022-08-17 10:18 | MHC.CLN ---
F/U DISCUSSED AT ROUNDS WITH MD PT TO REMAIN NPO MD TO RE-ADDRESS ADVANCED DIRECTIVES WITH FAMILY PT'S PROGNOSIS VERY POOR FOLLOWING WITH TEAM AND WILL PROVIDE SUPPORT NEEDED
--- NOTE | 2022-08-17 10:41 | P.PNCC_ITS ---
Subjective Subjective Date of Service: 08/17/22 Interval History: Mr. Coyne was admitted to the ICU Aug 11 after knl-ff-[id number] cardiac arrest (OHCA). The patient is a 32 yo M with PMHx of bipolar disorder, schizophrenia, polysubstance abuse, rhabdomyolysis w CAYETANO, and suicidal ideation. On August 11, the patient was found unresponsive in the field.? Reportedly, the patient had been given Narcan by a bystander.? On EMS arrival, the patient was bradycardic but then became asystolic.? CPR was initiated and the patient was intubated with an i-gel LMA.? He was given 2 rounds of epinephrine and had ROSC w a strong pulse.? On arrival to the ED, the patient had pulses and a BP.? The patient was immediately trachealy intubated.? The patient had no response to painful stimulus, and was not breathing spontaneously.? Subsequently did make agonal respiratory efforts.? The patient was admitted to the ICU. Initial head CT done 08/11 was read as showing no acute findings.? IMO, the CT may have already shown some loss of solano-white differentiation.? EEG done 08/12 with the patient on propofol showed a burst suppression pattern, which is nonspecific but could suggest either severe anoxic encephalopathy or could also be a manifestation of generalize status epilepticus.? No focality was noted.? Clinical correlation was recommended and repeat EEG with the propofol off was recommended. Repeat head CT on 08/13 showed clear interval development of diffuse ill-defined hypoattenuation throughout the cerebrum with blurring of the de la cruz-white differentiation, sulcal effacement, and partial effacement of the lateral ventricles compatible with diffuse cerebral edema or anoxic brain injury. Nuclear medicine cerebral flow study that day demonstrated normal perfusion.? No surprise, given that by report, the patient still had spont RR at the time of the study.? The patient was put on a midazolam drip bec he was thought to be having repetitive seizures. The midazolam drip was stopped yesterday morning.? The patient remained on Keppra.? It appeared to me that he was having myoclonus, but no seizure activity.? This morning, he started having more high shivering that did not look like sz activity to me, kassidy to stimulation.? He required reintubation when his ETT was inadvertently dislodged (separate procedure). On no sedation, we switched him over to PSV.? HR 110, SR.? BP 116/66.? On PSV 12/30%/+5, RR is 25, Vt 500s, Ve 12-13L, PIP 21cm, ETCO2 27mm, Sat 96%.? CVBG earlier this morn 7.49/30/+1.? Tmax 101.3?.? Pupils about 3-4mm bilat, dysconjugate.? +/- corneals, No dolls eyes, no gag reflex to pulling the ET, but he does have a vigorous cough to suctioning.? Either no response or decerebrate posturing to painful stim on the left side; no response to painful stim on the right side, toes are flat.? No JVD, chest is CTA w normal exp phase, regular rate and rhythm with normal-sounding S1-S2 with no murmur or gallops.? He has no peripheral edema.? He appears to vomiting small bowel contents. He underwent repeat EEG today with all sedation off.? With stimulation, the patient started shaking vigorously at a high frequency, that looked like shivering to me.? Discussed with Dr. Mart.? According to Dr. Mart, the EEG was almost flat. ?No seizure activity during that shaking episode.? Dr. Mart?s opinion was that the patient was close to brain and the family should dis continue care. We gave the patient a 60 mg bolus of propofol and that stopped the high freq shaking.? We then put him on a drip at 50 ug and he?s not shivering.? Dropped it to 40ug and still not shivering. LABORATORY DATA:? Below. IMPRESSION: 1. OHCA 2. Diffuse cerebral edema. 3. Coma secondary to anoxic encephalopathy, with marked partial loss of brainstem reflexes. 4. Myoclonus. No prognosis for recovery of cortical function.? Likely to progress to brain , altho the period of maximum edema (at 72 hrs) has passed, and he still has brain stem fxn.? At best, he?ll wind up in a vegetative state. I spoke at length with the patient?s family on Aug 15.? The daughters are grap pling with how to handle it and how to convince their mother that Thai is not going to come back.? I spoke to the sister Tyree again today by phone and gave her the news about the EEG and the neurology opinion.? She wants to stop.? She voiced that they?ll come in tomorrow or Monday. Critical care time (include mult visits to the bedside; excluding procedures): ?80+ min. Critical Care Time (minutes): 80 Physical Exam Vital Signs: Vital Signs: Last Vital Signs Temp 98.7 F 08/17/22 08:00 Pulse 104 H 08/17/22 10:00 Resp 23 H 08/17/22 10:00 BP 124/85 08/17/22 10:00 Pulse Ox 93 08/17/22 10:00 O2 Del Method 08/17/22 10:00 FiO2 30 08/17/22 10:00 BMI result Body Mass Index 25.7 Objective Data Labs CBC & Chem 7: 08/15/22 05:24 08/17/22 05:00 Labs: Laboratory Results - last 24 hr 08/17/22 08/17/22 05:00 05:10 VBG pH 7.49 H VBG pCO2 30 VBG pO2 53 VBG HCO3 23 VBG O2 Saturation 81.0 VBG Base Excess 1.1 Sodium 140 Potassium 4.2 Chloride 106 Carbon Dioxide 22 Anion Gap 16 BUN 20 H Creatinine 0.62 Estim Creat Clear Calc 151.4 Estimated GFR > 60 Random Glucose 112 Calcium 9.2 D Phosphorus 3.5 Magnesium 2.5 Microbiology Microbiology Results: Microbiology 08/13/22 01:12 Sputum - Suctioned Gram Stain - Final 08/13/22 01:12 Sputum - Suctioned Sputum Culture - Final 08/13/22 01:12 Blood - Venous Blood Culture - Preliminary No growth after 48 hours. 08/13/22 01:12 Blood - Venous Blood Culture - Preliminary No growth after 48 hours. 08/12/22 10:45 Blood - Venous Blood Culture - Preliminary No growth after 48 hours. 08/12/22 10:45 Blood - Venous Blood Culture - Preliminary No growth after 48 hours. 08/13/22 01:12 Urine Catheterized - Bush Catheter Urine Culture - Final No growth. 08/11/22 20:12 Urine clean catch - Urine de la cruz top Urine Culture - Final No growth. 08/12/22 10:17 Blood - Venous Blood Culture - Final 08/12/22 10:17 Blood - Venous Blood Culture - Final Quality Stroke Does the patient have a stroke diagnosis?: No VTE Prior VTE?: No VTE Risk Level:: Medical - moderate - high VTE Device Contraindication: N/A - Device Ordered VTE Drug Contraindication: N/A - Med Ordered Critical Care Time Critical Care Time (minutes): 90
--- NOTE | 2022-08-17 11:51 | P.CNNE_ITS ---
History of Present Illness Data of Consult Service Date: 08/17/22 Primary Care Provider: Unknown Physician HPI Reason for consult: encephalopathy 32-year-old gentleman, polysubstance abuse, with underlying bipolar disorder and schizophrenia who suffered an unwitnessed out of hospital arrest with returned spontaneous circulation with CPR by EMS intubated in ER, intubated and transferred to ICU. He has been unresponsive and having generalized convulsion type of movements. Review of Systems Review of Systems: Could not be done with [facility] Past Medical History Medical History (Updated 08/14/22 @ 01:18 EDT by Mary Flores MD) CAYETANO (acute kidney injury) Bipolar disorder Opioid use disorder Rhabdomyolysis Schizophrenia Suicidal ideation Family History Family History Other No family history of coronary artery disease Surgical History Surgical History No pertinent past surgical history Social History Social History Household Members: Unknown / Unable to assess Household Members Other:: 2 friends Housing: Unknown / Unable to assess Do you presently have visiting nurse or other home services: No Unable to assess alcohol history related to: Unable to respond Alcohol intake: current Alcohol intake frequency: does not drink Alcohol type: beer and hard liquor Patient Tobacco Use Status: Tobacco use Unknown Tobacco use type: Cigarette Cigarette Packs Per Day: 1 Cigarettes Per Day: 20.0 Years Smoked: 15 e-Cigarette/Vaping Use: Former Use Second Hand Smoke Exposure: Yes Substance Use Type: Crack/Cocaine, Former Substance User and Marijuana service: No Current occupational status: unemployed Sexual orientation: Don't Know Meds Allergies Allergy/AdvReac Type Severity Reaction Status Date / Time Unable to Assess Allergy Unverified 08/11/22 18:12 Active Medications: Current Medications Chlorhexidine Gluconate (Chlorhexidine Gluc Oral Rinse 15 Ml Mouthwash) 15 ml BUCCAL TID [facility] Last Admin: 08/17/22 08:32 Dose: 15 ml Famotidine (Famotidine/Pf 20 Mg/2 Ml Vial) 20 mg IVPUSH DAILY [facility] Last Admin: 08/17/22 08:32 Dose: 20 mg Glycopyrrolate (Glycopyrrolate 0.2 Mg/Ml Vial) 0.2 mg IV Q6H PRN PRN Reason: excessive secretions Last Admin: 08/17/22 08:32 Dose: 0.2 mg Heparin Sodium (Porcine) (Heparin Sodium,Porcine 5,000 Unit/Ml Vial) 5,000 unit SUBCUT Q8H [facility] Last Admin: 08/17/22 03:50 Dose: 5,000 unit Levetiracetam (Keppra) 500 mg in 100 mls @ 400 mls/hr IV Q12H [facility] Last Infusion: 08/17/22 02:16 Dose: Infused Multi-Ingred Cream/Lotion/Oil/Oint (Artificial Tears Ophth Oint 3.5 Gm Tube) 1 appl EYE-BOTH Q6H [facility] Last Admin: 08/17/22 03:50 Dose: Not Given Pharmacy Consult (Consult Rx Perform Med Rec) 1 each MISCELLANE ONCE PRN PRN Reason: Consult order Home Medications Medication Instructions Recorded Confirmed Last Taken Type bupropion HCl 300 mg 24 hr tablet, 300 mg PO DAILY 08/12/22 08/12/22 Unknown History extended release docusate sodium 100 mg capsule 100 mg PO BID 08/12/22 08/12/22 Unknown History hydroxyzine HCl 25 mg tablet 25 mg PO BID PRN Anxiety 08/12/22 08/12/22 Unknown History lithium carbonate 300 mg capsule 300 mg PO DAILY 08/12/22 08/12/22 Unknown History lithium carbonate 600 mg capsule 600 mg PO BEDTIME 08/12/22 08/12/22 Unknown History quetiapine 300 mg tablet 300 mg PO BEDTIME 08/12/22 08/12/22 Unknown History quetiapine 50 mg tablet 50 mg PO TID 08/12/22 08/12/22 Unknown History sennosides 8.6 mg tablet (senna) 17.2 mg PO BEDTIME 08/12/22 08/12/22 Unknown History Physical Exam Vital Signs: Vital Signs: Last Vital Signs Temp 98.7 F 08/17/22 08:00 Pulse 109 H 08/17/22 11:00 Resp 20 08/17/22 11:00 BP 140/82 H 08/17/22 11:00 Pulse Ox 92 08/17/22 11:00 O2 Del Method 08/17/22 11:00 FiO2 30 08/17/22 11:00 BMI result Body Mass Index 25.7 Neuro: Other: Intubated. Propofol was stopped more than an hour before examine him. Eyes were open staring straight. No eye contact was made. There was little bit of movement of eyes. With oculocephalic maneuver I was not able to fully move them. Neck was supple. Face seems symmetrical. There was no movement of arms or legs other than intermittent decorticate type of movements. Deep tendon reflexes are absent with flexor plantars. Results Labs CBC & Chem 7: 08/15/22 05:24 08/17/22 05:00 Labs: BMP 08/17/22 05:00 Sodium 140 Potassium 4.2 Chloride 106 Carbon Dioxide 22 BUN 20 H Creatinine 0.62 Calcium 9.[address] did not reveal any significant abnormality that was done on . Couple of days after CT was repeated that reveals significant loss of de la cruz-white differentiation diffusely, more so on right hemisphere, with significant mass effect. Tentorial hyperdensity was also noted. Microbiology Microbiology Results: Microbiology 08/13/22 01:12 Sputum - Suctioned Gram Stain - Final 08/13/22 01:12 Sputum - Suctioned Sputum Culture - Final 08/13/22 01:12 Blood - Venous Blood Culture - Preliminary No growth after 48 hours. 08/13/22 01:12 Blood - Venous Blood Culture - Preliminary No growth after 48 hours. 08/12/22 10:45 Blood - Venous Blood Culture - Preliminary No growth after 48 hours. 08/12/22 10:45 Blood - Venous Blood Culture - Preliminary No growth after 48 hours. 08/13/22 01:12 Urine Catheterized - Bush Catheter Urine Culture - Final No growth. 08/11/22 20:12 Urine clean catch - Urine de la cruz top Urine Culture - Final No growth. 08/12/22 10:17 Blood - Venous Blood Culture - Final 08/12/22 10:17 Blood - Venous Blood Culture - Final Assessment and Plan (1) Anoxic encephalopathy: Status: Acute Severe anoxic encephalopathy with significant changes on head CT suggesting diffuse brain injury, more so in right hemisphere. As far as convulsions are concerned, there may or may not be epileptic and reflected significant brain injury. I recommend doing an EEG. Overall prognosis is quite poor and should be conveyed to the family. Procedures Date of Service Date of Service: 08/17/22
--- NOTE | 2022-08-17 13:05 | PC.NURSE ---
Addendum entered by Nitza Christopher RN 08/17/22 17:14: [facility] contacted and provided PMH for patient. Case # [id number], Name: Iris Riojas Addendum entered by Nitza Christopher RN 08/17/22 14:31: Huerta cather leaking at proximal end of tube. Huerta removed and new huerta placed 16F 14:00 Vent settings changed per MD to PS/CPAP 12/5 30%. Pt tolerating and maintaining volumes. MD called to bedside for pt continuous full-body shaking, seizure-like activity. Propofol resumed per MD @ 50 mcg/kg/min due to pt acute shaking, seizure-like activity. Original Note: 08:45 Pt coughing forcefully, vomiting, OG tube to continuous suction with RN and RT monitoring patient. 08:50 ET tube noted to be sliding out. MD called to bedside. Reintubation supplies called for and ambu bag connected. Pt manually ambu bagged. 08:52 50 mg Rocuronium given IVP, pt receiving propofol gtt continuous @30 mcg/kg/min. MD reintubated with ET tube 7.5 25@lip, OG tube placed and CXR taken to confirm placement. Propofol turned off per MD 08:53 for EEG and neuro consult.
[2022-08-17] MEDS: Artificial Tears Ophth Oint 3.5 GM TUBE 1 APPL EYE-BOTH ×2 (13:53→16:25)
[2022-08-17] MEDS: propofoL 1,000 MG/100 ML VIAL 21.66 MG IVCONT ×3 (14:03→22:48)
--- NOTE | 2022-08-17 14:24 | MHC.CM.PN ---
CM continues to follow patient for any needs as appropriate.
[2022-08-17] MEDS: Acetaminophen Supp 650 MG SUPP.RECT PR (20:45)
[2022-08-18] VITALS (30 sets, daily range): BP systolic 93–131; BP diastolic 37–75; PULSE 59–103; RESP 10–32; TEMP 35–39.3; O2SAT 89–100; BMI 27.2
[2022-08-18] MEDS: Artificial Tears Ophth Oint 3.5 GM TUBE 1 APPL EYE-BOTH ×5 (00:10→23:39)
[2022-08-18] MEDS: levETIRAcetam in NaCl (iso-os) 500 MG/100 ML PIGGYBACK 400 MG IV ×2 (02:02→13:53)
[2022-08-18] MEDS: propofoL 1,000 MG/100 ML VIAL 21.66 MG IVCONT ×5 (03:27→21:50)
[2022-08-18] MEDS: Heparin Sodium,Porcine 5,000 UNIT/ML VIAL 5000 UNIT SUBCUT ×3 (03:27→19:44)
[2022-08-18 05:12] LABS: VBG Base Excess 3.2 mmol/L; VBG HCO3 26 mmol/L (22-26); VBG pCO2 37 mmHg; VBG pH 7.46 (7.32-7.43); VBG pO2 54 mmHg
[2022-08-18 05:47] LABS: Venous Blood Gas Refer to POC result
[2022-08-18] MEDS: Famotidine/PF 20 MG/2 ML VIAL IVPUSH (07:37)
[2022-08-18] MEDS: Chlorhexidine Gluc Oral Rinse 15 ML MOUTHWASH BUCCAL ×3 (07:37→20:47)
--- NOTE | 2022-08-18 10:04 | PC.NURSE ---
Addendum entered by Mayra Valle RN 08/18/22 15:50: [facility] CONTACTED ABOUT FAMILY'S PLAN TO TERMINALLY EXTUBATE PATIENT TOMORROW 08/19/22 ONCE THEY ARRIVE AROUND 11A-12P. I SPOKE WITH STEPHANIE - THEY ARE PASSING ALONG THAT INFORMATION TO ONE OF THEIR COORDINATORS. Original Note: AUTUMN FROM [facility] [employer] [facility] CALLED FOR UPDATE ON PATIENTS CONDITION AND ASKED TO CALL THEM WITH ANY UPDATES OR CHANGE IN STATUS WELL IF THE FAMILY ARRIVES. PATIENT IS A POTENTIAL CANDIDATE FOR DONATION. PLEASE DO NOT TELL THE FAMILY THAT [facility] HAS BEEN CONTACTED PER [facility]. CASE #[id number]
[2022-08-18] MEDS: Midazolam HCl/NS 50 MG/50 ML PLAST..BAG IVCONT ×2 (11:25→17:59)
--- NOTE | 2022-08-18 13:27 | PM.CCPN ---
Subjective Subjective Date of Service: 08/18/22 Interval History: Mr. Coyne was admitted to the ICU Aug 11 after [id number] cardiac arrest (OHCA). The patient is a 32 yo M with PMHx of bipolar disorder, schizophrenia, polysubstance abuse, rhabdomyolysis w CAYETANO, and suicidal ideation. On August 11, the patient was found unresponsive in the field. ?Reportedly, the patient had been given Narcan by a bystander. ?On EMS arrival, the patient was bradycardic but then became asystolic. ?CPR was initiated and the patient was intubated with an i-gel LMA. ?He was given 2 rounds of epinephrine and had ROSC w a strong pulse. ?On arrival to the ED, the patient had pulses and a BP. ?The patient was immediately trachealy intubated. ?The patient had no response to painful stimulus, and was not breathing spontaneously. Subsequently did make agonal respiratory efforts. ?The patient was admitted to the ICU. Initial head CT done 08/11 was read as showing no acute findings, though there may have already been some loss of solano-white differentiation. ?EEG done 08/12 with the patient on propofol showed a burst suppression pattern, which is nonspecific but could suggest either severe anoxic encephalopathy or could also be a manifestation of generalize status epilepticus. ?No focality was noted. ?Clinical correlation and repeat EEG with the propofol off was recommended. Repeat head CT on 08/13 showed clear interval development of diffuse ill-defined hypoattenuation throughout the cerebrum with blurring of the de la cruz-white differentiation, sulcal effacement, and partial effacement of the lateral ventricles compatible with diffuse cerebral edema or anoxic brain injury. Nuclear medicine cerebral flow study that day demonstrated normal perfusion. ?The patient still had spont RR at the time of the study. ?The patient was put on a midazolam drip bec he was thought to be having repetitive seizures. The midazolam drip was stopped on ?the morning of 08/16/22. ?The patient remained on Keppra. ?He appeared to be having myoclonus, but no seizure activity. ?Yesterday morning, he started having more high shivering that did not appear to be sz activity, kassidy to stimulation. ?He required reintubation when his ETT was inadvertently dislodged (separate procedure). Yesterday, we switched him over to PSV12/30%/+5. ?He underwent repeat EEG ?with all sedation off. ?With stimulation, the patient started shaking vigorously at a high frequency, that looked like shivering. ?According to Dr. Mart, the EEG was almost flat and there was no seizure activity during that shaking episode. ?Dr. Mart?s opinion was that the patient was close to brain and the family should discontinue care. The patient continued with the high freq shaking and was started on a propofol drip which stopped the movements. Overnight, the patient's code status was changed to DNR as there would be no medical benefit from such therapy. This morning, we switched him over to PSV. ?HR 78, SR. ?BP 94/45. ?On PSV 20/50%/+5, RR is 22, Vt 400cc, Ve 11L, PIP 25cm, ETCO2 21mm, Sat 92%. ?CVBG earlier this morn 7.46/37/+3. ?Tmax 100.8?. ?Pupils about 2-3mm bilat, dysconjugate. ?On the propofol, no corneals, no dolls eyes, no gag reflex to pulling the ET, but he does have a vigorous cough to suctioning. ?Either no response or decerebrate posturing to painful stim on the left side; no response to painful stim on the right side, toes are flat. ?No JVD, chest is CTA w normal exp phase.? Abdomen flat, no edema. LABORATORY DATA:? Below. IMPRESSION: 1. OHCA 2. Diffuse cerebral edema. 3. Coma secondary to anoxic encephalopathy, with marked partial loss of brainstem reflexes. 4. Myoclonus. No prognosis for recovery of cortical function. ?Likely to progress to brain , altho the period of maximum edema (at 72 hrs) has passed, and at this time he still has brain stem fxn. ?At best, he?ll wind up in a vegetative state. We're waiting for family to withdraw support, per our conversation with them by phone yesterday, and the day before at the bedside.? The nurse spoke with the patient's sister today, they're not coming today, hope they're coming in tomorrow. Critical Care Time (minutes): 60 Physical Exam Vital Signs: Vital Signs: Last Vital Signs Temp 100.6 F H 11/10/22 13:00 Pulse 81 08/18/22 13:00 Resp 27 H 08/18/22 13:00 BP 93/45 L 08/18/22 13:00 Pulse Ox 89 L 08/18/22 13:00 O2 Del Method 08/18/22 13:00 FiO2 30 08/18/22 13:00 BMI result Body Mass Index 27.2 Objective Data Labs CBC & Chem 7: 08/15/22 05:24 08/17/22 05:00 Labs: Laboratory Results - last 24 hr 08/18/22 05:06 VBG pH 7.46 H VBG pCO2 37 VBG pO2 54 VBG HCO3 26 VBG O2 Saturation 81.0 VBG Base Excess 3.2 Microbiology Microbiology Results: Microbiology 08/13/22 01:12 Blood - Venous Blood Culture - Final No growth after 5 days. 08/13/22 01:12 Blood - Venous Blood Culture - Final No growth after 5 days. 08/12/22 10:45 Blood - Venous Blood Culture - Final No growth after 5 days. 08/12/22 10:45 Blood - Venous Blood Culture - Final No growth after 5 days. 08/13/22 01:12 Sputum - Suctioned Gram Stain - Final 08/13/22 01:12 Sputum - Suctioned Sputum Culture - Final 08/13/22 01:12 Urine Catheterized - Bush Catheter Urine Culture - Final No growth. 08/11/22 20:12 Urine clean catch - Urine de la cruz top Urine Culture - Final No growth. 08/12/22 10:17 Blood - Venous Blood Culture - Final 08/12/22 10:17 Blood - Venous Blood Culture - Final Quality Stroke Does the patient have a stroke diagnosis?: No VTE Prior VTE?: No VTE Risk Level:: Medical - moderate - high VTE Device Contraindication: N/A - Device Ordered VTE Drug Contraindication: N/A - Med Ordered Critical Care Time Critical Care Time (minutes): 60
[2022-08-18] MEDS: Glycopyrrolate 0.2 MG/ML VIAL IV (14:25)
--- NOTE | 2022-08-18 15:35 | PC.NURSE ---
Addendum entered by Nitza Christopher RN 08/18/22 19:23: Pt vent settings adjusted to AC 12/450/5/30% Propofol gtt resumed per MD @10 mcg/kg/min. Pt continued to have convulsions, titrated gtt up to 50 mcg/kg/min per MD Original Note: 09:00 MAP 57, MD notified, no new orders 09:55 pt vent settings changed from AC settings to PS 12/5 30%. Pt had 2 episodes of apnea with apnea alarm. vent settings changed back to AC 12/450/5/30% at 10:00 11:05 MD assessed pt and vent settings trialed back on PS 12/5 30% Pt started on Versed gtt @4 for shaking, convulsions. Propofol gtt decreased from 50 to 40 mcg/kg/min. Propofol gtt paused 14:20 per MD, versed continued. 14:25 Pt had further episodes of apnea with vent apneic alarm, convulsions. MD and Respiratory therapy notified. Pt vent settings changed to AC 8/450/5/60%. Pt continues to have elevated temp thoughout this shift with cooling blanket applied, 101.7F at 16:00
--- NOTE | 2022-08-18 16:14 | MHC.CM.PN ---
Call placed to pt's sister Tyree. She states herself, sister and mother will arrive to [facility] on 08/19 between and 12 to withdraw all supportive care in light of pt's condition and grave prognosis. ICU care team updated on plan. Will request [facility] pastoral care to offer support for pt and family.
[2022-08-18] MEDS: propofoL 200 MG/20 ML VIAL 50 MG IVPUSH (21:49)
--- NOTE | 2022-08-18 23:13 | PC.NURSE ---
At start of shift patient noted to have new T-wave inversions in leads I and II. Candi DEJESUS notified, no new orders at this time. At approximately 2030, patient with increased RR low to mid 30s and myoclonus. OLEG made aware, x1 order for 50mg Propofol ordered and given. Myoclonus completely resolved and RR decreased to mid 20s. Fiorella from [facility] called for update on patients condition. [facility] requesting to be called for any change in condition or worsening neuro status. Patient remains potential organ donor. Plan for family coordinator to reach out to family this evening. Per NEOB, please do not mention organ donation to family. Patients mother (Preeti) called for update. During call Preeti notified this RN that from this point forward only she should be receiving updates on patients condition - no information/updates to be given to patients sisters. Per mother, okay for sisters to FaceTime. Pulley Mortiser Operator made aware and mother's phone number added to chart.
[2022-08-19] VITALS (31 sets, daily range): BP systolic 91–132; BP diastolic 49–76; PULSE 61–98; RESP 12–48; TEMP 36.3–38.5; O2SAT 86–100; BMI 26.8
[2022-08-19] MEDS: levETIRAcetam in NaCl (iso-os) 500 MG/100 ML PIGGYBACK 400 MG IV ×2 (02:34→14:00)
[2022-08-19] MEDS: propofoL 1,000 MG/100 ML VIAL 21.66 MG IVCONT ×5 (02:35→18:28)
[2022-08-19] MEDS: Heparin Sodium,Porcine 5,000 UNIT/ML VIAL 5000 UNIT SUBCUT ×2 (04:22→10:55)
[2022-08-19] MEDS: Artificial Tears Ophth Oint 3.5 GM TUBE 1 APPL EYE-BOTH ×2 (04:22→08:18)
[2022-08-19] MEDS: Midazolam HCl/NS 50 MG/50 ML PLAST..BAG IVCONT ×2 (06:12→18:29)
[2022-08-19] MEDS: Famotidine/PF 20 MG/2 ML VIAL IVPUSH (07:47)
[2022-08-19] MEDS: Chlorhexidine Gluc Oral Rinse 15 ML MOUTHWASH BUCCAL ×2 (07:47→14:00)
--- NOTE | 2022-08-19 09:55 | MHC.CLN ---
F/U DISCUSSED AT ROUNDS WITH PT TO REMAIN NPO FOLLOWING WITH TEAM AND WILL PROVIDE SUPPORT NEEDED
--- NOTE | 2022-08-19 10:26 | P.CDIC_ITS ---
CDI Concurrent Query Documentation Clarification: PHYSICIAN'S DOCUMENTATION REQUEST Date of Query: 08/19/22 1027 Patient Name: Thai Coyne Admit Date: 08/11/22 Dear Doctor, A review of the medical record indicates additional documentation may be needed. Please review below and update the documentation accordingly. Clinical Indicators: Respiratory failure was documented on 08/17/22. Risk Factors/Clinical Indicators/Treatments per MD note : Acute respiratory failure, with inadvertent dislodgement of in-situ ETT. The patient was oxgenated by BVM ventilation.? Sat never dropped below 90% If possible, please further clarify the type and acuity of respiratory failure: Type: * Respiratory failure with hypoxia * Respiratory failure with hypercapnia * Respiratory failure with hypoxia and hypercapnia * Other (please specify) * Unable to determine Use of terms such as suspected, likely, concern for, or probable (associated with a specific diagnosis that is being evaluated, monitored, or treated as if it exists) are acceptable and can be coded in the inpatient setting, when documented at the time of discharge. Thank you, Francisca Felder RN Extension: [phone] Please use your independent medical judgment in providing your response. THIS QUERY IS PART OF THE PERMANENT MEDICAL RECORD Provider Response: Acute Respiratory Failure
[2022-08-19] MEDS: fentaNYL citrate/NS 1,000 MCG/100 ML PLAST..BAG 1 MCG IVCONT (11:01)
--- NOTE | 2022-08-19 11:01 | PM.CCPN ---
Subjective Subjective Date of Service: 08/19/22 Interval History: Mr. Coyne was admitted to the ICU Aug 11 after [id number] cardiac arrest (OHCA). The patient is a 32 yo M with PMHx of bipolar disorder, schizophrenia, polysubstance abuse, rhabdomyolysis w CAYETANO, and suicidal ideation. On August 11, the patient was found unresponsive in the field.? Reportedly, the patient had been given Narcan by a bystander.? On EMS arrival, the patient was bradycardic but then became asystolic.? CPR was initiated and the patient was intubated with an i-gel LMA.? He was given 2 rounds of epinephrine and had ROSC w a strong pulse.? On arrival to the ED, the patient had pulses and a BP.? The patient was immediately trachealy intubated.? The patient had no response to painful stimulus, and was not breathing spontaneously.? Subsequently did make agonal respiratory efforts.? The patient was admitted to the ICU. Initial head CT done 08/11 was read as showing no acute findings.? IMO, the CT may have already shown some loss of solano-white differentiation.? EEG done 08/12 with the patient on propofol showed a burst suppression pattern, which is nonspecific but could suggest either severe anoxic encephalopathy or could also be a manifestation of generalize status epilepticus.? No focality was noted.? Clinical correlation was recommended and repeat EEG with the propofol off was recommended. Repeat head CT on 08/13 showed clear interval development of diffuse ill-defined hypoattenuation throughout the cerebrum with blurring of the de la cruz-white differentiation, sulcal effacement, and partial effacement of the lateral ventricles compatible with diffuse cerebral edema or anoxic brain injury. Nuclear medicine cerebral flow study that day demonstrated normal perfusion.? No surprise, given that by report, the patient still had spont RR at the time of the study.? The patient was put on a midazolam drip bec he was thought to be having repetitive seizures. A repeat EEG was done Aug 17 with the patient off all sedation.? Dr. Mart?s reading is:? ?The background EEG rhythm was very low amplitude almost with no discernible regular rhythm.? Every 1 to 2 seconds, there were brief low amplitude waves.? Even this was not noted during the whole tracing.? IMPRESSION: ?Abnormal EEG suggestive of severe bihemispheric dysfunction, which could be consistent with severe anoxic encephalopathy.?? No seizure activity was noted during the study, even though high frequency shaking motion (looked like shivering) was precipitated by noxious stimulation during the study. Over the last two days we did pressure support trials.? The patient was able to breathe adequately on as low as 12cm PSV, but his resp rhythm wasn?t regular, he would have short periods of apnea, and often dysynchronus ventilation, so we put him back on PSV.? His myoclonus got worse so we restarted him on propofol, up to 50ug/k/m, then had to add midazolam 4 mg/hr to maintain control.? He also remains on Keppra. This morning on propofol 50 ug and midazolam 4mg, he remains unresponsive.? No corneals, no dolls eyes, no response to painful stim on the right; painful stim on the left elicits poss decorticate posturing.? Toes flat.? HR 89, SR.? BP 100/55.? On AC 12/450/40%/+5, RR is 28, Vt 10L, PIP 19cm, ETCO2 20mm, Sat 91%.? CVBG earlier this morn 7.46/37/+3.? Tmax 100?.? Pupils about 4mm bilat, dysconjugate.? No JVD.? Has a continuous hiccoughing type of motion of his chest.? Unable to hear breath sounds.? The belly is very soft.? He has no peripheral edema. LABORATORY DATA:? Below. IMPRESSION: 1. OHCA 2. Diffuse cerebral edema. 3. Coma secondary to anoxic encephalopathy, no cortical activity, marked partial loss of brainstem reflexes. 4. Myoclonus. 5. Acute respiratory failure.? 2? to above. No prognosis for recovery of cortical function.? Likely to progress to brain , altho the period of maximum edema (at 72 hrs) has passed, and he still has brain stem fxn.? At best, he?ll wind up in a vegetative state. I?ve spoke at length with the patient?s family in multiple conversations.? My understanding is that they plan on coming to the hospital today to withdraw critical care mangmnt and change to comfort measures status. ADDENDUM:? The family came in and made the decision to extubate to comfort measures.? He was extubated without incident.? Tachypneic on room air, w SpO2 60?s.? No seizures.? Copious secretions.? Wrote for scopolamine patch, in addition to the glycopyrrolate. Critical care time: 70+ min. Critical Care Time (minutes): 70 Physical Exam Vital Signs: Vital Signs: Last Vital Signs Temp 99.9 F 08/19/22 10:00 Pulse 84 08/19/22 10:00 Resp 28 H 08/19/22 10:00 BP 110/57 L 08/19/22 10:00 Pulse Ox 89 L 08/19/22 10:00 O2 Del Method 08/19/22 10:00 O2 Flow Rate 60 08/18/22 17:00 FiO2 40 08/19/22 10:00 BMI result Body Mass Index 26.8 Objective Data Labs CBC & Chem 7: 08/15/22 05:24 08/17/22 05:00 Microbiology Microbiology Results: Microbiology 08/13/22 01:12 Blood - Venous Blood Culture - Final No growth after 5 days. 08/13/22 01:12 Blood - Venous Blood Culture - Final No growth after 5 days. 08/12/22 10:45 Blood - Venous Blood Culture - Final No growth after 5 days. 08/12/22 10:45 Blood - Venous Blood Culture - Final No growth after 5 days. 08/13/22 01:12 Sputum - Suctioned Gram Stain - Final 08/13/22 01:12 Sputum - Suctioned Sputum Culture - Final 08/13/22 01:12 Urine Catheterized - Bush Catheter Urine Culture - Final No growth. 08/11/22 20:12 Urine clean catch - Urine de la cruz top Urine Culture - Final No growth. 08/12/22 10:17 Blood - Venous Blood Culture - Final 08/12/22 10:17 Blood - Venous Blood Culture - Final Quality Stroke Does the patient have a stroke diagnosis?: No VTE Prior VTE?: No VTE Risk Level:: Medical - moderate - high VTE Device Contraindication: N/A - Device Ordered VTE Drug Contraindication: N/A - Med Ordered Critical Care Time Critical Care Time (minutes): 60
--- NOTE | 2022-08-19 16:06 | PC.NURSE ---
FAMILY BEDSIDE FOR DISCUSSION ABOUT TERMINAL EXTUBATION, [facility] AVAILABLE AND SPOKE WITH FAMILY. FAMILY DENIED ORGAN DONATION AT THIS TIME, BUT OPEN TO THE IDEA OF TISSUE DONATION. EXTUBATED AT APPROX 1545.
[2022-08-19] MEDS: Glycopyrrolate 0.2 MG/ML VIAL IV (16:16)
[2022-08-19] MEDS: Scopolamine 1.5 MG PATCH.TD.3 EAR-BEHIND (16:16)
[2022-08-19] MEDS: fentaNYL citrate/NS 1,000 MCG/100 ML PLAST..BAG 10 MCG IVCONT (21:11)
[2022-08-19] MEDS: Morphine Sulfate/NS 100 MG/100 ML PLAST..BAG IVCONT (23:21)
[2022-08-20] VITALS (9 sets, daily range): PULSE 115; RESP 22–32
--- NOTE | 2022-08-20 01:38 | PC.NURSE ---
RR 30, titrated morphine gtt from 2mg/hr to 4mg/hr. RR still 30 over an hour later, titrated to 6mg/hr per protocol.
[2022-08-20] MEDS: Glycopyrrolate 0.2 MG/ML VIAL IV (07:53)
--- NOTE | 2022-08-20 08:02 | PC.NURSE ---
Pt rr 22, continued morphine infusion rate of 6mg/hr. Suctioned patient and provided mouth care. Administered glycopyrrolate
--- NOTE | 2022-08-20 12:27 | HO.PM.IMPN ---
Subjective Subjective Date of Service: 08/20/22 Interval History: cc: overdose interval history:appears comfortable Review of Systems Review of Systems: Yes Unobtainable due to mental status Physical Exam Vital Signs: Vital Signs: Last Vital Signs Temp 101.1 F H 08/19/22 15:00 Pulse 88 08/19/22 23:00 Resp 28 H 08/20/22 12:02 BP 103/51 L 08/19/22 15:00 Pulse Ox 89 L 08/19/22 23:00 O2 Del Method 08/19/22 23:00 O2 Flow Rate 60 08/18/22 17:00 FiO2 60 08/19/22 15:00 BMI result Body Mass Index 26.8 General: appears comfortable Objective Data Active Medications Glycopyrrolate (Glycopyrrolate 0.2 Mg/Ml Vial) 0.2 mg IV Q6H PRN PRN Reason: excessive secretions Last Admin: 08/20/22 07:53 Dose: 0.2 mg Documented By: JACOB Morphine Sulfate (Morphine Sulfate/Ns) 100 mg in 100 mls @ 0 mls/hr IVCONT .Q0M [facility]; Protocol Last Infusion: 08/20/22 01:22 Dose: 6 mg/hr, 6 mls/hr Documented By: JOSE ALFREDO Labs CBC & Chem 7: 08/15/22 05:24 08/17/22 05:00 Assessment and Plan (1) Anoxic encephalopathy: Status: Acute Plan 32M with pmh polysubstance abus, schizophrenia, depression, presented after cardiac arrest from overdose copmlicated by anoxic brain injury, now downgraded to medical floor for comfort measures anoxic brain injury appears comfortable, continue morphine Quality Stroke Does the patient have a stroke diagnosis?: No VTE Prior VTE?: No VTE Risk Level:: Medical - moderate - high VTE Device Contraindication: N/A - Device Ordered VTE Drug Contraindication: N/A - Med Ordered
--- NOTE | 2022-08-20 18:28 | PC.NURSE ---
wasted 2.5 ml of morphine from continuous drip with second RN Lois present. Was unable to locate this bag in xis to waste per protocol
[2022-08-20] MEDS: Morphine Sulfate/NS 100 MG/100 ML PLAST..BAG 8 MG IVCONT (18:30)
--- NOTE | 2022-08-20 20:39 | PC.NURSE ---
Patient resting comfortably, respirations 22. Morphine drip at 8mg/hr. Frequent mouth care provided. Family member updated.
--- NOTE | 2022-08-20 21:00 | PC.NURSE ---
08/20/222099 Morphine drip started at 2 mg/hr witnessed by Lizet Bolanos. Patient transferred to [facility] unit.
[2022-08-21] VITALS (10 sets, daily range): PULSE 155; RESP 23–30
[2022-08-21] MEDS: Morphine Sulfate/NS 100 MG/100 ML PLAST..BAG 8 MG IVCONT (07:24)
--- NOTE | 2022-08-21 07:38 | PC.NURSE ---
changed morphine drip at approx 0730, wated 13 mg with ROBERTO Abreu as witness. drip rate remains at 8mg/hr. will re-evaluate per protocol in approx 60 minutes as infusion had stopped prior to shift start.
[2022-08-21] MEDS: Glycopyrrolate 0.2 MG/ML VIAL IV (07:49)
--- NOTE | 2022-08-21 08:05 | PC.NURSE ---
pt's HR elevated in 150s, RR noted to be 30. adjusted drip rte to 9.9 ([employer]SEKEEPING [employer]ORDIN[employer] pump maximum) per protocol. will reassess for effectiveness
--- NOTE | 2022-08-21 11:10 | P.PNIM_ITS ---
Subjective Subjective Date of Service: 08/21/22 Interval History: cc: overdose interval history: tachypneic Review of Systems Review of Systems: Yes Unobtainable due to mental status Physical Exam Vital Signs: Vital Signs: Last Vital Signs Temp 101.1 F H 08/19/22 15:00 Pulse 155 H 08/21/22 08:03 Resp 30 H 08/21/22 08:03 BP 103/51 L 08/19/22 15:00 Pulse Ox 89 L 08/19/22 23:00 O2 Del Method 08/19/22 23:00 O2 Flow Rate 60 08/18/22 17:00 FiO2 60 08/19/22 15:00 BMI result Body Mass Index 26.8 General: tachypnea Objective Data Active Medications Glycopyrrolate (Glycopyrrolate 0.2 Mg/Ml Vial) 0.2 mg IV Q6H PRN PRN Reason: excessive secretions Last Admin: 08/21/22 07:49 Dose: 0.2 mg Documented By: JACOB Hydromorphone HCl (Dilaudid) 10 mg in 50 mls @ 0 mls/hr IV .Q0M [facility]; Protocol Labs CBC & Chem 7: 08/15/22 05:24 08/17/22 05:00 Assessment and Plan (1) Anoxic encephalopathy: Status: Acute Plan 32M with pmh polysubstance abus, schizophrenia, depression, presented after cardiac arrest from overdose copmlicated by anoxic brain injury, now downgraded to medical floor for comfort measures anoxic brain injury tachypneic, will change morephine to dilaudid Quality Stroke Does the patient have a stroke diagnosis?: No VTE Prior VTE?: No VTE Risk Level:: Medical - moderate - high VTE Device Contraindication: N/A - Device Ordered VTE Drug Contraindication: N/A - Med Ordered
[2022-08-21] MEDS: HYDROmorphone HCl/NS 10 MG/50 ML PIGGYBACK 2 MG IV (11:14)
--- NOTE | 2022-08-21 11:24 | PC.NURSE ---
Pt's RR continued to be around 30. alerted dr. gutierrez who ordered dilaudid for a continuous drip. Began the drip at 0.4mg per protocol and will reassess at 30 minutes
[2022-08-21] MEDS: HYDROmorphone HCl/NS 10 MG/50 ML PIGGYBACK 17 MG IV ×2 (15:44→20:30)
[2022-08-21] MEDS: HYDROmorphone HCl/NS 10 MG/50 ML PIGGYBACK 20 MG IV (23:47)
[2022-08-22] VITALS: RESP 26
--- NOTE | 2022-08-22 02:29 | PM.EVENT ---
Event Note Date of Service: 08/22/22 Event Note: I was called by the bedside nurse for evaluation of decreased spontaneous breathing. Upon my arrival, patient not responding to verbal or painful stimulus. No spontaneous movements present. Pupils mid dilated and fixed. No breath sounds appreciated over either lung field. No carotid pulses palpable. No heart sounds auscultated over precordium. Patient pronounced at 2 AM on 08/22/2022. Mother notified and offered condolences. Questions answered.
--- NOTE | 2022-08-22 06:51 | PM.DDS ---
Discharge Sum: Prov Provider Primary care physician: Unknown Physician Discharge Sum: Diag Contributing Factors (1) Anoxic encephalopathy: Discharge Sum: Summary Date and Time Date of admission: 08/11/22 19:56 Date of : 08/22/22 Summary Details: from initial hpi: Chief Complaint: Cardiac arrest ?32-year-old gentleman, polysubstance abuse, with underlying bipolar disorder and schizophrenia who suffered an unwitnessed out of hospital arrest with returned spontaneous circulation with CPR by EMS intubated in ER and transferred to intensive care unit. hospital course: Patient was admitted for cardiac arrest, acute hypoxic respiratory failure complicated by anoxic brain injury due to presumed drug overdose. On EEG was found to have minimal activity, did not show any signs of recovery. Therefore, decision was made to make patient comfort measures only. Patient was transitioned to hydromorphone infusion and peacefully on 08/22/22. Additional Data Attending physician: Cliff Tse MD
== END 2022-08-22 02:00 | disposition expired | DRG 812 ==
LOC: HO.ED 19:55 → HO.EDOVER 20:15 → HO.ICU 20:31 → HO.IMC 08-19 21:59
PROVIDERS: Anesthesiology; Internal Medicine Cardiovascular Disease; Physician Assistant; Admitting Provider Internal Medicine Pulmonary Disease; Emergency Provider Emergency Medicine; Visit Provider Internal Medicine
DX: T50.991A Poisoning by other drugs, medicaments and biological substances, accidental (unintentional), initial encounter (principal); G93.6 Cerebral edema; J96.00 Acute respiratory failure, unspecified whether with hypoxia or hypercapnia; R40.20 Unspecified coma; Z66 Do not resuscitate; Z51.5 Encounter for palliative care; G25.3 Myoclonus; U07.1 COVID-19; G93.1 Anoxic brain damage, not elsewhere classified; N17.9 Acute kidney failure, unspecified; Z86.74 Personal history of sudden cardiac arrest; F11.10 Opioid abuse, uncomplicated; F20.9 Schizophrenia, unspecified; F14.10 Cocaine abuse, uncomplicated; Z79.899 Other long term (current) drug therapy
CPT/HCPCS: 0241U; 36415; 70450; 71045; 78606; 80048; 80053; 80076; 80178; 80307; 81001; 81003; 82040; 82077; 82803; 82947; 83605; 83690; 83735; 83880; 84100; 84484; 85007; 85025; 85027; 85610; 85730; 87040; 87070; 87086; 87205; 92950; 93005; 94002; 94003; 94799; 95816; 99283; 99285; A9557; C1758; J1170; J1953; J2150; J2250; J2270; J2370; J3010; J7131